=== PATIENT | male | born 1970 | race Caucasian/White ===

== ENCOUNTER 2016-07-28 22:21 | Emergency (ER) | payer MEDICARE, MEDICAID ==
[~2016-07-28] VITALS: Ht 180.3 cm; Wt 124.3 kg
--- OUTSIDE RECORDS SUMMARY | 2016-07-28 22:27 | XMS REPORT | Summary of Care ---
Author Author Madeline Simms M.D. Unknown Address Unknown Phone Unavailable Care Team Providers Care Senior Sustainability Advisor Name Role Phone Jeremy John M.D. Unavailable Unavailable Jamar Spears D.O. Unavailable Unavailable Madeline Simms M.D. Unavailable Homa Todd M.D. Unavailable Madeline Simms Unavailable Unavailable Unavailable Functional Status Name Dates Details Functional status health issues are not documented Status: Name Dates Details Cognitive status health issues are not documented Status: Problems Name Dates Details Vitamin D deficiency (268.9, E55.9) Status: Active Morbid obesity (278.01, E66.01) Status: Active Hyperlipidemia (272.4, E78.5) Status: Active Dyspepsia (536.8, K30) Status: Active Nicotine dependence (305.1, F17.200) Status: Active 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, M19.071) Status: Active Hallux rigidus (735.2, M20.20) Status: Active Plantar fascial fibromatosis (728.71, M72.2) Status: Active Difficulty in walking (719.7, R26.2) Status: Active Obstructive sleep apnea (327.23, G47.33) Status: Active Allergic rhinitis due to pollen (477.0, J30.1) Status: Active Tear of medial meniscus of left knee, initial encounter Status: Active Current some day smoker (305.1, F17.200) Status: Active Chondromalacia of knee, 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, 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: Active Onychomycosis (110.1, B35.1) Status: Active Bipolar affective disorder (296.80, F31.9) Status: Active Effusion of left knee (719.06, M25.462) Status: Active Status post arthroscopy of left knee (V45.89, Z98.890) Status: Active Wound, open, toe (893.0, S91.109A) Status: Active Tobacco use disorder (305.1, F17.200) Status: Active 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, F41.8) Status: Active Essential hypertension (401.9, I10) Status: Active Hypothyroidism (244.9, E03.9) Status: Active Gastroesophageal reflux disease (530.81, K21.9) Status: Active Schizophrenia, unspecified (295.90, F20.9) Status: Active Left hip pain (719.45, M25.552) Status: Active Left knee pain (719.46, M25.562) Status: Active Lower back pain (724.2, M54.5) Status: Active Medications Name Dates Details Metoprolol Tartrate 25 MG Oral Tablet Take one tablet by mouth daily Quantity: 30 Simms M.D.Madeline * Start 21-Apr-2016 Active Levothyroxine Sodium 50 MCG Oral Tablet Take one tablet by mouth daily * Quantity: 30 Refills: 5 Simms M.D.Madeline * Start 19-May-2016 Active LORazepam 1 MG Oral Tablet TAKE 1/2 TABLET IN MORNING, 1 TABLET AT NOON, 1 TABLET AT BEDTIME. * Quantity: 45 Refills: 0 Simms M.D.Madeline * Start Active Levocetirizine Dihydrochloride 5 MG Oral Tablet take one tablet by mouth every day * Quantity: 90 Refills: 3 Simms M.D.Madeline * Start 09-Jun-2016 Active Omeprazole 20 MG Oral Capsule Delayed Release Take one capsule by mouth daily * Quantity: 90 Refills: 2 Simms M.D.Madeline * Start 26-Jan-2012 Active AmLODIPine Besylate 5 MG Oral Tablet TAKE ONE TABLET BY MOUTH IN THE MORNING * Quantity: 30 Refills: 5 Simms M.D.Madeline Start 14-Mar-2016 Active Refresh Tears 0.5 % Ophthalmic Solution INSTILL 1 DROP INTO BOTH EYES 4 TIMES DAILY NEEDED * Quantity: 15 Refills: 1 Simms M.D.Madeline * Start 24-Jun-2013 Active Fluticasone Propionate 50 MCG/ACT Nasal Suspension INSTILL 1 SPRAY IN EACH NOSTRIL ONCE A DAY * Quantity: 16 Refills: 11 Lex John M.D. Start 16-Feb-2016 Active Losartan Potassium 100 MG Oral Tablet Take one tablet by mouth daily * Quantity: 30 Refills: 5 Simms M.D.Madeline * Start 19-May-2016 Active Benztropine Mesylate 1 MG Oral Tablet Take 1 tablet twice daily * Refills: 0 Simms M.D.Madeline * Start 10-Dec-2014 Active Paliperidone ER 6 MG Oral Tablet Extended Release 24 Hour TAKE 1 TABLET DAILY. * Refills: 0 Simms M.D.Madeline * Start 31-May-2015 Active Nicotine Polacrilex 2 MG Mouth/Throat Lozenge ALLOW 1 LOZENGE TO DISSOLVE SLOWLY IN MOUTH DIRECTED * Quantity: 1 Refills: 0 Perez M.D.Kristi * Start Active 48 Lozenge Box Mupirocin 2 % External Ointment Apply to toe daily at HS for 1 month * Quantity: 1 Refills: 1 Simms M.D.Madeline * Start 25-May-2016 Active 22 GM Tube Diclofenac Sodium 75 MG Oral Tablet Delayed Release TAKE ONE TABLET BY MOUTH TWICE DAILY WITH FOOD * Quantity: 60 Refills: 1 Simms M.D.Madeline * Start 06-Jun-2016 Active Hydrocodone-Acetaminophen 7.5-325 MG Oral Tablet TAKE 1 TO 2 TABLETS EVERY 6 HOURS NEEDED FOR PAIN. * Quantity: 40 Refills: 0 Simms M.D.Madeline * Start 08-Mar-2016 Active Nicotine 21 MG/24HR Transdermal Patch 24 Hour APPLY 1 PATCH DAILY DIRECTED. * Quantity: 14 Refills: 0 Simms M.D.Madeline * Start 09-Jun-2016 Active Terbinafine HCl - 250 MG Oral Tablet 1QD FOR 3 MONTHS - TAKE ONE TABLET BY MOUTH EVERY DAY FOR 3 MONTHS * Quantity: 90 Refills: 0 Simms M.D.Madeline * Start 23-Jun-2014 End 19-Jun-2016 Active Naproxen 500 MG Oral Tablet TAKE 1 TABLET EVERY 12 HOURS WITH FOOD NEEDED. * Quantity: 20 Refills: 0 Regan D.O.Jamar * Start 10-Jun-2016 Active Cyclobenzaprine HCl - 10 MG Oral Tablet TAKE 1 TABLET AT BEDTIME NEEDED. MAY INCREASE TO TID IF NOT DRIVING OR OPERATING MACHINERY DURING DAY. * Quantity: 20 Refills: 0 Regan D.O.Jamar * Start 10-Jun-2016 Active PredniSONE 10 MG Oral Tablet TAKE 6 TABLETS TODAY, THEN DECREASE BY 1 TABLET EACH DAY UNTIL GONE. * Quantity: 21 Refills: 0 Regan D.O.Jamar * Start 10-Jun-2016 Active PredniSONE 10 MG Oral Tablet 2 pills for 3 days 1 pill for 3 days then 1/2 pill for 4 days then stop * Quantity: 11 Refills: 0 Simms M.D., Madeline * Start 13-Jun-2016 Active Allergies and Adverse Reactions Name Dates Details Chantix TABS (Allergy) Reaction: Hallucinations (Severe), Other Status: Active DEPO-Medrol SUSP (Allergy) Status: Active Kenalog (Allergy) Status: Active Past Medical History Name Dates Details History of acute bronchitis (V12.69, Z87.09) Status: Resolved History of acute otitis media (V12.49, Z86.69) Status: Resolved History of acute sinusitis (V12., Z87.09) Status: Resolved History of acute sinusitis (V12., Z87.09) Status: Resolved History of Ankle joint pain (719.47, M25.579) Status: Resolved History of Atypical chest pain (786.59, R07.89) Status: Resolved History of Bloating (787.3, R14.0) Status: Resolved History of Blurry Vision As If Looking Through A Glass Of Water Status: Resolved History of Combined form of age-related cataract, 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, 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) Status: Resolved History of conjunctivitis (V12.49, Z86.69) Status: Resolved History of Cough (786.2, R05) Status: Resolved History of Difficulty in walking (719.7, R26.2) Status: Resolved History of esophagitis (V12.79, Z87.19) Status: Resolved History of insomnia (V13.89, Z87.898) Status: Resolved History of Left knee pain (719.46, M25.562) Status: Resolved History of Limb pain (729.5, M79.609) Status: Resolved History of myopia (V12.49, Z86.69) Status: Resolved History of Nausea (787.02, R11.0) Status: Resolved 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, 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: Resolved History of Otitis externa (380.10, H60.90) Status: Resolved History of Otitis media (382.9, H66.90) Status: Resolved History of Plantar fasciitis (728.71, M72.2) Status: Resolved History of Rash (782.1, R21) Status: Resolved History of sinusitis (V12.69, Z87.09) Status: Resolved History of Skin Blister On The Calves Both Status: Resolved History of sprain of ankle (V13.59, Z87.828) Status: Resolved History of sprain of arm (V13.59, Z87.39) Status: Resolved Procedures Procedure Dates Details History of Appendectomy History of Knee Arthroscopy CBC w/ Auto Diff 7150 Ordered: 18-May-2016 Comprehensive Metabolic Panel 1212 Ordered: 18-May-2016 LIPID PROFILE 1184 Ordered: 18-May-2016 THYROID STIM. HORMONE 3602 Ordered: 18-May-2016 Urinalysis, Reflex to Microscopic or Culture PRN [id number] Ordered: 18-May-2016 Immunization Name Dates Details Tdap (Adacel) on: Feb-2007 Influenza on: 05-Apr-2009 Influenza A (H1N1) [place] PF SUSP on: 05-Apr-2009 Fluzone INJ on: 07-Jan-2010 Influenza on: 22-Dec-2010 Influenza Lot #: [id number] on: 23-Jan-2012 Influenza on: 13-Jan-2013 PPD Lot #: [id number] on: Fluzone INJ Lot #: [id number] on: 02-Jan-2014 Fluzone Quadrivalent 0.5 ML Intramuscular Suspension Lot #: [id number] on: 25-Jan-2015 Tdap (Adacel) Lot #: [id number] on: 28-Jun-2015 Fluzone Quadrivalent 0.5 ML Intramuscular Suspension Lot #: [id number] on: 23-Feb-2016 Family History Name Dates Details Family history of Alcoholism Status: Active Family history of Cirrhosis Status: Active Family history of Poliomyelitis Status: Active Family history of Hypertension (V17.49) Status: Active Name Dates Details FH: CABG (coronary artery bypass surgery) (V17.3, Z84.89) Status: Active Name Dates Details Family history of Bipolar Disorder Status: Active Social History Name Dates Details - Status: Name Dates Details Smoker. current status unknown Vital Signs Date Test Result Details 13-Jun-2016 09:27 BP Systolic 160 mm[Hg] Status: Comments: Location: ; Position: BP Diastolic 90 mm[Hg] Status: Comments: Location: ; Position: Heart Rate 80 /min Status: Comments: Location: ; Weight 275 lb Status: Body Mass Index Calculated 37.82 kg/m2 Status: Body Surface Area Calculated 2.43 m2 Status: 10-Jun-2016 08:34 BP Systolic 142 mm[Hg] Status: Comments: Location: ; Position: BP Diastolic 86 mm[Hg] Status: Comments: Location: ; Position: Heart Rate 82 /min Status: Comments: Location: ; Weight 274 lb Status: Body Mass Index Calculated 37.68 kg/m2 Status: Body Surface Area Calculated 2.42 m2 Status: 08-Jun-2016 08:20 BP Systolic 136 mm[Hg] Status: Comments: Location: ; Position: BP Diastolic 88 mm[Hg] Status: Comments: Location: ; Position: Heart Rate 82 /min Status: Comments: Location: ; Physical Findings 93 Status: Comments: O2 Saturation 08-Jun-2016 08:17 Weight 274 lb Status: Body Mass Index Calculated 37.68 kg/m2 Status: Body Surface Area Calculated 2.42 m2 Status: 30-May-2016 15:23 BP Systolic 130 mm[Hg] Status: Comments: Location: ; Position: BP Diastolic 90 mm[Hg] Status: Comments: Location: ; Position: Heart Rate 80 /min Status: Comments: Location: ; Weight 284 lb Status: Body Mass Index Calculated 39.06 kg/m2 Status: Body Surface Area Calculated 2.46 m2 Status: 25-May-2016 08:17 BP Systolic 140 mm[Hg] Status: Comments: Location: ; Position: BP Diastolic 84 mm[Hg] Status: Comments: Location: ; Position: Heart Rate 63 /min Status: Comments: Location: ; Physical Findings 94 Status: Comments: O2 Saturation 25-May-2016 08:14 Weight 280 lb Status: Body Mass Index Calculated 38.51 kg/m2 Status: Body Surface Area Calculated 2.45 m2 Status: 18-May-2016 08:43 BP Systolic 142 mm[Hg] Status: BP Diastolic 82 mm[Hg] Status: Heart Rate 73 /min Status: Physical Findings 94 Status: Comments: O2 Saturation 18-May-2016 08:40 Weight 284 lb Status: Body Mass Index Calculated 39.06 kg/m2 Status: Body Surface Area Calculated 2.46 m2 Status: Results Date Description Value Details 17-May-2016 17:10 CBC w/ Auto Diff 7150 WBC 8.5 K/uL Range: 4.5-11.0 RBC 4.49 mil/uL Range: 4.20-5.40 HGB 13.4 g/dL (Below low threshold) Range: 14.0-18.0 HCT 39.6 % (Below low threshold) Range: 42.0-53.0 MCV 88.2 fL Range: 80.0-99.0 MCH 29.9 pg Range: 27.3-32.5 MCHC 33.9 % Range: 32.0-36.0 RDW 14.4 % Range: 11.6-14.8 PLATELETS 255 K/uL Range: 150-400 MPV 7.0 fL Range: 6.0-11.0 %NEUTRO 60.1 % Range: 37.0-80.0 %LYMPHS 30.1 % Range: 13.0-50.0 %MONO 5.0 % Range: 0.0-12.0 %EOS 2.8 % Range: 0.0-7.0 %BASO 1.0 % Range: 0.0-2.5 %ESTELLA 1.0 % Range: 0.0-5.0 NEUTRO 5.1 K/uL Range: 2.0-6.9 LYMPHS 2.6 K/uL Range: 0.6-3.4 MONOS 0.4 K/uL Range: 0.0-0.9 EOS 0.2 K/uL Range: 0.0-0.7 BASO 0.1 K/uL Range: 0.0-0.2 17:25 BASIC METABOLIC PROFILE 1210 SODIUM 140 mmol/L Range: 133-144 POTASSIUM 4.0 mmol/L Range: 3.5-5.1 CHLORIDE 105 mmol/L Range: 98-110 CARBON DIOXIDE 27.9 mmol/L Range: 23.0-33.0 ANION GAP 7 mmol/L Range: 6-16 BUN 15 mg/dL Range: 7-18 CREATININE, SERUM 1.25 mg/dL Range: 0.70-1.30 EST GFR, >60 ml/min Range: >60 EST GFR, NON-AFR SPANISH >60 ml/min Range: >60 Comments: EST GFR is reported in ml/min per 1.73 m2 of body surface area. ----- BUN:CREATININE RATIO 12 GLUCOSE 85 mg/dL Range: 70-100 CALCIUM 8.9 mg/dL Range: 8.5-10.1 08-Jun-2016 09:12 XRay HIP-Left Comments: Exam Date: 06/08/2016 08: 48Dictation Date: 06/08/2016 09:12 X HIP COMP (MIN 2V) LT 09:12 Xray PELVIS (AP ONLY) Comments: Exam Date: 06/08/2016 08:48Dictation Date: 06/08/2016 09:12 X PELVIS (AP ONLY) Plan of Care Name Dates Details Planned Observations Planned Goals not documented Planned Encounters Appointment; Provider: Aime Rdz M.D. On 15-Jan-2017 13:30 Appointment; Provider: Madeline Simms M.D. On 21-Aug-2016 08:45 Appointment; Provider: Madeline Simms M.D. On 17-Jul-2016 09:15 Appointment; Provider: Renuka Middleton A.P.R.N. On 10-Jul-2016 16:00 Appointment; Provider: Carolynn Arellano DPM On 20-Jun-2016 15:15 Interventions Provided Medication Changes* PredniSONE 10 MG Oral Tablet - Start Instructions Name Dates Details Instructions not documented Encounters Appointment; Jameel Moore M.D. Encounter Diagnosis: Problem not documented On 12-Jun-2016 08:45 Appointment; Jamar Spears D.O. Encounter Diagnosis: Problem not documented On 10-Jun-2016 08:45 Appointment; Madeline Simms M.D. Encounter Diagnosis: Problem not documented On 08-Jun-2016 08:15 Appointment; Madeline Simms M.D. Encounter Diagnosis: Problem not documented On 30-May-2016 15:00 Appointment; Madeline Simms M.D. Encounter Diagnosis: Problem not documented On 25-May-2016 08:30 Appointment; Madeline Simms M.D. Encounter Diagnosis: Problem not documented On 18-May-2016 09:00 Appointment; Madeline Simms M.D. Encounter Diagnosis: Problem not documented On 08-May-2016 14:00 Appointment; Jameel Moore M.D. Encounter Diagnosis: Problem not documented On 24-Apr-2016 11:00 Appointment; Madeline Simms M.D. Encounter Diagnosis: Problem not documented On 11-Apr-2016 10:15 Appointment; Evelyne Perales A.P.R.N. Encounter Diagnosis: Problem not documented On 06-Apr-2016 08:20 Appointment; Madeline Simms M.D. Encounter Diagnosis: Problem not documented On 03-Apr-2016 08:30 Appointment; Jameel Moore M.D. Encounter Diagnosis: Problem not documented On 22-Mar-2016 08:45 Appointment; Madeline Simms M.D. Encounter Diagnosis: Problem not documented On 21-Mar-2016 08:00 Appointment; Mat Pina M.D. Encounter Diagnosis: Problem not documented On 20-Mar-2016 19:19 Appointment; Tressa Coronel P.A. Encounter Diagnosis: Problem not documented On 16-Mar-2016 15:15 Appointment; Pedro Wills M.D. Encounter Diagnosis: Problem not documented On 08-Mar-2016 17:30 Appointment; Madeline Simms M.D. Encounter Diagnosis: Problem not documented On 07-Mar-2016 08:30 Appointment; Jameel Moore M.D. Encounter Diagnosis: Problem not documented On 23-Feb-2016 13:00 Appointment; Madeline Simms M.D. Encounter Diagnosis: Problem not documented On 23-Feb-2016 09:00 Appointment; Carolynn Arellano DPM Encounter Diagnosis: Problem not documented On 15-Feb-2016 09:00 Appointment; Madeline Simms M.D. Encounter Diagnosis: Problem not documented On 08-Feb-2016 11:15 Appointment; Jamar Spears D.O. Encounter Diagnosis: Problem not documented On 05-Feb-2016 08:05 Appointment; Jameel Moore M.D. Encounter Diagnosis: Problem not documented On 31-Jan-2016 08:45 Appointment; Jameel Moore M.D. Encounter Diagnosis: Problem not documented On 24-Jan-2016 08:30 Appointment; Madeline Simms M.D. Encounter Diagnosis: Problem not documented On 21-Jan-2016 09:15 Appointment; Madeline Simms M.D. Encounter Diagnosis: Problem not documented On 18-Jan-2016 09:15 Appointment; Madeline Simms M.D. Encounter Diagnosis: Problem not documented On 03-Jan-2016 09:15 Appointment; Madeline Simms M.D. Encounter Diagnosis: Problem not documented On 27-Dec-2015 09:15 Appointment; Jameel Moore M.D. Encounter Diagnosis: Problem not documented On 15-Dec-2015 14:30 Appointment; Lex John M.D. Encounter Diagnosis: Problem not documented On 07-Dec-2015 16:15 Appointment; Madeline Simms M.D. Encounter Diagnosis: Problem not documented On 07-Dec-2015 10:45 Appointment; Jameel Moore M.D. Encounter Diagnosis: Problem not documented On 06-Dec-2015 15:15 Appointment; Madelnie Simms M.D. Encounter Diagnosis: Problem not documented On 30-Nov-2015 11:15 Appointment; Madeline Simms M.D. Encounter Diagnosis: Problem not documented On 22-Nov-2015 13:30 Appointment; Nemesio Gonzalez M.D. Encounter Diagnosis: Problem not documented On 16-Nov-2015 11:30 Appointment; Nemesio Todd M.D. Encounter Diagnosis: Problem not documented On 15-Nov-2015 14:00 Appointment; Donald Arshad M.D. Encounter Diagnosis: Problem not documented On 11:00 Appointment; Madeline Simms M.D. Encounter Diagnosis: Problem not documented On 10:15 Appointment; Lex John M.D. Encounter Diagnosis: Problem not documented On 11:45 Appointment; Carolynn Arellano DPM Encounter Diagnosis: Problem not documented On 02-Sep-2015 16:45 Appointment; Madeline Simms M.D. Encounter Diagnosis: Problem not documented On 17-Aug-2015 14:45 Appointment; Carolynn Arellano DPM Encounter Diagnosis: Problem not documented On 13-Aug-2015 15:00 Appointment; Sampson Cuadra P.T. Encounter Diagnosis: Problem not documented On 11-Aug-2015 09:00 Appointment; Madeline Simms M.D. Encounter Diagnosis: Problem not documented On 05-Aug-2015 14:00 Appointment; Madeline Simms M.D. Encounter Diagnosis: Problem not documented On 28-Jun-2015 13:30 Appointment; Madeline Simms M.D. Encounter Diagnosis: Problem not documented On 02-Jun-2015 10:30 Appointment; Lex John M.D. Encounter Diagnosis: Problem not documented On 16-Mar-2015 15:00 Appointment; Madeline Simms M.D. Encounter Diagnosis: Problem not documented On 25-Jan-2015 10:00 Appointment; Oh Greer D.O. Encounter Diagnosis: Problem not documented On 12-Jan-2015 08:45 Appointment; Madeline Simms M.D. Encounter Diagnosis: Problem not documented On 01-Jan-2015 10:30 Appointment; Carolynn Arellano DPM Encounter Diagnosis: Problem not documented On 23-Dec-2014 15:15 Appointment; Lex John M.D. Encounter Diagnosis: Problem not documented On 17-Dec-2014 11:45 Appointment; Madeline Simms M.D. Encounter Diagnosis: Problem not documented On 10-Dec-2014 13:30 Appointment; Evelyne Perales A.P.RMnoicaNMonica Encounter Diagnosis: Problem not documented On 09-Dec-2014 14:15 Appointment; Sampson Cuadra P.T. Encounter Diagnosis: Problem not documented On 25-Nov-2014 13:00 Appointment; Renuka Middleton A.P.RMonicaNMonica Encounter Diagnosis: Problem not documented On 16-Nov-2014 13:30 Appointment; Raul Cowart M.D. Encounter Diagnosis: Problem not documented On 10:00 Appointment; Evelyne Perales A.P.R.NMonica Encounter Diagnosis: Problem not documented On 08:35 Appointment; Josse Sheppard M.D. Encounter Diagnosis: Problem not documented On 13:15 Appointment; Madeline Simms M.D. Encounter Diagnosis: Problem not documented On 09:30 Appointment; Vlad Dey M.D. Encounter Diagnosis: Problem not documented On 11-Sep-2014 10:15 Appointment; Madeline Simms M.D. Encounter Diagnosis: Problem not documented On 09-Sep-2014 09:00 Appointment; Madeline Simms M.D. Encounter Diagnosis: Problem not documented On 08-Sep-2014 16:15 Appointment; Gisselle Danielle M.D. Encounter Diagnosis: Problem not documented On 12-Aug-2014 08:25 Appointment; Madeline Simms M.D. Encounter Diagnosis: Problem not documented On 06-Aug-2014 13:45 Appointment; Jane Maria A.P.R.N. Encounter Diagnosis: Problem not documented On 16-Jul-2014 14:30 Appointment; Madeline Simms M.D. Encounter Diagnosis: Problem not documented On 23-Jun-2014 11:00
--- OUTSIDE RECORDS SUMMARY | 2016-07-28 22:27 | XMS REPORT | Summary of Care ---
Author Author Madeline Simms M.D. Unknown Address [address], [place] [id number] Phone Unavailable Care Team Providers Care National [employer]el[employer] Analyst Name Role Phone Jeremy John M.D. Unavailable Unavailable Madeline Simms M.D. Unavailable Unavailable Homa Blanton M.D. 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: Active Seborrheic dermatitis of scalp (690.18, L21.8) Status: Active Dyspepsia (536.8, K30) Status: Active Onychomycosis (110.1, B35.1) Status: Active Bipolar disorder (296.80, F31.9) Status: Active senior care use of drug (V58.69, 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: Active 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, 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200) Status: Active Anemia of chronic disease (285.29, D63.8) Status: Active Paranoid schizophrenia (295.30, F20.0) Status: Active Vitamin d deficiency (268.9, E55.9) Status: Active Allergic rhinitis (477.9, J30.9) Status: Active Seasonal allergies (477.9, J30.2) Status: Active Insomnia (780.52, G47.00) Status: Active Cough (786.2, R05) Status: Active Bronchitis, acute (466.0, J20.9) Status: Active Sinusitis, acute (461.9, J01.90) Status: Active Medications Name Dates Details Metoprolol Tartrate 25 MG Oral Tablet take one tablet by mouth every day Quantity: 30 Madeline Simms M.D.* Started 15-Mar-2009 ActiveLevothyroxine Sodium 50 MCG Oral Tablet take one tablet by mouth every day * Quantity: 30 Refills: 4 SimmsMadeline valle M.D.* Started 26-Aug-2010 ActiveLORazepam 1 MG Oral Tablet TAKE 1 TABLET IN MORNING, 1 TABLET AT NOON, 1 1/2 TABLET AT BEDTIME. * Refills: 0 Madeline Simms M.D.* Started ActiveInvega Sustenna 156 MG/ML Intramuscular Suspension Inject IM every 4 weeks * Refills: 0 Madeline Smims M.D.* Started 25-Nov-2010 ActiveNystatin-Triamcinolone 982373-4.1 UNIT/GM-% External Cream APPLY SPARINGLY TO AFFECTED AREA(S) 3 TIMES A DAY * Quantity: 60 Refills: 0 Madeline Simms M.D.* Started 03-Aug-2011 ActiveLevocetirizine Dihydrochloride 5 MG Oral Tablet take one tablet by mouth every day * Quantity: 90 Refills: 0 Madeline Simms M.D.* Started 26-Dec-2011 ActiveOmeprazole 20 MG Oral Capsule Delayed Release Take one capsule by mouth daily * Quantity: 30 Refills: 4 SimmsMadeline valle M.D.* Started 26-Jan-2012 ActiveAmLODIPine Besylate 5 MG Oral Tablet TAKE ONE TABLET BY MOUTH EVERY MORNING * Quantity: 30 Refills: 6 Madeline Simms M.D.* Started 29-Apr-2013 ActiveVitamin B12 100 MCG Oral Tablet TAKE 1 TABLET DAILY DIRECTED. * Refills: 0 Madeline Simms M.D.* Started 12-Jun-2013 ActiveRefresh Tears 0.5 % Ophthalmic Solution INSTILL 1 DROP INTO BOTH EYES 4 TIMES DAILY NEEDED * Quantity: 15 Refills: 0 Madeline Simms M.D.* Started 24-Jun-2013 ActiveMagnesium Oxide 400 MG Oral Tablet Take One Tablet By Mouth Twice Daily * Quantity: 60 Refills: 0 Madeline Simms M.D.* Started 12-Aug-2013 ActivePataday 0.2 % Ophthalmic Solution INSTILL 1 DROP INTO AFFECTED EYE(S) ONCE DAILY DIRECTED. * Quantity: 1 Refills: 0 Iftikhar Blanton M.D.* Started 19-Dec-2013 Active2.5 ML Bottle Cyclobenzaprine HCl - 10 MG Oral Tablet TAKE 1 TABLET 2 TIMES DAILY NEEDED for muscle cramping * Quantity: 30 Refills: 0 Madeline Simms M.D.* Started 07-Jan-2014 ActiveFluticasone Propionate 50 MCG/ACT Nasal Suspension USE 1 SPRAY IN EACH NOSTRIL ONCE DAILY. * Quantity: 1 Refills: 5 Lex John M.D.* Started 15-Jan-2014 [id number] GM Bottle Mucinex 600 MG Oral Tablet Extended Release 12 Hour TAKE 1 TABLET TWICE DAILY. * Quantity: 42 Refills: 0 Madeline Simms M.D.* Started 03-Mar-2014 ActiveLosartan Potassium 100 MG Oral Tablet take one tablet by mouth every day * Quantity: 30 Refills: 5 Madeline Simms M.D.* Started 03-Mar-2014 ActiveProAir HFA 108 (90 Base) MCG/ACT Inhalation Aerosol Solution inhale 1 to 2 puffs every 4 to 6 hours as needed. * Quantity: 1 Refills: 3 Lex John M.D.* Started 11-Mar-2014 Active8.5 GM Inhaler Fenofibrate 160 MG Oral Tablet take one tablet by mouth every day * Quantity: 30 Refills: 3 Madeline Simms M.D.* Started 23-Mar-2014 ActiveVitamin D 2000 UNIT Oral Capsule TAKE 1 CAPSULE Daily * Quantity: 100 Refills: 0 Madeline Simms M.D.* Started 24-Mar-2014 ActiveHydrOXYzine HCl - 25 MG Oral Tablet TAKE 1-3 TABS AT BEDTIME NEEDED * Quantity: 90 Refills: 0 Lex John M.D.* Started 15-Apr-2014 ActiveNicotine 14 MG/24HR Transdermal Patch 24 Hour APPLY 1 PATCH DAILY DIRECTED. * Quantity: 28 Refills: 0 Madeline Simms M.D.* Started 23-Mar-2014 Active Allergies and Adverse Reactions Name Dates Details Chantix TABS Reaction: Hallucinations (Severe), Other Status: Active Past Medical History Name Dates Details History of Acute sinusitis (461.9, J01.90) Status: Resolved History of Ankle joint pain (719.47, M25.579) Status: Resolved History of Atypical chest pain (786.59, R07.89) Status: Resolved History of Bloating (787.3, R14.0) Status: Resolved History of Blurry Vision As If Looking Through A Glass Of Water Status: Resolved History of conjunctivitis (V12.49, Z86.69) Status: Resolved History of Difficulty in walking (719.7, R26.2) Status: Resolved History of diplopia (V12.49, Z86.69) Status: Resolved History of esophagitis (V12.79, Z87.19) Status: Resolved History of Limb pain (729.5, M79.609) Status: Resolved History of Otitis media (382.9, H66.90) Status: Resolved History of Plantar fasciitis (728.71, M72.2) Status: Resolved History of Rash (782.1, R21) Status: Resolved History of Skin Blister On The Calves Both Status: Resolved History of Snoring (786.09, R06.83) Status: Resolved History of sprain of ankle (V13.59, Z87.39) Status: Resolved History of sprain of arm (V13.59, Z87.39) Status: Resolved Procedures Procedure Dates Details History of Appendectomy Procedures not documented Immunization Name Dates Details Tdap (Adacel) Administered on:Feb-2007 Influenza Administered on:05-Apr-2009 Influenza A (H1N1) Monoval PF Intramuscular Suspension Administered on:05-Apr-2009 Fluzone Intramuscular Injectable Administered on:07-Jan-2010 Influenza Administered on:22-Dec-2010 Influenza Lot #: [id number] Administered on:23-Jan-2012 Influenza Administered on:13-Jan-2013 PPD Lot #: [id number] Administered on: Fluzone Intramuscular Injectable Lot #: [id number] Administered on:02-Jan-2014 Family History Mother* Name Dates Details Family history of Alcoholism Status: Active Family history of Cirrhosis Status: Active Family history of Poliomyelitis Status: Active Family history of Hypertension (V17.49) Status: Active Brother* Name Dates Details Family history of Bipolar Disorder Status: Active Social History Name Dates Details Sleep disturbances (780.50, G47.9) Smoking Status* Current some day smoker Vital Signs Date Test Result Details 20-Apr-2014 14:03 BP Systolic 158 mm[Hg] Status: BP Diastolic 98 mm[Hg] Status: Heart Rate 106 /min Status: Weight 299.8 lb Status: O2 SAT 94 % Status: Body Mass Index Calculated 41.23 kg/m2 Status: Body Surface Area Calculated 2.52 m2 Status: 10-Apr-2014 09:02 BP Systolic 140 mm[Hg] Status: BP Diastolic 90 mm[Hg] Status: Heart Rate 80 /min Status: Temperature 99.5 f Status: Weight 299 lb Status: Body Mass Index Calculated 41.12 kg/m2 Status: Body Surface Area Calculated 2.51 m2 Status: Results Date Description Value Details Results not documented Plan of Care Planned Observations* Name Dates Details Planned Goals not documented Goal Planned Encounters* Appointment; Provider: Lex John On 10:45 * Appointment; Provider: Madeline Simms On 23-Jun-2014 11:00 * Appointment; Provider: Lex John On 18-Jul-2013 10:15 * Appointment; Provider: Madeline Simms On 27-Apr-2008 08:00 Instructions * Instructions not documented Encounters Appointment; Lex John Encounter Diagnosis: Problem not documented On 20-Apr-2014 14:00 Appointment; Madeline Simms Encounter Diagnosis: Problem not documented On 10-Apr-2014 09:00 Appointment; Madeline Simms Encounter Diagnosis: Problem not documented On 23-Mar-2014 10:00 Appointment; Madeline Simms Encounter Diagnosis: Problem not documented On 03-Mar-2014 09:00 Appointment; Lex John Encounter Diagnosis: Problem not documented On 24-Feb-2014 12:45 Appointment; Madeline Simms Encounter Diagnosis: Problem not documented On 13-Feb-2014 09:00 Appointment; Raul Cowart Encounter Diagnosis: Problem not documented On 04-Feb-2014 09:30 Appointment; Madeline Simms Encounter Diagnosis: Problem not documented On 14-Jan-2014 09:30 Appointment; Madeline Simms Encounter Diagnosis: Problem not documented On 02-Jan-2014 10:00 Appointment; Iftikhar Blanton Encounter Diagnosis: Problem not documented On 18-Dec-2013 10:00 Appointment; Lex John Encounter Diagnosis: Problem not documented On 27-Nov-2013 11:30 Appointment; Madeline Simms Encounter Diagnosis: Problem not documented On 11:30 Appointment; Madeline Simms Encounter Diagnosis: Problem not documented On 10:45 Appointment; Madeline Simms Encounter Diagnosis: Problem not documented On 08:00 Appointment; Carolynn Arellano Encounter Diagnosis: Problem not documented On 14:00 Appointment; Madeline Simms Encounter Diagnosis: Problem not documented On 14:00 Appointment; Madeline Simms Encounter Diagnosis: Problem not documented On 13:15 Appointment; Madeline Simms Encounter Diagnosis: Problem not documented On 13:30 Appointment; Carolynn Arellano Encounter Diagnosis: Problem not documented On 11-Sep-2013 13:45 Appointment; Lex John Encounter Diagnosis: Problem not documented On 25-Aug-2013 14:15 Appointment; Madeline Simms Encounter Diagnosis: Problem not documented On 25-Aug-2013 13:00 Appointment; Carolynn Arellano Encounter Diagnosis: Problem not documented On 21-Aug-2013 13:30 Appointment; Nemesio Gonzalez Encounter Diagnosis: Problem not documented On 11-Aug-2013 11:00 Appointment; Lex John Encounter Diagnosis: Problem not documented On 22-Jul-2013 11:30 Appointment; Madeline Simms Encounter Diagnosis: Problem not documented On 18-Jul-2013 14:30 Appointment; Oh Greer Encounter Diagnosis: Problem not documented On 11-Jul-2013 14:30 Appointment; Madeline Simms Encounter Diagnosis: Problem not documented On 24-Jun-2013 14:15 Appointment; Lex John Encounter Diagnosis: Problem not documented On 19-Jun-2013 17:00 Appointment; Madeline Simms Encounter Diagnosis: Problem not documented On 12-Jun-2013 15:15 Appointment; Madeline Simms Encounter Diagnosis: Problem not documented On 12-May-2013 14:15 Appointment; Madeline Simms Encounter Diagnosis: Problem not documented On 29-Apr-2013 14:30 Appointment; Jamar Spears Encounter Diagnosis: Problem not documented On 17-Apr-2013 09:45 Appointment; Madeline Simms Encounter Diagnosis: Problem not documented On 25-Mar-2013 15:30 Appointment; Malcolm Aponte Encounter Diagnosis: Problem not documented On 17-Mar-2013 11:30 Appointment; Madeline Simms Encounter Diagnosis: Problem not documented On 10-Mar-2013 14:45 Appointment; Madeline Simms Encounter Diagnosis: Problem not documented On 13-Jan-2013 15:30 Appointment; Madeline Simms Encounter Diagnosis: Problem not documented On 30-Dec-2012 13:45 Appointment; Madeline Simms Encounter Diagnosis: Problem not documented On 20-Dec-2012 15:15 Appointment; Oh Greer Encounter Diagnosis: Problem not documented On 10-Dec-2012 13:30 Appointment; Madeline Simms Encounter Diagnosis: Problem not documented On 09-Dec-2012 14:15 Appointment; Madeline Simms Encounter Diagnosis: Problem not documented On 29-Nov-2012 15:30 Appointment; Lex Gibbons Encounter Diagnosis: Problem not documented On 27-Nov-2012 14:30 Appointment; Madeline Simms Encounter Diagnosis: Problem not documented On 15:30 Appointment; Madeline Simms Encounter Diagnosis: Problem not documented On 15:15 Appointment; Malcolm Aponte Encounter Diagnosis: Problem not documented On 14:15 Appointment; Lex Gibbons Encounter Diagnosis: Problem not documented On 13:00 Appointment; Madeline Simms Encounter Diagnosis: Problem not documented On 10-Sep-2012 15:45 Appointment; Malcolm Aponte Encounter Diagnosis: Problem not documented On 22-Aug-2012 12:00 Appointment; Malcolm Aponte Encounter Diagnosis: Problem not documented On 21-Aug-2012 15:15 Appointment; Madeline Simms Diagnosis: Problem not documented On 16-Aug-2012 15:30 Appointment; Madeline Simms Diagnosis: Problem not documented On 08-Aug-2012 13:30 Appointment; Madeline Simms Diagnosis: Problem not documented On 13-Jun-2012 15:00 Appointment; Madeline Simms Diagnosis: Problem not documented On 07-May-2012 14:45
--- OUTSIDE RECORDS SUMMARY | 2016-07-28 22:27 | XMS REPORT | Summary of Care ---
Author Author Jamar Spears D.O. Organization Unknown Address [address], [place] [id number] Phone Unavailable Care Team Providers Care Mechanical Detailer Name Role Phone Jeremy John M.D. Unavailable Unavailable Jamar Spears D.O. Unavailable Unavailable Madeline Simms M.D. Unavailable Unavailable Homa Todd M.D. Unavailable Unavailable Madeline Simms Unavailable Unavailable Unavailable Unavailable Functional Status Name Dates [...] 30 Refills: 5 Simms M.D.Madeline * Start 14-Mar-2016 Active Refresh Tears 0.5 % Ophthalmic Solution INSTILL 1 DROP INTO BOTH EYES 4 TIMES DAILY NEEDED * Quantity: 15 Refills: 1 Simms M.D.Madeline * Start 24-Jun-2013 Active Fluticasone Propionate 50 MCG/ACT Nasal Suspension INSTILL 1 SPRAY IN EACH NOSTRIL ONCE A DAY * Quantity: 16 Refills: 11 Sourk M.D., Lex L * Start 16-Feb-2016 Active Losartan Potassium 100 MG [...] MOUTH DIRECTED * Quantity: 1 Refills: 0 Kristi Todd M.D. * Start Active 48 Lozenge Box Mupirocin 2 % External Ointment Apply to toe daily at HS for 1 month * Quantity: 1 Refills: 1 Simms M.D.Maedline * Start 25-May-2016 Active 22 GM Tube [...] 0 Regan D.O.Jamar * Start 10-Jun-2016 Active Allergies and Adverse Reactions Name Dates Details Chantix TABS (Allergy) Reaction: Hallucinations (Severe), Other Status: Active DEPO-Medrol SUSP (Allergy) Status: Active Kenalog (Allergy) Status: Active Past Medical History Name Dates Details History of acute bronchitis (V12.69, Z87.09) Status: Resolved History of acute otitis media (V12.49, Z86.69) Status: Resolved History of acute sinusitis (., Z87.09) Status: Resolved History of acute sinusitis (., Z87.09) Status: Resolved History of Ankle joint [...] 07-Jan-2010 Influenza on: 22-Dec-2010 Influenza Lot #: [id number] on: 23-Jan-2012 Influenza on: 13-Jan-2013 PPD Lot #: [id number] on: Fluzone INJ Lot #: [id number] on: 02-Jan-2014 Fluzone Quadrivalent 0.5 ML Intramuscular Suspension Lot #: [id number] on: 25-Jan-2015 Tdap (Adacel) Lot #: [id number] on: 28-Jun-2015 Fluzone Quadrivalent 0.5 ML Intramuscular Suspension Lot #: [id number] on: 23-Feb-2016 Family History Name Dates Details [...] unknown Vital Signs Date Test Result Details 10-Jun-2016 08:34 BP Systolic 142 mm[Hg] Status: [...] >60 ml/min Range: >60 EST GFR, NON-AFR CAMEROONIAN >60 ml/min Range: >60 Comments: EST GFR [...] Simms M.D. On 17-Jul-2016 09:15 Appointment; Provider: Yvon Walker On 28-Jun-2016 08:15 Appointment; Provider: Jameel Moore M.D. On 12-Jun-2016 08:45 Interventions Provided Medication Changes* Cyclobenzaprine HCl - 10 MG Oral Tablet - Start * Naproxen 500 MG Oral Tablet - Start * PredniSONE 10 MG Oral Tablet - Start Instructions Name Dates Details Instructions not documented Encounters Appointment; Madeline Simms M.D. Encounter Diagnosis: Problem [...] not documented On 15-Dec-2015 14:30 Appointment; Lex oJhn M.D. Encounter Diagnosis: Problem not documented On 07-Dec-2015 16:15 Appointment; Madeline Simms M.D. Encounter Diagnosis: Problem not documented On 07-Dec-2015 10:45 Appointment; Jameel Moore M.D. Encounter Diagnosis: Problem not documented On 06-Dec-2015 15:15 Appointment; Madeline Simms M.D. Encounter Diagnosis: Problem [...] Problem not documented On 11-Aug-2015 09:00 Appointment; aMdeline Simms M.D. Encounter Diagnosis: Problem not documented [...] documented On 10-Dec-2014 13:30 Appointment; Evelyne Perales A.P.RMiladis Encounter Diagnosis: Problem not documented On 09-Dec-2014 14:15 Appointment; Sampson Cuadra P.T. Encounter Diagnosis: Problem not documented On 25-Nov-2014 13:00 Appointment; Renuka Middleton A.PMonicaRMiladis Encounter Diagnosis: Problem not documented On 16-Nov-2014 13:30 Appointment; Raul Cowart M.D. Encounter Diagnosis: Problem not documented On 10:00 Appointment; Evelyne Perales A.P.RMiladis Encounter Diagnosis: Problem not documented On 08:35 [...] documented On 06-Aug-2014 13:45 Appointment; Jane Maria A.PMonicaR.N. Encounter Diagnosis: Problem not documented On 16-Jul-2014 14:30 Appointment; Madeline Simms M.D. Encounter Diagnosis: Problem not documented On 23-Jun-2014 11:00
[2016-07-28 22:28] VITALS: TEMP 98.7; Ht 180.3 cm; Wt 124.3 kg
--- OUTSIDE RECORDS SUMMARY | 2016-07-28 22:28 | XMS REPORT | Summary of Care ---
Author Author Jameel Moore M.D. Unknown Address Unknown Phone Unavailable Care Team Providers Care Customer Experience Professional Name Role Phone Dora Sow, Jeremy Unavailable Unavailable Geovanna Gonzalez M.D. Unavailable Unavailable Zahra Moore M.D. Unavailable Unavailable Mendez Sow, Madeline 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: Active care home use of drug (V58.69, 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: Active Hypomagnesemia (275.2, E83.42) Status: Active Vitamin D deficiency (268.9, E55.9) Status: Active Onychomycosis (110.1, B35.1) Status: Active Morbid obesity (278.01, E66.01) Status: Active Hyperlipidemia (272.4, E78.5) Status: Active Combined form of age-related cataract, 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, 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 History of Tobacco use (305.1, Z72.0) Status: Resolved Dyspepsia (536.8, K30) Status: Active Lower back pain (724.2, M54.5) Status: Active Nicotine dependence (305.1, F17.200) Status: Active Hallux rigidus (735.2, M20.20) Status: Active 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, M19.071) Status: Active Plantar fascial fibromatosis (728.71, M72.2) Status: Active Difficulty in walking (719.7, R26.2) Status: Active Paranoid schizophrenia (295.30, F20.0) Status: Active Insomnia (780.52, G47.00) Status: Active Obstructive sleep apnea (327.23, G47.33) Status: Active Hypersomnolence (780.54, G47.10) Status: Active Essential hypertension (401.9, I10) Status: Active Hypothyroidism (244.9, E03.9) Status: Active Allergic rhinitis due to pollen (477.0, J30.1) Status: Active Gastroesophageal reflux disease (530.81, K21.9) Status: Active Tear of medial meniscus of left knee, initial encounter Status: Active Acquired hallux rigidus of right foot (735.2, M20.21) Status: Active Current some day smoker (305.1, F17.210) Status: Active Pain in left knee (719.46, M25.562) Status: Active Effusion of left knee (719.06, M25.462) Status: Active Chondromalacia of knee, 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, 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: Active Left knee pain (719.46, M25.562) Status: Active 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, F41.8) Status: Active Nasal congestion (478.19, R09.81) Status: Active Need for vaccination (V05.9, Z23) Status: Active Status post arthroscopy of left knee (V45.89, Z98.890) Status: Active Medications Name Dates Details Metoprolol Tartrate 25 MG Oral Tablet Take one tablet by mouth daily Quantity: 30 Simms M.D.Madeline * Start 27-Dec-2015 Active Levothyroxine Sodium 50 MCG Oral Tablet Take one tablet by mouth daily * Quantity: 30 Refills: 5 Simms M.D.Madeline * Start 26-Nov-2015 Active Nystatin-Triamcinolone 708422-3.1 UNIT/GM-% External Cream APPLY SPARINGLY TO AFFECTED AREA(S) 3 TIMES A DAY * Quantity: 1 Refills: 0 Simms M.D.Madeline * Start 03-Aug-2011 Active 60 GM Tube Levocetirizine Dihydrochloride 5 MG Oral Tablet take one tablet by mouth every day * Quantity: 90 Refills: 3 Simms M.D.Madeline * Start 26-Dec-2011 Active Omeprazole 20 MG Oral Capsule Delayed Release Take one capsule by mouth daily * Quantity: 30 Refills: 2 Simms M.D.Madeline * Start 23-Dec-2015 Active Refresh Tears 0.5 % Ophthalmic Solution INSTILL 1 DROP INTO BOTH EYES 4 TIMES DAILY NEEDED * Quantity: 15 Refills: 1 Simms M.D.Madeline * Start 24-Jun-2013 Active Wellbutrin XL 300 MG Oral Tablet Extended Release 24 Hour take one tablet by mouth every day * Quantity: 30 Refills: 0 * Start Active LORazepam 1 MG Oral Tablet TAKE 1/2 TABLET IN MORNING, 1 TABLET AT NOON, 1 TABLET AT BEDTIME. * Quantity: 45 Refills: 0 Simms M.DMadeline Anderson * Start Active Benztropine Mesylate 1 MG Oral Tablet Take 1 tablet twice daily * Refills: 0 Simms M.DMadeline Anderson * Start 10-Dec-2014 Active Paliperidone ER 6 MG Oral Tablet Extended Release 24 Hour TAKE 1 TABLET DAILY. * Refills: 0 Simms M.Madeline Stover * Start 31-May-2015 Active AmLODIPine Besylate 5 MG Oral Tablet TAKE ONE TABLET BY MOUTH EVERY MORNING * Quantity: 30 Refills: 5 Simms M.DMadeline Anderson * Start 29-Apr-2013 Active Nicotine Polacrilex 2 MG Mouth/Throat Lozenge ALLOW 1 LOZENGE TO DISSOLVE SLOWLY IN MOUTH DIRECTED * Quantity: 1 Refills: 0 Kristi Todd M.D. * Start Active 48 Lozenge Box Polyethylene Glycol 3350 Oral Powder MIX ONE CAPFUL IN 8OZ OF WATER AND TAKE TWO TIMES A DAY * Quantity: 527 Refills: 0 Nemesio Gonzalez M.D. * Start 16-Nov-2015 Active Methocarbamol 750 MG Oral Tablet TAKE ONE TABLET BY MOUTH TWICE DAILY NEEDED FOR MUSCLE SPASMS, Must last 90 days * Quantity: 180 Refills: 0 Mendez Guajardo.Madeline Stover * Start 02-Jun-2015 Active Losartan Potassium 100 MG Oral Tablet Take one tablet by mouth daily * Quantity: 30 Refills: 5 Simms M.D.Madeline * Start 26-Nov-2015 Active ClonazePAM 1 MG Oral Tablet Take 3 tablets by mouth every night at bedtime * Quantity: 90 Refills: 5 Lex John M.D. * Start 07-Dec-2015 Active Fluticasone Propionate 50 MCG/ACT Nasal Suspension INSTILL 1 SPRAY IN EACH NOSTRIL ONCE A DAY * Quantity: 16 Refills: 11 Sourk Magi, Lex Luna * Start 16-Feb-2016 Active Celecoxib 200 MG Oral Capsule TAKE ONE CAPSULE BY MOUTH ONCE DAILY WITH A MEAL * Quantity: 30 Refills: 3 Simms M.Jolanta, Madeline * Start 27-Dec-2015 Active Allergies and Adverse Reactions Name Dates Details Chantix TABS (Allergy) Reaction: Hallucinations (Severe), Other Status: Active DEPO-Medrol SUSP (Allergy) Status: Active Kenalog (Allergy) Status: Active Past Medical History Name Dates Details History of acute bronchitis (V12.69, Z87.09) Status: Resolved History of acute otitis media (V12.49, Z86.69) Status: Resolved History of acute sinusitis (V12.69, Z87.09) Status: Resolved History of acute sinusitis [...] insomnia (V13.89, Z87.898) Status: Resolved History of Limb pain (729.5, [...] History of Appendectomy History of Knee Arthroscopy BASIC METABOLIC PROFILE 1210 Ordered: 08-Feb-2016 CBC w/ Auto Diff 7150 Ordered: 08-Feb-2016 Immunization Name Dates Details Tdap (Adacel) on: Feb-2007 Influenza on: 05-Apr-2009 Influenza A (H1N1) [place] PF SUSP on: 05-Apr-2009 Fluzone INJ on: 07-Jan-2010 Influenza on: 22-Dec-2010 Influenza Lot #: [id number] on: 23-Jan-2012 Influenza on: 13-Jan-2013 PPD Lot #: [id number] on: Fluzone INJ Lot #: [id number] on: 02-Jan-2014 Fluzone Quadrivalent 0.5 ML Intramuscular Suspension Lot #: [id number] on: 25-Jan-2015 Tdap (Adacel) Lot #: [id number] on: 28-Jun-2015 Fluzone Quadrivalent 0.5 ML Intramuscular Suspension Lot #: [id number] on: 23-Feb-2016 Family History Name Dates Details Family history of Alcoholism Status: Active Family history of Cirrhosis Status: Active Family history of Poliomyelitis Status: Active Family history of Hypertension (V17.49) Status: Active Name Dates Details FH: CABG (coronary artery bypass surgery) (V17.3, Z84.89) Status: Active Name Dates Details Family history of Bipolar Disorder Status: Active Social History Name Dates Details History of Tobacco use (305.1, Z72.0) Status: Resolved as of 28-Jun-2015 Name Dates Details Current some day smoker Vital Signs Date Test Result Details 23-Feb-2016 08:45 BP Systolic 140 mm[Hg] Status: Comments: Location: ; Position: BP Diastolic 80 mm[Hg] Status: Comments: Location: ; Position: Heart Rate 88 /min Status: Comments: Location: ; Weight 277 lb Status: Body Mass Index Calculated 38.1 kg/m2 Status: Body Surface Area Calculated 2.43 m2 Status: 25-Oct-2016 11:47 BP Systolic 142 mm[Hg] Status: Comments: Location: ; Position: BP Diastolic 88 mm[Hg] Status: Comments: Location: ; Position: 08-Feb-2016 11:40 Heart Rate 88 /min Status: Comments: Location: ; Weight 268 lb Status: Physical Findings 98 Status: Comments: O2 Saturation Body Mass Index Calculated 36.86 kg/m2 Status: Body Surface Area Calculated 2.4 m2 Status: 05-Feb-2016 08:16 BP Systolic 144 mm[Hg] Status: BP Diastolic 90 mm[Hg] Status: Temperature 97.9 f Status: Heart Rate 78 /min Status: Comments: Location: ; Physical Findings 18 Status: Comments: Respiration Height 71.5 in Status: Weight 272 lb Status: Physical Findings 96 Status: Comments: O2 Saturation Body Mass Index Calculated 37.41 kg/m2 Status: Body Surface Area Calculated 2.42 m2 Status: Results Date Description Value Details 05-Feb-2016 08:36 CBC w/ Auto Diff 7150 WBC 8.2 K/uL Range: 4.5-11.0 RBC 4.39 mil/uL Range: 4.20-5.40 HGB 13.2 g/dL (Below low threshold) Range: 14.0-18.0 HCT 38.6 % (Below low threshold) Range: 42.0-53.0 MCV 88.0 fL Range: 80.0-99.0 MCH 30.0 pg Range: 27.3-32.5 MCHC 34.1 % Range: 32.0-36.0 RDW 14.5 % Range: 11.6-14.8 PLATELETS 241 K/uL Range: 150-400 MPV 6.8 fL Range: 6.0-11.0 %NEUTRO 70.2 % Range: 37.0-80.0 %LYMPHS 20.2 % Range: 13.0-50.0 %MONO 5.5 % Range: 0.0-12.0 %EOS 2.0 % Range: 0.0-7.0 %BASO 0.9 % Range: 0.0-2.5 %ESTELLA 1.0 % Range: 0.0-5.0 NEUTRO 5.8 K/uL Range: 2.0-6.9 LYMPHS 1.7 K/uL Range: 0.6-3.4 MONOS 0.5 K/uL Range: 0.0-0.9 EOS 0.2 K/uL Range: 0.0-0.7 BASO 0.1 K/uL Range: 0.0-0.2 09:00 Comprehensive Metabolic Panel 1212 SODIUM 136 mmol/L Range: 133-144 POTASSIUM 4.0 mmol/L Range: 3.5-5.1 CHLORIDE 100 mmol/L Range: 98-110 CARBON DIOXIDE 25.2 mmol/L Range: 23.0-33.0 ANION GAP 11 mmol/L Range: 6-16 BUN 15 mg/dL Range: 7-18 CREATININE, SERUM 1.22 mg/dL Range: 0.70-1.30 BUN:CREATININE RATIO 12 EST GFR, >60 ml/min Range: >60 EST GFR, NON-AFR BHUTANESE >60 ml/min Range: >60 Comments: EST GFR is reported in ml/min per 1.73 m2 of body surface area. ----- GLUCOSE 101 mg/dL (Above high threshold) Range: 70-100 ALK PHOSPHATASE 60 U/L Range: 46-116 TOTAL BILIRUBIN 0.40 mg/dL Range: 0.20-1.00 AST 26 U/L Range: 8-35 ALT 42 U/L Range: 16-63 ALBUMIN 4.0 g/dL Range: 3.4-5.0 TOTAL PROTEIN 7.0 g/dL Range: 6.4-8.2 A/G RATIO 1.3 units Range: 1.0-1.8 CALCIUM 9.4 mg/dL Range: 8.5-10.1 Plan of Care Name Dates Details Planned Observations Planned Goals not documented Planned Encounters Appointment; Provider: Aime Rdz M.D. On 15-Jan-2017 13:30 Appointment; Provider: Lex John M.D. On 07-Jun-2016 13:15 Appointment; Provider: Madeline Simms M.D. On 11-May-2016 11:00 Instructions Name Dates Details Instructions not documented [...] Problem not documented On 31-Jan-2016 08:45 Appointment; Jamele Moore M.D. Encounter Diagnosis: Problem not documented [...] documented On 25-Nov-2014 13:00 Appointment; Renuka Middleton A.P.RMiladis Encounter Diagnosis: Problem not documented On 16-Nov-2014 13:30 Appointment; Raul Cowart M.D. Encounter Diagnosis: Problem not documented On 10:00 Appointment; Evelyne Perales A.P.R.N. Encounter Diagnosis: Problem not documented On 08:35 [...] Diagnosis: Problem not documented On 23-Jun-2014 11:00 Appointment; Madeline Simms M.D. Encounter Diagnosis: Problem not documented On 12-May-2014 14:15 Appointment; Lela Nunes M.D. Encounter Diagnosis: Problem not documented On 05-May-2014 09:00 Appointment; Lex John M.D. Encounter Diagnosis: Problem not documented On 20-Apr-2014 14:00 Appointment; Madeline Simms M.D. Encounter Diagnosis: Problem not documented On 10-Apr-2014 09:00 Appointment; Madeline Simms M.D. Encounter Diagnosis: Problem not documented On 23-Mar-2014 10:00 Appointment; Madeline Simms M.D. Encounter Diagnosis: Problem not documented On 03-Mar-2014 09:00 Appointment; Lex John M.D. Encounter Diagnosis: Problem not documented On 24-Feb-2014 12:45
--- OUTSIDE RECORDS SUMMARY | 2016-07-28 22:28 | XMS REPORT | Summary of Care ---
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 Unavailable [...] Status: Active Dyspepsia (536.8, K30) Status: Active Lower back [...] Gastroesophageal reflux disease (530.81, K21.9) Status: Active Left knee pain (719.46, M25.562) Status: Active Schizophrenia, unspecified (295.90, F20.9) Status: Active Medications Name Dates Details Metoprolol [...] DAY * Quantity: 16 Refills: 11 Sourk M.D.Lex Start 16-Feb-2016 Active Losartan Potassium 100 MG Oral Tablet Take one tablet by mouth daily * Quantity: 30 Refills: 5 Simms M.D.Madeline * Start 19-May-2016 Active Terbinafine HCl - 250 MG Oral Tablet 1QD FOR 3 MONTHS - TAKE ONE TABLET BY MOUTH EVERY DAY FOR 3 MONTHS * Quantity: 90 Refills: 0 Simms M.D.Madeline * Start 23-Jun-2014 End 19-Jun-2016 Active Benztropine Mesylate 1 MG Oral Tablet [...] M.D.Kristi * Start Active 48 Lozenge Box Diclofenac Sodium 75 MG Oral Tablet Delayed Release Take 1 tab bid with food * Quantity: 60 Refills: 0 Ismms M.D.Madeline * Start 08-May-2016 Active Nicotine 21 MG/24HR Transdermal Patch 24 Hour APPLY 1 PATCH DAILY DIRECTED. * Quantity: 1 Refills: 0 Simms M.D.Madeline Start 25-May-2016 Active Mupirocin 2 % External Ointment Apply to toe daily at HS for 1 month * Quantity: 1 Refills: 1 Simms M.D.Madeline Start 25-May-2016 Active 22 GM Tube Hydrocodone-Acetaminophen 7.5-325 MG Oral Tablet TAKE 1 TO 2 TABLETS EVERY 6 HOURS NEEDED FOR PAIN. * Quantity: 40 Refills: 0 Simms M.D.Madeline * Start 08-Mar-2016 Active Allergies and Adverse Reactions Name Dates Details Chantix TABS (Allergy) Reaction: Hallucinations (Severe), Other Status: Active DEPO-Medrol SUSP (Allergy) Status: Active Kenalog (Allergy) Status: Active Past Medical History Name Dates Details History of acute bronchitis (V12.69, Z87.09) Status: Resolved History of acute otitis media (V12.49, Z86.69) Status: Resolved History of acute sinusitis (V12.69, Z87.09) Status: Resolved History of acute sinusitis (V12.69, Z87.09) Status: Resolved History of Ankle joint [...] 07-Jan-2010 Influenza on: 22-Dec-2010 Influenza Lot #: [id number] on: 23-Jan-2012 Influenza on: 13-Jan-2013 PPD Lot #: [id number] on: Fluzone INJ Lot #: [id number] on: 02-Jan-2014 Fluzone Quadrivalent 0.5 ML Intramuscular Suspension Lot #: [id number] on: 25-Jan-2015 Tdap (Adacel) Lot #: [id number] on: 28-Jun-2015 Fluzone Quadrivalent 0.5 ML Intramuscular Suspension Lot #: [id number] on: 23-Feb-2016 Family History Name Dates Details [...] unknown Vital Signs Date Test Result Details 30-May-2016 15:23 BP Systolic 130 mm[Hg] Status: [...] 18-May-2016 08:43 BP Systolic 142 mm[Hg] Status: Comments: Location: ; Position: BP Diastolic 82 mm[Hg] Status: Comments: Location: ; Position: Heart Rate 73 /min Status: Comments: Location: ; Physical Findings 94 Status: Comments: O2 Saturation 18-May-2016 08:40 Weight 284 lb Status: Body Mass Index Calculated 39.06 kg/m2 Status: Body Surface Area Calculated 2.46 m2 Status: 08-May-2016 14:06 BP Systolic 140 mm[Hg] Status: BP Diastolic 86 mm[Hg] Status: Heart Rate 76 /min Status: Physical Findings 96 Status: Comments: O2 Saturation 08-May-2016 14:04 Weight 283 lb Status: Body Mass Index Calculated 38.92 kg/m2 Status: Body Surface Area Calculated 2.46 [...] >60 ml/min Range: >60 EST GFR, NON-AFR BEL[place] >60 ml/min Range: >60 Comments: EST GFR is reported in ml/min per 1.73 m2 of body surface area. ----- BUN:CREATININE RATIO 12 GLUCOSE 85 mg/dL Range: 70-100 CALCIUM 8.9 mg/dL Range: 8.5-10.1 Plan of Care Name Dates Details Planned Observations Planned Goals not documented Planned Encounters Appointment; Provider: Aime Rdz M.D. On 15-Jan-2017 13:30 Appointment; Provider: Madeline Simms M.D. On 21-Aug-2016 08:45 Appointment; Provider: Madeline Simms M.D. On 08-Jun-2016 08:15 Appointment; Provider: Jameel Moore M.D. On 05-Jun-2016 13:00 Appointment; Provider: Yvon Walker On 05-Jun-2016 08:30 Interventions Provided Medication Changes* ClonazePAM 1 MG Oral Tablet - Completed Instructions Name Dates Details Instructions not documented [...] not documented On 16-Mar-2015 15:00 Appointment; Madeline iSmms M.D. Encounter Diagnosis: Problem not documented On [...] documented On 06-Aug-2014 13:45 Appointment; Jane Maria A.PMonicaRMiladis Encounter Diagnosis: Problem not documented On 16-Jul-2014 14:30 Appointment; Madeline Simms M.D. Encounter Diagnosis: Problem not documented On 23-Jun-2014 11:00
--- OUTSIDE RECORDS SUMMARY | 2016-07-28 22:28 | XMS REPORT | Summary of Care ---
Author Author Mendez Sow, Madeline De La Paz Unknown Address Unknown Phone Unavailable Care Team Providers Care Medical Social Consultant Name Role Phone Dora Sow, Jeremy Unavailable Unavailable Lisa Sow, Geovanna Unavailable Unavailable Mendez Sow, Madeline 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: Active 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 (V58.69, 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: Active Hypomagnesemia (275.2, E83.42) Status: Active Vitamin D deficiency (268.9, E55.9) Status: Active Allergic rhinitis (477.9, J30.9) Status: Active Seasonal allergies (477.9, J30.2) Status: Active Onychomycosis (110.1, B35.1) Status: Active Morbid obesity (278.01, E66.01) Status: Active Hyperlipidemia (272.4, E78.5) Status: Active Combined form of age-related cataract, 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, 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 Insomnia (780.52, G47.00) Status: Active History of Tobacco use (305.1, Z72.0) Status: Resolved Essential hypertension (401.9, I10) Status: Active Hypothyroidism (244.9, E03.9) Status: Active Obstructive sleep apnea (327.23, G47.33) Status: Active Dyspepsia (536.8, K30) Status: Active Muscle spasm (728.85, M62.838) Status: Active Lower back pain (724.2, M54.5) Status: Active Nicotine dependence (305.1, F17.200) Status: Active 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, M19.071) Status: Active Hallux rigidus (735.2, M20.20) Status: Active Acquired hallux rigidus of right foot (735.2, M20.21) Status: Active Bilateral pain of leg and foot (729.5, M79.604) Status: Active Plantar fascial fibromatosis (728.71, M72.2) Status: Active Difficulty in walking (719.7, R26.2) Status: Active Right foot pain (729.5, M79.671) Status: Active Acute maxillary sinusitis, recurrence not specified (461.0, J01.00) Status: Active Allergic rhinitis due to pollen (477.0, J30.1) Status: Active URI, acute (465.9, J06.9) Status: Active Chest wall pain (786.52, R07.89) Status: Active Dysuria (788.1, R30.0) Status: Active Abdominal pain (789.00, R10.9) Status: Active Paranoid schizophrenia (295.30, F20.0) Status: Active RLQ cramping (789.03, R10.31) Status: Active Diarrhea (787.91, R19.7) Status: Active Abdominal pain of multiple sites (789.09, R10.9) Status: Active Constipation (564.00, K59.00) Status: Active Pain in left knee (719.46, M25.562) Status: Active Medications Name Dates Details Metoprolol Tartrate 25 MG Oral Tablet Take one tablet by mouth daily Quantity: 30 Simms M.D.Madeline * Start 17-Nov-2015 Active Levothyroxine Sodium 50 MCG Oral Tablet Take one tablet by mouth daily * Quantity: 30 Refills: 5 Simms M.D., Madeline * Start 26-Nov-2015 Active LORazepam 1 MG Oral Tablet TAKE 1/2 TABLET IN MORNING, 1 TABLET AT NOON, 1 TABLET AT BEDTIME. * Quantity: 45 Refills: 0 Simms M.D., Madeline * Start Active Levocetirizine Dihydrochloride 5 MG Oral Tablet take one tablet by mouth every day * Quantity: 90 Refills: 3 Simms M.D.Madeline * Start 26-Dec-2011 Active Omeprazole 20 MG Oral Capsule Delayed Release Take one capsule by mouth daily * Quantity: 30 Refills: 0 Simms M.D.Madeline * Start 19-Nov-2015 Active AmLODIPine Besylate 5 MG Oral Tablet TAKE ONE TABLET BY MOUTH EVERY MORNING * Quantity: 30 Refills: 5 Simms M.D., Madeline * Start 29-Apr-2013 Active Refresh Tears 0.5 % Ophthalmic Solution INSTILL 1 DROP INTO BOTH EYES 4 TIMES DAILY NEEDED * Quantity: 15 Refills: 1 Simms M.D., Madeline * Start 24-Jun-2013 Active Fluticasone Propionate 50 MCG/ACT Nasal Suspension USE 1 SPRAY IN EACH NOSTRIL ONCE DAILY. * Quantity: 16 Refills: 5 Dora M.D.Lex * Start 15-Jan-2014 Active Losartan Potassium 100 MG Oral Tablet Take one tablet by mouth daily * Quantity: 30 Refills: 5 Simms M.D., Madeline * Start 26-Nov-2015 Active Wellbutrin XL 300 MG Oral Tablet Extended Release 24 Hour take one tablet by mouth every day * Quantity: 30 Refills: 0 * Start Active Benztropine Mesylate 1 MG Oral Tablet Take 1 tablet twice daily * Refills: 0 Mendez M.D.Madeline * Start 10-Dec-2014 Active Belsomra 20 MG Oral Tablet TAKE ONE TABLET BY MOUTH AT BEDTIME NEEDED * Quantity: 30 Refills: 0 Lex John M.D. * Start 20-Aug-2014 Active Paliperidone ER 6 MG Oral Tablet Extended Release 24 Hour TAKE 1 TABLET DAILY. * Refills: 0 Mendez Guajardo.Madeline Stover * Start 31-May-2015 Active Nicotine Polacrilex 2 MG Mouth/Throat Lozenge ALLOW 1 LOZENGE TO DISSOLVE SLOWLY IN MOUTH DIRECTED * Quantity: 1 Refills: 0 Kristi Todd M.D. * Start Active 48 Lozenge Box Naproxen 500 MG Oral Tablet TAKE ONE TABLET BY MOUTH TWICE DAILY WITH FOOD * Quantity: 60 Refills: 0 Mendez M.D.Madeline * Start 17-Aug-2015 Active Polyethylene Glycol 3350 Oral Powder MIX ONE CAPFUL IN 8OZ OF WATER AND TAKE TWO TIMES A DAY * Quantity: 527 Refills: 0 Nemesio Gonzalez M.D. * Start 16-Nov-2015 Active HydrOXYzine HCl - 25 MG Oral Tablet TAKE 1-3 TABLETS BY MOUTH AT BEDTIME NEEDED * Quantity: 60 Refills: 5 Lex John M.D. * Start 18-Nov-2015 Active Methocarbamol 750 MG Oral Tablet TAKE ONE TABLET BY MOUTH TWICE DAILY NEEDED FOR MUSCLE SPASMS, Must last 90 days * Quantity: 180 Refills: 0 Mendez SowMadeline * Start 02-Jun-2015 Active Allergies and Adverse Reactions Name Dates Details Chantix TABS (Allergy) Reaction: Hallucinations (Severe), Other Status: Active DEPO-Medrol SUSP (Allergy) Status: Active Kenalog (Allergy) Status: Active Past Medical History Name Dates Details History of acute bronchitis (V12.69, Z87.09) Status: Resolved History of acute otitis media (V12.49, Z86.69) Status: Resolved History of acute sinusitis (., Z87.09) Status: Resolved History of acute sinusitis (V1., Z87.09) Status: Resolved History of Ankle joint [...] Nausea (787.02, R11.0) Status: Resolved History of Need for vaccination (V05.9, Z23) Status: Resolved History of Optic disc drusen [...] Procedures Procedure Dates Details History of Appendectomy CBC w/ Auto Diff 7150 Ordered: Comprehensive Metabolic Panel 1212 Ordered: Immunization Name Dates Details Tdap (Adacel) on: Feb-2007 Influenza on: 05-Apr-2009 Influenza A (H1N1) Monoval PF SUSP on: 05-Apr-2009 Fluzone INJ on: 07-Jan-2010 Influenza on: 22-Dec-2010 Influenza Lot #: [id number] on: 23-Jan-2012 Influenza on: 13-Jan-2013 PPD Lot #: [id number] on: Fluzone INJ Lot #: [id number] on: 02-Jan-2014 Fluzone Quadrivalent 0.5 ML Intramuscular Suspension Lot #: [id number] on: 25-Jan-2015 Tdap (Adacel) Lot #: [id number] on: 28-Jun-2015 Family History Name Dates Details Family history [...] smoker Vital Signs Date Test Result Details 30-Nov-2015 11:22 BP Systolic 130 mm[Hg] Status: Comments: Location: ; Position: BP Diastolic 88 mm[Hg] Status: Comments: Location: ; Position: Heart Rate 87 /min Status: Comments: Location: ; Physical Findings 95 Status: Comments: O2 Saturation 30-Nov-2015 11:17 Weight 271 lb Status: Body Mass Index Calculated 45.1 kg/m2 Status: Body Surface Area Calculated 2.25 m2 Status: 16-Nov-2015 09:30 BP Systolic 136 mm[Hg] Status: Comments: Location: ; Position: BP Diastolic 100 mm[Hg] Status: Comments: Location: ; Position: Temperature 99.3 f Status: Comments: Method: Weight 268 lb Status: Body Mass Index Calculated 44.6 kg/m2 Status: Body Surface Area Calculated 2.24 m2 Status: 15-Nov-2015 13:54 BP Systolic 142 mm[Hg] Status: Comments: Location: ; Position: BP Diastolic 88 mm[Hg] Status: Comments: Location: ; Position: Temperature 97.5 f Status: Heart Rate 86 /min Status: Comments: Location: ; Weight 270 lb Status: Body Mass Index Calculated 44.93 kg/m2 Status: Body Surface Area Calculated 2.25 m2 Status: 11:34 BP Systolic 146 mm[Hg] Status: BP Diastolic 74 mm[Hg] Status: Heart Rate 80 /min Status: Weight 265 lb Status: Body Mass Index Calculated 44.1 kg/m2 Status: Body Surface Area Calculated 2.23 m2 Status: Results Date Description Value Details 16-Nov-2015 10:09 CBC w/ Auto Diff 7150 WBC 7.4 K/uL Range: 4.5-11.0 RBC 4.86 mil/uL Range: 4.20-5.40 HGB 14.1 g/dL Range: 14.0-18.0 HCT 41.6 % (Below low threshold) Range: 42.0-53.0 MCV 85.6 fL Range: 80.0-99.0 MCH 29.0 pg Range: 27.3-32.5 MCHC 33.8 % Range: 32.0-36.0 RDW 13.5 % Range: 11.6-14.8 PLATELETS 285 K/uL Range: 150-400 MPV 6.7 fL Range: 6.0-11.0 %NEUTRO 73.0 % Range: 37.0-80.0 %LYMPHS 18.0 % Range: 13.0-50.0 %MONO 5.0 % Range: 0.0-12.0 %EOS 1.9 % Range: 0.0-7.0 %BASO 1.0 % Range: 0.0-2.5 %ESTELLA 1.1 % Range: 0.0-5.0 NEUTRO 5.4 K/uL Range: 2.0-6.9 LYMPHS 1.3 K/uL Range: 0.6-3.4 MONOS 0.4 K/uL Range: 0.0-0.9 EOS 0.1 K/uL Range: 0.0-0.7 BASO 0.1 K/uL Range: 0.0-0.2 10:11 Urinalysis, Reflex to Microscopic or Culture PRN 8005 pH 7.5 Range: 5.0-7.5 SP GRAVITY <=1.005 (Abnormal) Range: 1.010-1.030 APPEARANCE CLEAR Range: Clear COLOR YELLOW Range: Straw-Yellow PROTEIN NEGATIVE mg/dL Range: Negative-Trace GLUCOSE NEGATIVE mg/dL Range: Negative KETONE NEGATIVE mg/dL Range: Negative BILIRUB NEGATIVE Range: Negative BLOOD NEGATIVE Range: Negative UROBIL 0.2 EU/dL Range: 0.2-1.0 NITRITE NEGATIVE Range: Negative LEUK NEGATIVE Range: Negative 10:42 Comprehensive Metabolic Panel 1212 SODIUM 141 mmol/L Range: 133-144 POTASSIUM 4.6 mmol/L Range: 3.5-5.1 CHLORIDE 105 mmol/L Range: 98-110 CARBON DIOXIDE 26.3 mmol/L Range: 23.0-33.0 ANION GAP 10 mmol/L Range: 6-16 BUN 8 mg/dL Range: 7-18 CREATININE, SERUM 1.02 mg/dL Range: 0.70-1.30 Comments: Please note new reference ranges effective 2014.----- BUN:CREATININE RATIO 8 EST GFR, >60 ml/min Range: >60 EST GFR, NON-AFR BURKINAN >60 ml/min Range: >60 Comments: EST GFR is reported in ml/min per 1.73 m2 of body surface area. For -[place], please multiple result by 1.2.----- GLUCOSE 112 mg/dL (Above high threshold) Range: 70-100 ALK PHOSPHATASE 65 U/L Range: 46-116 TOTAL BILIRUBIN 0.50 mg/dL Range: 0.20-1.00 AST 27 U/L Range: 8-35 ALT 40 U/L Range: 16-63 Comments: Please note new reference ranges. Effective 06/25/2014.----- ALBUMIN 4.4 g/dL Range: 3.4-5.0 TOTAL PROTEIN 7.3 g/dL Range: 6.4-8.2 A/G RATIO 1.5 units Range: 1.0-1.8 CALCIUM 9.4 mg/dL Range: 8.5-10.1 10:42 C REACTIVE PROTEIN, CRP 2030 C REACTIVE PROTEIN 0.3 mg/dL Range: 0.0-0.9 30-Nov-2015 12:42 XRay KNEE-Left Comments: Exam Date: 11/30/2015 11: 40Dictation Date: 11/30/2015 12:42 X KNEE COMP (MIN 4V) LT 12:53 Xray ABD ( KUB) Comments: Exam Date: 11/30/2015 11:40Dictation Date: 11/30/2015 12:53 X ABDOMEN (1V) 12:58 Urinalysis, Reflex to Microscopic or Culture PRN 8005 pH 7.0 Range: 5.0-7.5 SP GRAVITY <=1.005 (Abnormal) Range: 1.010-1.030 APPEARANCE CLEAR Range: Clear COLOR YELLOW Range: Straw-Yellow PROTEIN NEGATIVE mg/dL Range: Negative-Trace GLUCOSE NEGATIVE mg/dL Range: Negative KETONE NEGATIVE mg/dL Range: Negative BILIRUB NEGATIVE Range: Negative BLOOD NEGATIVE Range: Negative UROBIL 0.2 EU/dL Range: 0.2-1.0 NITRITE NEGATIVE Range: Negative LEUK NEGATIVE Range: Negative Plan of Care Name Dates Details Planned Observations Planned Goals not documented Planned Encounters Appointment; Provider: Aime Rdz M.D. On 15-Jan-2017 13:00 Appointment; Provider: Carolynn Arellano DPM On 15-Feb-2016 09:00 Appointment; Provider: Madeline Simms M.D. On 10-Feb-2016 09:00 Appointment; Provider: Madeline Simms M.D. On 16-Dec-2015 13:45 Appointment; Provider: Lex John M.D. On 07-Dec-2015 16:15 Appointment; Provider: Jameel Moore M.D. On 06-Dec-2015 15:15 Interventions Provided Labs/Procedures/Imaging* Urinalysis, Reflex to Microscopic or Culture PRN 8005; Done: Nov 30 2015 12:36PM * Xray ABD ( KUB); Done: Nov 30 2015 12:53PM * XRay KNEE-Left; Done: Nov 30 2015 12:42PM Instructions Name Dates Details Instructions not documented [...] documented On 10-Dec-2014 13:30 Appointment; Evelyne Perales A.PMonicaRMiladis Encounter Diagnosis: Problem not documented On 09-Dec-2014 14:15 Appointment; Sampson Cuadra P.T. Encounter Diagnosis: Problem not documented On 25-Nov-2014 13:00 Appointment; Renuka Middleton A.P.RMiladis Encounter Diagnosis: Problem not documented On 16-Nov-2014 13:30 Appointment; Raul Cowart M.D. Encounter Diagnosis: Problem not documented On 10:00 Appointment; Evelyne Perales A.PMonicaRMiladis Encounter Diagnosis: Problem not documented On 08:35 [...] documented On 24-Feb-2014 12:45 Appointment; Madeline Simms M.D. Encounter Diagnosis: Problem not documented On 13-Feb-2014 09:00 Appointment; Raul Cowart M.D. Encounter Diagnosis: Problem not documented On 04-Feb-2014 09:30 Appointment; Madeline Simms M.D. Encounter Diagnosis: Problem not documented On 14-Jan-2014 09:30 Appointment; Madeline Simms M.D. Encounter Diagnosis: Problem not documented On 02-Jan-2014 10:00 Appointment; Iftikhar Blanton M.D. Encounter Diagnosis: Problem not documented On 18-Dec-2013 10:00
--- OUTSIDE RECORDS SUMMARY | 2016-07-28 22:29 | XMS REPORT | Summary of Care ---
Author Author Madeline Simms M.D. Unknown Address [address] [place], [place] [id number] Phone Unavailable Care Team Providers Care Ambulance Dispatcher Name Role Phone Jeremy John M.D. Unavailable Unavailable Madeline Simms M.D. Unavailable Unavailable Madeline Simms PP Unavailable [...] scalp (690.18, L21.8) Status: Active Dyspepsia (536.8, R10.13) Status: Active Bipolar disorder (296.80, F31.9) Status: Active bed [...] Active Muscle spasm (728.85, M62.838) Status: Active Nicotine dependence (305.1, F17.200) Status: Active Vitamin d deficiency (268.9, E55.9) Status: Active Allergic rhinitis (477.9, J30.9) Status: Active Seasonal allergies (477.9, J30.2) Status: Active Cough (786.2, R05) Status: Active Bronchitis, acute (466.0, J20.9) Status: Active Sinusitis, acute (461.9, J01.90) Status: Active Leg pain, bilateral (729.5, M79.604) Status: Active Edema (782.3, R60.9) Status: Active Onychomycosis (110.1, B35.1) Status: Active Morbid obesity (278.01, E66.01) Status: Active Sinusitis (473.9, J32.9) Status: Active Acute sinusitis (461.9, J01.90) Status: Active Snoring (786.09, R06.83) Status: Active Dyspnea (786.09, R06.00) Status: Active Essential hypertension (401.9, I10) Status: Active Hypothyroidism (244.9, E03.9) Status: Active Anemia of chronic disease (285.29, D63.8) Status: Active Chest pain (786.50, R07.9) Status: Active Hyperlipidemia (272.4, E78.5) Status: Active Pleurisy (511.0, R09.1) Status: Active Tobacco use (305.1, Z72.0) Status: Active Acute otitis media (382.9, H66.90) Status: Active Otitis externa (380.10, H60.90) Status: Active Pain in left knee (719.46, M25.562) Status: Active Paranoid schizophrenia (295.30, F20.0) Status: Active Insomnia (780.52, G47.00) Status: Active Obstructive sleep apnea (327.23, G47.33) Status: Active Bilateral leg pain (729.5, M79.604) Status: Active Medications Name Dates Details Metoprolol Tartrate 25 MG Oral Tablet take one tablet by mouth every day Quantity: 30 Madeline Simms M.D.* Started 15-Mar-2009 ActiveLevocetirizine Dihydrochloride 5 MG Oral Tablet take one tablet by mouth every day * Quantity: 90 Refills: 3 Madeline Simms M.D.* Started 26-Dec-2011 ActiveLevothyroxine Sodium 50 MCG Oral Tablet take one tablet by mouth every day * Quantity: 30 Refills: 5 SimmsMadeline M.D.* Started 26-Aug-2010 ActiveOmeprazole 20 MG Oral Capsule Delayed Release Take one capsule by mouth daily * Quantity: 30 Refills: 5 SimmsMadeline M.D.* Started 26-Jan-2012 ActiveLORazepam 1 MG Oral Tablet TAKE 1/2 TABLET IN MORNING, 1 TABLET AT NOON, 1 TABLET AT BEDTIME. * Quantity: 45 Refills: 0 Madeline Simms M.D.* Started ActiveAmLODIPine Besylate 5 MG Oral Tablet TAKE ONE TABLET BY MOUTH EVERY MORNING * Quantity: 30 Refills: 5 SimmsMadeline M.D.* Started 29-Apr-2013 ActiveLosartan Potassium 100 MG Oral Tablet take one tablet by mouth every day * Quantity: 30 Refills: 5 Madeline Simms M.D.* Started 03-Mar-2014 ActiveWellbutrin XL 300 MG Oral Tablet Extended Release 24 Hour take one tablet by mouth every day * Quantity: 30 Refills: 0 * Started ActiveBelsomra 20 MG Oral Tablet TAKE ONE TABLET BY MOUTH AT BEDTIME NEEDED * Quantity: 30 Refills: 0 Lex John M.D.* Started 20-Aug-2014 ActiveBenztropine Mesylate 1 MG Oral Tablet Take 1 tablet twice daily * Refills: 0 Madeline Simms M.D.* Started 10-Dec-2014 ActiveAbilify Maintena 300 MG Intramuscular Suspension Reconstituted * Refills: 0 Madeline Simms M.D.* Started 10-Dec-2014 Active Allergies and Adverse Reactions Name Dates Details Chantix TABS Reaction: Hallucinations (Severe), Other Status: Active Past Medical History Name Dates Details History of Ankle joint pain (719.47, M25.579) [...] on:07-Jan-2010 Influenza Administered on:22-Dec-2010 Influenza Lot #: [id number] Administered on:23-Jan-2012 Influenza Administered on:13-Jan-2013 PPD Lot #: [id number] Administered on: Fluzone Intramuscular Injectable Lot #: [id number] Administered on:02-Jan-2014 Family History Mother* Name Dates Details Family history of Alcoholism Status: Active Family history of Cirrhosis Status: Active Family history of Poliomyelitis Status: Active Family history of Hypertension (V17.49) Status: Active Father* Name Dates Details FH: CABG (coronary artery bypass surgery) (V17.3, Z82.49) Status: Active Brother* Name Dates Details Family history of Bipolar Disorder Status: Active Social History Name Dates Details Sleep disturbances (780.50, G47.9) Tobacco use (305.1, Z72.0) Smoking Status* Current some day smoker Vital Signs Date Test Result Details 10-Dec-2014 13:21 BP Systolic 130 mm[Hg] Status: BP Diastolic 74 mm[Hg] Status: Heart Rate 91 /min Status: Weight 306 lb Status: O2 SAT 91 % Status: Body Mass Index Calculated 50.92 kg/m2 Status: Body Surface Area Calculated 2.37 m2 Status: 09-Dec-2014 14:19 BP Systolic 127 mm[Hg] Status: BP Diastolic 74 mm[Hg] Status: Temperature 99 f Status: Heart Rate 89 /min Status: Weight 307 lb Status: O2 SAT 94 % Status: Body Mass Index Calculated 51.09 kg/m2 Status: Body Surface Area Calculated 2.37 m2 Status: 16-Nov-2014 13:05 BP Systolic 106 mm[Hg] Status: BP Diastolic 56 mm[Hg] Status: Heart Rate 106 /min Status: Respiration Rate 20 /min Status: Height 65 in Status: Weight 310 lb Status: Body Mass Index Calculated 51.59 kg/m2 Status: Body Surface Area Calculated 2.38 m2 Status: Results Date Description Value Details Results not documented Plan of Care Planned Observations* Name Dates Details Planned Goals not documented Goal Planned Encounters* Appointment; Provider: Lex John On 19-Jan-2015 10:30 * Appointment; Provider: Madeline Simms On 01-Jan-2015 10:30 * Appointment; Provider: Carolynn Arellano On 23-Dec-2014 15:15 * Appointment; Provider: Lex John On 17-Dec-2014 11:45 * Appointment; Provider: Schedule Radiology On 10:00 * Appointment; Provider: Lex John On 18-Jul-2013 10:15 * Appointment; Provider: Madeline Simms On 27-Apr-2008 08:00 Instructions * Instructions not documented Encounters Appointment; Madeline Simms Encounter Diagnosis: Problem not documented On 10-Dec-2014 13:30 Appointment; Evelyne Perales Encounter Diagnosis: Problem not documented On 09-Dec-2014 14:15 Appointment; Sampson Cuadra Encounter Diagnosis: Problem not documented On 25-Nov-2014 13:00 Appointment; Renuka Middleton Encounter Diagnosis: Problem not documented On 16-Nov-2014 13:30 Appointment; Raul Cowart Encounter Diagnosis: Problem not documented On 10:00 Appointment; Evleyne Perales Encounter Diagnosis: Problem not documented On 08:35 Appointment; Josse Sheppard Encounter Diagnosis: Problem not documented On 13:15 Appointment; Madeline Simms Encounter Diagnosis: Problem not documented On 09:30 Appointment; Vlad Dey Encounter Diagnosis: Problem not documented On 11-Sep-2014 10:15 Appointment; Madeline Simms Encounter Diagnosis: Problem not documented On 09-Sep-2014 09:00 Appointment; Madeline Simms Encounter Diagnosis: Problem not documented On 08-Sep-2014 16:15 Appointment; Gisselle Danielle Encounter Diagnosis: Problem not documented On 12-Aug-2014 08:25 Appointment; Madeline Simms Encounter Diagnosis: Problem not documented On 06-Aug-2014 13:45 Appointment; Jane Maria Encounter Diagnosis: Problem not documented On 16-Jul-2014 14:30 Appointment; Madeline Simms Encounter Diagnosis: Problem not documented On 23-Jun-2014 11:00 Appointment; Madeline Simms Encounter Diagnosis: Problem not documented On 12-May-2014 14:15 Appointment; Lela Nunes Encounter Diagnosis: Problem not documented On 05-May-2014 09:00 Appointment; Lex John Encounter Diagnosis: Problem [...]
--- OUTSIDE RECORDS SUMMARY | 2016-07-28 22:29 | XMS REPORT | Summary of Care ---
Author Author Mendez Sow, Madeline De La Paz Unknown Address Unknown Phone Unavailable Care Team Providers Care Cementer Helper Name Role Phone Dora Sow, Jeremy Unavailable Unavailable Lisa Sow, Geovanna Unavailable Unavailable Mendez Sow, Madeline 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.69, 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: Active [...] Difficulty in walking (719.7, R26.2) Status: Active Insomnia (780.52, G47.00) Status: Active [...] some day smoker (305.1, F17.210) Status: Active Effusion of left knee (719.06, M25.462) Status: Active Chondromalacia of knee, 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, 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: Active Left knee pain (719.46, M25.562) Status: Active Nasal congestion (478.19, R09.81) Status: Active Need for vaccination (V05.9, Z23) Status: Active Status post arthroscopy of left knee (V45.89, Z98.890) Status: Active Pain in left knee (719.46, M25.562) Status: Active 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 * Quantity: 45 Refills: 0 Simms M.D., Madeline * Start Active Nystatin-Triamcinolone 960967-7.1 UNIT/GM-% External Cream APPLY SPARINGLY TO AFFECTED AREA(S) 3 TIMES A DAY * Quantity: 1 Refills: 0 Simms M.D.Madeline * Start 03-Aug-2011 Active 60 GM Tube Levocetirizine Dihydrochloride 5 MG Oral Tablet take one tablet by mouth every day * Quantity: 90 Refills: 3 Simms M.D.JanelMadeline * Start 26-Dec-2011 Active Omeprazole 20 MG Oral Capsule Delayed Release Take one capsule by mouth daily * Quantity: 30 Refills: 2 Simms M.D.Madeline * Start 23-Dec-2015 Active AmLODIPine Besylate 5 MG Oral Tablet [...] Quantity: 16 Refills: 11 Lex John M.D. * Start 16-Feb-2016 Active Losartan Potassium 100 MG Oral Tablet Take one tablet by mouth daily * Quantity: 30 Refills: 5 Madeline Simms M.D. * Start 26-Nov-2015 Active Wellbutrin XL 300 MG Oral Tablet Extended Release 24 Hour take one tablet by mouth every day * Quantity: 30 Refills: 0 * Start Active Benztropine Mesylate 1 MG Oral Tablet Take 1 tablet twice daily * Refills: 0 Madeline Simms M.D. * Start 10-Dec-2014 Active Paliperidone ER 6 MG Oral Tablet Extended Release 24 Hour TAKE 1 TABLET DAILY. * Refills: 0 Madeline Simms M.D. * Start 31-May-2015 Active Nicotine Polacrilex 2 [...] 90 days * Quantity: 180 Refills: 0 Madeline Simms M.D. * Start 02-Jun-2015 Active ClonazePAM 1 MG Oral Tablet Take 3 tablets by mouth every night at bedtime * Quantity: 90 Refills: 5 Dora SowLex * Start 07-Dec-2015 Active Celecoxib 200 MG Oral Capsule TAKE ONE CAPSULE BY MOUTH ONCE DAILY WITH A MEAL * Quantity: 30 Refills: 3 Mendez SowMadeline * Start 27-Dec-2015 Active Allergies and Adverse [...] 07-Jan-2010 Influenza on: 22-Dec-2010 Influenza Lot #: [id number] on: 23-Jan-2012 Influenza on: 13-Jan-2013 PPD Lot #: [id number] on: Fluzone INJ Lot #: [id number] on: 02-Jan-2014 Fluzone Quadrivalent 0.5 ML Intramuscular Suspension Lot #: [id number] on: 25-Jan-2015 Tdap (Adacel) Lot #: [id number] on: 28-Jun-2015 Fluzone Quadrivalent 0.5 ML Intramuscular Suspension Lot #: [id number] on: 23-Feb-2016 Family History Name Dates Details [...] Body Surface Area Calculated 2.43 m2 Status: 08-Feb-2016 11:47 BP Systolic 142 mm[Hg] Status: Comments: [...] >60 ml/min Range: >60 EST GFR, NON-AFR FAROESE >60 ml/min Range: >60 Comments: EST GFR [...] Provider: Madeline Simms M.D. On 11-May-2016 11:00 Interventions Provided Medications/Immunizations Administered* Fluzone Quadrivalent 0.5 ML Intramuscular Suspension; Done: 23 Feb 2016 Instructions Name Dates Details Instructions not documented Encounters Appointment; Carolynn Arellano DPM Encounter Diagnosis: Problem [...] documented On 10-Dec-2014 13:30 Appointment; Evelyne Perales A.P.RMonicaNMonica Encounter Diagnosis: Problem not documented On 09-Dec-2014 14:15 Appointment; Sampson Cuadra P.T. Encounter Diagnosis: Problem not documented On 25-Nov-2014 13:00 Appointment; Renuka Middleton A.PMonicaRMonicaNMonica Encounter Diagnosis: Problem not documented On 16-Nov-2014 [...]
--- OUTSIDE RECORDS SUMMARY | 2016-07-28 22:29 | XMS REPORT | Summary of Care ---
Author Author Madeline Simms M.D. 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 Unavailable [...] Active Bipolar disorder (296.80, F31.9) Status: Active alf use of drug (V58.69, 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: Active [...] Active Sinusitis, acute (461.9, J01.90) Status: Active Obstructive sleep apnea (327.23, G47.33) Status: Active Pain in joint of left knee (719.46, M25.562) Status: Active Medications Name Dates Details Metoprolol Tartrate 25 MG Oral Tablet take one tablet by mouth every day Quantity: 30 Madeline Simms M.D.* Started 15-Mar-2009 ActiveLevothyroxine Sodium 50 MCG Oral Tablet take one tablet by mouth every day * Quantity: 30 Refills: 4 Madeline Simms M.D.* Started 26-Aug-2010 ActiveLORazepam 1 MG Oral Tablet TAKE 1 TABLET IN MORNING, 1 TABLET AT NOON, 1 1/2 TABLET AT BEDTIME. * Refills: 0 Madeline Simms M.D.* Started ActiveInvega Sustenna 156 MG/ML Intramuscular Suspension Inject IM every 4 weeks * Refills: 0 Madeline Simms M.D.* Started 25-Nov-2010 ActiveNystatin-Triamcinolone 319067-0.1 UNIT/GM-% External Cream APPLY SPARINGLY TO AFFECTED [...] daily * Quantity: 30 Refills: 4 SimmsMadeline M.D.* Started 26-Jan-2012 ActiveAmLODIPine Besylate 5 MG Oral Tablet TAKE ONE TABLET BY MOUTH EVERY MORNING * Quantity: 30 Refills: 6 SimmsMadeline M.D.* Started 29-Apr-2013 ActiveVitamin B12 100 MCG Oral Tablet TAKE 1 TABLET DAILY DIRECTED. * Refills: 0 SimmsMadeline M.D.* Started 12-Jun-2013 ActiveRefresh Tears 0.5 % Ophthalmic Solution INSTILL 1 DROP INTO BOTH EYES 4 TIMES DAILY NEEDED * Quantity: 15 Refills: 0 SimmsMadeline M.D.* Started 24-Jun-2013 ActiveMagnesium Oxide 400 MG [...] ONCE DAILY. * Quantity: 1 Refills: 5 Lxe John M.D.* Started 15-Jan-2014 Ipbicx25 GM Bottle Mucinex 600 MG Oral Tablet [...] every day * Quantity: 30 Refills: 3 SimmsMadeline M.D.* Started 23-Mar-2014 ActiveVitamin D 2000 UNIT Oral Capsule TAKE 1 CAPSULE Daily * Quantity: 100 Refills: 0 SimmsMadeline M.D.* Started 24-Mar-2014 ActiveHydrOXYzine HCl - 25 MG Oral Tablet TAKE 1-3 TABS AT BEDTIME NEEDED * Quantity: 90 Refills: 0 Lex John M.D.* Started 15-Apr-2014 ActiveNicotine 14 MG/24HR Transdermal Patch 24 Hour APPLY 1 PATCH DAILY DIRECTED. * Quantity: 28 Refills: 0 SimmsMadeline M.D.* Started 23-Mar-2014 ActiveMeloxicam 15 MG Oral Tablet TAKE ONE TABLET BY MOUTH EVERY DAY WITH FOOD * Quantity: 30 Refills: 0 SimmsMadeline M.D.* Started 20-Mar-2014 Active Allergies and Adverse Reactions Name Dates [...] on:07-Jan-2010 Influenza Administered on:22-Dec-2010 Influenza Lot #: [id number] Administered on:23-Jan-2012 Influenza Administered on:13-Jan-2013 PPD Lot #: [id number] Administered on: Fluzone Intramuscular Injectable Lot #: [id number] Administered on:02-Jan-2014 Family History Mother* Name Dates [...] documented On 21-Aug-2012 15:15 Appointment; Madeline Simms Encounter Diagnosis: Problem not documented On 16-Aug-2012 15:30 Appointment; Madeline Simms Encounter Diagnosis: Problem not documented On 08-Aug-2012 13:30 Appointment; Madeline Simms Encounter Diagnosis: Problem not documented On 13-Jun-2012 15:00 Appointment; Madeline Simms Diagnosis: Problem not documented On 07-May-2012 14:45
--- OUTSIDE RECORDS SUMMARY | 2016-07-28 22:30 | XMS REPORT | Summary of Care ---
Author Author Silvana Sow, Mat De La Paz Unknown Address Unknown Phone Unavailable Care Team Providers Care Instructional Technology Instructor Name Role Phone Silvana Sow, Mat Unavailable Unavailable Dora Sow, Jeremy Unavailable Americo Varner M.D., Raul Unavailable Unavailable Mendez Sow, Madeline Unavailable Unavailable Perez Sow, R Unavailable Unavailable Madeline Simms Unavailable Unavailable Unavailable Unavailable Functional Status Name Dates Details Functional status health issues are not documented Status: Name Dates Details Cognitive status health issues are not documented Status: Problems Name Dates Details Effusion of left knee (719.06, M25.462) Status: Active Lumbar radiculopathy, acute (724.4, M54.16) Status: Active 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, F41.8) Status: Active Nicotine dependence (305.1, F17.200) Status: Active Current some day smoker (305.1, F17.200) Status: Active Plantar fascial fibromatosis (728.71, M72.2) Status: Active Allergic rhinitis due to pollen (477.0, J30.1) Status: Active Onychomycosis (110.1, B35.1) Status: Active Morbid obesity (278.01, E66.01) Status: Active Essential hypertension (401.9, I10) Status: Active Obstructive sleep apnea (327.23, G47.33) Status: Active Back pain (724.5, M54.9) Status: Active Bipolar affective disorder (296.80, F31.9) Status: Active Dyspepsia (536.8, K30) Status: Active Difficulty in walking (719.7, R26.2) Status: Active Hyperlipidemia (272.4, E78.5) Status: Active Hypothyroidism (244.9, E03.9) Status: Active Lower back pain (724.2, M54.5) Status: Active Tobacco use disorder (305.1, F17.200) Status: Active Left knee pain (719.46, M25.562) Status: Active Status post arthroscopy of left knee (V45.89, Z98.890) Status: Active Pre-operative exam (V72.84, Z01.818) Status: Active Wound, open, toe (893.0, S91.109A) Status: Active Gastroesophageal reflux disease (530.81, K21.9) Status: Active Vitamin D deficiency (268.9, E55.9) Status: Active 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, M19.071) Status: Active Tear of medial meniscus of left knee, initial encounter Status: Active Spinal stenosis at L4-L5 level (724.02, M48.06) Status: Active Left hip pain (719.45, M25.552) Status: Active Chondromalacia of knee, 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, 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: Active Schizophrenia, unspecified (295.90, F20.9) Status: Active Hallux rigidus (735.2, M20.20) Status: Active Medications Name Dates Details Metoprolol Tartrate 25 MG Oral Tablet Take one tablet by mouth daily Quantity: 30 Simms M.D., Madeline * Start 21-Apr-2016 Active Levothyroxine Sodium 50 [...] daily * Quantity: 90 Refills: 2 Simms M.D., Madeline * Start 26-Jan-2012 Active AmLODIPine Besylate 5 MG Oral Tablet TAKE ONE TABLET BY MOUTH IN THE MORNING * Quantity: 30 Refills: 5 Simms M.D., Madeline * Start 14-Mar-2016 Active Refresh Tears 0.5 % Ophthalmic Solution INSTILL 1 DROP INTO BOTH EYES 4 TIMES DAILY NEEDED * Quantity: 15 Refills: 1 Simms M.D.Madeline * Start 24-Jun-2013 Active Fluticasone Propionate 50 MCG/ACT Nasal Suspension INSTILL 1 SPRAY IN EACH NOSTRIL ONCE A DAY * Quantity: 16 Refills: 11 Dora M.D., Lex Jeremy * Start 16-Feb-2016 Active Losartan Potassium 100 [...] 0 Simms M.D.Madeline * Start 09-Jun-2016 Active Gabapentin 300 MG Oral Capsule TAKE 1 CAPSULE 3 times daily * Quantity: 90 Refills: 1 Telly M.D.Raul * Start 20-Jun-2016 Active Allergies and Adverse Reactions Name Dates Details Chantix TABS (Allergy) Reaction: Hallucinations (Severe), Other Status: Active DEPO-Medrol SUSP (Allergy) Status: Active Kenalog (Allergy) Status: Active Past Medical History Name Dates Details Allergic rhinitis due to pollen (477.0, J30.1) Status: Active 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, F41.8) Status: Active Bipolar affective disorder (296.80, F31.9) Status: Active Chondromalacia of knee, 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, 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: Active Dyspepsia (536.8, K30) Status: Active Effusion of left knee (719.06, M25.462) Status: Active Essential hypertension (401.9, I10) Status: Active Gastroesophageal reflux disease (530.81, K21.9) Status: Active Hyperlipidemia (272.4, E78.5) Status: Active Hypothyroidism (244.9, E03.9) Status: Active Morbid obesity (278.01, E66.01) Status: Active Nicotine dependence (305.1, F17.200) Status: Active Obstructive sleep apnea (327.23, G47.33) Status: Active Onychomycosis (110.1, B35.1) Status: Active 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, M19.071) Status: Active Plantar fascial fibromatosis (728.71, M72.2) Status: Active Schizophrenia, unspecified (295.90, F20.9) Status: Active Status post arthroscopy of left knee (V45.89, Z98.890) Status: Active Tear of medial meniscus of left knee, initial encounter Status: Active Vitamin D deficiency (268.9, E55.9) Status: Active History of acute bronchitis (V12.69, Z87.09) Status: [...] 07-Jan-2010 Influenza on: 22-Dec-2010 Influenza Lot #: [id number] on: 23-Jan-2012 Influenza on: 13-Jan-2013 PPD Lot #: [id number] on: Fluzone INJ Lot #: [id number] on: 02-Jan-2014 Fluzone Quadrivalent 0.5 ML Intramuscular Suspension Lot #: [id number] on: 25-Jan-2015 Tdap (Adacel) Lot #: [id number] on: 28-Jun-2015 Fluzone Quadrivalent 0.5 ML Intramuscular Suspension Lot #: [id number] on: 23-Feb-2016 Family History Name Dates Details Family history of Hypertension (V17.49) Status: Active Family history of Cirrhosis Status: Active Family history of Poliomyelitis Status: Active Family history of Alcoholism Status: Active Name Dates Details FH: CABG (coronary artery bypass surgery) (V17.3, Z84.89) Status: Active Name Dates Details Family history of Bipolar Disorder Status: Active Social History Name Dates Details - Status: Name Dates Details Smoker. current status unknown Vital Signs Date Test Result Details 26-Jun-2016 09:48 BP Systolic 126 mm[Hg] Status: Comments: Location: ; Position: BP Diastolic 84 mm[Hg] Status: Comments: Location: ; Position: Heart Rate 78 /min Status: Comments: Location: ; Physical Findings 14 Status: Comments: Respiration Weight 272 lb Status: Body Mass Index Calculated 37.41 kg/m2 Status: Body Surface Area Calculated 2.42 m2 Status: 20-Jun-2016 09:42 BP Systolic 142 mm[Hg] Status: Comments: Location: ; Position: BP Diastolic 90 mm[Hg] Status: Comments: Location: ; Position: Heart Rate 88 /min Status: Comments: Location: ; Weight 275 lb Status: Body Mass Index Calculated 37.82 kg/m2 Status: Body Surface Area Calculated 2.43 m2 Status: 16-Jun-2016 17:47 BP Systolic 120 mm[Hg] Status: Comments: Location: ; Position: BP Diastolic 64 mm[Hg] Status: Comments: Location: ; Position: Temperature 97.7 f Status: Heart Rate 110 /min Status: Comments: Location: ; Physical Findings 96 Status: Comments: O2 Saturation 13-Jun-2016 09:27 BP Systolic 160 mm[Hg] Status: [...] 30-May-2016 15:23 BP Systolic 130 mm[Hg] Status: BP Diastolic 90 mm[Hg] Status: Heart Rate 80 /min Status: Weight 284 lb Status: Body Mass Index Calculated 39.06 kg/m2 Status: Body Surface Area Calculated 2.46 m2 Status: Results Date Description Value Details 08-Jun-2016 09:12 XRay HIP-Left Comments: Exam Date: 06/08/2016 08: 48Dictation Date: 06/08/2016 09:12 X HIP COMP (MIN 2V) LT 09:12 Xray PELVIS (AP ONLY) Comments: Exam Date: 06/08/2016 08:48Dictation Date: 06/08/2016 09:12 X PELVIS (AP ONLY) 20-Jun-2016 15:31 MRI LUMBAR SPINE Comments: Exam Date: 06/20/2016 13: 20Dictation Date: 06/20/2016 15:31 XMR SPINE LUMBAR 26-Jun-2016 10:26 XRay CHEST-PA & LAT Comments: Exam Date: 06/26/2016 10: 09Dictation Date: 06/26/2016 10:26 X CHEST PA & LAT 10:35 Urinalysis, Reflex to Microscopic or Culture PRN 8005 pH 7.5 Range: 5.0-7.5 SP GRAVITY <=1.005 (Abnormal) Range: 1.010-1.030 APPEARANCE CLEAR Range: Clear COLOR YELLOW Range: Straw-Yellow PROTEIN NEGATIVE mg/dL Range: Negative-Trace GLUCOSE NEGATIVE mg/dL Range: Negative KETONE NEGATIVE mg/dL Range: Negative BILIRUB NEGATIVE Range: Negative BLOOD NEGATIVE Range: Negative UROBIL 0.2 EU/dL Range: 0.2-1.0 NITRITE NEGATIVE Range: Negative LEUK NEGATIVE Range: Negative 10:44 CBC w/ Auto Diff 7150 WBC 13.2 K/uL (Above high threshold) Range: 4.5-11.0 RBC 4.76 mil/uL Range: 4.20-5.40 HGB 14.6 g/dL Range: 14.0-18.0 HCT 42.7 % Range: 42.0-53.0 MCV 89.7 fL Range: 80.0-99.0 MCH 30.7 pg Range: 27.3-32.5 MCHC 34.2 % Range: 32.0-36.0 RDW 14.6 % Range: 11.6-14.8 PLATELETS 273 K/uL Range: 150-400 MPV 7.0 fL Range: 6.0-11.0 %NEUTRO 77.1 % Range: 37.0-80.0 %LYMPHS 15.4 % Range: 13.0-50.0 %MONO 4.6 % Range: 0.0-12.0 %EOS 1.2 % Range: 0.0-7.0 %BASO 0.7 % Range: 0.0-2.5 %ESTELLA 1.1 % Range: 0.0-5.0 NEUTRO 10.2 K/uL (Above high threshold) Range: 2.0-6.9 LYMPHS 2.0 K/uL Range: 0.6-3.4 MONOS 0.6 K/uL Range: 0.0-0.9 EOS 0.2 K/uL Range: 0.0-0.7 BASO 0.1 K/uL Range: 0.0-0.2 10:53 ECG/ EKG Preop Electro CardioGram 11:12 BASIC METABOLIC PROFILE 1210 Comments: DOS 07/[address] Varner at [facility] SODIUM 139 mmol/L Range: 133-144 POTASSIUM 4.7 mmol/L Range: 3.5-5.1 CHLORIDE 101 mmol/L Range: 98-110 CARBON DIOXIDE 27.8 mmol/L Range: 23.0-33.0 ANION GAP 10 mmol/L Range: 6-16 BUN 15 mg/dL Range: 7-18 CREATININE, SERUM 1.05 mg/dL Range: 0.70-1.30 EST GFR, >60 ml/min Range: >60 EST GFR, NON-AFR DOMINICAN >60 ml/min Range: >60 Comments: EST GFR is reported in ml/min per 1.73 m2 of body surface area. ----- BUN:CREATININE RATIO 14 GLUCOSE 98 mg/dL Range: 70-100 CALCIUM 9.9 mg/dL Range: 8.5-10.1 Plan of Care Name Dates Details Planned Observations Planned Goals not documented Planned Encounters Appointment; Provider: Aime Rdz M.D. On 15-Jan-2017 13:30 Appointment; Provider: Madeline Simms M.D. On 21-Aug-2016 08:45 Appointment; Provider: Raul Varner M.D. On 17-Jul-2016 11:15 Appointment; Provider: Madeline Simms M.D. On 17-Jul-2016 09:15 Appointment; Provider: Yvon Walker On 17-Jul-2016 09:00 Appointment; Provider: Raul Varner M.D. On 05-Jul-2016 08:00 Interventions Provided Medication Changes* PredniSONE 10 MG Oral Tablet - Completed * PredniSONE 10 MG Oral Tablet - Completed Labs/Procedures/Imaging* ECG/ EKG Preop; Done: Jun 26 2016 10:53AM * XRay CHEST-PA & LAT; Done: Jun 26 2016 10:26AM Instructions Name Dates Details Instructions not documented Encounters Appointment; Raul Varner M.D. Encounter Diagnosis: Problem not documented On 20-Jun-2016 09:15 Appointment; Bernabe Delgado M.D. Encounter Diagnosis: Problem not documented On 16-Jun-2016 17:05 Appointment; Madeline Simms M.D. Encounter Diagnosis: Problem not documented On 13-Jun-2016 09:30 Appointment; Jameel Moore M.D. Encounter Diagnosis: Problem [...]
--- OUTSIDE RECORDS SUMMARY | 2016-07-28 22:30 | XMS REPORT | Summary of Care ---
Author Author Madeline Simms M.D. Unknown Address [address], [place] [address] Phone Unavailable Care Team Providers Care Clay Miller Name Role Phone Jeremy John M.D. Unavailable [...] Active Bipolar disorder (296.80, F31.9) Status: Active [facility] use of drug (V58.69, 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: Active [...] Vitamin d deficiency (268.9, E55.9) Status: Active Seasonal allergies (477.9, J30.2) Status: Active Allergic rhinitis (477.9, J30.9) Status: Active Insomnia (780.52, G47.00) Status: Active Cough (786.2, R05) Status: Active Bronchitis, acute (466.0, J20.9) Status: Active Sinusitis, acute (461.9, J01.90) Status: Active Obstructive sleep apnea (327.23, G47.33) Status: Active Pain in joint of left knee (719.46, M25.562) Status: Active Leg pain, bilateral (729.5, M79.604) Status: Active Edema (782.3, R60.9) Status: Active Medications Name Dates Details Metoprolol Tartrate 25 MG Oral Tablet take one tablet by mouth every day Quantity: 30 SimmsMadeline M.D.* Started 15-Mar-2009 ActiveInvega Sustenna 156 MG/ML Intramuscular Suspension Inject IM every 4 weeks * Refills: 0 Madeline Simms M.D.* Started 25-Nov-2010 ActiveLORazepam 1 MG Oral Tablet TAKE 1 TABLET IN MORNING, 1 TABLET AT NOON, 1 1/2 TABLET AT BEDTIME. * Refills: 0 Madeline Simms M.D.* Started ActiveLevocetirizine Dihydrochloride 5 MG Oral Tablet take one tablet by mouth every day * Quantity: 90 Refills: 0 Madeline Simms M.D.* Started 26-Dec-2011 ActiveLevothyroxine Sodium 50 MCG Oral Tablet take one tablet by mouth every day * Quantity: 30 Refills: 4 SimmsMadeline M.D.* Started 26-Aug-2010 ActiveOmeprazole 20 MG Oral Capsule Delayed Release Take one capsule by mouth daily * Quantity: 30 Refills: 4 Madeline Simms M.D.* Started 26-Jan-2012 ActiveNystatin-Triamcinolone 853486-5.1 UNIT/GM-% External Cream APPLY SPARINGLY TO AFFECTED AREA(S) 3 TIMES A DAY * Quantity: 60 Refills: 0 SimmsMadeline M.D.* Started 03-Aug-2011 ActiveVitamin B12 100 MCG Oral Tablet TAKE 1 TABLET DAILY DIRECTED. * Refills: 0 SimmsMadeline M.D.* Started 12-Jun-2013 ActiveRefresh Tears 0.5 % Ophthalmic Solution INSTILL 1 DROP INTO BOTH EYES 4 TIMES DAILY NEEDED * Quantity: 15 Refills: 0 SimmsMadeline M.D.* Started 24-Jun-2013 ActiveAmLODIPine Besylate 5 MG Oral Tablet TAKE ONE TABLET BY MOUTH EVERY MORNING * Quantity: 30 Refills: 6 SimmsMadeline M.D.* Started 29-Apr-2013 ActivePataday 0.2 % Ophthalmic Solution INSTILL 1 DROP INTO AFFECTED EYE(S) ONCE DAILY DIRECTED. * Quantity: 1 Refills: 0 Iftikhar Blanton M.D.* Started 19-Dec-2013 Active2.5 ML Bottle Fluticasone Propionate 50 MCG/ACT Nasal Suspension USE 1 SPRAY IN EACH NOSTRIL ONCE DAILY. * Quantity: 1 Refills: 5 Lex John M.D.* Started 15-Jan-2014 Iormss26 GM Bottle Magnesium Oxide 400 MG Oral Tablet Take One Tablet By Mouth Twice Daily * Quantity: 60 Refills: 0 SimmsMadeline M.D.* Started 12-Aug-2013 ActiveMucinex 600 MG Oral Tablet Extended Release 12 Hour TAKE 1 TABLET TWICE DAILY. * Quantity: 42 Refills: 0 Madeline Simms M.D.* Started 03-Mar-2014 ActiveLosartan Potassium 100 MG Oral Tablet take one tablet by mouth every day * Quantity: 30 Refills: 5 SimmsMadeline M.D.* Started 03-Mar-2014 ActiveProAir HFA 108 (90 [...] 28 Refills: 0 SimmsMadeline M.D.* Started 23-Mar-2014 ActiveDoxepin HCl - 100 MG Oral Capsule TAKE 1 CAPSULE AT BEDTIME. * Quantity: 30 Refills: 0 Lex John M.D.* Started ActiveMeloxicam 15 MG Oral Tablet TAKE ONE TABLET BY MOUTH EVERY DAY WITH FOOD * Quantity: 30 Refills: 0 SimmsMadeline M.D.* Started 20-Mar-2014 ActiveCyclobenzaprine HCl - 10 MG Oral Tablet TAKE 1 TABLET 2 TIMES DAILY NEEDED for muscle cramping * Quantity: 30 Refills: 0 SimmsMadeline M.D.* Started 07-Jan-2014 Active Allergies and Adverse Reactions Name Dates [...] Procedures Procedure Dates Details History of Appendectomy CREATINE KINASE 1300 Ordered:02-Jun-2014 LIPID PROFILE 1184 Ordered:02-Jun-2014 LIVER PROFILE 1215 Ordered:02-Jun-2014 CBC w/ Auto Diff 7150 Ordered:02-Jun-2014 Immunization Name Dates Details Tdap (Adacel) Administered on:Feb-2007 Influenza Administered on:05-Apr-2009 Influenza A (H1N1) Monoval PF Intramuscular Suspension Administered on:05-Apr-2009 Fluzone Intramuscular Injectable Administered on:07-Jan-2010 Influenza Administered on:22-Dec-2010 Influenza Lot #: [id number] Administered on:23-Jan-2012 Influenza Administered on:13-Jan-2013 PPD Lot #: [id number] Administered on: Fluzone Intramuscular Injectable Lot #: [id number] Administered on:02-Jan-2014 Family History Mother* Name Dates [...] smoker Vital Signs Date Test Result Details No Known Vitals to report Results Date Description Value Details Results not [...]
--- OUTSIDE RECORDS SUMMARY | 2016-07-28 22:30 | XMS REPORT | Summary of Care ---
Author Author Donald Arshad M.D. Organization Unknown Address Unknown Phone Unavailable Care Team Providers Care Rn Pediatric Icu Name Role Phone Dora Sow, Jeremy Unavailable Unavailable Dana Arshad M.D. Unavailable Unavailable Mendez Sow, Madeline 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: Active longterm use of drug (V58.69, 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: Active Hypomagnesemia (275.2, E83.42) Status: Active Vitamin d deficiency (268.9, E55.9) [...] Obstructive sleep apnea (327.23, G47.33) Status: Active Paranoid schizophrenia (295.30, F20.0) Status: Active Dyspepsia (536.8, K30) Status: Active [...] Chest wall pain (786.52, R07.89) Status: Active Medications Name Dates Details Metoprolol Tartrate 25 MG Oral Tablet take one tablet by mouth every day Quantity: 30 Simms M.D.Madeline * Start 15-Mar-2009 Active Levothyroxine Sodium 50 MCG Oral Tablet Take one tablet by mouth daily * Quantity: 30 Refills: 3 Simms M.D.Madeline * Start 26-Aug-2010 Active LORazepam 1 MG Oral Tablet TAKE [...] by mouth daily * Quantity: 30 Refills: 3 Simms M.D.Madeline Start 26-Jan-2012 Active AmLODIPine Besylate 5 MG Oral Tablet TAKE ONE TABLET BY MOUTH EVERY MORNING * Quantity: 30 Refills: 5 Simms M.D.Madeline * Start 29-Apr-2013 Active Fluticasone Propionate 50 MCG/ACT Nasal Suspension USE 1 SPRAY IN EACH NOSTRIL ONCE DAILY. * Quantity: 16 Refills: 5 Sourk M.DLex Anderson Start 15-Jan-2014 Active Losartan Potassium 100 MG Oral Tablet Take one tablet by mouth daily * Quantity: 30 Refills: 0 Simms M.D.Madeline * Start 03-Mar-2014 Active Wellbutrin XL 300 MG Oral Tablet Extended Release 24 Hour take one tablet by mouth every day * Quantity: 30 Refills: 0 * Start Active Benztropine Mesylate 1 MG Oral Tablet Take 1 tablet twice daily * Refills: 0 Simms M.Veronique.Madeline * Start 10-Dec-2014 Active Belsomra 20 MG Oral Tablet TAKE ONE TABLET BY MOUTH AT BEDTIME NEEDED * Quantity: 30 Refills: 0 Lex John M.D. * Start 20-Aug-2014 Active Paliperidone ER 6 MG Oral Tablet Extended Release 24 Hour TAKE 1 TABLET DAILY. * Refills: 0 Simms M.Veronique.Madeline * Start 31-May-2015 Active Methocarbamol 750 MG Oral Tablet TAKE ONE TABLET BY MOUTH TWICE DAILY NEEDED FOR MUSCLE SPASMS * Quantity: 60 Refills: 0 Mendez Guajardo.Madeline Stover * Start 02-Jun-2015 Active HydrOXYzine HCl - 25 MG Oral Tablet TAKE 1-3 TABLETS BY MOUTH AT BEDTIME NEEDED * Quantity: 60 Refills: 0 Lex John M.D. * Start 15-Jun-2015 Active Nicotine Polacrilex 2 MG Mouth/Throat Lozenge ALLOW 1 LOZENGE TO DISSOLVE SLOWLY IN MOUTH DIRECTED * Quantity: 1 Refills: 0 Kristi Todd M.D. Start Active 48 Lozenge Box Naproxen 500 MG Oral Tablet TAKE ONE TABLET BY MOUTH TWICE DAILY WITH FOOD * Quantity: 60 Refills: 0 Simms M.D.Madeline * Start 17-Aug-2015 Active Allergies and Adverse Reactions Name Dates Details Chantix TABS (Allergy) Reaction: Hallucinations (Severe), Other Status: Active Past [...] 07-Jan-2010 Influenza on: 22-Dec-2010 Influenza Lot #: [id number] on: 23-Jan-2012 Influenza on: 13-Jan-2013 PPD Lot #: [id number] on: Fluzone INJ Lot #: [id number] on: 02-Jan-2014 Fluzone Quadrivalent 0.5 ML Intramuscular Suspension Lot #: [id number] on: 25-Jan-2015 Tdap (Adacel) Lot #: [id number] on: 28-Jun-2015 Family History Name Dates Details [...] smoker Vital Signs Date Test Result Details 11:34 BP Systolic 146 mm[Hg] Status: Comments: Location: ; Position: BP Diastolic 74 mm[Hg] Status: Comments: Location: ; Position: Heart Rate 80 /min Status: Comments: Location: ; Weight 265 lb Status: Body Mass Index Calculated 44.1 kg/m2 Status: Body Surface Area Calculated 2.23 m2 Status: Results Date Description Value Details Results not documented Plan of Care Name Dates Details Planned Observations Planned Goals not documented Planned Encounters Appointment; Provider: Oh Greer D.O. On 16-Jan-2017 13:00 Appointment; Provider: Carolynn Arellano DPM On 15-Feb-2016 09:00 Appointment; Provider: Madeline Simms M.D. On 10-Feb-2016 09:00 Instructions Name Dates Details Instructions not documented [...] documented On 18-Dec-2013 10:00 Appointment; Lex John M.D. Encounter Diagnosis: Problem not documented On 27-Nov-2013 11:30
--- OUTSIDE RECORDS SUMMARY | 2016-07-28 22:31 | XMS REPORT | Summary of Care ---
Author Author Madeline Simms M.D. Unknown Address [address] [place], [place] [id number] Phone Unavailable Care Team Providers Care Clinical Support Tech Name Role Phone Jeremy John M.D. Unavailable Unavailable Madeline Simms M.D. 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 (V58.69, 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: Active Hypomagnesemia (275.2, E83.42) Status: Active Plantar fascial fibromatosis (728.71, M72.2) Status: Active Vitamin d deficiency (268.9, E55.9) [...] Obstructive sleep apnea (327.23, G47.33) Status: Active Nicotine dependence (305.1, F17.200) Status: Active Paranoid schizophrenia (295.30, F20.0) Status: Active Dyspepsia (536.8, K30) Status: Active Muscle spasm (728.85, M62.838) Status: Active Medications Name Dates Details Metoprolol Tartrate 25 MG Oral Tablet take one tablet by mouth every day Quantity: 30 SimmsMadeline valle M.D.* Started 15-Mar-2009 ActiveLevothyroxine Sodium 50 MCG Oral Tablet Take one tablet by mouth daily * Quantity: 30 Refills: 3 Madeline Simms M.D.* Started 26-Aug-2010 ActiveLORazepam 1 MG Oral Tablet TAKE 1/2 TABLET IN MORNING, 1 TABLET AT NOON, 1 TABLET AT BEDTIME. * Quantity: 45 Refills: 0 Madeline Simms M.D.* Started ActiveLevocetirizine Dihydrochloride 5 MG Oral Tablet take one tablet by mouth every day * Quantity: 90 Refills: 3 Madeline Simms M.D.* Started 26-Dec-2011 ActiveOmeprazole 20 MG Oral Capsule Delayed Release Take one capsule by mouth daily * Quantity: 30 Refills: 5 Madeline Simms M.D.* Started 26-Jan-2012 ActiveAmLODIPine Besylate 5 MG Oral Tablet TAKE ONE TABLET BY MOUTH EVERY MORNING * Quantity: 30 Refills: 4 Madeline Simms M.D.* Started 29-Apr-2013 ActiveFluticasone Propionate 50 MCG/ACT Nasal Suspension USE 1 SPRAY IN EACH NOSTRIL ONCE DAILY. * Quantity: 16 Refills: 5 Lex John M.D.* Started 15-Jan-2014 ActiveWellbutrin XL 300 MG Oral Tablet Extended Release 24 Hour take one tablet by mouth every day * Quantity: 30 Refills: 0 * Started ActiveBenztropine Mesylate 1 MG Oral Tablet Take 1 tablet twice daily * Refills: 0 Madeline Simms M.D.* Started 10-Dec-2014 ActiveBelsomra 20 MG Oral Tablet TAKE ONE TABLET BY MOUTH AT BEDTIME NEEDED * Quantity: 30 Refills: 0 Lex John M.D.* Started 20-Aug-2014 ActivePaliperidone ER 6 MG Oral Tablet Extended Release 24 Hour TAKE 1 TABLET DAILY. * Refills: 0 Madeline Simms M.D.* Started 31-May-2015 ActiveLosartan Potassium 100 MG Oral Tablet take one tablet by mouth every day * Quantity: 30 Refills: 3 Madeline Simms M.D.* Started 03-Mar-2014 ActiveMeloxicam 15 MG Oral Tablet Take one tablet by mouth daily * Quantity: 30 Refills: 1 Raul Cowart M.D.* Started 17-Dec-2014 ActiveMethocarbamol 750 MG Oral Tablet TAKE ONE TABLET BY MOUTH TWICE DAILY NEEDED FOR MUSCLE SPASMS * Quantity: 60 Refills: 0 Madeline Simms M.D.* Started 02-Jun-2015 ActiveHydrOXYzine HCl - 25 MG Oral Tablet TAKE 1 TO 3 TABLETS BY MOUTH AT BEDTIME NEEDED * Quantity: 60 Refills: 0 Lex John M.D.* Started 15-Jun-2015 Active Allergies and Adverse Reactions Name Dates [...] on:07-Jan-2010 Influenza Administered on:22-Dec-2010 Influenza Lot #: [id number] Administered on:23-Jan-2012 Influenza Administered on:13-Jan-2013 PPD Lot #: [id number] Administered on: Fluzone Intramuscular Injectable Lot #: [id number] Administered on:02-Jan-2014 Fluzone Quadrivalent 0.5 ML Intramuscular Suspension Lot #: [id number] Administered on:25-Jan-2015 Tdap (Adacel) Lot #: [id number] Administered on:28-Jun-2015 Family History Mother* Name Dates Details Family history of Alcoholism Status: Active Family history of Cirrhosis Status: Active Family history of Poliomyelitis Status: Active Family history of Hypertension (V17.49) Status: Active Father* Name Dates Details FH: CABG (coronary artery bypass surgery) (V17.3, Z84.89) Status: Active Brother* Name Dates Details Family history of Bipolar Disorder Status: Active Social History Name Dates Details History of Tobacco use (305.1, Z72.0) Smoking Status* Current some day smoker Vital Signs Date Test Result Details 28-Jun-2015 13:17 BP Systolic 126 mm[Hg] Status: BP Diastolic 88 mm[Hg] Status: Heart Rate 112 /min Status: Height 65 in Status: Weight 256 lb Status: O2 SAT 94 % Status: Body Mass Index Calculated 42.6 kg/m2 Status: Body Surface Area Calculated 2.2 m2 Status: Results Date Description Value Details 28-Jun-2015 08:00 CBC w/ Auto Diff 7150 Comments: Fastin hours WBC 8.0 K/uL (Better) Range: 4.5-11.0 RBC 4.48 mil/uL (Better) Range: 4.20-5.40 HGB 14.3 g/dL (Better) Range: 14.0-18.0 HCT 40.2 % (Below low threshold) Range: 42.0-53.0 MCV 89.7 fL (Better) Range: 80.0-99.0 MCH 31.8 pg (Better) Range: 27.3-32.5 MCHC 35.5 % (Better) Range: 32.0-36.0 RDW 12.5 % (Better) Range: 11.6-14.8 PLATELETS 272 K/uL (Better) Range: 150-400 MPV 7.3 fL (Better) Range: 6.0-11.0 %NEUTRO 67.2 % (Better) Range: 37.0-80.0 %LYMPHS 23.2 % (Better) Range: 13.0-50.0 %MONO 6.5 % (Better) Range: 0.0-12.0 %EOS 1.5 % (Better) Range: 0.0-7.0 %BASO 0.7 % (Better) Range: 0.0-2.5 %ESTELLA 1.0 % (Better) Range: 0.0-5.0 NEUTRO 5.4 K/uL (Better) Range: 2.0-6.9 LYMPHS 1.9 K/uL (Better) Range: 0.6-3.4 MONOS 0.5 K/uL (Better) Range: 0.0-0.9 EOS 0.1 K/uL (Better) Range: 0.0-0.7 BASO 0.1 K/uL (Better) Range: 0.0-0.2 08:17 Urinalysis, Reflex to Microscopic or Culture PRN [id number] Comments: Fastin hours pH 7.5 (Better) Range: 5.0-7.5 SP GRAVITY <=1.005 (Abnormal) Range: 1.010-1.030 APPEARANCE CLEAR (Better) Range: Clear COLOR YELLOW (Better) Range: Straw-Yellow PROTEIN NEGATIVE mg/dL (Better) Range: Negative-Trace GLUCOSE NEGATIVE mg/dL (Better) Range: Negative KETONE NEGATIVE mg/dL (Better) Range: Negative BILIRUB NEGATIVE (Better) Range: Negative BLOOD NEGATIVE (Better) Range: Negative UROBIL 0.2 EU/dL (Better) Range: 0.2-1.0 NITRITE NEGATIVE (Better) Range: Negative LEUK NEGATIVE (Better) Range: Negative 08:21 Comprehensive Metabolic Panel 1212 Comments: Fastin hours SODIUM 137 mmol/L (Better) Range: 133-144 POTASSIUM 4.3 mmol/L (Better) Range: 3.5-5.1 CHLORIDE 102 mmol/L (Better) Range: 98-110 CARBON DIOXIDE 26.8 mmol/L (Better) Range: 23.0-33.0 ANION GAP 8 mmol/L (Better) Range: 6-16 BUN 11 mg/dL (Better) Range: 7-18 CREATININE, SERUM 1.16 mg/dL (Better) Range: 0.70-1.30 Comments: Please note new reference ranges effective 2014.----- BUN:CREATININE RATIO 9 (Better) EST GFR, >60 ml/min (Better) Range: >60 EST GFR, NON-AFR [place]RA[place]I >60 ml/min (Better) Range: >60 Comments: EST GFR is reported in ml/min per 1.73 m2 of body surface area. For -[place], please multiple result by 1.2.----- GLUCOSE 105 mg/dL (Above high threshold) Range: 70-100 ALK PHOSPHATASE 62 U/L (Better) Range: 46-116 TOTAL BILIRUBIN 0.50 mg/dL (Better) Range: 0.20-1.00 AST 18 U/L (Better) Range: 8-35 ALT 36 U/L (Better) Range: 16-63 Comments: Please note new reference ranges. Effective 06/25/2014.----- ALBUMIN 4.1 g/dL (Better) Range: 3.4-5.0 TOTAL PROTEIN 7.0 g/dL (Better) Range: 6.4-8.2 A/G RATIO 1.4 units (Better) Range: 1.0-1.8 CALCIUM 9.6 mg/dL (Better) Range: 8.5-10.1 08:21 LIPID PROFILE 1184 Comments: Fastin hours CHOLESTEROL 130 mg/dL (Better) Range: <200 TRIGLYCERIDES 156 mg/dL (Better) Range: 30-200 HDL Cholesterol 31 mg/dL (Below low threshold) Range: >39 NON HDL CHOLESTEROL 99 (Better) CARDIAC RSK FACTOR 4.2 units (Below low threshold) Range: 4.4-5.0 LDL - CALCULATED 68 mg/dL (Better) Range: 0-130 08:38 THYROID STIM. HORMONE 3602 Comments: Fastin hours THYROID STIM. HORMONE 0.622 uIU/mL (Better) Range: 0.550-4.780 Comments: No established reference ranges for infants and children <2 years of age----- Plan of Care Planned Observations* Name Dates Details Planned Goals not documented Goal Planned Encounters* Appointment; Provider: Oh Greer On 16-Jan-2017 13:00 * Appointment; Provider: Madeline Simms On 13:45 * Appointment; Provider: Lex John On 11:45 * Appointment; Provider: Katja Martinez On 12-Jan-2015 14:00 * Appointment; Provider: Schedule Radiology On 10:00 * Appointment; Provider: Lex John On 18-Jul-2013 10:15 * Appointment; Provider: Madeline Simms On 27-Apr-2008 08:00 Instructions * Instructions not documented Encounters Appointment; Madeline Simms Encounter Diagnosis: Problem not documented On 28-Jun-2015 13:30 Appointment; Madeline Simms Encounter Diagnosis: Problem not documented On 02-Jun-2015 10:30 Appointment; Lex John Encounter Diagnosis: Problem not documented On 16-Mar-2015 15:00 Appointment; Madeline Simms Encounter Diagnosis: Problem not documented On 25-Jan-2015 10:00 Appointment; Oh Greer Encounter Diagnosis: Problem not documented On 12-Jan-2015 08:45 Appointment; Madeline Simms Encounter Diagnosis: Problem not documented On 01-Jan-2015 10:30 Appointment; Carolynn Arellano Encounter Diagnosis: Problem not documented On 23-Dec-2014 15:15 Appointment; Lex John Encounter Diagnosis: Problem not documented On 17-Dec-2014 11:45 Appointment; Madeline Smims Encounter Diagnosis: Problem not documented On 10-Dec-2014 13:30 Appointment; Evelyne Perales Encounter Diagnosis: Problem not documented On 09-Dec-2014 14:15 Appointment; Sampson Cuadra Encounter Diagnosis: Problem not documented On 25-Nov-2014 13:00 Appointment; Renuka Middleton Encounter Diagnosis: Problem not documented On 16-Nov-2014 13:30 Appointment; Raul Cowart Encounter Diagnosis: Problem not documented On 10:00 Appointment; Evelyne Perales Encounter Diagnosis: Problem not [...] Problem not documented On 14:00 Appointment; Madeline Simsm Encounter Diagnosis: Problem not documented On 13:15 [...]
--- OUTSIDE RECORDS SUMMARY | 2016-07-28 22:31 | XMS REPORT | Summary of Care ---
Author Author Nemesio Todd M.D. Unknown Address Unknown Phone Unavailable Care Team Providers Care Software Systems Engineer Name Role Phone Dora Sow, Jeremy Unavailable Unavailable Mendez Sow, Madeline Unavailable Unavailable Perez Sow, Homa Unavailable Unavailable Perez Sow, S Unavailable Unavailable Madeline Simms Unavailable Unavailable Unavailable Unavailable Functional Status Name Dates Details Functional status health issues are not documented Status: Name Dates Details Cognitive status health issues are not documented Status: Problems Name Dates Details Bipolar disorder (296.80, F31.9) Status: Active penitentiary use of drug (V58.69, 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: Active [...] Status: Active Dysuria (788.1, R30.0) Status: Active Medications Name Dates Details Metoprolol Tartrate 25 MG Oral Tablet take one tablet by mouth every day Quantity: 30 Simms M.D., Madeline * Start 15-Mar-2009 Active Levothyroxine Sodium 50 [...] 30 Refills: 3 Simms M.D.Madeline * Start 26-Jan-2012 Active AmLODIPine Besylate 5 MG Oral Tablet TAKE ONE TABLET BY MOUTH EVERY MORNING * Quantity: 30 Refills: 5 Simms M.D., Madeline * Start 29-Apr-2013 Active Fluticasone Propionate 50 MCG/ACT Nasal Suspension USE 1 SPRAY IN EACH NOSTRIL ONCE DAILY. * Quantity: 16 Refills: 5 Dora Guajardo.Veronique., Lex Luna * Start 15-Jan-2014 Active Losartan Potassium 100 MG Oral Tablet Take one tablet by mouth daily * Quantity: 30 Refills: 0 Simms M.D.Madeline * Start 03-Mar-2014 Active Belsomra 20 MG Oral Tablet TAKE ONE TABLET BY MOUTH AT BEDTIME NEEDED * Quantity: 30 Refills: 0 Dora Guajardo.Veronique.Lex * Start 20-Aug-2014 Active Wellbutrin XL 300 MG Oral Tablet Extended Release 24 Hour take one tablet by mouth every day * Quantity: 30 Refills: 0 * Start Active Benztropine Mesylate 1 MG Oral Tablet Take 1 tablet twice daily * Refills: 0 Simms M.Veronique.Madeline * Start 10-Dec-2014 Active Paliperidone ER 6 MG Oral Tablet Extended Release 24 Hour TAKE 1 TABLET DAILY. * Refills: 0 Simms M.Veronique.Madeline * Start 31-May-2015 Active Methocarbamol 750 MG Oral Tablet TAKE ONE TABLET BY MOUTH TWICE DAILY NEEDED FOR MUSCLE SPASMS * Quantity: 60 Refills: 0 Simms M.D.Madeline * Start 02-Jun-2015 Active HydrOXYzine HCl - 25 MG Oral Tablet TAKE 1-3 TABLETS BY MOUTH AT BEDTIME NEEDED * Quantity: 60 Refills: 0 Dora Guajardo.Lex Stover * Start 15-Jun-2015 Active Nicotine Polacrilex 2 MG Mouth/Throat Lozenge ALLOW 1 LOZENGE TO DISSOLVE SLOWLY IN MOUTH DIRECTED * Quantity: 1 Refills: 0 Kristi Todd M.D. Start Active 48 Lozenge Box Naproxen 500 MG Oral Tablet TAKE ONE TABLET BY MOUTH TWICE DAILY WITH FOOD * Quantity: 60 Refills: 0 Simms M.D.Madeline * Start 17-Aug-2015 Active Azithromycin 500 MG Oral Tablet TAKE 2 TABLETS ONCE DIRECTED. * Quantity: 2 Refills: 0 Nemesio Todd M.D. * Start 15-Nov-2015 Active Allergies and Adverse Reactions Name Dates [...] 07-Jan-2010 Influenza on: 22-Dec-2010 Influenza Lot #: [id number] on: 23-Jan-2012 Influenza on: 13-Jan-2013 PPD Lot #: [id number] on: Fluzone INJ Lot #: [id number] on: 02-Jan-2014 Fluzone Quadrivalent 0.5 ML Intramuscular Suspension Lot #: [id number] on: 25-Jan-2015 Tdap (Adacel) Lot #: [id number] on: 28-Jun-2015 Family History Name Dates Details [...] smoker Vital Signs Date Test Result Details 15-Nov-2015 13:54 BP Systolic 142 mm[Hg] Status: Comments: Location: ; Position: BP Diastolic 88 mm[Hg] Status: Comments: Location: ; Position: Temperature 97.5 f Status: Heart Rate 86 /min Status: Comments: Location: ; Weight 270 lb Status: Body Mass Index Calculated 44.93 kg/m2 Status: Body Surface Area Calculated 2.25 m2 Status: 11:34 BP Systolic 146 mm[Hg] Status: Comments: [...] Provider: Madeline Simms M.D. On 10-Feb-2016 09:00 Interventions Provided Medication Changes* Azithromycin 500 MG Oral Tablet - Start Instructions Name Dates Details Instructions not documented Encounters Appointment; Donald Arshad M.D. Encounter Diagnosis: Problem [...] documented On 10-Dec-2014 13:30 Appointment; Evelyne Perales A.P.R.N. Encounter Diagnosis: Problem not documented On 09-Dec-2014 14:15 Appointment; Sampson Cuadra P.T. Encounter Diagnosis: Problem not documented On 25-Nov-2014 13:00 Appointment; Renuka Middleton A.P.R.N. Encounter Diagnosis: Problem not documented On 16-Nov-2014 [...]
--- OUTSIDE RECORDS SUMMARY | 2016-07-28 22:31 | XMS REPORT | Summary of Care ---
Author Author Yolis Jones Organization Unknown Address [address], [place] [id number] Phone Unavailable Care Team Providers Care Generator Rebuilder Name Role Phone Dora Sow, Jeremy Unavailable Americo Varner M.D., Raul Unavailable Unavailable Yolis Jones Unavailable Unavailable Fadi Sow, Javier Unavailable Unavailable Mendez Sow, Madeline Unavailable Unavailable Madeline Simms Unavailable Unavailable Unavailable Unavailable Functional Status Name Dates Details Functional status health issues are not documented Status: Name Dates Details Cognitive status health issues are not documented Status: Problems Name Dates Details Hallux rigidus (735.2, M20.20) Status: Active Difficulty in walking (719.7, R26.2) Status: Active Wound, open, toe (893.0, S91.109A) Status: Active Tobacco use disorder (305.1, F17.200) Status: Active Left hip pain (719.45, M25.552) Status: Active Left knee pain (719.46, M25.562) Status: Active Lower back pain (724.2, M54.5) Status: Active Hyperlipidemia (272.4, E78.5) Status: Active Vitamin D deficiency (268.9, E55.9) Status: Active Dyspepsia (536.8, K30) Status: Active Onychomycosis (110.1, B35.1) Status: Active Plantar fascial fibromatosis (728.71, M72.2) Status: Active Morbid obesity (278.01, E66.01) Status: Active 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, M19.071) Status: Active Allergic rhinitis due to pollen (477.0, J30.1) Status: Active Effusion of left knee (719.06, M25.462) Status: Active Tear of medial meniscus of left knee, initial encounter Status: Active 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, F41.8) Status: Active Status post arthroscopy of left knee (V45.89, Z98.890) Status: Active Chondromalacia of knee, 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, 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: Active Back pain (724.5, M54.9) Status: Active Essential hypertension (401.9, I10) Status: Active Gastroesophageal reflux disease (530.81, K21.9) Status: Active Hypothyroidism (244.9, E03.9) Status: Active Schizophrenia, unspecified (295.90, F20.9) Status: Active Bipolar affective disorder (296.80, F31.9) Status: Active Current some day smoker (305.1, F17.200) Status: Active Nicotine dependence (305.1, F17.200) Status: Active Obstructive sleep apnea (327.23, G47.33) Status: Active Edema, lower extremity (782.3, R60.0) Status: Active Leg swelling (729.81, M79.89) Status: Active Acute deep vein thrombosis (DVT) of both lower extremities, unspecified vein ( 453.40, I82.403) Status: Active Status post lumbar surgery (V45.89, Z98.890) Status: Active Acute bronchitis (466.0, J20.9) Status: Active Medications Name Dates Details Metoprolol [...] day * Quantity: 90 Refills: 3 Simms M.D., Madeline * Start 09-Jun-2016 Active Omeprazole 20 MG Oral Capsule Delayed Release Take one capsule by mouth daily * Quantity: 90 Refills: 2 Simms M.D.Madeline * Start 26-Jan-2012 Active AmLODIPine Besylate 5 MG Oral Tablet TAKE ONE TABLET BY MOUTH IN THE MORNING * Quantity: 30 Refills: 5 Simms M.D., Madeline * Start 14-Mar-2016 Active Fluticasone Propionate 50 MCG/ACT Nasal Suspension INSTILL 1 SPRAY IN EACH NOSTRIL ONCE A DAY * Quantity: 16 Refills: 11 Sourk M.D., Lex Luna * Start 16-Feb-2016 Active Losartan Potassium 100 MG Oral Tablet Take one tablet by mouth daily * Quantity: 30 Refills: 5 Simms M.D., Madeline * Start 19-May-2016 Active Benztropine Mesylate 1 MG Oral Tablet Take 1 tablet twice daily * Refills: 0 Simms M.D., Madeline * Start 10-Dec-2014 Active Paliperidone ER 6 MG Oral Tablet Extended Release 24 Hour TAKE 1 TABLET DAILY. * Refills: 0 Simms M.D., Madeline * Start 31-May-2015 Active Diclofenac Sodium 75 MG Oral Tablet Delayed Release TAKE ONE TABLET BY MOUTH TWICE DAILY WITH FOOD * Quantity: 60 Refills: 1 Simms M.D.Madeline * Start 06-Jun-2016 Active Gabapentin 300 MG Oral Capsule TAKE 1 CAPSULE 3 times daily * Quantity: 90 Refills: 1 Telly M.D.Raul * Start 20-Jun-2016 Active Hydrocodone-Acetaminophen 7.5-325 MG Oral Tablet TAKE 1 TO 2 TABLETS EVERY 6 HOURS NEEDED FOR PAIN. * Quantity: 40 Refills: 0 Telly M.D.Raul * Start 08-Mar-2016 Active Eliquis 5 MG Oral Tablet Take 1 tablet po twice daily * Quantity: 60 Refills: 3 Fadi M.D., Malcolm Herrera * Start 10-Jul-2016 Active Nicotine 21 MG/24HR Transdermal Patch 24 Hour APPLY 1 PATCH DAILY DIRECTED. * Quantity: 1 Refills: 0 Simms M.D.Madeline * Start 25-May-2016 Active 14 Patch 24 Hour Box Azithromycin 250 MG Oral Tablet TAKE 2 TABLETS ON DAY 1 THEN TAKE 1 TABLET A DAY FOR 4 DAYS. * Quantity: 1 Refills: 0 Yolis Jones * Start 19-Jul-2016 Active 6 Tablet Box Allergies and Adverse Reactions Name Dates Details [...] History of Appendectomy History of Knee Arthroscopy Procedures not documented Immunization Name Dates Details Tdap (Adacel) on: Feb-2007 Influenza on: 05-Apr-2009 Influenza A (H1N1) Monoval PF SUSP on: 05-Apr-2009 Fluzone INJ on: 07-Jan-2010 Influenza on: 22-Dec-2010 Influenza Lot #: [id number] on: 23-Jan-2012 Influenza on: 13-Jan-2013 PPD Lot #: [id number] on: Fluzone INJ Lot #: [id number] on: 02-Jan-2014 Fluzone Quadrivalent 0.5 ML Intramuscular Suspension Lot #: [id number] on: 25-Jan-2015 Tdap (Adacel) Lot #: [id number] on: 28-Jun-2015 Fluzone Quadrivalent 0.5 ML Intramuscular Suspension Lot #: [id number] on: 23-Feb-2016 Family History Name Dates Details [...] unknown Vital Signs Date Test Result Details 19-Jul-2016 15:27 BP Systolic 138 mm[Hg] Status: Comments: Location: ; Position: BP Diastolic 90 mm[Hg] Status: Comments: Location: ; Position: Temperature 97.9 f Status: Heart Rate 101 /min Status: Comments: Location: ; Physical Findings 96 Status: Comments: O2 Saturation 17-Jul-2016 11:05 BP Systolic 124 mm[Hg] Status: Comments: Location: ; Position: BP Diastolic 88 mm[Hg] Status: Comments: Location: ; Position: Temperature 97.3 f Status: Heart Rate 80 /min Status: Comments: Location: ; 14-Jul-2016 09:43 BP Systolic 118 mm[Hg] Status: Comments: Location: ; Position: BP Diastolic 70 mm[Hg] Status: Comments: Location: ; Position: Heart Rate 74 /min Status: Comments: Location: ; Weight 280 lb Status: Physical Findings 95 Status: Comments: O2 Saturation Body Mass Index Calculated 38.51 kg/m2 Status: Body Surface Area Calculated 2.45 m2 Status: 10-Jul-2016 13:52 BP Systolic 116 mm[Hg] Status: Comments: Location: ; Position: BP Diastolic 73 mm[Hg] Status: Comments: Location: ; Position: Temperature 97.1 f Status: Heart Rate 96 /min Status: Comments: Location: ; Physical Findings 16 Status: Comments: Respiration Physical Findings 94 Status: Comments: O2 Saturation 10-Jul-2016 10:39 BP Systolic 144 mm[Hg] Status: Comments: Location: ; Position: BP Diastolic 86 mm[Hg] Status: Comments: Location: ; Position: Temperature 98.2 f Status: Comments: Method: Heart Rate 88 /min Status: Comments: Location: ; 04-Jul-2016 16:54 BP Systolic 154 mm[Hg] Status: Comments: Location: LUE; Position: Sitting BP Diastolic 90 mm[Hg] Status: Comments: Location: LUE; Position: Sitting Heart Rate 78 /min Status: Comments: Location: ; Weight 270 lb Status: Body Mass Index Calculated 37.13 kg/m2 Status: Body Surface Area Calculated 2.41 m2 Status: 30-Jun-2016 10:03 BP Systolic 140 mm[Hg] Status: Comments: Location: ; Position: BP Diastolic 100 mm[Hg] Status: Comments: Location: ; Position: Heart Rate 78 /min Status: Comments: Location: ; Physical Findings 18 Status: Comments: Respiration Weight 270 lb Status: Physical Findings 96 Status: Comments: O2 Saturation Body Mass Index Calculated 37.13 kg/m2 Status: Body Surface Area Calculated 2.41 m2 Status: 26-Jun-2016 09:48 BP Systolic 126 mm[Hg] Status: [...] Body Surface Area Calculated 2.43 m2 Status: Results Date Description Value Details 20-Jun-2016 15:31 MRI LUMBAR SPINE Comments: Exam [...] Comments: DOS 07/[address] Varner at [facility] SODIUM 139 mmol/L Range: 133-144 POTASSIUM 4.7 mmol/L Range: 3.5-5.1 CHLORIDE 101 mmol/L Range: 98-110 CARBON DIOXIDE 27.8 mmol/L Range: 23.0-33.0 ANION GAP 10 mmol/L Range: 6-16 BUN 15 mg/dL Range: 7-18 CREATININE, SERUM 1.05 mg/dL Range: 0.70-1.30 EST GFR, >60 ml/min Range: >60 EST GFR, NON-AFR AFGHAN >60 ml/min Range: >60 Comments: EST GFR is reported in ml/min per 1.73 m2 of body surface area. ----- BUN:CREATININE RATIO 14 GLUCOSE 98 mg/dL Range: 70-100 CALCIUM 9.9 mg/dL Range: 8.5-10.1 10-Jul-2016 12:06 ULTRASOUND LEG VEINS-BILATERAL Comments: Exam Date: 2016 11:28Dictation Date: 07/10/2016 12:06 XS LEG VEINS Plan of Care Name Dates Details Planned Observations Planned Goals not documented Planned Encounters Appointment; Provider: Aime Rdz M.D. On 15-Jan-2017 13:30 Appointment; Provider: Madeline Simms M.D. On 21-Aug-2016 08:45 Appointment; Provider: Raul Varner M.D. On 14-Aug-2016 08:45 Appointment; Provider: Madeline Simms M.D. On 07-Aug-2016 13:45 Appointment; Provider: Yvon Jones On 24-Jul-2016 10:30 Interventions Provided Medication Changes* Azithromycin 250 MG Oral Tablet - Start * Mupirocin 2 % External Ointment - Completed * Refresh Tears 0.5 % Ophthalmic Solution - Completed Instructions Name Dates Details Instructions not documented Encounters Appointment; Raul Varner M.D. Encounter Diagnosis: Problem not documented On 17-Jul-2016 11:15 Appointment; Malcolm Aponte M.D. Encounter Diagnosis: Problem not documented On 14-Jul-2016 09:45 Appointment; Arnold Zhang D.O. Encounter Diagnosis: Problem not documented On 10-Jul-2016 12:55 Appointment; Raul Varner M.D. Encounter Diagnosis: Problem not documented On 10-Jul-2016 10:30 Appointment; Raul Varner M.D. Encounter Diagnosis: Problem not documented On 04-Jul-2016 16:15 Appointment; Raul Cowart M.D. Encounter Diagnosis: Problem not documented On 30-Jun-2016 10:00 Appointment; Jamar Spears D.O. Encounter Diagnosis: Problem not documented On 29-Jun-2016 14:30 Appointment; Mat Pina M.D. Encounter Diagnosis: Problem not documented On 26-Jun-2016 10:00 Appointment; Raul Varner M.D. Encounter Diagnosis: Problem [...]
--- OUTSIDE RECORDS SUMMARY | 2016-07-28 22:31 | XMS REPORT | Summary of Care ---
Author Author Madeline Simms M.D. Unknown Address [address], [place] [id number] Phone Unavailable Care Team Providers Care Licensed Mental Health Professional Name Role Phone Jeremy John M.D. 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: Active [...] Active Sinusitis, acute (461.9, J01.90) Status: Active Pain in joint of left knee (719.46, M25.562) Status: Active Leg pain, bilateral (729.5, M79.604) Status: Active Edema (782.3, R60.9) Status: Active Hyperlipidemia (272.4, E78.5) Status: Active Hypothyroidism (244.9, E03.9) Status: Active Onychomycosis (110.1, B35.1) Status: Active Obstructive sleep apnea (327.23, G47.33) Status: Active Morbid obesity (278.01, E66.01) Status: Active Paranoid schizophrenia (295.30, F20.0) Status: Active Sinusitis (473.9, J32.9) Status: Active Acute sinusitis (461.9, J01.90) Status: Active Essential hypertension (401.9, I10) Status: Active Snoring (786.09, R06.83) Status: Active Chest pain (786.50, R07.9) Status: Active Dyspnea (786.09, R06.00) Status: Active Anemia of chronic disease (285.29, D63.8) Status: Active Medications Name Dates Details Metoprolol Tartrate 25 MG Oral Tablet take one tablet by mouth every day Quantity: 30 Madeline Simms M.D.* Started 15-Mar-2009 ActiveLevothyroxine Sodium 50 MCG Oral Tablet take one tablet by mouth every day * Quantity: 30 Refills: 5 Madeline Simms M.D.* Started 26-Aug-2010 ActiveLORazepam 1 MG Oral Tablet TAKE 1 TABLET IN MORNING, 1 TABLET AT NOON, 1/2 TABLET AT BEDTIME. * Refills: 0 Madeline Simms M.D.* Started ActiveInvega Sustenna 156 MG/ML Intramuscular Suspension inject IM every 3 weeks * Refills: 0 Madeline Simms M.D.* Started 25-Nov-2010 ActiveLevocetirizine Dihydrochloride 5 MG Oral Tablet take one tablet by mouth every day * Quantity: 90 Refills: 3 SimmsMadeline M.D.* Started 26-Dec-2011 ActiveOmeprazole 20 MG Oral Capsule Delayed Release Take one capsule by mouth daily * Quantity: 30 Refills: 5 SimmsMadeline M.D.* Started 26-Jan-2012 ActiveAmLODIPine Besylate 5 MG Oral Tablet TAKE ONE TABLET BY MOUTH EVERY MORNING * Quantity: 30 Refills: 5 SimmsMadeline M.D.* Started 29-Apr-2013 ActiveCyclobenzaprine HCl - 10 MG Oral Tablet TAKE 1 TABLET 2 TIMES DAILY NEEDED for muscle cramping * Quantity: 30 Refills: 0 SimmsMadeline M.D.* Started 07-Jan-2014 ActiveLosartan Potassium 100 MG Oral Tablet take one tablet by mouth every day * Quantity: 30 Refills: 5 SimmsMadeline M.D.* Started 03-Mar-2014 ActiveTraZODone HCl - 50 MG Oral Tablet TAKE 1 TABLET AT BEDTIME. * Quantity: 30 Refills: 2 * Started 22-Jun-2014 ActiveFluticasone Propionate 50 MCG/ACT Nasal Suspension USE 2 SPRAYS IN EACH NOSTRIL ONCE DAILY * Quantity: 1 Refills: 11 Lex John M.D.* Started 11-Aug-2014 Rypadj86 GM Bottle Belsomra 20 MG Oral Tablet TAKE 1 TABLET AT BEDTIME NEEDED. * Quantity: 30 Refills: 0 Lex John M.D.* Started 20-Aug-2014 ActiveWellbutrin XL 300 MG Oral Tablet Extended Release 24 Hour take one tablet by mouth every day * Quantity: 30 Refills: 0 * Started Active Allergies and Adverse Reactions Name Dates [...] on:07-Jan-2010 Influenza Administered on:22-Dec-2010 Influenza Lot #: [id number] Administered on:23-Jan-2012 Influenza Administered on:13-Jan-2013 PPD Lot #: [id number] Administered on: Fluzone Intramuscular Injectable Lot #: [id number] Administered on:02-Jan-2014 Family History Mother* Name Dates [...] smoker Vital Signs Date Test Result Details 09:19 BP Systolic 136 mm[Hg] Status: BP Diastolic 86 mm[Hg] Status: Heart Rate 84 /min Status: Weight 306 lb Status: Body Mass Index Calculated 50.92 kg/m2 Status: Body Surface Area Calculated 2.37 m2 Status: 11-Sep-2014 10:11 BP Systolic 120 mm[Hg] Status: BP Diastolic 80 mm[Hg] Status: Heart Rate 82 /min Status: Weight 303 lb Status: Height 65 in Status: Body Mass Index Calculated 50.42 kg/m2 Status: Body Surface Area Calculated 2.36 m2 Status: 09-Sep-2014 08:50 BP Systolic 130 mm[Hg] Status: BP Diastolic 70 mm[Hg] Status: Heart Rate 80 /min Status: O2 SAT 95 % Status: 08-Sep-2014 15:59 BP Systolic 132 mm[Hg] Status: BP Diastolic 84 mm[Hg] Status: Heart Rate 115 /min Status: Weight 308 lb Status: O2 SAT 94 % Status: Body Mass Index Calculated 42.36 kg/m2 Status: Body Surface Area Calculated 2.55 m2 Status: Results Date Description Value Details 09-Sep-2014 07:59 ECG/ EKG CP - Electro CardioGram ECG/ EKG Cardiology Read (Better) 08:03 CBC w/ Auto Diff 7150 WBC 10.6 K/uL (Better) Range: 4.5-11.0 RBC 4.55 mil/uL (Better) Range: 4.20-5.40 HGB 13.5 g/dL (Below low threshold) Range: 14.0-18.0 HCT 39.2 % (Below low threshold) Range: 42.0-53.0 MCV 86.1 fL (Better) Range: 80.0-99.0 MCH 29.6 pg (Better) Range: 27.3-32.5 MCHC 34.4 % (Better) Range: 32.0-36.0 RDW 13.6 % (Better) Range: 11.6-14.8 PLATELETS 263 K/uL (Better) Range: 150-400 MPV 7.2 fL (Better) Range: 6.0-11.0 %NEUTRO 66.2 % (Better) Range: 37.0-80.0 %LYMPHS 21.1 % (Better) Range: 13.0-50.0 %MONO 7.2 % (Better) Range: 0.0-12.0 %EOS 3.2 % (Better) Range: 0.0-7.0 %BASO 0.8 % (Better) Range: 0.0-2.5 %ESTELLA 1.4 % (Better) Range: 0.0-5.0 NEUTRO 7.0 K/uL (Above high threshold) Range: 2.0-6.9 LYMPHS 2.2 K/uL (Better) Range: 0.6-3.4 MONOS 0.8 K/uL (Better) Range: 0.0-0.9 EOS 0.3 K/uL (Better) Range: 0.0-0.7 BASO 0.1 K/uL (Better) Range: 0.0-0.2 08:10 D - DIMER 7505 D-DIMER 0.20 ug/mL (Better) Range: 0.00-0.26 Comments: For patients with low clinical probability of PE of DVT, D-Dimer results of 0.25 ug/mL and less have an excellent negative predictive value in excluding a diagnosis of acute PE or EVT. However, a thromboembolic event cannot be excluded when D-Dimer values are greater than 0.25 ug/mL.----- 08:21 XRay CHEST-PA & LAT Comments: Exam Date: 2014 08: 04Dictation Date: 2014 08:21 X CHEST PA & LAT (Better) 08:36 Comprehensive Metabolic Panel 1212 SODIUM 138 mmol/L (Better) Range: 133-144 POTASSIUM 4.2 mmol/L (Better) Range: 3.5-5.1 CHLORIDE 101 mmol/L (Better) Range: 98-110 CARBON DIOXIDE 25.7 mmol/L (Better) Range: 23.0-33.0 ANION GAP 11 mmol/L (Better) Range: 6-16 BUN 18 mg/dL (Better) Range: 7-18 CREATININE, SERUM 1.13 mg/dL (Above high threshold) Range: 0.55-1.02 Comments: Please note new reference ranges effective 2014.----- BUN:CREATININE RATIO 16 (Better) EST GFR, >60 ml/min (Better) Range: >60 EST GFR, NON-AFR [place] >60 ml/min (Better) Range: >60 Comments: EST GFR is reported in ml/min per 1.73 m2 of body surface area. For -Zimbabwean, please multiple result by 1.2.----- GLUCOSE 98 mg/dL (Better) Range: 70-100 ALK PHOSPHATASE 81 U/L (Better) Range: 46-116 TOTAL BILIRUBIN 0.50 mg/dL (Better) Range: 0.20-1.00 AST 36 U/L (Above high threshold) Range: 8-35 ALT 55 U/L (Better) Range: 16-63 Comments: Please note new reference ranges. Effective 06/25/2014.----- ALBUMIN 3.8 g/dL (Better) Range: 3.4-5.0 TOTAL PROTEIN 6.8 g/dL (Better) Range: 6.4-8.2 A/G RATIO 1.3 units (Better) Range: 1.0-1.8 CALCIUM 9.2 mg/dL (Better) Range: 8.5-10.1 08:36 AMYLASE 1250 AMYLASE 26 U/L (Better) Range: 25-115 08:36 Lipase 1275 LIPASE 99 U/L (Better) Range: 73-393 Plan of Care Planned Observations* Name Dates Details Planned Goals not documented Goal Planned Encounters* Appointment; Provider: Lex John On 19-Jan-2015 10:30 * Appointment; Provider: Madeline Simms On 11:15 * Appointment; Provider: Josse Sheppard On 13:15 * Appointment; Provider: Schedule Radiology On 10:00 [...] not documented On 11-Sep-2013 13:45 Appointment; Lex oJhn Encounter Diagnosis: Problem not documented On 25-Aug-2013 [...]
--- OUTSIDE RECORDS SUMMARY | 2016-07-28 22:32 | XMS REPORT | Summary of Care ---
Author Author Madeline Simms M.D. Unknown Address [address] [place], [place] [id number] Phone Unavailable Care Team Providers Care Chief Radiologic Technologist Name Role Phone Jeremy John M.D. Unavailable [...] Active Bipolar disorder (296.80, F31.9) Status: Active intermediate use of drug (V58.69, 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: Active [...] day * Quantity: 30 Refills: 4 Madeline iSmms M.D.* Started 26-Aug-2010 ActiveLORazepam 1 MG Oral Tablet TAKE 1 TABLET IN MORNING, 1 TABLET AT NOON, 1 1/2 TABLET AT BEDTIME. * Refills: 0 Madeline Simms M.D.* Started ActiveInvega Sustenna 156 MG/ML Intramuscular Suspension Inject IM every 4 weeks * Refills: 0 Madeline Simms M.D.* Started 25-Nov-2010 ActiveNystatin-Triamcinolone 480872-7.1 UNIT/GM-% External Cream APPLY SPARINGLY TO AFFECTED [...] TABLET DAILY DIRECTED. * Refills: 0 SimmsMadeline valle M.D.* Started 12-Jun-2013 ActiveRefresh Tears 0.5 % [...] Refills: 5 Lex John M.D.* Started 15-Jan-2014 Cbcdoj39 GM Bottle Losartan Potassium 100 MG Oral Tablet take one tablet by mouth every day * Quantity: 30 Refills: 5 Madeline Simms M.D.* Started 03-Mar-2014 ActiveMucinex 600 MG Oral Tablet Extended Release 12 Hour TAKE 1 TABLET TWICE DAILY. * Quantity: 42 Refills: 0 Madeline Simms M.D.* Started 03-Mar-2014 ActiveProAir HFA 108 (90 Base) MCG/ACT Inhalation Aerosol Solution inhale 1 to 2 puffs every 4 to 6 hours as needed. * Quantity: 1 Refills: 3 Lex John M.D.* Started 11-Mar-2014 Active8.5 GM Inhaler Meloxicam 15 MG Oral Tablet TAKE ONE TABLET BY MOUTH EVERY DAY WITH FOOD * Quantity: 30 Refills: 0 SimmsMadeline M.D.* Started 20-Mar-2014 ActiveFenofibrate 160 MG Oral Tablet take one tablet by mouth every day * Quantity: 30 Refills: 3 SimmsMadeline M.D.* Started 23-Mar-2014 ActiveNicotine 14 MG/24HR Transdermal Patch 24 Hour APPLY 1 PATCH DAILY DIRECTED. * Quantity: 28 Refills: 0 SimmsMadeline M.D.* Started 23-Mar-2014 ActiveVitamin D 2000 UNIT Oral Capsule TAKE 1 CAPSULE Daily * Quantity: 100 Refills: 0 SimmsMadeline M.D.* Started 24-Mar-2014 ActiveHydrOXYzine HCl - 25 MG Oral Tablet TAKE 1-3 TABS AT BEDTIME NEEDED * Quantity: 90 Refills: 0 Lex John M.D.* Started 15-Apr-2014 Active Allergies and Adverse Reactions Name Dates [...] on:07-Jan-2010 Influenza Administered on:22-Dec-2010 Influenza Lot #: [id number] Administered on:23-Jan-2012 Influenza Administered on:13-Jan-2013 PPD Lot #: [id number] Administered on: Fluzone Intramuscular Injectable Lot #: [id number] Administered on:02-Jan-2014 Family History Mother* Name Dates [...] documented On 13-Jun-2012 15:00 Appointment; Madeline Simms Encounter Diagnosis: Problem not documented On 07-May-2012 14:45
--- OUTSIDE RECORDS SUMMARY | 2016-07-28 22:32 | XMS REPORT | Summary of Care ---
Author Author Madeline Simms M.D. Unknown Address [address], [place] [id number] Phone Unavailable Care Team Providers Care Senior Sales Associate Name Role Phone Jeremy John M.D. 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 Hypomagnesemia (275.2, E83.42) Status: Active Sleep disturbances (780.50, G47.9) Status: Active Bilateral dry eyes (375.15, H04.123) Status: Active Plantar fascial fibromatosis (728.71, M72.2) Status: Active Fatigue (780.79, R53.83) Status: Active Muscle spasm (728.85, M62.838) Status: Active Nicotine dependence (305.1, F17.200) Status: Active Vitamin d deficiency (268.9, E55.9) Status: Active Allergic rhinitis (477.9, J30.9) Status: Active Seasonal allergies (477.9, J30.2) Status: Active Edema (782.3, R60.9) Status: Active Onychomycosis (110.1, B35.1) Status: Active Morbid obesity (278.01, E66.01) Status: Active Snoring (786.09, R06.83) Status: Active Dyspnea (786.09, R06.00) Status: Active Anemia of chronic disease (285.29, D63.8) Status: Active Chest pain (786.50, R07.9) Status: Active Hyperlipidemia (272.4, E78.5) Status: Active Pleurisy (511.0, R09.1) Status: Active Tobacco use (305.1, Z72.0) Status: Active Pain in left knee (719.46, M25.562) Status: Active Bilateral leg pain (729.5, M79.604) Status: Active Paranoid schizophrenia (295.30, F20.0) Status: Active Macular drusen (362.57, H35.369) Status: Active Combined form of age-related cataract, 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, 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 Diplopia (368.2, H53.2) Status: Active Myopia (367.1, H52.10) Status: Active Essential hypertension (401.9, I10) Status: Active Dyspepsia (536.8, K30) Status: Active Hypothyroidism (244.9, E03.9) Status: Active Insomnia (780.52, G47.00) Status: Active Obstructive sleep apnea (327.23, G47.33) Status: Active Leg pain, bilateral (729.5, M79.604) Status: Active Myalgia (729.1, M79.1) Status: Active Medications Name Dates Details Metoprolol Tartrate 25 MG Oral Tablet take one tablet by mouth every day Quantity: 30 SimmsMadeline M.D.* Started 15-Mar-2009 ActiveLevothyroxine Sodium 50 MCG Oral Tablet take one tablet by mouth every day * Quantity: 30 Refills: 0 Madeline Simms M.D.* Started 26-Aug-2010 ActiveLORazepam 1 [...] Refills: 5 Lex John M.D.* Started 15-Jan-2014 ActiveLosartan Potassium 100 MG Oral Tablet take one tablet by mouth every day * Quantity: 30 Refills: 3 Madeline Simms M.D.* Started 03-Mar-2014 ActiveNicotine 21 MG/24HR Transdermal Patch 24 Hour APPLY 1 PATCH DAILY DIRECTED X 2 WEEKS THEN WILL USE NICOTINE 14MG/24HR PATCHES * Quantity: 14 Refills: 0 Madeline Simms M.D.* Started 23-Mar-2014 ActiveWellbutrin XL 300 MG Oral Tablet Extended [...] Refills: 0 Madeline Simms M.D.* Started 31-May-2015 ActiveMeloxicam 15 MG Oral Tablet Take one tablet by mouth daily * Quantity: 30 Refills: 0 Raul Cowart M.D.* Started 17-Dec-2014 ActiveMethocarbamol 750 MG Oral Tablet TAKE 1 TABLET BY MOUTH TWICE DAILY NEEDED FOR MUSCLE SPASMS. * Quantity: 60 Refills: 0 Madeline Simms M.D.* Started 02-Jun-2015 ActiveHydrOXYzine HCl - 25 MG Oral Tablet TAKE 1 TO 3 TABLETS AT BEDTIME NEEDED. * Quantity: 60 Refills: 0 Lex John M.D.* Started 15-Jun-2015 Active Allergies and Adverse Reactions Name Dates Details Chantix TABS Reaction: Hallucinations (Severe), Other Status: Active Past Medical History Name Dates Details History of acute bronchitis (V12.69, Z87.09) Status: Resolved History of acute otitis media (V12.49, Z86.69) Status: Resolved History of acute sinusitis (V1., Z87.09) Status: Resolved History of acute sinusitis (V1., Z87.09) Status: Resolved History of Ankle joint pain (719.47, M25.579) Status: Resolved History of Atypical chest pain (786.59, R07.89) Status: Resolved History of Bloating (787.3, R14.0) Status: Resolved History of Blurry Vision As If Looking Through A Glass Of Water Status: Resolved History of conjunctivitis (V1.49, Z86.69) Status: Resolved History of Cough (786.2, R05) Status: Resolved History of Difficulty in walking (719.7, R26.2) Status: Resolved History of esophagitis (V12.79, Z87.19) Status: Resolved History of insomnia (V13.89, Z87.898) Status: Resolved History of Limb pain (729.5, M79.609) Status: Resolved History of Nausea (787.02, R11.0) Status: Resolved History of Need for vaccination (V05.9, Z23) Status: Resolved History of Otitis externa (380.10, [...] on:07-Jan-2010 Influenza Administered on:22-Dec-2010 Influenza Lot #: [id number] Administered on:23-Jan-2012 Influenza Administered on:13-Jan-2013 PPD Lot #: [id number] Administered on: Fluzone Intramuscular Injectable Lot #: [id number] Administered on:02-Jan-2014 Fluzone Quadrivalent 0.5 ML Intramuscular Suspension Lot #: [id number] Administered on:25-Jan-2015 Tdap (Adacel) Lot #: [id number] Administered on:28-Jun-2015 Family History Mother* Name Dates [...] Body Surface Area Calculated 2.2 m2 Status: 02-Jun-2015 10:37 BP Systolic 120 mm[Hg] Status: BP Diastolic 84 mm[Hg] Status: Heart Rate 68 /min Status: Weight 267 lb Status: Body Mass Index Calculated 44.43 kg/m2 Status: Body Surface Area Calculated 2.24 m2 Status: Results Date Description Value Details [...] ml/min (Better) Range: >60 EST GFR, NON-AFR [place] >60 ml/min (Better) Range: >60 Comments: EST GFR is reported in ml/min per 1.73 m2 of body surface area. For -Belgian, please multiple result by 1.2.----- GLUCOSE 105 [...] Martinez On 12-Jan-2015 14:00 * Appointment; Provider: Nisha Barnes On 10:00 * Appointment; Provider: Lex John [...] documented On 17-Dec-2014 11:45 Appointment; Madeline Simms Encounter Diagnosis: Problem not [...] Diagnosis: Problem not documented On 13:15 Appointment; Mdaeline Simms Encounter Diagnosis: Problem not documented On [...]
--- OUTSIDE RECORDS SUMMARY | 2016-07-28 22:32 | XMS REPORT | Summary of Care ---
Author Author Mendez Sow, Madeline De La Paz Unknown Address Unknown Phone Unavailable Care Team Providers Care Academic Program Specialist Name Role Phone Dora Sow, Jeremy Unavailable Unavailable Lisa Sow, Geovanna Unavailable Unavailable Madeline Simms M.D. 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 * Quantity: 45 Refills: 0 Simms M.D.Madeline * Start Active Nystatin-Triamcinolone 010341-5.1 UNIT/GM-% External Cream APPLY SPARINGLY TO AFFECTED [...] 5 Simms M.D.Madeline * Start 29-Apr-2013 Active Refresh Tears 0.5 % Ophthalmic Solution INSTILL 1 DROP INTO BOTH EYES 4 TIMES DAILY NEEDED * Quantity: 15 Refills: 1 Simms M.D.Madeline * Start 24-Jun-2013 Active Fluticasone Propionate 50 MCG/ACT Nasal Suspension USE 1 SPRAY IN EACH NOSTRIL ONCE DAILY. * Quantity: 16 Refills: 5 Lex John M.D. * Start 15-Jan-2014 Active Losartan Potassium 100 MG Oral Tablet Take one tablet by mouth daily * Quantity: 30 Refills: 5 Simms M.D.Madeline * Start 26-Nov-2015 Active Wellbutrin XL 300 [...] 0 Simms M.Veronique.Madeline * Start 31-May-2015 Active Nicotine Polacrilex 2 [...] 90 days * Quantity: 180 Refills: 0 Simms M.D.Madeline * Start 02-Jun-2015 Active ClonazePAM 1 MG Oral Tablet TAKE 2 TABLETS BY MOUTH EVERY NIGHT AT BEDTIME * Quantity: 60 Refills: 5 Lex John M.D. * Start 07-Dec-2015 Active Celecoxib 200 MG Oral Capsule TAKE 1 CAPSULE Twice daily WITH FOOD * Quantity: 60 Refills: 0 Simms M.D.Madeline * Start 27-Dec-2015 Active Allergies and Adverse [...] 07-Jan-2010 Influenza on: 22-Dec-2010 Influenza Lot #: [id number] on: 23-Jan-2012 Influenza on: 13-Jan-2013 PPD Lot #: [id number] on: Fluzone INJ Lot #: [id number] on: 02-Jan-2014 Fluzone Quadrivalent 0.5 ML Intramuscular Suspension Lot #: [id number] on: 25-Jan-2015 Tdap (Adacel) Lot #: [id number] on: 28-Jun-2015 Family History Name Dates Details [...] smoker Vital Signs Date Test Result Details 21-Jan-2016 09:33 BP Systolic 134 mm[Hg] Status: Comments: Location: ; Position: BP Diastolic 96 mm[Hg] Status: Comments: Location: ; Position: Heart Rate 69 /min Status: Comments: Location: ; Physical Findings 22 Status: Comments: Respiration Height 71.5 in Status: Weight 270 lb Status: Physical Findings 97 Status: Comments: O2 Saturation Body Mass Index Calculated 37.13 kg/m2 Status: Body Surface Area Calculated 2.41 m2 Status: 18-Jan-2016 09:09 BP Systolic 136 mm[Hg] Status: Comments: Location: ; Position: BP Diastolic 88 mm[Hg] Status: Comments: Location: ; Position: Heart Rate 88 /min Status: Comments: Location: ; Weight 274 lb Status: Physical Findings 95 Status: Comments: O2 Saturation Body Mass Index Calculated 37.68 kg/m2 Status: Body Surface Area Calculated 2.42 m2 Status: 03-Jan-2016 09:18 BP Systolic 120 mm[Hg] Status: Comments: Location: ; Position: BP Diastolic 84 mm[Hg] Status: Comments: Location: ; Position: Heart Rate 80 /min Status: Comments: Location: ; Weight 273 lb Status: Body Mass Index Calculated 37.55 kg/m2 Status: Body Surface Area Calculated 2.42 m2 Status: 27-Dec-2015 08:49 BP Systolic 154 mm[Hg] Status: Comments: Location: ; Position: BP Diastolic 84 mm[Hg] Status: Comments: Location: ; Position: Heart Rate 68 /min Status: Comments: Location: ; Height 71.5 in Status: Weight 273 lb Status: Physical Findings 98 Status: Comments: O2 Saturation Body Mass Index Calculated 37.55 kg/m2 Status: Body Surface Area Calculated 2.42 m2 Status: Results Date Description Value Details 31-Dec-2015 10:39 HEMOGLOBIN A1C 3507 Comments: ORDER IN BOOK UNDER Hemoglobin A1C 5.7 % ESTIMATED AVG. GLUCOSE 117 Plan of Care Name Dates Details Planned Observations Planned Goals not documented Planned Encounters Appointment; Provider: Aime Rdz M.D. On 15-Jan-2017 13:00 Appointment; Provider: Carolynn Arellano DPM On 15-Feb-2016 09:00 Appointment; Provider: Madeline Simms M.D. On 10-Feb-2016 09:00 Appointment; Provider: Jameel Moore M.D. On 24-Jan-2016 08:30 Instructions Name Dates Details Instructions not documented [...]
--- OUTSIDE RECORDS SUMMARY | 2016-07-28 22:33 | XMS REPORT | Summary of Care ---
Author Author Mendez Sow, Madeline De La Paz Unknown Address Unknown Phone Unavailable Care Team Providers Care Funeral Home Assistant Name Role Phone Jeremy John M.D. Unavailable [...] Active Schizophrenia, unspecified (295.90, F20.9) Status: Active Lower back pain (724.2, M54.5) Status: Active Left hip pain (719.45, M25.552) Status: Active Left knee pain (719.46, M25.562) Status: Active Medications Name Dates [...] * Quantity: 16 Refills: 11 Sourk M.D.Lex * Start 16-Feb-2016 Active Losartan Potassium 100 [...] M.D.Kristi * Start Active 48 Lozenge Box Nicotine 21 MG/24HR Transdermal Patch 24 Hour APPLY 1 PATCH DAILY DIRECTED. * Quantity: 1 Refills: 0 Simms M.D.Madeline * Start 25-May-2016 Active Mupirocin 2 % External [...] 07-Jan-2010 Influenza on: 22-Dec-2010 Influenza Lot #: [id number] on: 23-Jan-2012 Influenza on: 13-Jan-2013 PPD Lot #: [id number] on: Fluzone INJ Lot #: [id number] on: 02-Jan-2014 Fluzone Quadrivalent 0.5 ML Intramuscular Suspension Lot #: [id number] on: 25-Jan-2015 Tdap (Adacel) Lot #: [id number] on: 28-Jun-2015 Fluzone Quadrivalent 0.5 ML Intramuscular Suspension Lot #: [id number] on: 23-Feb-2016 Family History Name Dates Details [...] unknown Vital Signs Date Test Result Details 08-Jun-2016 08:20 BP Systolic 136 mm[Hg] Status: [...] >60 ml/min Range: >60 EST GFR, NON-AFR [place] >60 ml/min Range: >60 Comments: EST GFR [...] On 12-Jun-2016 08:45 Interventions Provided Medication Changes* Hydrocodone-Acetaminophen 7.5-325 MG Oral Tablet - Renew Instructions Name Dates Details Instructions not documented [...]
--- OUTSIDE RECORDS SUMMARY | 2016-07-28 22:33 | XMS REPORT | Summary of Care ---
Author Author Jane Maria APRN Organization Unknown Address [address], [place] [id number] Phone Unavailable Care Team Providers Care Ammunition Assembly I Laborer Name Role Phone Madeline Simms M.D. 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.69, 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: Active Bilateral dry eyes (375.15, H04.123) Status: Active 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, 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: Active Plantar fascial fibromatosis (728.71, M72.2) Status: Active Onychomycosis (110.1, B35.1) Status: Active Tinea versicolor (111.0, B36.0) Status: Active Fatigue (780.79, R53.83) Status: Active Muscle spasm (728.85, M62.838) Status: Active Myalgia (729.1, M79.1) Status: Active Essential hypertension (401.9, I10) Status: Active Obstructive sleep apnea (327.23, G47.33) Status: Active Seborrheic dermatitis of scalp (690.18, L21.8) Status: Active Anemia of chronic disease (285.29, D63.8) Status: Active Bipolar disorder (296.80, F31.9) Status: Active Cough (786.2, R05) Status: Active Dyspepsia (536.8, K30) Status: Active Edema (782.3, R60.9) Status: Active Seasonal allergies (477.9, J30.2) Status: Active Hyperlipidemia (272.4, E78.5) Status: Active Hypothyroidism (244.9, E03.9) Status: Active Paranoid schizophrenia (295.30, F20.0) Status: Active 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, 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 Sleep disturbances (780.50, G47.9) Status: Active Leg pain, bilateral (729.5, M79.604) Status: Active Allergic rhinitis (477.9, J30.9) Status: Active Nausea (787.02, R11.0) Status: Active Vitamin d deficiency (268.9, E55.9) Status: Active Pain in joint of left knee (719.46, M25.562) Status: Active Hypomagnesemia (275.2, E83.42) Status: Active Sinusitis, acute (461.9, J01.90) Status: Active Bronchitis, acute (466.0, J20.9) Status: Active Medications Name Dates [...] Refills: 4 Madeline Simms M.D.* Started 26-Jan-2012 ActiveAmLODIPine Besylate [...] Quantity: 30 Refills: 2 * Started 22-Jun-2014 ActiveTerbinafine HCl - 250 MG Oral Tablet 1QD FOR 3 MONTHS - TAKE ONE TABLET BY MOUTH EVERY DAY FOR 3 MONTHS * Quantity: 90 Refills: 0 SimmsMadeline M.D.* Started 23-Jun-2014 Ended Active Allergies and Adverse Reactions Name Dates [...] on:07-Jan-2010 Influenza Administered on:22-Dec-2010 Influenza Lot #: [id number] Administered on:23-Jan-2012 Influenza Administered on:13-Jan-2013 PPD Lot #: [id number] Administered on: Fluzone Intramuscular Injectable Lot #: [id number] Administered on:02-Jan-2014 Family History Mother* Name Dates Details Family history of Hypertension (V17.49) Status: Active Family history of Cirrhosis Status: Active Family history of Poliomyelitis Status: Active Family history of Alcoholism Status: Active Brother* Name Dates Details Family history of Bipolar Disorder Status: Active Social History Name Dates Details Sleep disturbances (780.50, G47.9) Smoking Status* Current some day smoker Vital Signs Date Test Result Details 16-Jul-2014 14:16 BP Systolic 128 mm[Hg] Status: BP Diastolic 84 mm[Hg] Status: Heart Rate 90 /min Status: Respiration Rate 20 /min Status: Weight 303 lb Status: Height 71.5 in Status: O2 SAT 94 % Status: Body Mass Index Calculated 41.67 kg/m2 Status: Body Surface Area Calculated 2.53 m2 Status: 23-Jun-2014 10:45 BP Systolic 150 mm[Hg] Status: BP Diastolic 92 mm[Hg] Status: Heart Rate 113 /min Status: Weight 301 lb Status: O2 SAT 94 % Status: Body Mass Index Calculated 41.4 kg/m2 Status: Body Surface Area Calculated 2.52 m2 Status: Results Date Description Value Details 19-Jun-2014 08:49 CBC w/ Auto Diff 7150 Comments: Fastin hours WBC 8.2 K/uL (Better) Range: 4.5-11.0 RBC 4.96 mil/uL (Better) Range: 4.20-5.40 HGB 14.6 g/dL (Better) Range: 14.0-18.0 HCT 42.8 % (Better) Range: 42.0-53.0 MCV 86.3 fL (Better) Range: 80.0-99.0 MCH 29.5 pg (Better) Range: 27.3-32.5 MCHC 34.1 % (Better) Range: 32.0-36.0 RDW 13.4 % (Better) Range: 11.6-14.8 PLATELETS 286 K/uL (Better) Range: 150-400 MPV 6.7 fL (Better) Range: 6.0-11.0 %NEUTRO 61.4 % (Better) Range: 37.0-80.0 %LYMPHS 27.5 % (Better) Range: 13.0-50.0 %MONO 5.3 % (Better) Range: 0.0-12.0 %EOS 3.5 % (Better) Range: 0.0-7.0 %BASO 0.8 % (Better) Range: 0.0-2.5 %ESTELLA 1.5 % (Better) Range: 0.0-5.0 NEUTRO 5.0 K/uL (Better) Range: 2.0-6.9 LYMPHS 2.3 K/uL (Better) Range: 0.6-3.4 MONOS 0.4 K/uL (Better) Range: 0.0-0.9 EOS 0.3 K/uL (Better) Range: 0.0-0.7 BASO 0.1 K/uL (Better) Range: 0.0-0.2 09:13 CREATINE KINASE 1300 Comments: Fastin hours CREATINE KINASE 672 U/L (Above high threshold) Range: 39-308 09:13 LIVER PROFILE 1215 Comments: Fastin hours ALK PHOSPHATASE 78 U/L (Better) Range: 46-116 Comments: Please Note: New Reference Range effective 2013.----- TOTAL BILIRUBIN 0.70 mg/dL (Better) Range: 0.20-1.00 DIRECT BILIRUBIN 0.10 mg/dL (Better) Range: 0.00-0.20 AST 43 U/L (Above high threshold) Range: 8-35 ALT 73 U/L (Better) Range: 12-78 ALBUMIN 4.0 g/dL (Better) Range: 3.4-5.0 TOTAL PROTEIN 7.1 g/dL (Better) Range: 6.4-8.2 09:13 LIPID PROFILE 1184 Comments: Fastin hours CHOLESTEROL 168 mg/dL (Better) Range: <200 TRIGLYCERIDES 322 mg/dL (Above high threshold) Range: 30-200 HDL Cholesterol 29 mg/dL (Below low threshold) Range: >39 NON HDL CHOLESTEROL 139 (Better) CARDIAC RSK FACTOR 5.8 units (Above high threshold) Range: 4.4-5.0 LDL - CALCULATED 75 mg/dL (Better) Range: 0-130 Plan of Care Planned Observations* Name Dates Details Planned Goals not documented Goal Planned Encounters* Appointment; Provider: Lex John On 19-Jan-2015 10:30 * Appointment; Provider: Madeline Simms On 09:30 * Appointment; Provider: Lex John On 18-Jul-2013 10:15 * Appointment; Provider: Madeline Simms On 27-Apr-2008 08:00 Instructions * Instructions not documented Encounters Appointment; Jane Maria Encounter Diagnosis: Problem not [...]
--- OUTSIDE RECORDS SUMMARY | 2016-07-28 22:33 | XMS REPORT | Summary of Care ---
Author Author Valarie Sow, Josse De La Paz Unknown Address [address], [place] [id number] Phone Unavailable Care Team Providers Care Core Maker Helper Name Role Phone Jeremy John M.D. 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 (V58.69, 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: Active [...] Active Chest pain (786.50, R07.9) Status: Active Obstructive sleep apnea (327.23, G47.33) Status: Active Hyperlipidemia (272.4, E78.5) Status: Active Pleurisy (511.0, R09.1) Status: Active Tobacco use (305.1, Z72.0) Status: Active Medications Name Dates Details Metoprolol [...] IM every 3 weeks * Refills: 0 SimmsMadeline M.D.* Started 25-Nov-2010 ActiveLevocetirizine Dihydrochloride 5 MG [...] MORNING * Quantity: 30 Refills: 5 SimmsMadeline valle M.D.* Started 29-Apr-2013 ActiveCyclobenzaprine HCl - 10 MG Oral Tablet TAKE 1 TABLET 2 TIMES DAILY NEEDED for muscle cramping * Quantity: 30 Refills: 0 Madeline Simms M.D.* Started 07-Jan-2014 ActiveLosartan Potassium 100 MG [...] Refills: 11 Lex John M.D.* Started 11-Aug-2014 [id number] GM Bottle Wellbutrin XL 300 MG Oral Tablet Extended Release 24 Hour take one tablet by mouth every day * Quantity: 30 Refills: 0 * Started ActiveBelsomra 20 MG Oral Tablet TAKE ONE TABLET BY MOUTH AT BEDTIME NEEDED * Quantity: 30 Refills: 0 Lex John M.D.* Started 20-Aug-2014 Active Allergies and Adverse Reactions Name Dates [...] Procedures Procedure Dates Details History of Appendectomy CP Echo Ordered: CBC w/ Auto Diff 7150 Ordered: LIPID PROFILE 1184 Ordered: LIVER PROFILE 1215 Ordered: CREATINE KINASE 1300 Ordered: THYROID STIM. HORMONE 3602 Ordered: Immunization Name Dates Details Tdap (Adacel) Administered on:Feb-2007 Influenza Administered on:05-Apr-2009 Influenza A (H1N1) Monoval PF Intramuscular Suspension Administered on:05-Apr-2009 Fluzone Intramuscular Injectable Administered on:07-Jan-2010 Influenza Administered on:22-Dec-2010 Influenza Lot #: [id number] Administered on:23-Jan-2012 Influenza Administered on:13-Jan-2013 PPD Lot #: [id number] Administered on: Fluzone Intramuscular Injectable Lot #: [id number] Administered on:02-Jan-2014 Family History Mother* Name Dates [...] smoker Vital Signs Date Test Result Details 13:09 BP Systolic 130 mm[Hg] Status: BP Diastolic 82 mm[Hg] Status: Heart Rate 100 /min Status: Weight 302 lb Status: Body Mass Index Calculated 50.26 kg/m2 Status: Body Surface Area Calculated 2.36 m2 Status: 09:19 BP Systolic 136 mm[Hg] Status: BP Diastolic 86 mm[Hg] Status: Heart Rate 84 /min Status: Weight 306 lb Status: Body Mass Index Calculated 50.92 kg/m2 Status: Body Surface Area Calculated 2.37 m2 Status: Results Date Description Value Details 12:20 CP Echo Y Linked PDF Report Available for Review by Clicking ImageLink Button ( Better) Plan of Care Planned Observations* Name Dates Details Planned Goals not documented Goal Planned Encounters* Appointment; Provider: Lex John On 19-Jan-2015 10:30 * Appointment; Provider: Madeline Simms On 11:15 * Appointment; Provider: Schedule Radiology On 10:00 * Appointment; Provider: Lex John On 18-Jul-2013 10:15 * Appointment; Provider: Madeline Simms On 27-Apr-2008 08:00 Instructions * Instructions not documented Encounters Appointment; Josse Sheppard Encounter Diagnosis: Problem not [...] not documented On 18-Dec-2013 10:00 Appointment; Lex oJhn Encounter Diagnosis: Problem not documented On 27-Nov-2013 [...]
--- OUTSIDE RECORDS SUMMARY | 2016-07-28 22:33 | XMS REPORT | Summary of Care ---
Author Author Madeline Simms M.D. Unknown Address [address], [place] [id number] Phone Unavailable Care Team Providers Care Lighting Designer Name Role Phone Jeremy John M.D. 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: Active [...] Status: Active Dyspepsia (536.8, K30) Status: Active Medications Name Dates Details Metoprolol [...] PATCHES * Quantity: 14 Refills: 0 Madeline Smims M.D.* Started 23-Mar-2014 ActiveWellbutrin XL 300 MG [...] on:07-Jan-2010 Influenza Administered on:22-Dec-2010 Influenza Lot #: [id number] Administered on:23-Jan-2012 Influenza Administered on:13-Jan-2013 PPD Lot #: [id number] Administered on: Fluzone Intramuscular Injectable Lot #: [id number] Administered on:02-Jan-2014 Fluzone Quadrivalent 0.5 ML Intramuscular Suspension Lot #: [id number] Administered on:25-Jan-2015 Tdap (Adacel) Lot #: [id number] Administered on:28-Jun-2015 Family History Mother* Name Dates [...] ml/min (Better) Range: >60 EST GFR, NON-AFR [place] >60 ml/min (Better) Range: >60 Comments: EST GFR is reported in ml/min per 1.73 m2 of body surface area. For -Scottish, please multiple result by 1.2.----- GLUCOSE 105 [...] On 12-Jan-2015 14:00 * Appointment; Provider: Nisha Radiology On 10:00 * Appointment; Provider: Lex [...]
--- OUTSIDE RECORDS SUMMARY | 2016-07-28 22:34 | XMS REPORT | Summary of Care ---
Author Author Madeline Simms M.D. Unknown Address [address], [place] [id number] Phone Unavailable Care Team Providers Care Warehouse Clerk Name Role Phone Jeremy John M.D. 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 Hypomagnesemia (275.2, E83.42) Status: Active Sleep disturbances (780.50, G47.9) Status: Active Bilateral dry eyes (375.15, H04.123) Status: Active Plantar fascial fibromatosis (728.71, M72.2) Status: Active Fatigue (780.79, R53.83) Status: Active Nausea (787.02, R11.0) Status: Active Myalgia (729.1, M79.1) Status: Active Muscle spasm (728.85, M62.838) Status: Active Nicotine dependence (305.1) Status: Active Anemia of chronic disease (285.29, D63.8) Status: Active Vitamin d deficiency (268.9, E55.9) [...] Status: Active Edema (782.3, R60.9) Status: Active Essential hypertension (401.9, I10) Status: Active Hyperlipidemia (272.4, E78.5) Status: Active [...] 30 Refills: 5 SimmsMadeline M.D.* Started 03-Mar-2014 ActiveNicotine 21 MG/24HR Transdermal Patch 24 Hour APPLY 1 PATCH DAILY DIRECTED FOR 2 WEEKS THEN WILL TAKE nICOTINE 14MG/24HR TRANSDERMAL PATCH. * Quantity: 14 Refills: 0 Madeline Simms M.D.* Started 23-Mar-2014 Ended 10-Aug-2014 ActiveTraZODone HCl - 50 MG Oral Tablet TAKE 1 TABLET AT BEDTIME. * Quantity: 30 Refills: 2 * Started 22-Jun-2014 ActiveTerbinafine HCl - 250 MG Oral Tablet 1QD FOR 3 MONTHS - TAKE ONE TABLET BY MOUTH EVERY DAY FOR 3 MONTHS * Quantity: 90 Refills: 0 Madeline Simms M.D.* Started 23-Jun-2014 Ended ActiveBelsomra 10 MG Oral Tablet TAKE 1 TABLET AT BEDTIME NEEDED FOR INSOMNIA. * Quantity: 30 Refills: 0 Lex John M.D.* Started 21-Jul-2014 Active Allergies and Adverse Reactions Name Dates [...] on:07-Jan-2010 Influenza Administered on:22-Dec-2010 Influenza Lot #: [id number] Administered on:23-Jan-2012 Influenza Administered on:13-Jan-2013 PPD Lot #: [id number] Administered on: Fluzone Intramuscular Injectable Lot #: [id number] Administered on:02-Jan-2014 Family History Mother* Name Dates [...] smoker Vital Signs Date Test Result Details 06-Aug-2014 13:25 BP Systolic 158 mm[Hg] Status: BP Diastolic 90 mm[Hg] Status: Heart Rate 101 /min Status: Weight 299 lb Status: O2 SAT 95 % Status: Body Mass Index Calculated 41.12 kg/m2 Status: Body Surface Area Calculated 2.51 m2 Status: 16-Jul-2014 14:16 BP Systolic 128 mm[Hg] Status: BP Diastolic 84 mm[Hg] Status: Heart Rate 90 /min Status: Respiration Rate 20 /min Status: Weight 303 lb Status: Height 71.5 in Status: O2 SAT 94 % Status: Body Mass Index Calculated 41.67 kg/m2 Status: Body Surface Area Calculated 2.53 m2 Status: Results Date Description Value Details [...]
--- OUTSIDE RECORDS SUMMARY | 2016-07-28 22:34 | XMS REPORT | Summary of Care ---
Author Author Mendez Sow, Madeline De La Paz Unknown Address Unknown Phone Unavailable Care Team Providers Care Education Sales Consultant Name Role Phone Jeremy John M.D. Unavailable [...] 2 Simms M.D.Madeline * Start 26-Jan-2012 Active Benztropine Mesylate 1 MG Oral Tablet [...] M.D.Kristi * Start Active 48 Lozenge Box Refresh Tears 0.5 % Ophthalmic Solution INSTILL 1 DROP INTO BOTH EYES 4 TIMES DAILY NEEDED * Quantity: 15 Refills: 1 Simms M.D.Madeline * Start 24-Jun-2013 Active Fluticasone Propionate 50 MCG/ACT Nasal Suspension INSTILL 1 SPRAY IN EACH NOSTRIL ONCE A DAY * Quantity: 16 Refills: 11 Sourk M.D., Lex Luna * Start 16-Feb-2016 Active AmLODIPine Besylate 5 MG Oral Tablet TAKE ONE TABLET BY MOUTH IN THE MORNING * Quantity: 30 Refills: 5 Simms M.D.Madeline * Start 14-Mar-2016 Active Terbinafine HCl - 250 MG Oral Tablet 1QD FOR 3 MONTHS - TAKE ONE TABLET BY MOUTH EVERY DAY FOR 3 MONTHS * Quantity: 90 Refills: 0 Simms M.D.Madeline * Start 23-Jun-2014 End 19-Jun-2016 Active Losartan Potassium 100 MG Oral Tablet Take one tablet by mouth daily * Quantity: 30 Refills: 5 Simms M.D.Madeline * Start 19-May-2016 Active Nicotine 21 MG/24HR Transdermal Patch 24 Hour APPLY 1 PATCH DAILY DIRECTED. * Quantity: 1 Refills: 0 Simms M.D.Madeline * Start 25-May-2016 Active Mupirocin 2 % External Ointment Apply to toe daily at HS for 1 month * Quantity: 1 Refills: 1 Simms M.D.Madeline * Start 25-May-2016 Active 22 GM Tube Hydrocodone-Acetaminophen 7.5-325 MG Oral Tablet TAKE 1 TO 2 TABLETS EVERY 6 HOURS NEEDED FOR PAIN. * Quantity: 40 Refills: 0 Simms M.D.Madeline * Start 08-Mar-2016 Active Diclofenac Sodium 75 MG Oral Tablet Delayed Release TAKE ONE TABLET BY MOUTH TWICE DAILY WITH FOOD * Quantity: 60 Refills: 1 Simms M.D.Madeline Start 06-Jun-2016 Active Allergies and Adverse Reactions Name Dates [...] History of Appendectomy History of Knee Arthroscopy Urinalysis, Reflex to Microscopic or Culture PRN [id number] Ordered: 18-May-2016 THYROID STIM. HORMONE 3602 Ordered: 18-May-2016 LIPID PROFILE 1184 Ordered: 18-May-2016 Comprehensive Metabolic Panel 1212 Ordered: 18-May-2016 CBC w/ Auto Diff 7150 Ordered: 18-May-2016 Immunization Name Dates Details Tdap (Adacel) on: Feb-2007 Influenza on: 05-Apr-2009 Influenza A (H1N1) Monoval PF SUSP on: 05-Apr-2009 Fluzone INJ on: 07-Jan-2010 Influenza on: 22-Dec-2010 Influenza Lot #: [id number] on: 23-Jan-2012 Influenza on: 13-Jan-2013 PPD Lot #: [id number] on: Fluzone INJ Lot #: [id number] on: 02-Jan-2014 Fluzone Quadrivalent 0.5 ML Intramuscular Suspension Lot #: [id number] on: 25-Jan-2015 Tdap (Adacel) Lot #: [id number] on: 28-Jun-2015 Fluzone Quadrivalent 0.5 ML Intramuscular Suspension Lot #: [id number] on: 23-Feb-2016 Family History Name Dates Details [...] >60 ml/min Range: >60 EST GFR, NON-AFR HONDURAN >60 ml/min Range: >60 Comments: EST GFR [...] Moore M.D. On 12-Jun-2016 08:45 Interventions Provided Labs/Procedures/Imaging* XRay HIP-Left; Done: Jun 08 2016 9:12AM * Xray PELVIS (AP ONLY); Done: Jun 08 2016 9:12AM Instructions Name Dates Details Instructions not documented [...] Diagnosis: Problem not documented On 11:00 Appointment; Madeilne Simms M.D. Encounter Diagnosis: Problem not documented [...] documented On 10-Dec-2014 13:30 Appointment; Evelyne Perales AMonicaP.RMonicaNMonica Encounter Diagnosis: Problem not documented On 09-Dec-2014 14:15 Appointment; Sampson Cuadra P.T. Encounter Diagnosis: Problem not documented On 25-Nov-2014 13:00 Appointment; Renuka Middleton A.PMonicaRMonicaNMonica Encounter Diagnosis: Problem not documented On 16-Nov-2014 13:30 Appointment; Raul Cowart M.D. Encounter Diagnosis: Problem not documented On 10:00 Appointment; Evelyne Perales A.P.RMonicaNMonica Encounter Diagnosis: Problem not documented On 08:35 [...]
--- OUTSIDE RECORDS SUMMARY | 2016-07-28 22:34 | XMS REPORT | Summary of Care ---
Author Author Madeline Simms M.D. Unknown Address [address], [place] [id number] Phone Unavailable Care Team Providers Care Decorating Inspector Name Role Phone Jeremy John M.D. Unavailable Unavailable Madeline Simms M.D. Unavailable Unavailable Homa Blanton M.D. Unavailable Unavailable Madeline Simms PP Unavailable Unavailable Unavailable Functional Status Functional Status Health Issues* Name Dates Details Functional status health issues are not documented Status: Cognitive Status Health Issues* Name Dates Details Cognitive status health issues are not documented Status: Problems Name Dates Details Anemia of chronic disease (285.29, D63.8) Status: Active Tinea versicolor (111.0, B36.0) Status: Active Myopia (367.1, H52.10) Status: Active Presbyopia (367.4, H52.4) Status: Active 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, 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: Active Seborrheic dermatitis of scalp (690.18, L21.8) Status: Active Dyspepsia (536.8, K30) Status: Active Onychomycosis (110.1, B35.1) Status: Active Bipolar disorder (296.80, F31.9) Status: Active care home use of drug (V58.69, 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: Active Nonspecific abnormal finding (796.9, R68.89) Status: Active 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33) Status: Active Nicotine dependence (305.1, F17.200) Status: Active Ear pain (388.70, H92.09) Status: Active Fatigue (780.79, R53.83) Status: Active Nausea (787.02, R11.0) Status: Active Allergic bronchitis (493.90, J45.909) Status: Active Allergic rhinitis (477.9, J30.9) Status: Active Chest pain (786.50, R07.9) Status: Active Myalgia (729.1, M79.1) Status: Active Leg pain, bilateral (729.5, M79.604) Status: Active Muscle spasm (728.85, M62.838) Status: [...] * Refills: 0 Madeline Simms M.D.* Started ActiveCiclopirox 8 % External Solution APPLY THIN COAT TO NAILS AT BEDTIME REAPPLY NIGHTLY ONCE WEEKLY * Quantity: 6.6 Refills: 3 Madeline Simms M.D.* Started 12-Dec-2010 ActiveLevocetirizine Dihydrochloride 5 MG Oral Tablet take one tablet by mouth every day * Quantity: 90 Refills: 0 Madeline Simms M.D.* Started 26-Dec-2011 ActiveOmeprazole 20 MG Oral Capsule Delayed Release Take one capsule by mouth daily * Quantity: 30 Refills: 5 Madeline Simms M.D.* Started 26-Jan-2012 ActiveLisinopril 20 MG Oral Tablet Take one tablet by mouth daily * Quantity: 30 Refills: 2 SimmsMadeline M.D.* Started 09-Aug-2012 ActiveAmLODIPine Besylate 5 MG Oral Tablet TAKE ONE TABLET BY MOUTH EVERY MORNING * Quantity: 30 Refills: 6 SimmsMadeline M.D.* Started 29-Apr-2013 ActiveMagnesium Oxide 400 MG Oral Tablet Take One Tablet By Mouth Twice Daily * Quantity: 60 Refills: 0 SimmsMadeline M.D.* Started 12-Aug-2013 ActivePataday 0.2 % Ophthalmic Solution INSTILL 1 DROP INTO AFFECTED EYE(S) ONCE DAILY DIRECTED. * Quantity: 1 Refills: 0 Iftikhar Blanton M.D.* Started 19-Dec-2013 Active2.5 ML Bottle Cyclobenzaprine HCl - 10 MG Oral Tablet TAKE 1 TABLET 2 TIMES DAILY NEEDED for muscle cramping * Quantity: 14 Refills: 0 SimmsMadeline M.D.* Started 07-Jan-2014 ActiveFluticasone Propionate 50 MCG/ACT Nasal Suspension USE 1 SPRAY IN EACH NOSTRIL ONCE DAILY. * Quantity: 1 Refills: 5 Lex John M.D.* Started 15-Jan-2014 Seabvl81 GM Bottle Chantix Starting Month Eduardo 0.5 MG X 11 & 1 MG X 42 Oral Tablet TAKE DIRECTED PER PACKAGE INSTRUCTIONS. * Quantity: 53 Refills: 0 Madeline Simms M.D.* Started 19-Jan-2014 ActiveHydrOXYzine HCl - 25 MG Oral Tablet TAKE 3 TABLETS AT BEDTIME. * Quantity: 90 Refills: 5 Lex John M.D.* Started 10-Dec-2013 ActiveRefresh Tears 0.5 % Ophthalmic Solution INSTILL 1 DROP INTO BOTH EYES 4 TIMES DAILY NEEDED * Quantity: 15 Refills: 0 SimmsMadeline M.D.* Started 24-Jun-2013 ActiveInvega Sustenna 156 MG/ML Intramuscular Suspension Inject IM every 4 weeks * Refills: 0 Madeline Simms M.D.* Started 25-Nov-2010 ActiveVitamin B12 100 MCG Oral Tablet TAKE 1 TABLET DAILY DIRECTED. * Refills: 0 SimmsMadeline M.D.* Started 12-Jun-2013 Active Allergies and Adverse Reactions Name Dates [...] media (382.9, H66.90) Status: Resolved History of Pain in joint of left knee (719.46, M25.562) Status: Resolved History of Plantar fasciitis (728.71, [...] on:07-Jan-2010 Influenza Administered on:22-Dec-2010 Influenza Lot #: [id number] Administered on:23-Jan-2012 Influenza Administered on:13-Jan-2013 PPD Lot #: [id number] Administered on: Fluzone Intramuscular Injectable Lot #: [id number] Administered on:02-Jan-2014 Family History Mother* Name Dates [...] smoker Vital Signs Date Test Result Details 14-Jan-2014 09:10 BP Systolic 114 mm[Hg] Status: BP Diastolic 70 mm[Hg] Status: Heart Rate 76 /min Status: Weight 291 lb Status: Body Mass Index Calculated 40.59 kg/m2 Status: Body Surface Area Calculated 2.47 m2 Status: 02-Jan-2014 09:50 BP Systolic 136 mm[Hg] Status: BP Diastolic 86 mm[Hg] Status: Heart Rate 88 /min Status: Weight 286 lb Status: Body Mass Index Calculated 39.89 kg/m2 Status: Body Surface Area Calculated 2.46 m2 Status: Results Date Description Value Details 03-Jan-2014 08:13 CBC w/ Auto Diff 7150 Comments: Fastin hours WBC 10.8 K/uL (Better) Range: 4.5-11.0 RBC 4.74 mil/uL (Better) Range: 4.20-5.40 HGB 14.1 g/dL (Better) Range: 14.0-18.0 HCT 42.8 % (Better) Range: 42.0-53.0 MCV 90.4 fL (Better) Range: 80.0-99.0 MCH 29.8 pg (Better) Range: 27.3-32.5 MCHC 33.0 % (Better) Range: 32.0-36.0 RDW 13.6 % (Better) Range: 11.6-14.8 PLATELETS 250 K/uL (Better) Range: 150-400 MPV 7.2 fL (Better) Range: 6.0-11.0 %NEUTRO 71.3 % (Better) Range: 37.0-80.0 %LYMPHS 19.4 % (Better) Range: 13.0-50.0 %MONO 6.0 % (Better) Range: 0.0-12.0 %EOS 1.5 % (Better) Range: 0.0-7.0 %BASO 1.0 % (Better) Range: 0.0-2.5 %ESTELLA 0.8 % (Better) Range: 0.0-5.0 NEUTRO 7.7 K/uL (Above high threshold) Range: 2.0-6.9 LYMPHS 2.1 K/uL (Better) Range: 0.6-3.4 MONOS 0.7 K/uL (Better) Range: 0.0-0.9 EOS 0.2 K/uL (Better) Range: 0.0-0.7 BASO 0.1 K/uL (Better) Range: 0.0-0.2 08:38 Urinalysis, Reflex to Microscopic or Culture PRN [id number] Comments: Fastin hours pH 7.0 (Better) Range: 5.0-7.5 SP GRAVITY 1.020 (Better) Range: 1.010-1.030 APPEARANCE CLEAR (Better) Range: Clear COLOR YELLOW (Better) Range: Straw-Yellow PROTEIN NEGATIVE mg/dL (Better) Range: Negative-Trace GLUCOSE NEGATIVE mg/dL (Better) Range: Negative KETONE NEGATIVE mg/dL (Better) Range: Negative BILIRUB NEGATIVE (Better) Range: Negative BLOOD NEGATIVE (Better) Range: Negative UROBIL 0.2 EU/dL (Better) Range: 0.2-1.0 NITRITE NEGATIVE (Better) Range: Negative LEUK NEGATIVE (Better) Range: Negative 09:06 Comprehensive Metabolic Panel 1212 Comments: Fastin hours SODIUM 132 mmol/L (Below low threshold) Range: 133-144 POTASSIUM 4.7 mmol/L (Better) Range: 3.5-5.1 CHLORIDE 98 mmol/L (Better) Range: 98-110 CARBON DIOXIDE 25.2 mmol/L (Better) Range: 23.0-33.0 ANION GAP 9 mmol/L (Better) Range: 6-16 BUN 22 mg/dL (Above high threshold) Range: 7-18 CREATININE, SERUM 1.12 mg/dL (Better) Range: 0.43-1.13 BUN:CREATININE RATIO 20 (Better) EST GFR, >60 ml/min (Better) Range: >60 EST GFR, NON-AFR ROMANIAN >60 ml/min (Better) Range: >60 Comments: EST GFR is reported in ml/min per 1.73 m2 of body surface area. For -Guyanese, please multiple result by 1.2.----- GLUCOSE 88 mg/dL (Better) Range: 70-100 ALK PHOSPHATASE 67 U/L (Better) Range: 46-116 Comments: Please Note: New Reference Range effective 2013.----- TOTAL BILIRUBIN 0.60 mg/dL (Better) Range: 0.20-1.00 AST 26 U/L (Better) Range: 8-35 ALT 42 U/L (Better) Range: 12-78 ALBUMIN 3.9 g/dL (Better) Range: 3.4-5.0 TOTAL PROTEIN 7.1 g/dL (Better) Range: 6.4-8.2 A/G RATIO 1.2 units (Better) Range: 1.0-1.8 CALCIUM 9.6 mg/dL (Better) Range: 8.5-10.1 09:06 LIPID PROFILE 1184 Comments: Fastin hours CHOLESTEROL 163 mg/dL (Better) Range: <200 TRIGLYCERIDES 145 mg/dL (Better) Range: 30-200 HDL Cholesterol 34 mg/dL (Below low threshold) Range: >39 NON HDL CHOLESTEROL 129 (Better) CARDIAC RSK FACTOR 4.8 units (Better) Range: 4.4-5.0 LDL - CALCULATED 100 mg/dL (Better) Range: 0-130 09:06 CREATINE KINASE 1300 Comments: Fastin hours CREATINE KINASE 444 U/L (Above high threshold) Range: 39-308 09:06 MAGNESIUM 1260 Comments: Fastin hours MAGNESIUM 1.9 mg/dL (Better) Range: 1.8-2.4 Plan of Care Planned Observations* Name Dates Details Planned Goals not documented Goal Planned Encounters* Appointment; Provider: Lex Jonh On 31-Mar-2014 10:45 * Appointment; Provider: Madeline Simms On 23-Mar-2014 10:00 * Appointment; Provider: Madeline Simms On 18-Feb-2014 10:45 * Appointment; Provider: Lex John On 18-Jul-2013 [...] Diagnosis: Problem not documented On 07-May-2012 14:45 Appointment; Madeline Simms Encounter Diagnosis: Problem not documented On 24-Apr-2012 15:00 Appointment; Madeline Simms Encounter Diagnosis: Problem not documented On 04-Apr-2012 16:15 Appointment; Katja Martinez Encounter Diagnosis: Problem not documented On 22-Mar-2012 16:30 Appointment; Oh Greer Encounter Diagnosis: Problem not documented On 22-Mar-2012 14:30 Appointment; Katja Martinez Encounter Diagnosis: Problem not documented On 22-Mar-2012 13:30 Appointment; Madeline Simms Encounter Diagnosis: Problem not documented On 12-Mar-2012 15:30
--- NOTE | 2016-07-28 22:35 | NUR ---
PHYSICIAN DR TOBIN IN WITH PT
--- OUTSIDE RECORDS SUMMARY | 2016-07-28 22:35 | XMS REPORT ---
Author Author GENERATED, SYSTEM Organization Unknown Address Unknown Phone Unavailable Care Team Providers Care Director Of Enrollment Name Role Phone MD DAVIDA, MAXWELL PP [phone] Reason For Visit Chief Complaint SPIDER BITE R FOOT Social History Functional Status Vital Signs Results Problems Encounter Diagnosis No relevant problems exist. Encounters Encounter Diagnosis No relevant problems exist. Plan of Care Procedures No relevant procedures performed. Immunizations No immunizations administered or ordered. Hospital Course Hospital Discharge Instructions Allergies, Adverse Reactions, Alerts * Latex Allergy has not been assessed. * IV Contrast Allergy has not been assessed. * No Known Drug Allergies. Medication Medication reconciliation has not been performed.
--- OUTSIDE RECORDS SUMMARY | 2016-07-28 22:35 | XMS REPORT ---
Author Author GENERATED, SYSTEM Organization Unknown Address Unknown Phone Unavailable Care Team Providers Care Caregivers Homecare Name Role Phone MD DAVIDA, MAXWELL [phone] Reason For Visit Reason for Visit from 07/05/2016 1:10 PM:* Pt Stated Reason for Adm : "back surgery" Chief Complaint SPINAL STENOSIS Social History Social History from 07/06/2016 1:57 PM:* Tobacco Use? : Current Everyday Smoker Social History from 07/05/2016 1:10 PM:* Tobacco Use? : Current Everyday Smoker Functional Status Functional Status from 07/06/2016 10:25 AM:* Oriented To : Person,Place,Time Functional Status from 07/06/2016 8:00 AM:* LOC : Alert * Oriented To : Person,Place,Time,Event * Weight Bearing Status : Full * Assist Level : Partial * # Assists : 1 Functional Status from 07/06/2016 5:00 AM:* LOC : Alert * Oriented To : Person,Place,Time,Event Functional Status from 07/06/2016 3:00 AM:* LOC : Alert * Oriented To : Person,Place,Time,Event Functional Status from 07/06/2016 1:00 AM:* LOC : Alert * Oriented To : Person,Place,Time,Event Functional Status from 07/05/2016 11:00 PM:* LOC : Alert * Oriented To : Person,Place,Time,Event Functional Status from 07/05/2016 10:00 PM:* LOC : Alert * LOC : Alert * Oriented To : Person,Place,Time,Event Functional Status from 07/05/2016 9:00 PM:* LOC : Alert * Oriented To : Person,Place,Time,Event Functional Status from 07/05/2016 8:30 PM:* LOC : Alert * Oriented To : Person,Place,Time,Event Functional Status from 07/05/2016 8:00 PM:* LOC : Alert Functional Status from 07/05/2016 7:30 PM:* LOC : Alert * Oriented To : Person,Place,Time,Event * Weight Bearing Status : Full * Assist Level : Partial * # Assists : 1 Functional Status from 07/05/2016 7:10 PM:* LOC : Alert * Oriented To : Person,Place,Time,Event Functional Status from 07/05/2016 6:34 PM:* LOC : Alert * Oriented To : Person,Place,Time,Event Functional Status from 07/05/2016 6:06 PM:* LOC : Drowsy Functional Status from 07/05/2016 1:10 PM:* LOC : Alert * Oriented To : Person,Place,Time,Event * Weight Bearing Status : Full * Assist Level : Independent * # Assists : Independent Vital Signs Hospital Vital Signs from 07/06/2016 2:07 PM:* Height : 5/8 ft,in * Temperature : 97.1 F * Pulse : 132 * Respirations : 20 * BP : 118/65 Hospital Vital Signs from 07/06/2016 11:38 AM:* Height : 5/8 ft,in * Temperature : 100.9 F * Pulse : 121 * Respirations : 22 * BP : 140/72 Hospital Vital Signs from 07/06/2016 9:49 AM:* Height : 5/8 ft,in Hospital Vital Signs from 07/06/2016 7:29 AM:* Height : 5/8 ft,in * Temperature : 97.2 F * Pulse : 107 * Respirations : 18 * BP : 175/83 Hospital Vital Signs from 07/06/2016 2:35 AM:* Weight : 127/ kg * Height : 5/8 ft,in * Temperature : 96.9 F * Pulse : 92 * Respirations : 16 * BP : 144/74 Hospital Vital Signs from 07/05/2016 9:30 PM:* Height : 5/8 ft,in * Pulse : 96 * Respirations : 16 * BP : 113/60 Hospital Vital Signs from 07/05/2016 9:00 PM:* Height : 5/8 ft,in * Pulse : 96 * Respirations : 16 * BP : 116/64 Hospital Vital Signs from 07/05/2016 8:30 PM:* Height : 5/8 ft,in * Pulse : 113 * Respirations : 16 * BP : 117/59 Hospital Vital Signs from 07/05/2016 8:15 PM:* Height : 5/8 ft,in * Pulse : 120 * Respirations : 16 * BP : 121/72 Hospital Vital Signs from 07/05/2016 8:00 PM:* Height : 5/8 ft,in * Pulse : 109 * Respirations : 16 * BP : 137/81 Hospital Vital Signs from 07/05/2016 7:45 PM:* Height : 5/8 ft,in * Pulse : 108 * Respirations : 16 * BP : 153/68 Hospital Vital Signs from 07/05/2016 7:40 PM:* Pulse : 107 * Respirations : 24 Hospital Vital Signs from 07/05/2016 7:30 PM:* Height : 5/8 ft,in * Temperature : 96.4 F * Pulse : 103 * Heart Rate : 104 * Respirations : 16 * BP : 174/83 Hospital Vital Signs from 07/05/2016 7:15 PM:* Heart Rate : 102 * Resp Rate : 20 * Systolic BP (mmHg) : 131 * Diastolic BP (mmHg) : 81 * Mean BP (mmHg) : 100 * O2 Saturation (%) : 92 Hospital Vital Signs from 07/05/2016 7:10 PM:* Heart Rate : 97 * Resp Rate : 24 * Systolic BP (mmHg) : 126 * Diastolic BP (mmHg) : 74 * Mean BP (mmHg) : 93 * O2 Saturation (%) : 93 Hospital Vital Signs from 07/05/2016 7:05 PM:* Heart Rate : 96 * Resp Rate : 16 * Systolic BP (mmHg) : 122 * Diastolic BP (mmHg) : 77 * Mean BP (mmHg) : 89 * O2 Saturation (%) : 92 Hospital Vital Signs from 07/05/2016 7:00 PM:* Heart Rate : 102 * Resp Rate : 20 * Systolic BP (mmHg) : 130 * Diastolic BP (mmHg) : 74 * Mean BP (mmHg) : 100 * O2 Saturation (%) : 93 Hospital Vital Signs from 07/05/2016 6:55 PM:* Temp : 98.4 * Heart Rate : 103 * Resp Rate : 16 * Systolic BP (mmHg) : 140 * Diastolic BP (mmHg) : 78 * Mean BP (mmHg) : 94 * O2 Saturation (%) : 94 Hospital Vital Signs from 07/05/2016 6:50 PM:* Heart Rate : 105 * Resp Rate : 11 * Systolic BP (mmHg) : 148 * Diastolic BP (mmHg) : 82 * Mean BP (mmHg) : 103 * O2 Saturation (%) : 93 Hospital Vital Signs from 07/05/2016 6:45 PM:* Heart Rate : 105 * Resp Rate : 15 * Systolic BP (mmHg) : 152 * Diastolic BP (mmHg) : 90 * Mean BP (mmHg) : 106 * O2 Saturation (%) : 93 Hospital Vital Signs from 07/05/2016 6:40 PM:* Temp : 97.9 * Heart Rate : 108 * Resp Rate : 24 * Systolic BP (mmHg) : 144 * Diastolic BP (mmHg) : 83 * Mean BP (mmHg) : 103 * O2 Saturation (%) : 91 Hospital Vital Signs from 07/05/2016 6:35 PM:* Heart Rate : 111 * Resp Rate : 20 * Systolic BP (mmHg) : 142 * Diastolic BP (mmHg) : 84 * Mean BP (mmHg) : 104 * O2 Saturation (%) : 94 Hospital Vital Signs from 07/05/2016 6:30 PM:* Heart Rate : 118 * Resp Rate : 10 * Systolic BP (mmHg) : 139 * Diastolic BP (mmHg) : 86 * Mean BP (mmHg) : 99 * O2 Saturation (%) : 92 Hospital Vital Signs from 07/05/2016 6:25 PM:* Heart Rate : 111 * Resp Rate : 21 * Systolic BP (mmHg) : 127 * Diastolic BP (mmHg) : 79 * Mean BP (mmHg) : 89 * O2 Saturation (%) : 93 Hospital Vital Signs from 07/05/2016 6:20 PM:* Temp : 98.5 * Heart Rate : 108 * Resp Rate : 20 * Systolic BP (mmHg) : 124 * Diastolic BP (mmHg) : 75 * Mean BP (mmHg) : 89 * O2 Saturation (%) : 93 Hospital Vital Signs from 07/05/2016 6:15 PM:* Heart Rate : 112 * Resp Rate : 22 * Systolic BP (mmHg) : 125 * Diastolic BP (mmHg) : 71 * Mean BP (mmHg) : 86 * O2 Saturation (%) : 91 Hospital Vital Signs from 07/05/2016 6:10 PM:* Heart Rate : 107 * Resp Rate : 20 * Systolic BP (mmHg) : 124 * Diastolic BP (mmHg) : 70 * Mean BP (mmHg) : 87 * O2 Saturation (%) : 94 Hospital Vital Signs from 07/05/2016 6:06 PM:* Temp : 98.3 * Heart Rate : 105 * Resp Rate : 20 * Systolic BP (mmHg) : 139 * Diastolic BP (mmHg) : 73 * Mean BP (mmHg) : 92 * O2 Saturation (%) : 94 Hospital Vital Signs from 07/05/2016 1:33 PM:* Weight : 121.4/ kg * Height : 5/8 ft,in * Temperature : 98.2 F * Pulse : 93 * Respirations : 16 * BP : 130/92 Hospital Vital Signs from 07/05/2016 1:10 PM:* Weight : 121.4/ kg * Height : 5/8 ft,in Results DX Radiology from 07/05/2016 4:57 PMFLUORO IN OR Dictated by Dr VARNER refer to notes. Fluoroscopy time 11.8 seconds. Electronically signed by: Admin, Radiology Dictated: 07/06/2016 06:15 Problems Encounter Diagnosis * Fall Risk Status:Active. * Mobility Impairment Status:Active. * Spinal Stenosis Status:Active. Encounters Encounter Diagnosis * Fall Risk Status:Active. * Mobility Impairment Status:Active. * Spinal Stenosis Status:Active. Plan of Care Follow-up Appointments from 07/06/2016 1:57 PM:* #1 Office appointment: : Dr. Vanrer * #1 Date/Time : 07/17/2016 11:15 AM * Address # 1 : [facility]: [address], [place]- [phone] or Treatment Plan from 07/06/2016 9:30 AM:* Care Management Note : SW spoke with patient regarding possible needs at discharge. Patient stated that he plans to return home where he lives alone. Patient stated that he has friends and family that will check on him and assist him as needed. Patient stated that he has a friend that will be able to provide transportation when he is discharged. Contact information left in patient's room, SW will continue to assist as needed. Treatment Plan from 07/06/2016 7:48 AM:* Care Management Note : Admission status: Outpatient Patient to Orthopedics following Minimally invasive decompressive laminectomy, L4-5, bilateral, through a left-sided approach. vital signs noted. Consulted Hospitalist for medical management. JORGE protocol. PT/OT to evaluate and treat. Follow vital signs with oximetry and neuro-checks. Pain management. patient is anticipated to go home later today. meets outpatient status. Procedures * Completed left lumbar 4-5 minimally invasive decompressive laminectomy, by MD YELENA VARNER, on 07/05/2016 4:30 PM * Completed left knee arthroscopy, partial medial meniscectomy, chondroplasty trochanter, partial synovectomty, Left, by MD KHADIJAH COE, on 01/25/2016 10:23 AM * Completed Procedure Code: [id number] Procedure Name: not valued, on 01/25/2016 12:00 AM * Completed Procedure Code: [id number] Procedure Name: not valued, on 01/25/2016 12: 00 AM Immunizations No immunizations administered or ordered. Hospital Course Hospital Discharge Instructions How to care for yourself at home from 07/06/2016 1:57 PM:* Discharge Activity : May Shower * Discharge Diet : Diet as tolerated * Discharge Wound Care : Keep dressings dry,Notify your physician if the following develops: redness, swelling, drainage or color of drainage changes, odor or increased pain. * Remove dressing in: : Do not remove, until you see your physician * Call your doctor if: : Fever over 101 F or severe chills,Chest pain or other unexplained symptoms,Tingling or numbness develops,A sudden increase or decrease in weight,You have persistent or worsening symptoms,If you have Heart Failure and you gain 3 pounds within 1 week or your symptoms worsen. (Weigh at home tomorrow morning) * Specific Discharge Teaching Instructions provided: : Yes * Discharge on Warfarin : No Allergies, Adverse Reactions, Alerts * Kenalog causes Unknown. Onset unknown. * Depo-Medrol causes Unknown. Onset unknown. * Chantix causes Unknown. Onset unknown. * No Latex Allergy. * No IV Contrast Allergy. Medication It is the responsibility of the patient or patient franchise sales representative to confirm the list of medications with either the patient's personal care provider or the patient's follow-up care provider to ensure the patient has an appropriate list of medications to take at home. Discharge medications Continued medications* amLODIPine 5 mg Tablet, Ordered By: YELENA VARNER MD Directions: 1 tablet oral daily * benztropine 1 mg Tablet, Ordered By: YELENA VARNER MD Directions: 1 tablet oral twice a day * clonazePAM 1 mg Tablet, Ordered By: YELENA VARNER MD Directions: 1 tablet oral twice a day at bedtime * diclofenac sodium 75 mg tablet,delayed release (DR/EC), Ordered By: YELENA VARNER MD Directions: 1 tablet oral twice a day * fluticasone 50 mcg/actuation spray,suspension, Ordered By: YELENA VARNER MD Directions: 1 spray each nostril daily * gabapentin 300 mg Capsule, Ordered By: YELENA VARNER MD Directions: 1 capsule oral three times a day * levocetirizine (Xyzal) 5 mg Tablet, Ordered By: YELENA VARNER MD Directions: 1 tablet oral daily * levothyroxine 50 mcg Tablet, Ordered By: YELENA VARNER MD Directions: 1 tablet oral daily before breakfast * losartan 100 mg Tablet, Ordered By: YELENA VARNER MD Directions: 1 tablet oral daily * metoprolol tartrate 25 mg Tablet, Ordered By: YELENA VARNER MD Directions: 1 tablet oral daily at bedtime * omeprazole 20 mg capsule,delayed release(DR/EC), Ordered By: YELENA VARNER MD Directions: 1 capsule oral daily before breakfast * sertraline 100 mg Tablet, Ordered By: YELENA VARNER MD Directions: 1.5 tablet oral daily every morning * temazepam 30 mg Capsule, Ordered By: YELENA VARNER MD Directions: 1 capsule oral daily at bedtime Changed medications* nicotine (Nicoderm CQ) 21 mg/24 hour patch 24 hour, Ordered By: YELENA VARNER MD Directions: 1 patch transdermal daily * paliperidone palmitate (Invega Sustenna) 256mg Syringe, Ordered By: YELENA VARNER MD Directions: 0.25 mL subcutaneous every Sunday Stopped medications* None
--- OUTSIDE RECORDS SUMMARY | 2016-07-28 22:35 | XMS REPORT | Summary of Care ---
Author Author Madeline Simms M.D. Unknown Address [address], [place] [id number] Phone Unavailable Care Team Providers Care Principal Technologist Name Role Phone Jeremy John M.D. 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 churn use of drug (V58.69, 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: Active [...] Obstructive sleep apnea (327.23, G47.33) Status: Active Medications Name Dates Details Metoprolol Tartrate 25 MG Oral Tablet take one tablet by mouth every day Quantity: 30 SimmsMadeline M.D.* Started 15-Mar-2009 ActiveLevocetirizine Dihydrochloride 5 MG Oral Tablet take one tablet by mouth every day * Quantity: 90 Refills: 3 Madeline Simms M.D.* Started 26-Dec-2011 ActiveInvega Sustenna 156 MG/ML Intramuscular Suspension inject IM every 3 weeks * Refills: 0 Simms, Madeline M.D.* Started 25-Nov-2010 ActiveLevothyroxine Sodium 50 MCG Oral Tablet take one tablet by mouth every day * Quantity: 30 Refills: 5 Madeline Simms M.D.* Started 26-Aug-2010 ActiveOmeprazole 20 MG Oral Capsule Delayed Release Take one capsule by mouth daily * Quantity: 30 Refills: 5 Madeline Simms M.D.* Started 26-Jan-2012 ActiveLORazepam 1 MG Oral Tablet TAKE 1/2 TABLET IN MORNING, 1 TABLET AT NOON, 1 TABLET AT BEDTIME. * Quantity: 45 Refills: 0 Madeline Simms M.D.* Started ActiveAmLODIPine Besylate 5 MG Oral Tablet TAKE ONE TABLET BY MOUTH EVERY MORNING * Quantity: 30 Refills: 5 Madeline Simms M.D.* Started 29-Apr-2013 ActiveFluticasone Propionate 50 MCG/ACT Nasal Suspension USE 2 SPRAYS IN EACH NOSTRIL ONCE DAILY * Quantity: 1 Refills: 11 Lex John M.D.* Started 11-Aug-2014 [id number] GM Bottle Losartan Potassium 100 MG Oral [...] Refills: 0 Lex John M.D.* Started 20-Aug-2014 ActiveHydrOXYzine HCl - 25 MG Oral Tablet TAKE 1-3 TABS AT BEDTIME NEEDED * Quantity: 90 Refills: 0 Lex John M.D.* Started 15-Apr-2014 ActiveCyclobenzaprine HCl - 10 MG Oral Tablet TAKE ONE TABLET BY MOUTH TWICE DAILY NEEDED FOR MUSCLE CRAMPING * Quantity: 30 Refills: 0 Madeline Simms M.D.* Started 07-Jan-2014 Active Allergies and Adverse [...] on:07-Jan-2010 Influenza Administered on:22-Dec-2010 Influenza Lot #: [id number] Administered on:23-Jan-2012 Influenza Administered on:13-Jan-2013 PPD Lot #: [id number] Administered on: Fluzone Intramuscular Injectable Lot #: [id number] Administered on:02-Jan-2014 Family History Mother* Name Dates [...] smoker Vital Signs Date Test Result Details 16-Nov-2014 13:05 BP Systolic 106 mm[Hg] Status: [...] Instructions * Instructions not documented Encounters Appointment; Sampson Cuadra Encounter Diagnosis: Problem not documented On 25-Nov-2014 13:00 Appointment; eRnuka Middleton Encounter Diagnosis: Problem not documented On [...]
--- OUTSIDE RECORDS SUMMARY | 2016-07-28 22:35 | XMS REPORT | Summary of Care ---
Author Author Telly Sow, Raul De La Paz Unknown Address [address] [place] [address] Phone Unavailable Care Team Providers Care Blending Tank Tender Helper Name Role Phone Dora Sow, Jeremy Unavailable Unavailable Raul Varner M.D. Unavailable Unavailable Mendez Sow, Madeline Unavailable [...] Obstructive sleep apnea (327.23, G47.33) Status: Active Lumbar radiculopathy, acute (724.4, M54.16) Status: Active Spinal stenosis at L4-L5 level (724.02, M48.06) Status: Active Medications Name Dates Details Metoprolol [...] DAY * Quantity: 16 Refills: 11 Dora M.Lex Stover * Start 16-Feb-2016 Active Losartan Potassium 100 [...] Todd M.D. Start Active 48 Lozenge Box Hydrocodone-Acetaminophen 7.5-325 MG Oral Tablet TAKE 1 TO 2 TABLETS EVERY 6 HOURS NEEDED FOR PAIN. * Quantity: 40 Refills: 0 Simms M.D.Madeline * Start 08-Mar-2016 Active Diclofenac Sodium 75 MG Oral Tablet Delayed Release TAKE ONE TABLET BY MOUTH TWICE DAILY WITH FOOD * Quantity: 60 Refills: 1 Simms M.D.Madeline * Start 06-Jun-2016 Active Mupirocin 2 % External Ointment Apply to toe daily at HS for 1 month * Quantity: 1 Refills: 1 Simms M.D.Madeline * Start 25-May-2016 Active 22 GM Tube Gabapentin 300 MG Oral Capsule TAKE 1 CAPSULE 3 times daily * Quantity: 90 Refills: 1 Telly M.D.Raul * Start 20-Jun-2016 Active Nicotine 21 MG/24HR Transdermal Patch 24 Hour APPLY 1 PATCH DAILY DIRECTED. * Quantity: 1 Refills: 0 Simms M.D.Madeline * Start 25-May-2016 Active 14 Patch 24 Hour Box Allergies and Adverse Reactions Name Dates [...] 07-Jan-2010 Influenza on: 22-Dec-2010 Influenza Lot #: [id number] on: 23-Jan-2012 Influenza on: 13-Jan-2013 PPD Lot #: [id number] on: Fluzone INJ Lot #: [id number] on: 02-Jan-2014 Fluzone Quadrivalent 0.5 ML Intramuscular Suspension Lot #: [id number] on: 25-Jan-2015 Tdap (Adacel) Lot #: [id number] on: 28-Jun-2015 Fluzone Quadrivalent 0.5 ML Intramuscular Suspension Lot #: [id number] on: 23-Feb-2016 Family History Name Dates Details [...] unknown Vital Signs Date Test Result Details 04-Jul-2016 16:54 BP Systolic 154 mm[Hg] Status: [...] Comments: DOS 07/[address] Varner at [facility] SODIUM 139 mmol/L Range: 133-144 POTASSIUM 4.7 mmol/L Range: 3.5-5.1 CHLORIDE 101 mmol/L Range: 98-110 CARBON DIOXIDE 27.8 mmol/L Range: 23.0-33.0 ANION GAP 10 mmol/L Range: 6-16 BUN 15 mg/dL Range: 7-18 CREATININE, SERUM 1.05 mg/dL Range: 0.70-1.30 EST GFR, >60 ml/min Range: >60 EST GFR, NON-AFR LATVIAN >60 ml/min Range: >60 Comments: EST GFR [...] Provider: Raul Varner M.D. On 05-Jul-2016 08:00 Instructions Name Dates Details Instructions not documented Encounters Appointment; Raul Cowart M.D. Encounter Diagnosis: Problem [...]
--- OUTSIDE RECORDS SUMMARY | 2016-07-28 22:35 | XMS REPORT ---
Author Author GENERATED, SYSTEM Organization Unknown Address Unknown Phone Unavailable Care Team Providers Care Refrigeration Plant Operator Name Role Phone MD DAVIDA, MXAWELL [phone] Reason For Visit Reason for Visit from 01/25/2016 7:00 AM:* Pt Stated Reason for Adm : " Chief Complaint LEFT KNEE PAIN,LEFT KNEE ARTHROSCOP Social History Social History from 01/25/2016 11:07 AM:* Tobacco Use? : Current Some Day Smoker Social History from 01/25/2016 7:00 AM:* Tobacco Use? : Current Some Day Smoker Functional Status Functional Status from 01/25/2016 12:17 PM:* LOC : Alert Functional Status from 01/25/2016 12:00 PM:* LOC : Alert * Oriented To : Person,Place,Time Functional Status from 01/25/2016 11:11 AM:* LOC : Drowsy Functional Status from 01/25/2016 7:00 AM:* LOC : Alert * Oriented To : Person,Place,Time,Event * Weight Bearing Status : Full * Assist Level : Independent * # Assists : Independent Vital Signs Hospital Vital Signs from 01/25/2016 1:00 PM:* Height : 5/10 ft,in * Temperature : 97.7 F * Pulse : 64 * Respirations : 16 * BP : 150/96 Hospital Vital Signs from 01/25/2016 12:45 PM:* Height : 5/10 ft,in * Pulse : 63 * Respirations : 16 * BP : 150/97 Hospital Vital Signs from 01/25/2016 12:30 PM:* Height : 5/10 ft,in * Pulse : 55 * Respirations : 16 * BP : 167/98 Hospital Vital Signs from 01/25/2016 12:17 PM:* Height : 5/10 ft,in * Temperature : 97.0 F * Pulse : 68 * Respirations : 16 * BP : 167/98 Hospital Vital Signs from 01/25/2016 12:10 PM:* Heart Rate : 55 * Resp Rate : 18 * O2 Saturation (%) : 93 Hospital Vital Signs from 01/25/2016 12:05 PM:* Temp : 97.7 * Heart Rate : 65 * Resp Rate : 18 * Systolic BP (mmHg) : 145 * Diastolic BP (mmHg) : 92 * Mean BP (mmHg) : 128 * O2 Saturation (%) : 93 Hospital Vital Signs from 01/25/2016 12:00 PM:* Heart Rate : 61 * Resp Rate : 14 * Systolic BP (mmHg) : 147 * Diastolic BP (mmHg) : 92 * Mean BP (mmHg) : 109 * O2 Saturation (%) : 94 Hospital Vital Signs from 01/25/2016 11:55 AM:* Heart Rate : 67 * Resp Rate : 17 * Systolic BP (mmHg) : 152 * Diastolic BP (mmHg) : 97 * Mean BP (mmHg) : 117 * O2 Saturation (%) : 91 Hospital Vital Signs from 01/25/2016 11:50 AM:* Heart Rate : 61 * Resp Rate : 16 * Systolic BP (mmHg) : 168 * Diastolic BP (mmHg) : 96 * Mean BP (mmHg) : 123 * O2 Saturation (%) : 93 Hospital Vital Signs from 01/25/2016 11:45 AM:* Temp : 97.9 * Heart Rate : 67 * Resp Rate : 11 * Systolic BP (mmHg) : 171 * Diastolic BP (mmHg) : 103 * Mean BP (mmHg) : 127 * O2 Saturation (%) : 93 Hospital Vital Signs from 01/25/2016 11:40 AM:* Heart Rate : 82 * Resp Rate : 24 * Systolic BP (mmHg) : 162 * Diastolic BP (mmHg) : 101 * Mean BP (mmHg) : 131 * O2 Saturation (%) : 94 Hospital Vital Signs from 01/25/2016 11:35 AM:* Heart Rate : 70 * Resp Rate : 19 * Systolic BP (mmHg) : 170 * Diastolic BP (mmHg) : 104 * Mean BP (mmHg) : 120 * O2 Saturation (%) : 94 Hospital Vital Signs from 01/25/2016 11:30 AM:* Heart Rate : 86 * Resp Rate : 20 * Systolic BP (mmHg) : 163 * Diastolic BP (mmHg) : 90 * Mean BP (mmHg) : 125 * O2 Saturation (%) : 96 Hospital Vital Signs from 01/25/2016 11:25 AM:* Temp : 97.8 * Heart Rate : 81 * Resp Rate : 24 * Systolic BP (mmHg) : 153 * Diastolic BP (mmHg) : 94 * Mean BP (mmHg) : 112 * O2 Saturation (%) : 96 Hospital Vital Signs from 01/25/2016 11:20 AM:* Heart Rate : 95 * Resp Rate : 15 * Systolic BP (mmHg) : 145 * Diastolic BP (mmHg) : 91 * Mean BP (mmHg) : 108 * O2 Saturation (%) : 98 Hospital Vital Signs from 01/25/2016 11:15 AM:* Heart Rate : 71 * Resp Rate : 18 * Systolic BP (mmHg) : 126 * Diastolic BP (mmHg) : 76 * Mean BP (mmHg) : 94 * O2 Saturation (%) : 94 Hospital Vital Signs from 01/25/2016 11:10 AM:* Heart Rate : 71 * Resp Rate : 18 * O2 Saturation (%) : 91 Hospital Vital Signs from 01/25/2016 11:08 AM:* Temp : 97.3 * Heart Rate : 71 * Resp Rate : 20 * Systolic BP (mmHg) : 126 * Diastolic BP (mmHg) : 73 * Mean BP (mmHg) : 93 * O2 Saturation (%) : 92 Hospital Vital Signs from 01/25/2016 10:04 AM:* Height : 5/10 ft,in * Pulse : 59 * Respirations : 12 * BP : 146/96 Hospital Vital Signs from 01/25/2016 7:19 AM:* Weight : 118/ kg * Height : 5/10 ft,in * Temperature : 97.1 F * Pulse : 76 * Respirations : 16 * BP : 141/92 Hospital Vital Signs from 01/25/2016 7:00 AM:* Weight : 118/ kg * Height : 5/10 ft,in Results Problems Encounter Diagnosis * Fall Risk Status:Active. Encounters Encounter Diagnosis * Fall Risk Status:Active. Plan of Care Follow-up Appointments from 01/25/2016 11:07 AM:* #1 Office appointment: : Dr. Coe * #1 Date/Time : 01/31/2016 8:45 AM * Address # 1 : [facility]: [address] [place]- or Procedures * Completed left knee arthroscopy, partial medial meniscectomy, chondroplasty trochanter, partial synovectomty, Left, by MD KHADIJAH COE on 01/25/2016 10:23 AM Immunizations No immunizations administered or ordered. Hospital Course Hospital Discharge Instructions How to care for yourself at home from 01/25/2016 11:07 AM:* Discharge Activity : Activity as tolerated,Do not engage in sports, heavy work or heavy lifting until your physician gives permission * Do not drive or operate machinery for: : 24 hours or while on narcotic pain medication * Discharge Diet : As before hospitalization,Diet as tolerated * Discharge Diet: : Avoid greasy and spicy foods for 24 hours as these may cause nausea * Discharge Wound Care : Notify your physician if the following develops: redness, swelling, drainage or color of drainage changes, odor or increased pain. * Call your doctor if: : Fever over 101 F or severe chills,Chest pain or other unexplained symptoms,Tingling or numbness develops,A sudden increase or decrease in weight,You have persistent or worsening symptoms * Specific Discharge Teaching Instructions provided: : Yes * Specific Discharge Teaching Instructions Reviewed: : Other * Discharge on Warfarin : No Allergies, Adverse Reactions, Alerts * No Latex Allergy. * No IV Contrast Allergy. * No Known Drug Allergies. Medication Medication reconciliation has not been performed.
--- OUTSIDE RECORDS SUMMARY | 2016-07-28 22:35 | XMS REPORT | Summary of Care ---
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, 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: Active [...] of knee, left (717.7, 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: Active Pain in left knee (719.46, M25.562) Status: Active Paranoid schizophrenia (295.30, F20.0) Status: Active Ingrown toenail (703.0, L60.0) Status: Active Onychomycosis (110.1, B35.1) Status: Active Bipolar affective disorder (296.80, F31.9) Status: Active 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, F41.8) Status: Active Effusion of left knee (719.06, M25.462) Status: Active Status post arthroscopy of left knee (V45.89, Z98.890) Status: Active Left knee pain (719.46, M25.562) Status: Active Wound, open, toe (893.0, S91.109A) Status: Active Toe abrasion (917.0, S90.416A) Status: Active Tobacco use disorder (305.1, F17.200) Status: Active Medications Name Dates Details Metoprolol Tartrate 25 MG Oral Tablet Take one tablet by mouth daily Quantity: 30 Simms M.D.Madeline * Start 21-Apr-2016 Active Levothyroxine Sodium 50 MCG Oral Tablet Take one tablet by mouth daily * Quantity: 30 Refills: 5 Simms M.D.JanelMadeline * Start 19-May-2016 Active LORazepam 1 MG [...] DAY * Quantity: 16 Refills: 11 Dora M.Jolanta, Lex Luna * Start 16-Feb-2016 Active Losartan Potassium 100 MG Oral Tablet Take one tablet by mouth daily * Quantity: 30 Refills: 5 Simms M.D.Madeline * Start 19-May-2016 Active Wellbutrin XL 300 MG Oral Tablet [...] M.D. * Start Active 48 Lozenge Box Methocarbamol 750 MG Oral Tablet TAKE ONE TABLET BY MOUTH TWICE DAILY NEEDED FOR MUSCLE SPASMS, Must last 90 days * Quantity: 180 Refills: 0 Simms M.D.Madeline * Start 02-Jun-2015 Active Hydrocodone-Acetaminophen 7.5-325 MG Oral Tablet TAKE 1 TO 2 TABLETS EVERY 6 HOURS NEEDED FOR PAIN. * Quantity: 30 Refills: 0 Pedro Wills M.D. * Start 08-Mar-2016 Active Terbinafine HCl - 250 MG Oral Tablet 1QD FOR 3 MONTHS - TAKE ONE TABLET BY MOUTH EVERY DAY FOR 3 MONTHS * Quantity: 90 Refills: 0 Simms M.D.Madeline * Start 23-Jun-2014 End 19-Jun-2016 Active Diclofenac Sodium 75 MG Oral Tablet Delayed Release Take 1 tab bid with food * Quantity: 60 Refills: 0 Smims M.D., Madeline * Start 08-May-2016 Active Nicotine 21 MG/24HR Transdermal Patch 24 Hour APPLY 1 PATCH DAILY DIRECTED. * Quantity: 1 Refills: 0 Simms M.D., Madeline * Start 25-May-2016 Active Mupirocin 2 % External Ointment Apply to toe daily at HS for 1 month * Quantity: 1 Refills: 1 Simms M.D., Madeline * Start 25-May-2016 Active 22 GM Tube Allergies and Adverse Reactions Name Dates Details [...] 07-Jan-2010 Influenza on: 22-Dec-2010 Influenza Lot #: [id number] on: 23-Jan-2012 Influenza on: 13-Jan-2013 PPD Lot #: [id number] on: Fluzone INJ Lot #: [id number] on: 02-Jan-2014 Fluzone Quadrivalent 0.5 ML Intramuscular Suspension Lot #: [id number] on: 25-Jan-2015 Tdap (Adacel) Lot #: [id number] on: 28-Jun-2015 Fluzone Quadrivalent 0.5 ML Intramuscular Suspension Lot #: [id number] on: 23-Feb-2016 Family History Name Dates Details [...] Resolved as of 28-Jun-2015 Name Dates Details Smoker. current status unknown Vital Signs Date Test Result Details 25-May-2016 08:17 BP Systolic 140 mm[Hg] Status: [...] >60 ml/min Range: >60 EST GFR, NON-AFR [place] >60 ml/min Range: >60 Comments: EST GFR [...] Simms M.D. On 08-Jun-2016 08:15 Appointment; Provider: Lam Carrasco M.D. On 06-Jun-2016 08:00 Appointment; Provider: Yvon Walker On 05-Jun-2016 08:30 Interventions Provided Medication Changes* Mupirocin 2 % External Ointment - Start * Nicotine 21 MG/24HR Transdermal Patch 24 Hour - Start Instructions Name Dates Details Instructions [...]
--- OUTSIDE RECORDS SUMMARY | 2016-07-28 22:36 | XMS REPORT | Summary of Care ---
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 * Start Active 48 Lozenge Box Hydrocodone-Acetaminophen 7.5-325 MG Oral Tablet TAKE 1 TO 2 TABLETS EVERY 6 HOURS NEEDED FOR PAIN. * Quantity: 30 Refills: 0 Pedro Wills M.D. * Start 08-Mar-2016 Active Diclofenac Sodium 75 MG Oral Tablet Delayed Release Take 1 tab bid with food * Quantity: 60 Refills: 0 Simms M.D., Madeline * Start 08-May-2016 Active Nicotine [...] 07-Jan-2010 Influenza on: 22-Dec-2010 Influenza Lot #: [id number] on: 23-Jan-2012 Influenza on: 13-Jan-2013 PPD Lot #: [id number] on: Fluzone INJ Lot #: [id number] on: 02-Jan-2014 Fluzone Quadrivalent 0.5 ML Intramuscular Suspension Lot #: [id number] on: 25-Jan-2015 Tdap (Adacel) Lot #: [id number] on: 28-Jun-2015 Fluzone Quadrivalent 0.5 ML Intramuscular Suspension Lot #: [id number] on: 23-Feb-2016 Family History Name Dates Details [...] >60 ml/min Range: >60 EST GFR, NON-AFR [place] >60 ml/min Range: >60 Comments: EST GFR [...] not documented On 28-Jun-2015 13:30 Appointment; Madeline iSmms M.D. Encounter Diagnosis: Problem [...]
--- OUTSIDE RECORDS SUMMARY | 2016-07-28 22:36 | XMS REPORT | Summary of Care ---
Author Author Mednez Sow, Madeline De La Paz Unknown Address Unknown Phone Unavailable Care Team Providers Care Heavy Mobile Equipment Operator Name Role Phone Dora Sow, Jeremy Unavailable Unavailable Lisa Sow, Geovanna Unavailable Unavailable Madeline Simms M.D. 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 * Quantity: 16 Refills: 5 Dora Guajardo.Lex Stover * Start 15-Jan-2014 Active Losartan Potassium 100 [...] FOOD * Quantity: 60 Refills: 0 Simms M.DMonica, Madeline * Start 27-Dec-2015 Active Allergies and Adverse Reactions Name Dates Details Chantix TABS (Allergy) Reaction: Hallucinations (Severe), Other Status: Active DEPO-Medrol SUSP (Allergy) Status: Active Kenalog (Allergy) Status: Active Past Medical History Name Dates Details History of acute bronchitis (.69, Z87.09) Status: Resolved History of acute otitis media (V1.49, Z86.69) Status: Resolved History of acute sinusitis (., Z87.09) Status: Resolved History of acute sinusitis (., Z87.09) Status: Resolved History of Ankle joint pain (719.47, M25.579) Status: Resolved History of Atypical chest pain (786.59, R07.89) Status: Resolved History of Bloating (787.3, R14.0) Status: Resolved History of Blurry Vision As If Looking Through A Glass Of Water Status: Resolved History of conjunctivitis (.49, Z86.69) Status: Resolved History of Cough (786.2, [...] 07-Jan-2010 Influenza on: 22-Dec-2010 Influenza Lot #: [id number] on: 23-Jan-2012 Influenza on: 13-Jan-2013 PPD Lot #: [id number] on: Fluzone INJ Lot #: [id number] on: 02-Jan-2014 Fluzone Quadrivalent 0.5 ML Intramuscular Suspension Lot #: [id number] on: 25-Jan-2015 Tdap (Adacel) Lot #: [id number] on: 28-Jun-2015 Family History Name Dates Details [...] smoker Vital Signs Date Test Result Details 05-Feb-2016 08:16 BP Systolic 144 mm[Hg] Status: Comments: Location: ; Position: BP Diastolic 90 mm[Hg] Status: Comments: Location: ; Position: Temperature 97.9 f Status: Heart Rate 78 /min Status: Comments: Location: ; Physical Findings 18 Status: Comments: Respiration Height 71.5 in Status: Weight 272 lb Status: Physical Findings 96 Status: Comments: O2 Saturation Body Mass Index Calculated 37.41 kg/m2 Status: Body Surface Area Calculated 2.42 m2 Status: 21-Jan-2016 09:33 BP Systolic 134 mm[Hg] Status: [...] Range: 0.0-0.7 BASO 0.1 K/uL Range: 0.0-0.2 Plan of Care Name Dates Details Planned Observations Comprehensive Metabolic Panel 1212 On 30-Jan-2016 Intent Planned Goals not documented Planned Encounters Appointment; Provider: Jameel Moore M.D. On 21-Feb-2016 09:15 Appointment; Provider: Carolynn Arellano DPM On 15-Feb-2016 09:00 Appointment; Provider: Madeline Simms M.D. On 10-Feb-2016 09:00 Appointment; Provider: Jameel Moore M.D. On 25-Jan-2016 07:30 Appointment; Provider: Schedule Radiology On 13-Dec-2015 15:00 Interventions Provided Labs/Procedures/Imaging* CBC w/ Auto Diff 7150; Done: Feb 05 2016 8:28AM Instructions Name Dates Details Instructions not documented [...]
--- OUTSIDE RECORDS SUMMARY | 2016-07-28 22:36 | XMS REPORT | Summary of Care ---
Author Author Lex John M.D. Unknown Address [address], [place] [id number] Phone Unavailable Care Team Providers Care Albacore Fishing Boat Crewman Name Role Phone Jeremy John M.D. 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 Hypomagnesemia (275.2, E83.42) Status: Active Sleep disturbances (780.50, G47.9) Status: Active Bilateral dry eyes (375.15, H04.123) Status: Active Plantar fascial fibromatosis (728.71, M72.2) Status: Active Fatigue (780.79, R53.83) Status: Active Nausea (787.02, R11.0) Status: Active Muscle spasm (728.85, M62.838) Status: [...] Status: Active Myopia (367.1, H52.10) Status: Active Need for vaccination (V05.9, Z23) Status: Active Essential hypertension (401.9, I10) Status: Active Dyspepsia (536.8, K30) Status: Active Hypothyroidism (244.9, E03.9) Status: Active Myalgia (729.1, M79.1) Status: Active Rash (782.1, R21) Status: Active Insomnia (780.52, G47.00) Status: Active [...] 45 Refills: 0 Madeline Simms M.D.* Started ActiveNystatin-Triamcinolone 685798-0.1 UNIT/GM-% External Cream APPLY SPARINGLY TO AFFECTED [...] daily * Quantity: 30 Refills: 5 SimmsMadeline valle M.D.* Started 26-Jan-2012 ActiveAmLODIPine Besylate 5 MG Oral Tablet TAKE ONE TABLET BY MOUTH EVERY MORNING * Quantity: 30 Refills: 0 Madeline Simms M.D.* Started 29-Apr-2013 ActiveLosartan Potassium 100 MG Oral Tablet take one tablet by mouth every day * Quantity: 30 Refills: 3 Madeline Simms M.D.* Started 03-Mar-2014 ActiveBelsomra 20 MG Oral Tablet TAKE ONE [...] Refills: 0 Madeline Simms M.D.* Started 10-Dec-2014 ActiveCyclobenzaprine HCl - 10 MG Oral Tablet TAKE ONE TABLET BY MOUTH TWICE DAILY NEEDED * Quantity: 30 Refills: 0 Madeline Simms M.D.* Started 14-Dec-2014 ActiveMeloxicam 15 MG Oral Tablet TAKE 1 TABLET DAILY. * Quantity: 15 Refills: 0 Lex John M.D.* Started 17-Dec-2014 ActiveDoxepin HCl - 50 MG Oral Capsule TAKE ONE CAPSULE BY MOUTH AT BEDTIME NEEDED. * Quantity: 30 Refills: 3 Lex John M.D.* Started 14-Jan-2015 ActiveRisperDAL Consta 37.5 MG Intramuscular Suspension Reconstituted * Refills: 0 * Started 25-Jan-2015 Active Allergies and Adverse Reactions Name Dates [...] fasciitis (728.71, M72.2) Status: Resolved History of Skin Blister On The Calves Both Status: Resolved History of sprain of ankle (V13.59, Z87.828) Status: Resolved History of sprain of arm (V13.59, Z87.39) Status: Resolved Procedures Procedure Dates Details History of Appendectomy CBC w/ Auto Diff 7150 Ordered:25-Jan-2015 Comprehensive Metabolic Panel 1212 Ordered:25-Jan-2015 LIPID PROFILE 1184 Ordered:25-Jan-2015 THYROID STIM. HORMONE 3602 Ordered:25-Jan-2015 Urinalysis, Reflex to Microscopic or Culture PRN 8005 Ordered:25-Jan-2015 Immunization Name Dates Details Tdap (Adacel) Administered on:Feb-2007 Influenza Administered on:05-Apr-2009 Influenza A (H1N1) Monoval PF Intramuscular Suspension Administered on:05-Apr-2009 Fluzone Intramuscular Injectable Administered on:07-Jan-2010 Influenza Administered on:22-Dec-2010 Influenza Lot #: [id number] Administered on:23-Jan-2012 Influenza Administered on:13-Jan-2013 PPD Lot #: [id number] Administered on: Fluzone Intramuscular Injectable Lot #: [id number] Administered on:02-Jan-2014 Fluzone Quadrivalent 0.5 ML Intramuscular Suspension Lot #: [id number] Administered on:25-Jan-2015 Family History Mother* Name Dates Details Family [...] smoker Vital Signs Date Test Result Details 16-Mar-2015 14:31 BP Systolic 150 mm[Hg] Status: BP Diastolic 102 mm[Hg] Status: Heart Rate 109 /min Status: Height 65 in Status: Weight 276 lb Status: O2 SAT 94 % Status: Body Mass Index Calculated 45.93 kg/m2 Status: Body Surface Area Calculated 2.27 m2 Status: Results Date Description Value Details Results not documented Plan of Care Planned Observations* Name Dates Details Planned Goals not documented Goal Planned Encounters* Appointment; Provider: Oh Greer On 12-Jan-2017 09:15 * Appointment; Provider: Lex John On 11:45 * Appointment; Provider: Madeline Simms On 31-Mar-2015 10:00 * Appointment; Provider: Katja Martinez On 12-Jan-2015 [...]
--- OUTSIDE RECORDS SUMMARY | 2016-07-28 22:37 | XMS REPORT | Summary of Care ---
Author Author Raul Coawrt M.D. Organization Unknown Address [address], [place] [address] Phone Unavailable Care Team Providers Care Manager Review Name Role Phone Dora Sow, Jeremy Unavailable Unavailable Madeline Simms M.D. Unavailable Unavailable Franny Sow, Homa Unavailable Unavailable Madeline Simms PP Unavailable Unavailable [...] Active Bipolar disorder (296.80, F31.9) Status: Active [facility] use of drug (V58.69, 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: Active [...] 0 Madeline Simms M.D.* Started 25-Nov-2010 ActiveNystatin-Triamcinolone 375974-9.1 UNIT/GM-% External Cream APPLY SPARINGLY TO AFFECTED [...] daily * Quantity: 30 Refills: 4 Madeline iSmms M.D.* Started 26-Jan-2012 ActiveAmLODIPine Besylate 5 MG [...] Refills: 5 Lex John M.D.* Started 15-Jan-2014 [id number] GM Bottle Mucinex 600 MG Oral Tablet Extended Release 12 Hour TAKE 1 TABLET TWICE DAILY. * Quantity: 42 Refills: 0 Madeilne Simms M.D.* Started 03-Mar-2014 ActiveLosartan Potassium 100 [...] on:07-Jan-2010 Influenza Administered on:22-Dec-2010 Influenza Lot #: [id number] Administered on:23-Jan-2012 Influenza Administered on:13-Jan-2013 PPD Lot #: [id number] Administered on: Fluzone Intramuscular Injectable Lot #: [id number] Administered on:02-Jan-2014 Family History Mother* Name Dates [...] Diagnosis: Problem not documented On 14:00 Appointment; Madeilne Simms Encounter Diagnosis: Problem not documented On [...]
--- OUTSIDE RECORDS SUMMARY | 2016-07-28 22:37 | XMS REPORT | Summary of Care ---
Author Author Shashi Sow, Gisselle Organization Unknown Address [address], [place] [id number] Phone Unavailable Care Team Providers Care Inside Meter Tester Name Role Phone Dora Sow, Jeremy Unavailable Unavailable Gisselle Danielle M.D. Unavailable Unavailable Mendez Sow, Madeline Unavailable Unavailable Madeline Simms PP Unavailable Unavailable [...] Active Bipolar disorder (296.80, F31.9) Status: Active correction use of drug (V58.69, 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: Active [...] Active Acute sinusitis (461.9, J01.90) Status: Active Medications Name Dates [...] day * Quantity: 30 Refills: 5 SimmsMadeline valle M.D.* Started 03-Mar-2014 ActiveTraZODone HCl - 50 [...] Refills: 0 Lex John M.D.* Started 21-Jul-2014 ActiveFluticasone Propionate 50 MCG/ACT Nasal Suspension USE 2 SPRAYS IN EACH NOSTRIL ONCE DAILY * Quantity: 1 Refills: 11 Lex John M.D.* Started 11-Aug-2014 [id number] GM Bottle PredniSONE 10 MG Oral Tablet 3 pills for 2 days, then 2 pills for 2 days, then 1 pill for 2 days * Quantity: 12 Refills: 0 Gisselle Danielle M.D.* Started 12-Aug-2014 ActiveAzithromycin 250 MG Oral Tablet 2 pills day #1 1 pill day #2-5 * Quantity: 6 Refills: 0 Gisselle Danielle M.D.* Started 12-Aug-2014 Active Allergies and Adverse Reactions Name Dates [...] on:07-Jan-2010 Influenza Administered on:22-Dec-2010 Influenza Lot #: [id number] Administered on:23-Jan-2012 Influenza Administered on:13-Jan-2013 PPD Lot #: [id number] Administered on: Fluzone Intramuscular Injectable Lot #: [id number] Administered on:02-Jan-2014 Family History Mother* Name Dates [...] smoker Vital Signs Date Test Result Details 12-Aug-2014 08:47 BP Systolic 132 mm[Hg] Status: BP Diastolic 89 mm[Hg] Status: Heart Rate 86 /min Status: Temperature 99 f Status: O2 SAT 95 % Status: 06-Aug-2014 13:25 BP Systolic 158 mm[Hg] Status: [...] Instructions * Instructions not documented Encounters Appointment; Gisselle Danielle Encounter Diagnosis: Problem not [...]
--- OUTSIDE RECORDS SUMMARY | 2016-07-28 22:37 | XMS REPORT | Summary of Care ---
Author Author Nemesio Todd M.D. Unknown Address Unknown Phone Unavailable Care Team Providers Care Business Development Name Role Phone Dora Sow, Jeremy Unavailable Americo Varner M.D., Raul Unavailable Unavailable Yolis Jones Unavailable Unavailable Fadi Sow, Javier Unavailable Unavailable Mendez Sow, Madeline Unavailable Unavailable Perez Sow, S Unavailable Unavailable Mendez, Madeline Unavailable Unavailable Unavailable Unavailable Functional Status Name [...] of knee, left (717.7, 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: Active Essential hypertension (401.9, I10) Status: [...] Active Acute bronchitis (466.0, J20.9) Status: Active Back pain (724.5, M54.9) Status: Active Medications Name Dates Details Metoprolol [...] Quantity: 16 Refills: 11 Dora M.D., Lex Luna * Start 16-Feb-2016 Active Benztropine Mesylate 1 MG Oral Tablet Take 1 tablet twice daily * Refills: 0 Simms M.D., Madeline * Start 10-Dec-2014 Active Paliperidone ER 6 MG Oral Tablet Extended Release 24 Hour TAKE 1 TABLET DAILY. * Refills: 0 Simms M.D., Madeline * Start 31-May-2015 Active Losartan Potassium 100 MG Oral Tablet Take one tablet by mouth daily * Quantity: 30 Refills: 5 Simms M.D., Madeline * Start 19-May-2016 Active Diclofenac Sodium 75 MG Oral Tablet [...] daily * Quantity: 60 Refills: 3 Fadi M.DMonica, Malcolm Herrera * Start 10-Jul-2016 Active Nicotine [...] * Start 19-Jul-2016 Active 6 Tablet Box Methocarbamol 500 MG Oral Tablet take 1 capsule q 12 hrs prn spasm * Quantity: 20 Refills: 0 Perez Sow, Nemesio Palomo Start 19-Jul-2016 Active Allergies and Adverse Reactions Name Dates [...] 07-Jan-2010 Influenza on: 22-Dec-2010 Influenza Lot #: [id number] on: 23-Jan-2012 Influenza on: 13-Jan-2013 PPD Lot #: [id number] on: Fluzone INJ Lot #: [id number] on: 02-Jan-2014 Fluzone Quadrivalent 0.5 ML Intramuscular Suspension Lot #: [id number] on: 25-Jan-2015 Tdap (Adacel) Lot #: [id number] on: 28-Jun-2015 Fluzone Quadrivalent 0.5 ML Intramuscular Suspension Lot #: [id number] on: 23-Feb-2016 Family History Name Dates Details [...] Vital Signs Date Test Result Details 19-Jul-2016 18:47 BP Systolic 142 mm[Hg] Status: Comments: Location: ; Position: BP Diastolic 82 mm[Hg] Status: Comments: Location: ; Position: Heart Rate 93 /min Status: Comments: Location: ; Physical Findings 18 Status: Comments: Respiration Weight 267 lb Status: Physical Findings 98 Status: Comments: O2 Saturation Body Mass Index Calculated 36.72 kg/m2 Status: Body Surface Area Calculated 2.4 m2 Status: 19-Jul-2016 15:27 BP Systolic 138 mm[Hg] Status: [...] BP Systolic 116 mm[Hg] Status: Comments: Location: LUE; Position: Sitting BP Diastolic 73 mm[Hg] Status: Comments: Location: LUE; Position: Sitting Temperature 97.1 f Status: Comments: Method: Heart Rate 96 /min Status: Comments: Location: ; Physical Findings 16 Status: Comments: Respiration Physical Findings 94 Status: Comments: O2 Saturation 10-Jul-2016 10:39 BP Systolic 144 mm[Hg] Status: Comments: Location: ; Position: BP Diastolic 86 mm[Hg] Status: Comments: Location: ; Position: Temperature 98.2 f Status: Heart Rate 88 /min Status: Comments: Location: [...] >60 ml/min Range: >60 EST GFR, NON-AFR [place] >60 ml/min Range: >60 Comments: EST GFR [...] Appointment; Provider: Yvon Jones On 24-Jul-2016 10:30 Appointment; Provider: Raul Varner M.D. On 21-Jul-2016 09:30 Interventions Provided Medication Changes* Methocarbamol 500 MG Oral Tablet - Start Instructions Name Dates Details Instructions not documented Encounters Appointment; Yolis Jones APRN Encounter Diagnosis: Problem not documented On 19-Jul-2016 15:24 Appointment; Raul Varner M.D. Encounter Diagnosis: Problem [...] not documented On 10:00 Appointment; Evelyne Perales AMonicaP.RMonicaNMonica Encounter Diagnosis: Problem not documented On 08:35 [...]
--- OUTSIDE RECORDS SUMMARY | 2016-07-28 22:38 | XMS REPORT | Summary of Care ---
Author Author Lex John M.D. Unknown Address [address], [place] [id number] Phone Unavailable Care Team Providers Care Ironworker Helper Shop Name Role Phone Jeremy John M.D. Unavailable [...] Active Bipolar disorder (296.80, F31.9) Status: Active [facility] use of drug (V58.69, 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: Active [...] Bilateral leg pain (729.5, M79.604) Status: Active Myalgia (729.1, M79.1) Status: Active Paranoid schizophrenia (295.30, F20.0) Status: Active Obstructive sleep apnea (327.23, G47.33) Status: Active Insomnia (780.52, G47.00) Status: Active Medications Name Dates Details Metoprolol [...] MOUTH EVERY MORNING * Quantity: 30 Refills: 2 SimmsMadeline M.D.* Started 29-Apr-2013 ActiveLosartan Potassium 100 MG Oral Tablet take one tablet by mouth every day * Quantity: 30 Refills: 5 SimmsMadeline valle M.D.* Started 03-Mar-2014 ActiveBelsomra 20 MG Oral [...] Oral Tablet TAKE ONE TABLET BY MOUTH BID NEEDED * Quantity: 10 Refills: 0 Madeline Simms M.D.* Started 14-Dec-2014 ActiveMeloxicam 15 MG Oral Tablet TAKE 1 TABLET DAILY. * Quantity: 15 Refills: 0 Lex John M.D.* Started 17-Dec-2014 Active Allergies and Adverse Reactions Name Dates [...] on:07-Jan-2010 Influenza Administered on:22-Dec-2010 Influenza Lot #: [id number] Administered on:23-Jan-2012 Influenza Administered on:13-Jan-2013 PPD Lot #: [id number] Administered on: Fluzone Intramuscular Injectable Lot #: [id number] Administered on:02-Jan-2014 Family History Mother* Name Dates [...] smoker Vital Signs Date Test Result Details 17-Dec-2014 11:41 BP Systolic 128 mm[Hg] Status: BP Diastolic 88 mm[Hg] Status: Heart Rate 111 /min Status: Height 65 in Status: Weight 303 lb Status: O2 SAT 95 % Status: Body Mass Index Calculated 50.42 kg/m2 Status: Body Surface Area Calculated 2.36 m2 Status: 10-Dec-2014 13:21 BP Systolic 130 mm[Hg] Status: [...] Planned Encounters* Appointment; Provider: Lex John On 18-Mar-2015 10:45 * Appointment; Provider: Madeline Simms On 01-Jan-2015 10:30 * Appointment; Provider: Carolynn Arellano On 23-Dec-2014 15:15 * Appointment; Provider: Schedule Radiology On 10:00 [...]
--- OUTSIDE RECORDS SUMMARY | 2016-07-28 22:38 | XMS REPORT | Summary of Care ---
Author Author Mendez Sow, Madeline Organization Unknown Address [address] [place], [place] [id number] Phone Unavailable Care Team Providers Care Black Mill Operator Name Role Phone Madeline Simms Unavailable Unavailable Unavailable Unavailable Functional Status Functional Status Health Issues* Name Dates Details No known functional status health issues Status: Cognitive Status Health Issues* Name Dates Details No known cognitive status health issues Status: Problems Name Dates Details Anemia of chronic disease (285.29, D63.8) Status: Active Tinea versicolor (111.0, B36.0) Status: Active Myopia (367.1, H52.10) Status: Active Presbyopia (367.4, H52.4) Status: Active 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, 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: Active Seborrheic dermatitis of scalp (690.18, L21.8) Status: Active Dyspepsia (536.8, K30) Status: Active Onychomycosis (110.1, B35.1) Status: Active Bipolar disorder (296.80, F31.9) Status: Active assisted use of drug (V58.69, 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: Active [...] Leg pain, bilateral (729.5, M79.604) Status: Active Medications Name Dates Details Metoprolol Tartrate 25 MG Oral Tablet take one tablet by mouth every day Quantity: 30 Tablet * Started 15-Mar-2009 ActiveLevothyroxine Sodium 50 MCG Oral Tablet take one tablet by mouth every day * Quantity: 30 Tablet Refills: 5 * Started 26-Aug-2010 ActiveLORazepam 1 MG Oral Tablet TAKE 1 TABLET IN MORNING, 1 TABLET AT NOON, 1 1/2 TABLET AT BEDTIME. * Refills: 0 * Started ActiveInvega Sustenna 156 MG/ML Intramuscular Suspension Inject IM every 4 weeks * Refills: 0 * Started 25-Nov-2010 ActiveCiclopirox 8 % External Solution APPLY THIN COAT TO NAILS AT BEDTIME REAPPLY NIGHTLY ONCE WEEKLY * Quantity: 6.6 Mutually Defined Refills: 3 * Started 12-Dec-2010 ActiveLevocetirizine Dihydrochloride 5 MG Oral Tablet take one tablet by mouth every day * Quantity: 90 Tablet Refills: 0 * Started 26-Dec-2011 ActiveOmeprazole 20 MG Oral Capsule Delayed Release Take one capsule by mouth daily * Quantity: 30 Capsule Delayed Release Refills: 5 * Started 26-Jan-2012 ActiveLisinopril 20 MG Oral Tablet Take one tablet by mouth daily * Quantity: 30 Tablet Refills: 2 * Started 09-Aug-2012 ActiveAmLODIPine Besylate 5 MG Oral Tablet TAKE ONE TABLET BY MOUTH EVERY MORNING * Quantity: 30 Tablet Refills: 6 * Started 29-Apr-2013 ActiveVitamin B12 100 MCG Oral Tablet TAKE 1 TABLET DAILY DIRECTED. * Refills: 0 * Started 12-Jun-2013 ActiveRefresh Tears 0.5 % Ophthalmic Solution INSTILL 1 DROP INTO BOTH EYES 4 TIMES DAILY NEEDED * Quantity: 15 ML Refills: 0 * Started 24-Jun-2013 ActiveMagnesium Oxide 400 MG Oral Tablet Take One Tablet By Mouth Twice Daily * Quantity: 60 Tablet Refills: 0 * Started 12-Aug-2013 ActiveTerbinafine HCl - 250 MG Oral Tablet take one tablet by mouth every day * Quantity: 30 Tablet Refills: 0 * Started 25-Nov-2013 ActiveHydrOXYzine HCl - 25 MG Oral Tablet TAKE 3 TABLETS AT BEDTIME. * Quantity: 90 Tablet Refills: 5 * Started 10-Dec-2013 ActivePataday 0.2 % Ophthalmic Solution INSTILL 1 DROP INTO AFFECTED EYE(S) ONCE DAILY DIRECTED. * Quantity: 1X2.5 ML Bottle Refills: 0 * Started 19-Dec-2013 Active Allergies and Adverse Reactions Name Dates Details No Known Drug Allergies Status: Active Past Medical History Name Dates Details Cough (786.2, R05) Status: Resolved History of conjunctivitis (V12.49, Z86.69) Status: Resolved Otitis media (382.9, H66.90) Status: Resolved Acute sinusitis (461.9, J01.90) Status: Resolved Rash (782.1, R21) Status: Resolved Bloating (787.3, R14.0) Status: Resolved History of esophagitis (V12.79, Z87.19) Status: Resolved Ankle joint pain (719.47, M25.579) Status: Resolved Snoring (786.09, R06.83) Status: Resolved History of sprain of arm (V13.59, Z87.39) Status: Resolved History of diplopia (V12.49, Z86.69) Status: Resolved Plantar fasciitis (728.71, M72.2) Status: Resolved Pain in joint of left knee (719.46, M25.562) Status: Resolved Limb pain (729.5, M79.609) Status: Resolved History of sprain of ankle (V13.59, Z87.39) Status: Resolved Atypical chest pain (786.59, R07.89) Status: Resolved Blurry Vision As If Looking Through A Glass Of Water Status: Resolved Difficulty in walking (719.7, R26.2) Status: Resolved Skin Blister On The Calves Both Status: Resolved Procedures Procedure Dates Details Appendectomy Procedures not documented Immunization Name Dates Details Tdap (Adacel) Influenza Administered on:05-Apr-2009 Influenza A (H1N1) Monoval PF Intramuscular Suspension Administered on:05-Apr-2009 Fluzone Intramuscular Injectable Administered on:07-Jan-2010 Influenza Comments: 12-22-10 Influenza Lot #: [id number] Administered on:23-Jan-2012 Influenza Administered on:13-Jan-2013 PPD Lot #: [id number] Administered on: Fluzone Intramuscular Injectable Lot #: [id number] Administered on:02-Jan-2014 Family History Mother* Name Dates Details Alcoholism Status: Active Cirrhosis Status: Active Poliomyelitis Status: Active Hypertension (V17.49) Status: Active Brother* Name Dates Details Bipolar Disorder Status: Active Social History Name Dates Details Sleep disturbances (780.50, G47.9) Current some day smoker (305.1, Z72.0) Smoking Status* Current some day smoker Vital Signs Date Test Result Details 02-Jan-2014 09:50 BP Systolic 136 mm[Hg] Status: BP Diastolic 86 mm[Hg] Status: Heart Rate 88 /min Status: Weight 286 lb Status: Body Mass Index Calculated 39.89 kg/m2 Status: Body Surface Area Calculated 2.46 Status: 18-Dec-2013 09:38 BP Systolic 142 mm[Hg] Status: BP Diastolic 88 mm[Hg] Status: Temperature 97.5 f Status: Weight 290 lb Status: Body Mass Index Calculated 40.45 kg/m2 Status: Body Surface Area Calculated 2.47 Status: Results Date Description Value Details Resulted on: 03-Jan-2014 08:13 CBC w/ Auto Diff 7150 Comments: Fastin hours WBC 10.8 K/uL Range: 4.5-11.0=Better RBC 4.74 mil/uL Range: 4.20-5.40=Better HGB 14.1 g/dL Range: 14.0-18.0=Better HCT 42.8 % Range: 42.0-53.0=Better MCV 90.4 fL Range: 80.0-99.0=Better MCH 29.8 pg Range: 27.3-32.5=Better MCHC 33.0 % Range: 32.0-36.0=Better RDW 13.6 % Range: 11.6-14.8=Better PLATELETS 250 K/uL Range: 150-400=Better MPV 7.2 fL Range: 6.0-11.0=Better %NEUTRO 71.3 % Range: 37.0-80.0=Better %LYMPHS 19.4 % Range: 13.0-50.0=Better %MONO 6.0 % Range: 0.0-12.0=Better %EOS 1.5 % Range: 0.0-7.0=Better %BASO 1.0 % Range: 0.0-2.5=Better %ESTELLA 0.8 % Range: 0.0-5.0=Better NEUTRO 7.7 K/uL Range: 2.0-6.9=Above high threshold LYMPHS 2.1 K/uL Range: 0.6-3.4=Better MONOS 0.7 K/uL Range: 0.0-0.9=Better EOS 0.2 K/uL Range: 0.0-0.7=Better BASO 0.1 K/uL Range: 0.0-0.2=Better 08:38 Urinalysis, Reflex to Microscopic or Culture PRN 8005 Comments: Fastin hours pH 7.0 Range: 5.0-7.5=Better SP GRAVITY 1.020 Range: 1.010-1.030=Better APPEARANCE CLEAR Range: Clear=Better COLOR YELLOW Range: Straw-Yellow=Better PROTEIN NEGATIVE mg/dL Range: Negative-Trace=Better GLUCOSE NEGATIVE mg/dL Range: Negative=Better KETONE NEGATIVE mg/dL Range: Negative=Better BILIRUB NEGATIVE Range: Negative=Better BLOOD NEGATIVE Range: Negative=Better UROBIL 0.2 EU/dL Range: 0.2-1.0=Better NITRITE NEGATIVE Range: Negative=Better LEUK NEGATIVE Range: Negative=Better 09:06 Comprehensive Metabolic Panel 1212 Comments: Fastin hours SODIUM 132 mmol/L Range: 133-144=Below low threshold POTASSIUM 4.7 mmol/L Range: 3.5-5.1=Better CHLORIDE 98 mmol/L Range: 98-110=Better CARBON DIOXIDE 25.2 mmol/L Range: 23.0-33.0=Better ANION GAP 9 mmol/L Range: 6-16=Better BUN 22 mg/dL Range: 7-18=Above high threshold CREATININE, SERUM 1.12 mg/dL Range: 0.43-1.13=Better BUN:CREATININE RATIO 20 Better EST GFR, >60 ml/min Range: >60=Better EST GFR, NON-AFR GERMAN >60 ml/min Range: >60=Better Comments: EST GFR is reported in ml/min per 1.73 m2 of body surface area. For -Belgian, please multiple result by 1.2.----- GLUCOSE 88 mg/dL Range: 70-100=Better ALK PHOSPHATASE 67 U/L Range: 46-116=Better Comments: Please Note: New Reference Range effective 2013.----- TOTAL BILIRUBIN 0.60 mg/dL Range: 0.20-1.00=Better AST 26 U/L Range: 8-35=Better ALT 42 U/L Range: 12-78=Better ALBUMIN 3.9 g/dL Range: 3.4-5.0=Better TOTAL PROTEIN 7.1 g/dL Range: 6.4-8.2=Better A/G RATIO 1.2 units Range: 1.0-1.8=Better CALCIUM 9.6 mg/dL Range: 8.5-10.1=Better 09:06 LIPID PROFILE 1184 Comments: Fastin hours CHOLESTEROL 163 mg/dL Range: <200=Better TRIGLYCERIDES 145 mg/dL Range: 30-200=Better HDL Cholesterol 34 mg/dL Range: >39=Below low threshold NON HDL CHOLESTEROL 129 Better CARDIAC RSK FACTOR 4.8 units Range: 4.4-5.0=Better LDL - CALCULATED 100 mg/dL Range: 0-130=Better 09:06 CREATINE KINASE 1300 Comments: Fastin hours CREATINE KINASE 444 U/L Range: 39-308=Above high threshold 09:06 MAGNESIUM 1260 Comments: Fastin hours MAGNESIUM 1.9 mg/dL Range: 1.8-2.4=Better Plan of Care Instructions* Instructions not documented Planned Observations* Name Dates Details Planned Goals not documented Goal Planned Encounters* Appointment; Provider: Lex John On 31-Mar-2014 10:45 * Appointment; Provider: Madeline Simms On 14-Jan-2014 09:30 * Appointment; Provider: Lex John On 18-Jul-2013 10:15 * Appointment; Provider: Madeline Simms On 27-Apr-2008 08:00 Instructions * No Known Instructions Encounters Appointment; Madeline Simms Encounter Diagnosis: Problem [...] Diagnosis: Problem not documented On 12-Mar-2012 15:30 Appointment; Madeline Simms Encounter Diagnosis: Problem not documented On 23-Jan-2012 07:45
--- OUTSIDE RECORDS SUMMARY | 2016-07-28 22:38 | XMS REPORT | Summary of Care ---
Author Author Johann Sow, Pedor De La Paz Unknown Address Unknown Phone Unavailable Care Team Providers Care Admitting Supervisor Name Role Phone Jeremy John M.D. 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: Active Nasal congestion (478.19, R09.81) Status: Active Need for vaccination (V05.9, Z23) Status: Active Status post arthroscopy of left knee (V45.89, Z98.890) Status: Active Pain in left knee (719.46, M25.562) Status: Active 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, F41.8) Status: Active Paranoid schizophrenia (295.30, F20.0) Status: Active Left knee pain (719.46, M25.562) Status: Active Effusion of left [...] Refills: 3 Simms M.D., Madeline * Start 26-Dec-2011 Active Omeprazole 20 MG Oral Capsule Delayed Release Take one capsule by mouth daily * Quantity: 30 Refills: 2 Simms M.D., Madeline * Start 23-Dec-2015 Active AmLODIPine Besylate 5 [...] DAY * Quantity: 16 Refills: 11 Dora Guajardo.Lex Stover * Start 16-Feb-2016 Active Losartan Potassium [...] bedtime * Quantity: 90 Refills: 5 Dora Guajardo.Lex Stover Start 07-Dec-2015 Active Celecoxib 200 MG Oral Capsule TAKE 1 CAPSULE TWICE DAILY WITH FOOD. * Quantity: 60 Refills: 1 Simms M.D.Madeline * Start 27-Dec-2015 Active Hydrocodone-Acetaminophen 7.5-325 MG Oral Tablet TAKE 1 TO 2 TABLETS EVERY 6 HOURS NEEDED FOR PAIN. * Quantity: 30 Refills: 0 Johann SowPedro * Start 08-Mar-2016 Active Allergies and Adverse [...] CBC w/ Auto Diff 7150 Ordered: 08-Feb-2016 AEROBIC CULTURE Ordered: 08-Mar-2016 Immunization Name Dates Details Tdap (Adacel) on: Feb-2007 Influenza on: 05-Apr-2009 Influenza A (H1N1) Monoval PF SUSP on: 05-Apr-2009 Fluzone INJ on: 07-Jan-2010 Influenza on: 22-Dec-2010 Influenza Lot #: [id number] on: 23-Jan-2012 Influenza on: 13-Jan-2013 PPD Lot #: [id number] on: Fluzone INJ Lot #: [id number] on: 02-Jan-2014 Fluzone Quadrivalent 0.5 ML Intramuscular Suspension Lot #: [id number] on: 25-Jan-2015 Tdap (Adacel) Lot #: [id number] on: 28-Jun-2015 Fluzone Quadrivalent 0.5 ML Intramuscular Suspension Lot #: [id number] on: 23-Feb-2016 Family History Name Dates Details [...] smoker Vital Signs Date Test Result Details 08-Mar-2016 17:42 BP Systolic 132 mm[Hg] Status: Comments: Location: ; Position: BP Diastolic 94 mm[Hg] Status: Comments: Location: ; Position: Temperature 98.4 f Status: Heart Rate 108 /min Status: Comments: Location: ; Physical Findings 16 Status: Comments: Respiration Physical Findings 97 Status: Comments: O2 Saturation 07-Mar-2016 08:18 BP Systolic 130 mm[Hg] Status: Comments: Location: ; Position: BP Diastolic 82 mm[Hg] Status: Comments: Location: ; Position: Heart Rate 74 /min Status: Comments: Location: ; Physical Findings 96 Status: Comments: O2 Saturation 07-Mar-2016 08:15 Weight 282 lb Status: Body Mass Index Calculated 38.78 kg/m2 Status: Body Surface Area Calculated 2.45 m2 Status: 23-Feb-2016 08:45 BP Systolic 140 mm[Hg] Status: BP Diastolic 80 mm[Hg] Status: Heart Rate 88 /min Status: Weight 277 lb Status: Body Mass Index Calculated 38.1 kg/m2 Status: Body Surface Area Calculated 2.43 m2 Status: Results Date Description Value Details 10-Mar-2016 08:52 JOINT FLUID FOR CRYSTALS 7611 JOINT FLUID FOR CRYSTALS Absent Range: Absent Source/Site knee Plan of Care Name Dates Details Planned Observations Planned Goals not documented Planned Encounters Appointment; Provider: Aime Rdz M.D. On 15-Jan-2017 13:30 Appointment; Provider: Lex John M.D. On 07-Jun-2016 13:15 Appointment; Provider: Madeline Simms M.D. On 11-May-2016 11:00 Interventions Provided Medication Changes* Hydrocodone-Acetaminophen 7.5-325 MG Oral Tablet - Start Labs/Procedures/Imaging* AEROBIC CULTURE; To be Done: 08 Mar 2016 * JOINT FLUID FOR CRYSTALS 7611; Done: Mar 10 2016 8:30AM Instructions Name Dates Details Instructions not documented [...]
--- OUTSIDE RECORDS SUMMARY | 2016-07-28 22:38 | XMS REPORT | Summary of Care ---
Author Author Madeline Simms M.D. Unknown Address [address], [place] [id number] Phone Unavailable Care Team Providers Care Hand Booked Folder And Stitcher Name Role Phone Jeremy John M.D. 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 Diplopia (368.2, H53.2) Status: Active Myopia (367.1, H52.10) Status: Active Medications Name Dates Details Metoprolol Tartrate 25 MG Oral Tablet take one tablet by mouth every day Quantity: 30 Madeline Simms M.D.* Started 30-Nov-2009 ActiveLevothyroxine Sodium 50 MCG Oral Tablet take one tablet by mouth every day * Quantity: 30 Refills: 5 SimmsMadeline valle M.D.* Started 26-Aug-2010 ActiveLevocetirizine Dihydrochloride 5 MG Oral Tablet take one tablet by mouth every day * Quantity: 90 Refills: 3 SimmsMadeline valle M.D.* Started 26-Dec-2011 ActiveOmeprazole 20 MG Oral Capsule Delayed Release Take one capsule by mouth daily * Quantity: 30 Refills: 5 SimmsMadeline valle M.D.* Started 26-Jan-2012 ActiveAmLODIPine Besylate 5 MG Oral Tablet TAKE ONE TABLET BY MOUTH EVERY MORNING * Quantity: 30 Refills: 2 SimmsMadeline valle M.D.* Started 29-Apr-2013 ActiveLosartan Potassium 100 MG [...] Refills: 0 Madeline Simms M.D.* Started 10-Dec-2014 ActiveMeloxicam 15 MG Oral Tablet TAKE 1 TABLET DAILY. * Quantity: 15 Refills: 0 Lex John M.D.* Started 17-Dec-2014 ActiveCyclobenzaprine HCl - 10 MG Oral Tablet TAKE ONE TABLET BY MOUTH BID NEEDED * Quantity: 30 Refills: 0 Madeline Simms M.D.* Started 14-Dec-2014 ActiveBelsomra 20 MG Oral Tablet TAKE ONE TABLET BY MOUTH AT BEDTIME NEEDED * Quantity: 30 Refills: 0 Lex John M.D.* Started 20-Aug-2014 ActiveLORazepam 1 MG Oral Tablet TAKE 1/2 TABLET IN MORNING, 1 TABLET AT NOON, 1 TABLET AT BEDTIME. * Quantity: 45 Refills: 0 Madeline Simms M.D.* Started Active Allergies and Adverse Reactions Name [...] Procedures Procedure Dates Details History of Appendectomy LIPID PROFILE 1184 Ordered:29-Dec-2014 LIVER PROFILE 1215 Ordered:29-Dec-2014 CBC w/ Auto Diff 7150 Ordered:29-Dec-2014 THYROID STIM. HORMONE 3602 Ordered:29-Dec-2014 CREATINE KINASE 1300 Ordered:29-Dec-2014 Immunization Name Dates Details Tdap (Adacel) Administered on:Feb-2007 Influenza Administered on:05-Apr-2009 Influenza A (H1N1) Monoval PF Intramuscular Suspension Administered on:05-Apr-2009 Fluzone Intramuscular Injectable Administered on:07-Jan-2010 Influenza Administered on:22-Dec-2010 Influenza Lot #: [id number] Administered on:23-Jan-2012 Influenza Administered on:13-Jan-2013 PPD Lot #: [id number] Administered on: Fluzone Intramuscular Injectable Lot #: [id number] Administered on:02-Jan-2014 Family History Mother* Name Dates [...] Body Surface Area Calculated 2.36 m2 Status: Results Date Description Value Details Results not documented Plan of Care Planned Observations* Name Dates Details Planned Goals not documented Goal Planned Encounters* Appointment; Provider: Oh Greer On 12-Jan-2017 09:15 * Appointment; Provider: Lex John On 18-Mar-2015 10:45 * Appointment; Provider: Madeline Simms On 15-Jan-2015 14:45 * Appointment; Provider: Katja Martinez On 12-Jan-2015 14:00 * Appointment; Provider: Schedule Radiology On 10:00 * Appointment; Provider: Lex John On 18-Jul-2013 10:15 * Appointment; Provider: Madeline Simms On 27-Apr-2008 08:00 Instructions * Instructions not documented Encounters Appointment; Oh Greer Encounter Diagnosis: Problem not [...]
--- OUTSIDE RECORDS SUMMARY | 2016-07-28 22:39 | XMS REPORT | Summary of Care ---
Author Author Renuka Middleton APRN Organization Unknown Address [address], [place] [id number] Phone Unavailable Care Team Providers Care Bench Press Operator Name Role Phone Jeremy John M.D. Unavailable [...] 30 Refills: 5 SimmsMadeline M.D.* Started 03-Mar-2014 ActiveFluticasone Propionate 50 MCG/ACT Nasal Suspension USE 2 SPRAYS IN EACH NOSTRIL ONCE DAILY * Quantity: 1 Refills: 11 Lex John M.D.* Started 11-Aug-2014 [id number] GM Bottle Belsomra 20 MG Oral Tablet TAKE ONE TABLET BY MOUTH AT BEDTIME NEEDED * Quantity: 30 Refills: 0 Lex John M.D.* Started 20-Aug-2014 ActiveWellbutrin XL 300 MG Oral Tablet Extended Release 24 Hour take one tablet by mouth every day * Quantity: 30 Refills: 0 * Started ActiveDoxepin HCl - 10 MG Oral Capsule TAKE 1 CAPSULE AT BEDTIME. * Quantity: 30 Refills: 0 Lex John M.D.* Started Active Allergies and Adverse Reactions [...] on:07-Jan-2010 Influenza Administered on:22-Dec-2010 Influenza Lot #: [id number] Administered on:23-Jan-2012 Influenza Administered on:13-Jan-2013 PPD Lot #: [id number] Administered on: Fluzone Intramuscular Injectable Lot #: [id number] Administered on:02-Jan-2014 Family History Mother* Name Dates [...] Body Surface Area Calculated 2.38 m2 Status: 09:11 BP Systolic 130 mm[Hg] Status: BP Diastolic 84 mm[Hg] Status: Temperature 97.7 f Status: Heart Rate 84 /min Status: Respiration Rate 16 /min Status: Weight 305 lb Status: Body Mass Index Calculated 50.75 kg/m2 Status: Body Surface Area Calculated 2.37 m2 Status: Results Date Description Value Details Results not documented Plan of Care Planned Observations* Name Dates Details Planned Goals not documented Goal Planned Encounters* Appointment; Provider: Lex John On 19-Jan-2015 10:30 * Appointment; Provider: Madeline Simms On 01-Jan-2015 10:30 * Appointment; Provider: Lex John On 17-Dec-2014 11:45 * Appointment; Provider: Schedule Radiology On 10:00 * Appointment; Provider: Lex John On 18-Jul-2013 10:15 * Appointment; Provider: Madeline Simms On 27-Apr-2008 08:00 Instructions * Instructions not documented Encounters Appointment; Renuka Middleton Encounter Diagnosis: Problem not [...]
--- OUTSIDE RECORDS SUMMARY | 2016-07-28 22:39 | XMS REPORT | Summary of Care ---
Author Author Bernabe Delgado M.D. Unknown Address Unknown Phone Unavailable Care Team Providers Care Pillar Man Name Role Phone Jeremy John M.D. Unavailable Unavailable Jeremy Delgado M.D. Unavailable Unavailable Jamar Spears D.O. Unavailable Unavailable Mendez Sow, Madeline Unavailable Unavailable Homa Todd M.D. Unavailable Unavailable Madeline Simms Unavailable Unavailable Unavailable Unavailable Functional Status Name Dates Details Functional status health issues are not documented Status: Name Dates Details Cognitive status health issues are not documented Status: Problems Name Dates Details Hallux rigidus (735.2, M20.20) Status: Active Difficulty in walking (719.7, R26.2) Status: Active Current some day smoker (305.1, F17.200) Status: Active Wound, open, toe (893.0, S91.109A) Status: Active Tobacco use disorder (305.1, F17.200) Status: Active Left hip pain (719.45, M25.552) Status: Active Left knee pain (719.46, M25.562) Status: Active Lower back pain (724.2, M54.5) Status: Active Vitamin D deficiency (268.9, E55.9) Status: Active Tear of medial meniscus of left knee, initial encounter Status: Active Status post arthroscopy of left knee (V45.89, Z98.890) Status: Active Schizophrenia, unspecified (295.90, F20.9) Status: Active Plantar fascial fibromatosis (728.71, M72.2) Status: Active 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, M19.071) Status: Active Onychomycosis (110.1, B35.1) Status: Active Obstructive sleep apnea (327.23, G47.33) Status: Active Nicotine dependence (305.1, F17.200) Status: Active Morbid obesity (278.01, E66.01) Status: Active Hypothyroidism (244.9, E03.9) Status: Active Hyperlipidemia (272.4, E78.5) Status: Active Gastroesophageal reflux disease (530.81, K21.9) Status: Active Essential hypertension (401.9, I10) Status: Active Effusion of left knee (719.06, M25.462) Status: Active Dyspepsia (536.8, K30) Status: Active Chondromalacia of knee, 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, 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: Active Bipolar affective disorder (296.80, F31.9) Status: Active 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, F41.8) Status: Active Allergic rhinitis due to pollen (477.0, J30.1) Status: Active Back pain (724.5, M54.9) Status: [...] * Quantity: 90 Refills: 3 Simms M.D.Madeline Start 09-Jun-2016 Active Omeprazole 20 MG Oral [...] DIRECTED * Quantity: 1 Refills: 0 Perez M.D., Kristi Luther * Start Active 48 Lozenge Box Mupirocin [...] Microscopic or Culture PRN 8005 Ordered: 18-May-2016 MRI LUMBAR SPINE Ordered: 16-Jun-2016 Immunization Name Dates Details Tdap (Adacel) on: Feb-2007 Influenza on: 05-Apr-2009 Influenza A (H1N1) Monoval PF SUSP on: 05-Apr-2009 Fluzone INJ on: 07-Jan-2010 Influenza on: 22-Dec-2010 Influenza Lot #: [id number] on: 23-Jan-2012 Influenza on: 13-Jan-2013 PPD Lot #: [id number] on: Fluzone INJ Lot #: [id number] on: 02-Jan-2014 Fluzone Quadrivalent 0.5 ML Intramuscular Suspension Lot #: [id number] on: 25-Jan-2015 Tdap (Adacel) Lot #: [id number] on: 28-Jun-2015 Fluzone Quadrivalent 0.5 ML Intramuscular Suspension Lot #: [id number] on: 23-Feb-2016 Family History Name Dates Details [...] unknown Vital Signs Date Test Result Details 16-Jun-2016 17:47 BP Systolic 120 mm[Hg] Status: [...] Arellano DPM On 20-Jun-2016 15:15 Interventions Provided Labs/Procedures/Imaging* MRI LUMBAR SPINE; To be Done: 16 Jun 2016 Instructions Name Dates Details Instructions not [...] documented On 10-Dec-2014 13:30 Appointment; Evelyne Perales [email or web address].RMiladis Encounter Diagnosis: Problem not documented On 09-Dec-2014 [...]
--- OUTSIDE RECORDS SUMMARY | 2016-07-28 22:39 | XMS REPORT | Summary of Care ---
Author Author Arnold Zhang D.O. Organization Unknown Address [address], [place] [address] Phone Unavailable Care Team Providers Care Sole Layer Name Role Phone Dora Sow, Jeremy Unavailable Unavailable Jeremy Zhang D.O. Unavailable Americo Varner M.D., Raul Unavailable Unavailable [...] Edema, lower extremity (782.3, R60.0) Status: Active Status post lumbar surgery (V45.89, Z98.890) Status: Active Leg swelling (729.81, M79.89) Status: Active Acute deep vein thrombosis (DVT) of both lower extremities, unspecified vein ( 453.40, I82.403) Status: Active Medications Name Dates Details Metoprolol [...] 25-May-2016 Active 14 Patch 24 Hour Box Hydrocodone-Acetaminophen 7.5-325 MG Oral Tablet TAKE 1 TO 2 TABLETS EVERY 6 HOURS NEEDED FOR PAIN. * Quantity: 40 Refills: 0 Venkata Varner M.D.derrick * Start 08-Mar-2016 Active Eliquis 5 MG Oral Tablet 2 PO BIB for 7 days then 1 daily thereafter * Quantity: 56 Refills: 0 Zhang D.O., Arnold Luna * Start 10-Jul-2016 Active Allergies and Adverse Reactions Name Dates [...] 07-Jan-2010 Influenza on: 22-Dec-2010 Influenza Lot #: [id number] on: 23-Jan-2012 Influenza on: 13-Jan-2013 PPD Lot #: [id number] on: Fluzone INJ Lot #: [id number] on: 02-Jan-2014 Fluzone Quadrivalent 0.5 ML Intramuscular Suspension Lot #: [id number] on: 25-Jan-2015 Tdap (Adacel) Lot #: [id number] on: 28-Jun-2015 Fluzone Quadrivalent 0.5 ML Intramuscular Suspension Lot #: [id number] on: 23-Feb-2016 Family History Name Dates Details [...] unknown Vital Signs Date Test Result Details 10-Jul-2016 13:52 BP Systolic 116 mm[Hg] Status: [...] Location: ; Position: Temperature 97.7 f Status: Comments: Method: Heart Rate 110 /min Status: Comments: Location: ; Physical Findings 96 Status: Comments: O2 Saturation 13-Jun-2016 09:27 BP Systolic 160 mm[Hg] Status: Comments: Location: LUE; Position: Sitting BP Diastolic 90 mm[Hg] Status: Comments: Location: LUE; Position: Sitting Heart Rate 80 /min Status: Comments: Location: ; Weight 275 lb Status: Body Mass Index Calculated 37.82 kg/m2 Status: Body Surface Area Calculated 2.43 m2 Status: Results Date Description Value Details 20-Jun-2016 15:31 MRI LUMBAR SPINE Comments: Exam Date: 06/20/2016 13: 20Dictation Date: 06/20/2016 15:31 XMR SPINE LUMBAR 13-Mar-2017 10:26 XRay CHEST-PA & LAT Comments: Exam [...] Comments: DOS 07/[address] Varner at [facility] SODIUM 139 mmol/L Range: 133-144 POTASSIUM 4.7 mmol/L Range: 3.5-5.1 CHLORIDE 101 mmol/L Range: 98-110 CARBON DIOXIDE 27.8 mmol/L Range: 23.0-33.0 ANION GAP 10 mmol/L Range: 6-16 BUN 15 mg/dL Range: 7-18 CREATININE, SERUM 1.05 mg/dL Range: 0.70-1.30 EST GFR, >60 ml/min Range: >60 EST GFR, NON-AFR [place] >60 ml/min Range: >60 Comments: EST GFR [...] Simms M.D. On 07-Aug-2016 13:45 Appointment; Provider: Jane Maria A.P.R.N. On 26-Jul-2016 11:30 Appointment; Provider: Raul Varner M.D. On 17-Jul-2016 11:15 Interventions Provided Medication Changes* Eliquis 5 MG Oral Tablet - Start Instructions Name [...]
--- OUTSIDE RECORDS SUMMARY | 2016-07-28 22:40 | XMS REPORT | Summary of Care ---
Author Author Madeline Simms M.D. Unknown Address [address], [place] [address] Phone Unavailable Care Team Providers Care Barrelhead Inspector Name Role Phone Jeremy John M.D. [...] 0 Madeline Simms M.D.* Started 25-Nov-2010 ActiveNystatin-Triamcinolone 891053-8.1 UNIT/GM-% External Cream APPLY SPARINGLY TO AFFECTED AREA(S) 3 TIMES A DAY * Quantity: 60 Refills: 0 Madeline Simms M.D.* Started 03-Aug-2011 ActiveLevocetirizine Dihydrochloride 5 MG Oral Tablet take one tablet by mouth every day * Quantity: 90 Refills: 0 SimmsMadeline M.D.* Started 26-Dec-2011 ActiveOmeprazole 20 MG [...] 30 Refills: 0 SimmsMadeline M.D.* Started 07-Jan-2014 ActiveFluticasone Propionate 50 MCG/ACT Nasal Suspension USE 1 SPRAY IN EACH NOSTRIL ONCE DAILY. * Quantity: 1 Refills: 5 Lex John M.D.* Started 15-Jan-2014 Clurcg09 GM Bottle Losartan Potassium 100 MG Oral Tablet take one tablet by mouth every day * Quantity: 30 Refills: 5 Madeline Simms M.D.* Started 03-Mar-2014 ActiveMucinex 600 MG Oral Tablet Extended Release 12 Hour TAKE 1 TABLET TWICE DAILY. * Quantity: 42 Refills: 0 SimmsMadeline M.D.* Started 03-Mar-2014 ActiveProAir HFA 108 [...] Refills: 0 Madeline Simms M.D.* Started 23-Mar-2014 ActiveMeloxicam 15 MG Oral [...] on:07-Jan-2010 Influenza Administered on:22-Dec-2010 Influenza Lot #: [id number] Administered on:23-Jan-2012 Influenza Administered on:13-Jan-2013 PPD Lot #: [id number] Administered on: Fluzone Intramuscular Injectable Lot #: [id number] Administered on:02-Jan-2014 Family History Mother* Name Dates [...] smoker Vital Signs Date Test Result Details 12-May-2014 14:43 BP Systolic 140 mm[Hg] Status: BP Diastolic 82 mm[Hg] Status: Heart Rate 110 /min Status: Weight 294 lb Status: Body Mass Index Calculated 40.43 kg/m2 Status: Body Surface Area Calculated 2.5 m2 Status: 05-May-2014 09:14 BP Systolic 160 mm[Hg] Status: BP Diastolic 104 mm[Hg] Status: Heart Rate 81 /min Status: Respiration Rate 20 /min Status: Weight 299 lb Status: Body Mass Index Calculated 41.12 kg/m2 Status: Body Surface Area Calculated 2.51 m2 Status: 20-Apr-2014 14:03 BP Systolic 158 mm[Hg] Status: BP Diastolic 98 mm[Hg] Status: Heart Rate 106 /min Status: Weight 299.8 lb Status: O2 SAT 94 % Status: Body Mass Index Calculated 41.23 kg/m2 Status: Body Surface Area Calculated 2.52 m2 Status: Results Date Description Value Details 08-May-2014 13:54 ULTRASOUND LEG ARTERIES-BILATERAL Comments: Exam Date : 13:08Dictation Date: 13:54 XS LEG ARTERIES (Better) Plan of Care Planned Observations* Name Dates [...] Problem not documented On 03-Mar-2014 09:00 Appointment; Lxe John Encounter Diagnosis: Problem not documented On [...]
--- OUTSIDE RECORDS SUMMARY | 2016-07-28 22:40 | XMS REPORT | Summary of Care ---
Author Author Mendez Sow, Madeline De La Paz Unknown Address Unknown Phone Unavailable Care Team Providers Care Strap Stitcher Name Role Phone Dora Sow, Jeremy Unavailable Unavailable Homer Sanz, Tressa Unavailable Unavailable Mendez Sow, Madeline Unavailable Unavailable Perez Sow, Homa Unavailable Unavailable Johann Sow, Pedro Unavailable Unavailable Madeline Simms Unavailable Unavailable Unavailable Unavailable Functional Status Name Dates Details Functional status health issues are not documented Status: Name Dates Details Cognitive status health issues are not documented Status: Problems Name Dates Details 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, 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: Active [...] Need for vaccination (V05.9, Z23) Status: Active Pain in left knee (719.46, M25.562) Status: Active Paranoid schizophrenia (295.30, F20.0) Status: Active 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 * Quantity: 45 Refills: 0 Simms M.D.JanelMadeline * Start Active Levocetirizine Dihydrochloride 5 MG [...] 5 Simms M.D.Madeline * Start 26-Nov-2015 Active Terbinafine HCl - 250 MG Oral [...] DIRECTED * Quantity: 1 Refills: 0 Perez M.DKristi Anderson * Start Active 48 Lozenge Box Methocarbamol [...] WITH FOOD. * Quantity: 60 Refills: 1 Mendez SowMadeline * Start 27-Dec-2015 Active Hydrocodone-Acetaminophen 7.5-325 MG Oral Tablet TAKE 1 TO 2 TABLETS EVERY 6 HOURS NEEDED FOR PAIN. * Quantity: 30 Refills: 0 Johann Sow Pedro * Start 08-Mar-2016 Active Sulfamethoxazole-Trimethoprim 800-160 MG Oral Tablet TAKE 1 TABLET PO EVERY 12 HOURS X 10 DAYS * Quantity: 20 Refills: 0 Homer P.A.Pardeepie * Start 16-Mar-2016 Active Allergies and Adverse Reactions Name Dates [...] Arthroscopy CBC w/ Auto Diff 7150 Ordered: 08-Feb-2016 BASIC METABOLIC PROFILE 1210 Ordered: 08-Feb-2016 Immunization Name Dates Details Tdap (Adacel) on: Feb-2007 Influenza on: 05-Apr-2009 Influenza A (H1N1) Monoval PF SUSP on: 05-Apr-2009 Fluzone INJ on: 07-Jan-2010 Influenza on: 22-Dec-2010 Influenza Lot #: [id number] on: 23-Jan-2012 Influenza on: 13-Jan-2013 PPD Lot #: [id number] on: Fluzone INJ Lot #: [id number] on: 02-Jan-2014 Fluzone Quadrivalent 0.5 ML Intramuscular Suspension Lot #: [id number] on: 25-Jan-2015 Tdap (Adacel) Lot #: [id number] on: 28-Jun-2015 Fluzone Quadrivalent 0.5 ML Intramuscular Suspension Lot #: [id number] on: 23-Feb-2016 Family History Name Dates Details [...] smoker Vital Signs Date Test Result Details 03-Apr-2016 08:24 BP Systolic 150 mm[Hg] Status: Comments: Location: ; Position: BP Diastolic 84 mm[Hg] Status: Comments: Location: ; Position: Heart Rate 68 /min Status: Comments: Location: ; Weight 287 lb Status: Body Mass Index Calculated 39.47 kg/m2 Status: Body Surface Area Calculated 2.47 m2 Status: 21-Mar-2016 08:19 BP Systolic 126 mm[Hg] Status: Comments: Location: LUE; Position: Sitting BP Diastolic 74 mm[Hg] Status: Comments: Location: LUE; Position: Sitting Heart Rate 98 /min Status: Comments: Location: ; Physical Findings 95 Status: Comments: O2 Saturation 21-Mar-2016 08:17 Weight 280 lb Status: Body Mass Index Calculated 38.51 kg/m2 Status: Body Surface Area Calculated 2.45 m2 Status: 20-Mar-2016 19:24 BP Systolic 124 mm[Hg] Status: Comments: Location: ; Position: BP Diastolic 70 mm[Hg] Status: Comments: Location: ; Position: Temperature 97 f Status: Comments: Method: Heart Rate 116 /min Status: Comments: Location: ; Height 71.5 in Status: Physical Findings 97 Status: Comments: O2 Saturation 16-Mar-2016 15:15 BP Systolic 128 mm[Hg] Status: Comments: Location: ; Position: BP Diastolic 78 mm[Hg] Status: Comments: Location: ; Position: Temperature 97.9 f Status: Heart Rate 86 /min Status: Comments: Location: ; Physical Findings 96 Status: Comments: O2 Saturation 08-Mar-2016 17:42 BP Systolic 132 mm[Hg] Status: Comments: Location: ; Position: BP Diastolic 94 mm[Hg] Status: Comments: Location: ; Position: Temperature 98.4 f Status: Heart Rate 108 /min Status: Comments: Location: ; Physical Findings 16 Status: Comments: Respiration Physical Findings 97 Status: Comments: O2 Saturation 07-Mar-2016 08:18 BP Systolic 130 mm[Hg] Status: BP Diastolic 82 mm[Hg] Status: Heart Rate 74 /min Status: Physical Findings 96 Status: Comments: O2 Saturation 07-Mar-2016 08:15 Weight 282 lb Status: Body Mass Index Calculated 38.78 kg/m2 Status: Body Surface Area Calculated 2.45 m2 Status: Results Date Description Value Details 10-Mar-2016 08:52 JOINT FLUID FOR CRYSTALS 7611 JOINT FLUID FOR CRYSTALS Absent Range: Absent Source/Site knee 13-Mar-2016 08:18 AEROBIC CULTURE Comments: [facility] [address] [place] [address], [id number], Vice President Planning: Macario Rodriguez D.O., MPHQuest Collection Date/Time: [id number] Results Received Date/Time: [id number] Reported Date/Time: [id number] FASTING:NOQuest performed at[facility], [address] [place] [address], [id number], Vice President Planning: Macario Rodriguez D.O., MPHQuest Collection Date/Time: [id number] Results Received Date/Time: [id number] Reported Date/Time: [id number] FASTING:NOQuest performed at: [facility], [address] [place] [address], [id number], Vice President Planning: Macario Rodriguez D.O., MPHQuest Collection Date/Time: [id number] Results Received Date/Time: [id number] Reported Date/Time: [id number] FASTING:NO CULTURE, AEROBIC BACTERIA WITH GRAM STAIN SEE NOTE Comments: CULTURE, AEROBIC BACTERIA WITH GRAM STAIN MICRO NUMBER: [id number] TEST STATUS: FINAL SPECIMEN SOURCE: KNEE SPECIMEN QUALITY: ADEQUATE GRAM STAIN: Rare White blood cells seen No organisms seen RESULT: No Growth[SD]----- Plan of Care Name Dates Details Planned Observations Planned Goals not documented Planned Encounters Appointment; Provider: Aime Rdz M.D. On 15-Jan-2017 13:30 Appointment; Provider: Lex John M.D. On 07-Jun-2016 13:15 Appointment; Provider: Madeline Simms M.D. On 11-May-2016 11:00 Appointment; Provider: Jameel Moore M.D. On 24-Apr-2016 11:00 Instructions Name Dates Details Instructions not [...]
--- OUTSIDE RECORDS SUMMARY | 2016-07-28 22:40 | XMS REPORT | Summary of Care ---
Author Author Mendez Sow, Madeline De La Paz Unknown Address Unknown Phone Unavailable Care Team Providers Care Rubbish Collection Supervisor Name Role Phone Jeremy John M.D. [...] Left hip pain (719.45, M25.552) Status: Active Medications Name Dates Details Metoprolol [...] Microscopic or Culture PRN [id number] Ordered: 18-May-2016 Xray PELVIS (AP ONLY) Ordered: 08-Jun-2016 Immunization Name Dates Details Tdap (Adacel) on: Feb-2007 Influenza on: 05-Apr-2009 Influenza A (H1N1) Monoval PF SUSP on: 05-Apr-2009 Fluzone INJ on: 07-Jan-2010 Influenza on: 22-Dec-2010 Influenza Lot #: [id number] on: 23-Jan-2012 Influenza on: 13-Jan-2013 PPD Lot #: [id number] on: Fluzone INJ Lot #: [id number] on: 02-Jan-2014 Fluzone Quadrivalent 0.5 ML Intramuscular Suspension Lot #: [id number] on: 25-Jan-2015 Tdap (Adacel) Lot #: [id number] on: 28-Jun-2015 Fluzone Quadrivalent 0.5 ML Intramuscular Suspension Lot #: [id number] on: 23-Feb-2016 Family History Name Dates Details [...] >60 ml/min Range: >60 EST GFR, NON-AFR [place] >60 ml/min Range: >60 Comments: EST GFR is reported in ml/min per 1.73 m2 of body surface area. ----- BUN:CREATININE RATIO 12 GLUCOSE 85 mg/dL Range: 70-100 CALCIUM 8.9 mg/dL Range: 8.5-10.1 08-Jun-2016 09:12 XRay HIP-Left Comments: Exam Date: 06/08/2016 08: 48Dictation Date: 06/08/2016 09:12 X HIP COMP (MIN 2V) LT Plan of Care Name Dates Details Planned Observations Planned Goals not documented Planned Encounters Appointment; Provider: Aime Rdz M.D. On 15-Jan-2017 13:30 Appointment; Provider: Madeline Simms M.D. On 21-Aug-2016 08:45 Appointment; Provider: Madeline Simms M.D. On 17-Jul-2016 09:15 Appointment; Provider: Yvon Walker On 28-Jun-2016 08:15 Appointment; Provider: Jameel Moore M.D. On 12-Jun-2016 08:45 Interventions Provided Labs/Procedures/Imaging* Xray PELVIS (AP ONLY); To be Done: 08 Jun 2016 * XRay HIP-Left; Done: Jun 08 2016 9:12AM Instructions Name [...] Problem not documented On 31-Jan-2016 08:45 Appointment; Jmaeel Moore M.D. Encounter Diagnosis: Problem not documented [...]
--- OUTSIDE RECORDS SUMMARY | 2016-07-28 22:41 | XMS REPORT | Summary of Care ---
Author Author Madeline Simms M.D. Unknown Address [address], [place] [id number] Phone Unavailable Care Team Providers Care Grain And Yeast Plants Supervisor Name Role Phone Jeremy John M.D. Unavailable Unavailable Madeline Simms M.D. 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: Active [...] Active URI, acute (465.9, J06.9) Status: Active Medications Name Dates Details Metoprolol [...] 30 Refills: 3 Madeline Simms M.D.* Started 26-Jan-2012 ActiveAmLODIPine Besylate [...] Quantity: 30 Refills: 3 SimmsMadeline M.D.* Started 03-Mar-2014 ActiveWellbutrin XL 300 MG Oral Tablet Extended Release 24 Hour take one tablet by mouth every day * Quantity: 30 Refills: 0 * Started ActiveBenztropine Mesylate 1 MG Oral Tablet Take 1 tablet twice daily * Refills: 0 SimmsMadeline valle M.D.* Started 10-Dec-2014 ActiveBelsomra 20 MG Oral Tablet TAKE ONE TABLET BY MOUTH AT BEDTIME NEEDED * Quantity: 30 Refills: 0 Lex John M.D.* Started 20-Aug-2014 ActivePaliperidone ER 6 MG Oral Tablet Extended Release 24 Hour TAKE 1 TABLET DAILY. * Refills: 0 Madeline Simms M.D.* Started 31-May-2015 ActiveNaproxen 500 MG Oral Tablet FF TAKE ONE TABLET BY MOUTH TWICE DAILY WITH FOOD * Quantity: 60 Refills: 2 SimmsMadeline M.D.* Started 17-Aug-2015 ActiveHydrOXYzine HCl - 25 MG Oral Tablet TAKE 1-3 TABLETS BY MOUTH AT BEDTIME NEEDED * Quantity: 60 Refills: 0 Lex John M.D.* Started 15-Jun-2015 ActiveMethocarbamol 750 MG Oral Tablet TAKE ONE TABLET BY MOUTH TWICE DAILY NEEDED FOR MUSCLE SPASMS * Quantity: 60 Refills: 0 Madeline Simms M.D.* Started 02-Jun-2015 Active Allergies and Adverse Reactions Name [...] on:07-Jan-2010 Influenza Administered on:22-Dec-2010 Influenza Lot #: [id number] Administered on:23-Jan-2012 Influenza Administered on:13-Jan-2013 PPD Lot #: [id number] Administered on: Fluzone Intramuscular Injectable Lot #: [id number] Administered on:02-Jan-2014 Fluzone Quadrivalent 0.5 ML Intramuscular Suspension Lot #: [id number] Administered on:25-Jan-2015 Tdap (Adacel) Lot #: [id number] Administered on:28-Jun-2015 Family History Mother* Name Dates [...] smoker Vital Signs Date Test Result Details 10:20 BP Systolic 140 mm[Hg] Status: BP Diastolic 86 mm[Hg] Status: Heart Rate 81 /min Status: O2 SAT 96 % Status: 10:17 Temperature 97.7 f Status: Weight 269 lb Status: Body Mass Index Calculated 44.76 kg/m2 Status: Body Surface Area Calculated 2.24 m2 Status: Results Date Description Value Details Results not documented Plan of Care Planned Observations* Name Dates Details Planned Goals not documented Goal Planned Encounters* Appointment; Provider: Oh Greer On 16-Jan-2017 13:00 * Appointment; Provider: Carolynn Arellano On 15-Feb-2016 09:00 * Appointment; Provider: Madeline Simms On 10-Feb-2016 09:00 * Appointment; Provider: Katja Martinez On 12-Jan-2015 14:00 * Appointment; Provider: Schedule Radiology On 10:00 * Appointment; Provider: Lex John On 18-Jul-2013 10:15 * Appointment; Provider: Madeline Simms On 27-Apr-2008 08:00 Instructions * Instructions not documented Encounters Appointment; Madeline Simms Encounter Diagnosis: Problem not documented On 10:15 Appointment; Lex John Encounter Diagnosis: Problem not documented On 11:45 Appointment; Carolynn Arellano Encounter Diagnosis: Problem not documented On 02-Sep-2015 16:45 Appointment; Madeline Simms Encounter Diagnosis: Problem not documented On 17-Aug-2015 14:45 Appointment; Carolynn Arellano Encounter Diagnosis: Problem not documented On 13-Aug-2015 15:00 Appointment; Sampson Cuadra Encounter Diagnosis: Problem not documented On 11-Aug-2015 09:00 Appointment; Madeline Simms Encounter Diagnosis: Problem not documented On 05-Aug-2015 14:00 Appointment; Madeline Simms Encounter Diagnosis: Problem [...]
--- OUTSIDE RECORDS SUMMARY | 2016-07-28 22:41 | XMS REPORT | Summary of Care ---
Author Author Tiburcio Sow, T. K. 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 * Quantity: 30 Refills: 2 * Started 22-Jun-2014 ActiveTerbinafine HCl - 250 MG Oral Tablet 1QD FOR 3 MONTHS - TAKE ONE TABLET BY MOUTH EVERY DAY FOR 3 MONTHS * Quantity: 90 Refills: 0 Madeline Simms M.D.* Started 23-Jun-2014 Ended ActiveCyclobenzaprine HCl - 10 MG Oral Tablet TAKE 1 TABLET 2 TIMES DAILY NEEDED for muscle cramping * Quantity: 30 Refills: 0 Madeline Simms M.D.* Started 07-Jan-2014 ActiveFluticasone Propionate 50 MCG/ACT Nasal Suspension USE 2 SPRAYS IN EACH NOSTRIL ONCE DAILY * Quantity: 1 Refills: 11 Lex John M.D.* Started 11-Aug-2014 [id number] GM Bottle PredniSONE 10 MG Oral Tablet 3 pills for 2 days, then 2 pills for 2 days, then 1 pill for 2 days * Quantity: 12 Refills: 0 Gisselle Danielle M.D.* Started 12-Aug-2014 ActiveLosartan Potassium 100 MG Oral Tablet take one tablet by mouth every day * Quantity: 30 Refills: 5 Madeline Simms M.D.* Started 03-Mar-2014 ActiveBelsomra 20 MG Oral Tablet TAKE 1 TABLET [...] on:07-Jan-2010 Influenza Administered on:22-Dec-2010 Influenza Lot #: [id number] Administered on:23-Jan-2012 Influenza Administered on:13-Jan-2013 PPD Lot #: [id number] Administered on: Fluzone Intramuscular Injectable Lot #: [id number] Administered on:02-Jan-2014 Family History Mother* Name Dates [...] smoker Vital Signs Date Test Result Details 11-Sep-2014 10:11 BP Systolic 120 mm[Hg] Status: [...] ml/min (Better) Range: >60 EST GFR, NON-AFR [place] >60 ml/min (Better) Range: >60 Comments: EST GFR is reported in ml/min per 1.73 m2 of body surface area. For -Citizen Of [place], please multiple result by 1.2.----- GLUCOSE 98 [...] John On 19-Jan-2015 10:30 * Appointment; Provider: Vlad Dey On 10:00 * Appointment; Provider: Madeline Simms On 09:30 * Appointment; Provider: Schedule Radiology On 09:00 * Appointment; Provider: Lex John On 18-Jul-2013 10:15 * Appointment; Provider: Madeline Simms On 27-Apr-2008 08:00 Instructions * Instructions not documented Encounters Appointment; Vlad Dey Encounter Diagnosis: Problem not [...]
--- OUTSIDE RECORDS SUMMARY | 2016-07-28 22:41 | XMS REPORT | Summary of Care ---
Author Author Mendez Sow, Madeline De La Paz Unknown Address Unknown Phone Unavailable Care Team Providers Care Va Underwriter Name Role Phone Dora Sow, Jeremy Unavailable Unavailable Lisa Sow, Geovanna Unavailable Unavailable Mendez Sow, Madeline 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 * Quantity: 16 Refills: 5 Dora M.Veronique., Lex Luna * Start 15-Jan-2014 Active Losartan Potassium 100 MG Oral Tablet Take one tablet by mouth daily * Quantity: 30 Refills: 5 Simms M.Veronique.Madeline * Start 26-Nov-2015 Active Wellbutrin XL 300 [...] 0 Simms M.D.Madeline * Start 02-Jun-2015 Active Diclofenac Sodium 75 MG Oral Tablet Delayed Release TAKE ONE TABLET BY MOUTH TWICE DAILY WITH FOOD * Quantity: 30 Refills: 0 Simms M.D.Madeline * Start 17-Dec-2015 Active ClonazePAM 1 MG Oral Tablet TAKE 2 TABLETS BY MOUTH EVERY NIGHT AT BEDTIME * Quantity: 60 Refills: 5 Dora M.Lex Stover * Start 07-Dec-2015 Active CeleBREX 200 MG Oral Capsule TAKE 1 CAPSULE DAILY WITH A MEAL. * Quantity: 3 Refills: 0 Simms M.D., Madeline * Start 27-Dec-2015 Active Allergies and [...] 07-Jan-2010 Influenza on: 22-Dec-2010 Influenza Lot #: [id number] on: 23-Jan-2012 Influenza on: 13-Jan-2013 PPD Lot #: [id number] on: Fluzone INJ Lot #: [id number] on: 02-Jan-2014 Fluzone Quadrivalent 0.5 ML Intramuscular Suspension Lot #: [id number] on: 25-Jan-2015 Tdap (Adacel) Lot #: [id number] on: 28-Jun-2015 Family History Name Dates Details [...] smoker Vital Signs Date Test Result Details 27-Dec-2015 08:49 BP Systolic 154 mm[Hg] Status: Comments: Location: ; Position: BP Diastolic 84 mm[Hg] Status: Comments: Location: ; Position: Heart Rate 68 /min Status: Comments: Location: ; Height 71.5 in Status: Weight 273 lb Status: Physical Findings 98 Status: Comments: O2 Saturation Body Mass Index Calculated 37.55 kg/m2 Status: Body Surface Area Calculated 2.42 m2 Status: 07-Dec-2015 16:09 BP Systolic 136 mm[Hg] Status: Comments: Location: ; Position: BP Diastolic 80 mm[Hg] Status: Comments: Location: ; Position: Heart Rate 86 /min Status: Comments: Location: ; Physical Findings 20 Status: Comments: Respiration Weight 277.2 lb Status: Physical Findings 92 Status: Comments: O2 Saturation Body Mass Index Calculated 46.13 kg/m2 Status: Body Surface Area Calculated 2.27 m2 Status: 07-Dec-2015 10:48 BP Systolic 138 mm[Hg] Status: Comments: Location: ; Position: BP Diastolic 88 mm[Hg] Status: Comments: Location: ; Position: Temperature 98.1 f Status: Comments: Method: Heart Rate 80 /min Status: Comments: Location: ; Weight 278 lb Status: Physical Findings 93 Status: Comments: O2 Saturation Body Mass Index Calculated 46.26 kg/m2 Status: Body Surface Area Calculated 2.28 m2 Status: 06-Dec-2015 15:58 BP Systolic 147 mm[Hg] Status: Comments: Location: LUE; Position: Sitting BP Diastolic 96 mm[Hg] Status: Comments: Location: LUE; Position: Sitting Heart Rate 97 /min Status: Comments: Location: ; Physical Findings 20 Status: Comments: Respiration 30-Nov-2015 11:22 BP Systolic 130 mm[Hg] Status: Comments: Location: ; Position: BP Diastolic 88 mm[Hg] Status: Comments: Location: ; Position: Heart Rate 87 /min Status: Comments: Location: ; Physical Findings 95 Status: Comments: O2 Saturation 30-Nov-2015 11:17 Weight 271 lb Status: Body Mass Index Calculated 45.1 kg/m2 Status: Body Surface Area Calculated 2.25 m2 Status: Results Date Description Value Details 30-Nov-2015 12:42 XRay KNEE-Left Comments: Exam Date: [...] NEGATIVE Range: Negative LEUK NEGATIVE Range: Negative 13-Dec-2015 15:32 MRI KNEE LEFT Comments: Exam Date: 12/13/2015 14: 33Dictation Date: 12/13/2015 15:32 XMR EXT KNEE LEFT Plan of Care Name Dates Details Planned Observations Planned Goals not documented Planned Encounters Appointment; Provider: Aime Rdz M.D. On 15-Jan-2017 13:00 Appointment; Provider: Lex John M.D. On 08-Jun-2016 16:15 Appointment; Provider: Carolynn Arellano DPM On 15-Feb-2016 [...] Problem not documented On 28-Jun-2015 13:30 Appointment; Maedline Simms M.D. Encounter Diagnosis: Problem not documented [...] not documented On 10-Dec-2014 13:30 Appointment; Evelyne Perales, A.P.R.NMonica Encounter Diagnosis: Problem not documented On 09-Dec-2014 14:15 Appointment; Sampson Cuadra P.T. Encounter Diagnosis: Problem not documented On 25-Nov-2014 13:00 Appointment; Renuka Middleton A.P.R.NMonica Encounter Diagnosis: Problem not documented On 16-Nov-2014 [...]
--- OUTSIDE RECORDS SUMMARY | 2016-07-28 22:42 | XMS REPORT | Summary of Care ---
Author Author Madeline Simms M.D. Unknown Address [address], [place] [address] Phone Unavailable Care Team Providers Care Manual Lathe Operator Name Role Phone Jeremy John M.D. 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 use of drug (V58.69, 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: [...] Active Allergic rhinitis (477.9, J30.9) Status: Active Cough (786.2, R05) Status: Active [...] in left knee (719.46, M25.562) Status: Active Insomnia (780.52, G47.00) Status: Active [...] on:07-Jan-2010 Influenza Administered on:22-Dec-2010 Influenza Lot #: [id number] Administered on:23-Jan-2012 Influenza Administered on:13-Jan-2013 PPD Lot #: [id number] Administered on: Fluzone Intramuscular Injectable Lot #: [id number] Administered on:02-Jan-2014 Family History Mother* Name Dates [...] Problem not documented On 24-Feb-2014 12:45 Appointment; aMdeline Simms Encounter Diagnosis: Problem not documented On [...]
--- OUTSIDE RECORDS SUMMARY | 2016-07-28 22:42 | XMS REPORT | Summary of Care ---
Author Author Billysosa NATARAJANNEvelyne Organization Unknown Address [address], [place] [address] Phone Unavailable Care Team Providers Care Drapery Hand Name Role Phone Dora Sow, L Unavailable Unavailable Evelyne Perales APRN Unavailable Unavailable Mendez Sow, Madeline Unavailable Unavailable Perez Sow, R Unavailable Unavailable Johann Sow, Pedro Unavailable Unavailable Madeline Simms Unavailable Unavailable Unavailable Unavailable Functional Status Name Dates Details Functional status health issues are not documented Status: Name Dates Details Cognitive status health issues are not documented Status: Problems Name Dates Details halfway use of drug (V58.69, 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: Active [...] of left knee (V45.89, Z98.890) Status: Active Bipolar affective disorder (296.80, F31.9) Status: Active Left knee pain (719.46, M25.562) [...] daily * Quantity: 90 Refills: 2 Simms M.D.Madelnie * Start 26-Jan-2012 Active AmLODIPine Besylate 5 [...] Todd M.D. Start Active 48 Lozenge Box Methocarbamol 750 MG Oral Tablet TAKE ONE TABLET BY MOUTH TWICE DAILY NEEDED FOR MUSCLE SPASMS, Must last 90 days * Quantity: 180 Refills: 0 Simms M.D.Madeline * Start 02-Jun-2015 Active Losartan Potassium 100 MG Oral Tablet Take one tablet by mouth daily * Quantity: 30 Refills: 5 Simms M.D.Madeline * Start 26-Nov-2015 Active ClonazePAM 1 MG Oral Tablet Take 3 tablets by mouth every night at bedtime * Quantity: 90 Refills: 5 Dora Guajardo.Lex Stover Start 07-Dec-2015 Active Fluticasone Propionate 50 MCG/ACT Nasal Suspension INSTILL 1 SPRAY IN EACH NOSTRIL ONCE A DAY * Quantity: 16 Refills: 11 Lex John M.D. Start 16-Feb-2016 Active Celecoxib 200 MG Oral Capsule TAKE 1 CAPSULE TWICE DAILY WITH FOOD. * Quantity: 60 Refills: 1 Simms M.D., Madeline * Start 27-Dec-2015 Active Hydrocodone-Acetaminophen 7.5-325 MG Oral Tablet TAKE 1 TO 2 TABLETS EVERY 6 HOURS NEEDED FOR PAIN. * Quantity: 30 Refills: 0 Johann Guajardo.JolantaPedro * Start 08-Mar-2016 Active Terbinafine HCl - 250 MG Oral Tablet 1QD FOR 3 MONTHS - TAKE ONE TABLET BY MOUTH EVERY DAY FOR 3 MONTHS * Quantity: 90 Refills: 0 Simms M.D., Madeline * Start 23-Jun-2014 End 19-Jun-2016 Active Allergies and Adverse Reactions Name Dates [...] 07-Jan-2010 Influenza on: 22-Dec-2010 Influenza Lot #: [id number] on: 23-Jan-2012 Influenza on: 13-Jan-2013 PPD Lot #: [id number] on: Fluzone INJ Lot #: [id number] on: 02-Jan-2014 Fluzone Quadrivalent 0.5 ML Intramuscular Suspension Lot #: [id number] on: 25-Jan-2015 Tdap (Adacel) Lot #: [id number] on: 28-Jun-2015 Fluzone Quadrivalent 0.5 ML Intramuscular Suspension Lot #: [id number] on: 23-Feb-2016 Family History Name Dates Details [...] smoker Vital Signs Date Test Result Details 06-Apr-2016 08:37 BP Systolic 140 mm[Hg] Status: Comments: Location: LUE; Position: Sitting BP Diastolic 88 mm[Hg] Status: Comments: Location: LUE; Position: Sitting Temperature 98.2 f Status: Comments: Method: Heart Rate 63 /min Status: Comments: Location: ; Physical Findings 97 Status: Comments: O2 Saturation 03-Apr-2016 08:24 BP Systolic 150 mm[Hg] Status: [...] Status: Comments: Location: ; Position: Heart Rate 98 /min Status: Comments: Location: ; Physical Findings 95 Status: Comments: O2 Saturation 21-Mar-2016 08:17 Weight 280 lb Status: Body Mass Index Calculated 38.51 kg/m2 Status: Body Surface Area Calculated 2.45 m2 Status: 20-Mar-2016 19:24 BP Systolic 124 mm[Hg] Status: Comments: Location: ; Position: BP Diastolic 70 mm[Hg] Status: Comments: Location: ; Position: Temperature 97 f Status: Heart Rate 116 /min Status: Comments: Location: ; Height 71.5 in Status: Physical Findings 97 Status: Comments: O2 Saturation 16-Mar-2016 15:15 BP Systolic 128 mm[Hg] Status: Comments: Location: ; Position: BP Diastolic 78 mm[Hg] Status: Comments: Location: ; Position: Temperature 97.9 f Status: Comments: Method: Heart Rate 86 /min Status: Comments: Location: ; Physical Findings 96 Status: Comments: O2 Saturation 08-Mar-2016 17:42 BP Systolic 132 mm[Hg] Status: BP Diastolic 94 mm[Hg] Status: Temperature 98.4 f Status: Heart Rate 108 /min Status: Physical Findings 16 Status: Comments: Respiration Physical Findings 97 Status: Comments: O2 Saturation Results Date Description Value Details 10-Mar-2016 08:52 JOINT FLUID FOR CRYSTALS 7611 JOINT FLUID [employer] CRYSTALS Absent Range: Absent Source/Site knee 13-Mar-2016 08:18 AEROBIC CULTURE Comments: [facility] at: [place], [address] [place] [address], [address], Reiki Practitioner: Macario Rodriguez D.O., [facility] Date/Time: [id number] Results Received Date/Time: [id number] Reported Date/Time: [id number] FASTING:NOQuest performed at: [place], [facility], [address] [place] [address], [address] [place] [address], Reiki Practitioner: Macario Rodriguez D.O., [facility] Collection Date/Time: [id number] Results Received Date/Time: [id number] Reported Date/Time: [id number] FASTING:NOQuest performed at: [place], [facility], [address] [place] [address], [place], [address], Reiki Practitioner: Macario Rodriguez D.O., [facility] Date/Time: [id number] Results Received Date/Time: [id number] Reported Date/Time: [id number] FASTING:NO CULTURE, AEROBIC BACTERIA WITH GRAM STAIN SEE NOTE Comments: CULTURE, AEROBIC BACTERIA WITH GRAM STAIN MICRO NUMBER: [id number] TEST STATUS: FINAL SPECIMEN SOURCE: KNEE SPECIMEN QUALITY: ADEQUATE GRAM STAIN: Rare White blood cells seen No organisms seen RESULT: No Growth[[place]]----- Plan of Care Name Dates Details Planned Observations Planned Goals not documented Planned Encounters Appointment; Provider: Aime Rdz M.D. On 15-Jan-2017 13:30 Appointment; Provider: Lex John M.D. On 07-Jun-2016 13:15 Appointment; Provider: Madeline Simms M.D. On 11-May-2016 11:00 Appointment; Provider: Jameel Moore M.D. On 24-Apr-2016 11:00 Appointment; Provider: Jameel Moore M.D. On 12-Apr-2016 09:15 Interventions Provided Medication Changes* Sulfamethoxazole-Trimethoprim 800-160 MG Oral Tablet - Completed Instructions Name [...] Problem not documented On 18-Jan-2016 09:15 Appointment; Madelnie Simms M.D. Encounter Diagnosis: Problem [...]
--- OUTSIDE RECORDS SUMMARY | 2016-07-28 22:42 | XMS REPORT | Summary of Care ---
Author Author Nemesio Todd M.D. Unknown Address Unknown Phone Unavailable Care Team Providers Care Underground Utility Locator Name Role Phone Dora Sow, Jeremy Unavailable [...] FOOD * Quantity: 60 Refills: 1 Simms M.D., Madeline * Start 06-Jun-2016 Active Gabapentin 300 MG [...] 07-Jan-2010 Influenza on: 22-Dec-2010 Influenza Lot #: [id number] on: 23-Jan-2012 Influenza on: 13-Jan-2013 PPD Lot #: [id number] on: Fluzone INJ Lot #: [id number] on: 02-Jan-2014 Fluzone Quadrivalent 0.5 ML Intramuscular Suspension Lot #: [id number] on: 25-Jan-2015 Tdap (Adacel) Lot #: [id number] on: 28-Jun-2015 Fluzone Quadrivalent 0.5 ML Intramuscular Suspension Lot #: [id number] on: 23-Feb-2016 Family History Name Dates Details [...] Location: ; Position: Temperature 97.1 f Status: Comments: Method: Heart Rate 96 /min Status: Comments: Location: ; Physical Findings 16 Status: Comments: Respiration Physical Findings 94 Status: Comments: O2 Saturation 10-Jul-2016 10:39 BP Systolic 144 mm[Hg] Status: Comments: Location: LUE; Position: Sitting BP Diastolic 86 mm[Hg] Status: Comments: Location: LUE; Position: Sitting [...] Comments: DOS 07/[address] Varner at [facility] SODIUM 139 mmol/L Range: 133-144 POTASSIUM 4.7 mmol/L Range: 3.5-5.1 CHLORIDE 101 mmol/L Range: 98-110 CARBON DIOXIDE 27.8 mmol/L Range: 23.0-33.0 ANION GAP 10 mmol/L Range: 6-16 BUN 15 mg/dL Range: 7-18 CREATININE, SERUM 1.05 mg/dL Range: 0.70-1.30 EST GFR, >60 ml/min Range: >60 EST GFR, NON-AFR ALGERIAN >60 ml/min Range: >60 Comments: EST GFR [...] On 24-Jul-2016 10:30 Interventions Provided Medication Changes* Methocarbamol 500 MG [...] not documented On 10:00 Appointment; Evelyne Perales AMonicaPMonicaRMiladis Encounter Diagnosis: Problem not documented On 08:35 [...]
--- OUTSIDE RECORDS SUMMARY | 2016-07-28 22:43 | XMS REPORT | Summary of Care ---
Author Author Raul Varner M.D. Unknown Address [address] [place] [address] Phone Unavailable Care Team Providers Care Nonprofit Director Name Role Phone Jeremy John M.D. Unavailable Unavailable Jamar Spears D.O. Unavailable Unavailable Raul Varner M.D. Unavailable Unavailable Madeline Simms M.D. Unavailable [...] Active Essential hypertension (401.9, I10) Status: Active Bipolar affective disorder (296.80, F31.9) Status: Active Vitamin D deficiency (268.9, E55.9) Status: Active Hypothyroidism (244.9, E03.9) Status: Active Dyspepsia (536.8, K30) Status: Active Onychomycosis (110.1, B35.1) Status: Active Nicotine dependence (305.1, F17.200) Status: Active Plantar fascial fibromatosis (728.71, M72.2) Status: Active Obstructive sleep apnea (327.23, G47.33) Status: Active Morbid obesity (278.01, E66.01) Status: Active 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, M19.071) Status: Active Allergic rhinitis due to pollen (477.0, J30.1) Status: Active Effusion of left knee (719.06, M25.462) Status: Active Gastroesophageal reflux disease (530.81, K21.9) Status: Active Tear of medial meniscus of left knee, initial encounter Status: Active 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 * Quantity: 45 Refills: 0 Simms M.D.Madeilne * Start Active Levocetirizine Dihydrochloride 5 MG [...] DAY * Quantity: 16 Refills: 11 Dora M.DMonica, Lex Luna * Start 16-Feb-2016 Active Losartan [...] 0 Simms M.D.Madeline * Start 09-Jun-2016 Active PredniSONE 10 MG Oral Tablet TAKE [...] Simms M.D., Madeline * Start 13-Jun-2016 Active Gabapentin 300 MG Oral Capsule TAKE 1 CAPSULE 3 times daily * Quantity: 90 Refills: 1 Telly M.D., Raul * Start 20-Jun-2016 Active Allergies and Adverse [...] 07-Jan-2010 Influenza on: 22-Dec-2010 Influenza Lot #: [id number] on: 23-Jan-2012 Influenza on: 13-Jan-2013 PPD Lot #: [id number] on: Fluzone INJ Lot #: [id number] on: 02-Jan-2014 Fluzone Quadrivalent 0.5 ML Intramuscular Suspension Lot #: [id number] on: 25-Jan-2015 Tdap (Adacel) Lot #: [id number] on: 28-Jun-2015 Fluzone Quadrivalent 0.5 ML Intramuscular Suspension Lot #: [id number] on: 23-Feb-2016 Family History Name Dates Details [...] unknown Vital Signs Date Test Result Details 20-Jun-2016 09:42 BP Systolic 142 mm[Hg] Status: [...] 25-May-2016 08:17 BP Systolic 140 mm[Hg] Status: BP Diastolic 84 mm[Hg] Status: Heart Rate 63 /min Status: Physical Findings 94 Status: Comments: [...] Simms M.D. On 21-Aug-2016 08:45 Appointment; Provider: Mdaeline Simms M.D. On 17-Jul-2016 09:15 Appointment; Provider: Renuka Middleton A.P.R.N. On 10-Jul-2016 16:00 Appointment; Provider: Schedule Radiology On 20-Jun-2016 14:30 Interventions Provided Medication Changes* Gabapentin 300 MG Oral Capsule - Start Instructions Name Dates Details Instructions not documented Encounters Appointment; Bernabe Delgado M.D. Encounter Diagnosis: Problem [...] not documented On 20-Mar-2016 19:19 Appointment; Tressa Coornel P.A. Encounter Diagnosis: Problem not documented On [...] Problem not documented On 30-Nov-2015 11:15 Appointment; Maedline Simms M.D. Encounter Diagnosis: Problem [...] documented On 06-Aug-2014 13:45 Appointment; Jane Maria A.Jazz Encounter Diagnosis: Problem not documented On 16-Jul-2014 14:30 Appointment; Madeline Simms M.D. Encounter Diagnosis: Problem not documented On 23-Jun-2014 11:00
--- OUTSIDE RECORDS SUMMARY | 2016-07-28 22:43 | XMS REPORT | Summary of Care ---
Author Author Madeline Simms M.D. Unknown Address [address], [place] [address] Phone Unavailable Care Team Providers Care Exercise Science Internship Name Role Phone Dora Sow, Jeremy Unavailable [...] Active Bipolar disorder (296.80, F31.9) Status: Active detention use of drug (V58.69, 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: Active [...] Status: Active Nicotine dependence (305.1) Status: Active Vitamin d deficiency (268.9, E55.9) [...] 30 Refills: 5 SimmsMadeline M.D.* Started 26-Aug-2010 ActiveLORazepam 1 MG Oral [...] Refills: 5 Madeline Simms M.D.* Started 29-Apr-2013 ActiveTraZODone HCl - 50 [...] Refills: 11 Lex John M.D.* Started 11-Aug-2014 Anipij25 GM Bottle PredniSONE 10 MG Oral Tablet [...] on:07-Jan-2010 Influenza Administered on:22-Dec-2010 Influenza Lot #: [id number] Administered on:23-Jan-2012 Influenza Administered on:13-Jan-2013 PPD Lot #: [id number] Administered on: Fluzone Intramuscular Injectable Lot #: [id number] Administered on:02-Jan-2014 Family History Mother* Name Dates [...] ml/min (Better) Range: >60 EST GFR, NON-AFR MALAGASY >60 ml/min (Better) Range: >60 Comments: EST GFR is reported in ml/min per 1.73 m2 of body surface area. For -Liberian, please multiple result by 1.2.----- GLUCOSE 98 [...]
--- OUTSIDE RECORDS SUMMARY | 2016-07-28 22:43 | XMS REPORT | Summary of Care ---
Author Author Jameel Moore M.D. Unknown Address Unknown Phone Unavailable Care Team Providers Care Superintendent Meters Name Role Phone Dora Sow, Jeremy Unavailable [...] Details Bipolar disorder (296.80, F31.9) Status: Active shelter use of drug (V58.69, 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: Active [...] of knee, left (717.7, 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: Active Medications Name Dates Details Metoprolol [...] 0 Simms M.D.Madeline * Start Active Nystatin-Triamcinolone 114781-0.1 UNIT/GM-% External Cream APPLY SPARINGLY TO AFFECTED [...] daily * Quantity: 30 Refills: 2 Simms M.D.JanelMadeline * Start 23-Dec-2015 Active AmLODIPine Besylate 5 MG Oral Tablet TAKE ONE TABLET BY MOUTH EVERY MORNING * Quantity: 30 Refills: 5 Madeline Simms M.D. * Start 29-Apr-2013 Active Refresh Tears 0.5 % Ophthalmic Solution INSTILL 1 DROP INTO BOTH EYES 4 TIMES DAILY NEEDED * Quantity: 15 Refills: 1 Simms Casandra.Madeline Stover * Start 24-Jun-2013 Active Fluticasone Propionate 50 [...] Quantity: 60 Refills: 5 Lex John M.D. Start 07-Dec-2015 Active Celecoxib 200 MG Oral Capsule TAKE 1 CAPSULE Twice daily WITH FOOD * Quantity: 60 Refills: 0 Simms M.D., [...] 07-Jan-2010 Influenza on: 22-Dec-2010 Influenza Lot #: [id number] on: 23-Jan-2012 Influenza on: 13-Jan-2013 PPD Lot #: [id number] on: Fluzone INJ Lot #: [id number] on: 02-Jan-2014 Fluzone Quadrivalent 0.5 ML Intramuscular Suspension Lot #: [id number] on: 25-Jan-2015 Tdap (Adacel) Lot #: [id number] on: 28-Jun-2015 Family History Name Dates Details [...]
--- OUTSIDE RECORDS SUMMARY | 2016-07-28 22:43 | XMS REPORT | Summary of Care ---
Author Author Renuka Middleton APRN Organization Unknown Address [address], [place] [address] Phone Unavailable Care Team Providers Care Lockstitch Lining Maker Name Role Phone Jeremy John M.D. Unavailable [...] Active Bipolar disorder (296.80, F31.9) Status: Active skilled nursing use of drug (V58.69, 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: Active [...] Refills: 11 Lex John M.D.* Started 11-Aug-2014 Ilyozt25 GM Bottle Belsomra 20 MG Oral Tablet [...] on:07-Jan-2010 Influenza Administered on:22-Dec-2010 Influenza Lot #: [id number] Administered on:23-Jan-2012 Influenza Administered on:13-Jan-2013 PPD Lot #: [id number] Administered on: Fluzone Intramuscular Injectable Lot #: [id number] Administered on:02-Jan-2014 Family History Mother* Name Dates [...] Body Surface Area Calculated 2.37 m2 Status: 08:39 BP Systolic 140 mm[Hg] Status: BP Diastolic 91 mm[Hg] Status: Temperature 99 f Status: Heart Rate 80 /min Status: Weight 305 lb Status: O2 SAT 93 % Status: Body Mass Index Calculated 50.75 kg/m2 [...] Problem not documented On 27-Nov-2013 11:30 Appointment; Madeilne Simms Encounter Diagnosis: Problem not [...]
--- OUTSIDE RECORDS SUMMARY | 2016-07-28 22:44 | XMS REPORT | Summary of Care ---
Author Author Mendez Sow, Madeline De La Paz Unknown Address Unknown Phone Unavailable Care Team Providers Care Teacher Aide Clerical Name Role Phone Dora Sow, Jeremy Unavailable Unavailable Lisa Sow, Geovanna Unavailable Unavailable Mendez Sow, Madeline 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: Active 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 * Quantity: 60 Refills: 1 Simms MagiMadeline * Start 27-Dec-2015 Active Allergies and Adverse [...] 07-Jan-2010 Influenza on: 22-Dec-2010 Influenza Lot #: [id number] on: 23-Jan-2012 Influenza on: 13-Jan-2013 PPD Lot #: [id number] on: Fluzone INJ Lot #: [id number] on: 02-Jan-2014 Fluzone Quadrivalent 0.5 ML Intramuscular Suspension Lot #: [id number] on: 25-Jan-2015 Tdap (Adacel) Lot #: [id number] on: 28-Jun-2015 Fluzone Quadrivalent 0.5 ML Intramuscular Suspension Lot #: [id number] on: 23-Feb-2016 Family History Name Dates Details [...] smoker Vital Signs Date Test Result Details 07-Mar-2016 08:18 BP Systolic 130 mm[Hg] Status: Comments: Location: ; Position: BP Diastolic 82 mm[Hg] Status: Comments: Location: ; Position: Heart Rate 74 /min Status: Physical Findings [...] 08-Feb-2016 11:47 BP Systolic 142 mm[Hg] Status: BP Diastolic 88 mm[Hg] Status: 08-Feb-2016 11:40 Heart Rate 88 /min Status: Weight 268 lb Status: Physical Findings 98 Status: Comments: O2 Saturation Body Mass Index Calculated 36.86 kg/m2 Status: Body Surface Area Calculated 2.4 m2 Status: Results Date Description Value Details Results not documented Plan of Care Name Dates Details Planned Observations Planned Goals not documented Planned Encounters Appointment; Provider: Aime Rdz M.D. On 15-Jan-2017 13:30 Appointment; Provider: Lex John M.D. On 07-Jun-2016 13:15 Appointment; Provider: Madeline Simms M.D. On 11-May-2016 11:00 Interventions Provided Medication Changes* Celecoxib 200 MG Oral Capsule - Renew Instructions Name Dates Details Instructions [...] not documented On 12-May-2014 14:15 Appointment; Lela uNnes M.D. Encounter Diagnosis: Problem not documented On 05-May-2014 09:00 Appointment; Lex John M.D. Encounter Diagnosis: Problem not documented On 20-Apr-2014 14:00 Appointment; Madeline Simms M.D. Encounter Diagnosis: Problem not documented On 10-Apr-2014 09:00 Appointment; Madeline Simms M.D. Encounter Diagnosis: Problem not documented On 23-Mar-2014 10:00
--- OUTSIDE RECORDS SUMMARY | 2016-07-28 22:44 | XMS REPORT | Summary of Care ---
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 * Quantity: 45 Refills: 0 Simms M.D.Madeline * Start Active Levocetirizine Dihydrochloride 5 MG Oral Tablet take one tablet by mouth every day * Quantity: 90 Refills: 3 Simms M.D.Madeline * Start 26-Dec-2011 Active Levothyroxine Sodium 50 MCG Oral Tablet Take one tablet by mouth daily * Quantity: 30 Refills: 5 Simms M.D., Madeline * Start 26-Nov-2015 Active Omeprazole 20 MG Oral Capsule Delayed Release Take one capsule by mouth daily * Quantity: 30 Refills: 2 Simms M.D.Madeline * Start 23-Dec-2015 Active Wellbutrin XL 300 MG Oral Tablet Extended Release 24 Hour take one tablet by mouth every day * Quantity: 30 Refills: 0 * Start Active Benztropine Mesylate 1 MG Oral Tablet Take 1 tablet twice daily * Refills: 0 Simms M.D., Madeline * Start 10-Dec-2014 Active AmLODIPine Besylate 5 MG Oral Tablet TAKE ONE TABLET BY MOUTH EVERY MORNING * Quantity: 30 Refills: 5 Simms M.D.Madeline * Start 29-Apr-2013 Active Refresh Tears 0.5 % Ophthalmic Solution INSTILL 1 DROP INTO BOTH EYES 4 TIMES DAILY NEEDED * Quantity: 15 Refills: 1 Simms M.D., Madeline * Start 24-Jun-2013 Active Losartan Potassium 100 MG Oral Tablet Take one tablet by mouth daily * Quantity: 30 Refills: 5 Simms M.D., Madeline * Start 26-Nov-2015 Active Fluticasone Propionate 50 MCG/ACT Nasal Suspension INSTILL 1 SPRAY IN EACH NOSTRIL ONCE A DAY * Quantity: 16 Refills: 11 Lex John M.D. Start 16-Feb-2016 Active Paliperidone ER 6 MG Oral Tablet [...] Quantity: 90 Refills: 5 Lex John M.D. Start 07-Dec-2015 [...] History of Appendectomy History of Knee Arthroscopy AEROBIC CULTURE Ordered: 08-Mar-2016 BASIC METABOLIC PROFILE 1210 Ordered: 08-Feb-2016 CBC w/ Auto Diff 7150 Ordered: 08-Feb-2016 Immunization Name Dates Details Tdap (Adacel) on: Feb-2007 Influenza on: 05-Apr-2009 Influenza A (H1N1) Monoval PF SUSP on: 05-Apr-2009 Fluzone INJ on: 07-Jan-2010 Influenza on: 22-Dec-2010 Influenza Lot #: [id number] on: 23-Jan-2012 Influenza on: 13-Jan-2013 PPD Lot #: [id number] on: Fluzone INJ Lot #: [id number] on: 02-Jan-2014 Fluzone Quadrivalent 0.5 ML Intramuscular Suspension Lot #: [id number] on: 25-Jan-2015 Tdap (Adacel) Lot #: [id number] on: 28-Jun-2015 Fluzone Quadrivalent 0.5 ML Intramuscular Suspension Lot #: [id number] on: 23-Feb-2016 Family History Name Dates Details [...]
--- OUTSIDE RECORDS SUMMARY | 2016-07-28 22:44 | XMS REPORT | Summary of Care ---
Author Author Mendez Sow, Madeline De La Paz Unknown Address Unknown Phone Unavailable Care Team Providers Care Mail Delivery Supervisor Name Role Phone Dora Sow, Jeremy Unavailable Unavailable Lisa Sow, Geovanna Unavailable Unavailable Mendez Sow, Madeline 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: Active 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 * Quantity: 45 Refills: 0 Simms M.D. Madeline * Start Active Levocetirizine Dihydrochloride 5 MG Oral Tablet take one tablet by mouth every day * Quantity: 90 Refills: 3 Simms M.D., Madeline * Start 26-Dec-2011 Active AmLODIPine Besylate 5 MG Oral Tablet TAKE ONE TABLET BY MOUTH EVERY MORNING * Quantity: 30 Refills: 5 Simms M.D., Madeline * Start 29-Apr-2013 Active Omeprazole 20 MG Oral Capsule Delayed Release Take one capsule by mouth daily * Quantity: 30 Refills: 0 Simms Casandra.Veronique.Madeline * Start 19-Nov-2015 Active Refresh Tears 0.5 % Ophthalmic Solution INSTILL 1 DROP INTO BOTH EYES 4 TIMES DAILY NEEDED * Quantity: 15 Refills: 1 Simms Casandra.Veronique., Madeline * Start 24-Jun-2013 Active Levothyroxine Sodium 50 MCG Oral Tablet Take one tablet by mouth daily * Quantity: 30 Refills: 5 Simms Casandra.D., Madeline * Start 26-Nov-2015 Active Wellbutrin XL 300 MG Oral Tablet Extended Release 24 Hour take one tablet by mouth every day * Quantity: 30 Refills: 0 * Start Active Benztropine Mesylate 1 MG Oral Tablet Take 1 tablet twice daily * Refills: 0 Mendez Guajardo.Veronique.Madeline * Start 10-Dec-2014 Active Fluticasone Propionate 50 MCG/ACT Nasal Suspension USE 1 SPRAY IN EACH NOSTRIL ONCE DAILY. * Quantity: 16 Refills: 5 Lex John M.D. * Start 15-Jan-2014 Active Belsomra 20 MG Oral Tablet TAKE ONE TABLET BY MOUTH AT BEDTIME NEEDED * Quantity: 30 Refills: 0 Lex John M.D. Start 20-Aug-2014 Active Paliperidone ER 6 MG [...] WITH FOOD * Quantity: 60 Refills: 0 Madeline Simms M.D. * Start 17-Aug-2015 Active Polyethylene Glycol 3350 Oral Powder MIX ONE CAPFUL IN 8OZ OF WATER AND TAKE TWO TIMES A DAY * Quantity: 527 Refills: 0 Nemesio Gonzalez M.D. Start 16-Nov-2015 Active HydrOXYzine HCl - 25 MG Oral Tablet TAKE 1-3 TABLETS BY MOUTH AT BEDTIME NEEDED * Quantity: 60 Refills: 5 Lex John M.D. Start 18-Nov-2015 Active Methocarbamol 750 MG Oral Tablet TAKE ONE TABLET BY MOUTH TWICE DAILY NEEDED FOR MUSCLE SPASMS, Must last 90 days * Quantity: 180 Refills: 0 Simms M.D., Madeline * Start 02-Jun-2015 Active Losartan Potassium 100 MG Oral Tablet Take one tablet by mouth daily * Quantity: 30 Refills: 5 Simms M.D., Madeline * Start 26-Nov-2015 Active Allergies and Adverse Reactions Name Dates Details Chantix TABS (Allergy) Reaction: Hallucinations (Severe), Other Status: Active DEPO-Medrol SUSP (Allergy) Status: Active Kenalog (Allergy) Status: Active Past Medical History Name Dates Details History of acute bronchitis (V12.69, Z87.09) Status: Resolved History of acute otitis media (V1., Z86.69) Status: Resolved History of acute sinusitis [...] 7150 Ordered: Comprehensive Metabolic Panel 1212 Ordered: Urinalysis, Reflex to Microscopic or Culture PRN [id number] Ordered: 30-Nov-2015 Xray ABD ( KUB) Ordered: 30-Nov-2015 Immunization Name Dates Details Tdap (Adacel) on: Feb-2007 Influenza on: 05-Apr-2009 Influenza A (H1N1) Monoval PF SUSP on: 05-Apr-2009 Fluzone INJ on: 07-Jan-2010 Influenza on: 22-Dec-2010 Influenza Lot #: [id number] on: 23-Jan-2012 Influenza on: 13-Jan-2013 PPD Lot #: [id number] on: Fluzone INJ Lot #: [id number] on: 02-Jan-2014 Fluzone Quadrivalent 0.5 ML Intramuscular Suspension Lot #: [id number] on: 25-Jan-2015 Tdap (Adacel) Lot #: [id number] on: 28-Jun-2015 Family History Name Dates Details [...] >60 ml/min Range: >60 EST GFR, NON-AFR TRISTANIAN >60 ml/min Range: >60 Comments: EST GFR is reported in ml/min per 1.73 m2 of body surface area. For -E[place]ian, please multiple result by 1.2.----- GLUCOSE 112 [...] 12:42 X KNEE COMP (MIN 4V) LT Plan of Care Name Dates Details Planned Observations Planned Goals not documented Planned Encounters Appointment; Provider: Aime Rdz M.D. On 15-Jan-2017 13:00 Appointment; Provider: Carolynn Arellano DPM On 15-Feb-2016 09:00 Appointment; Provider: Madeline Simms M.D. On 10-Feb-2016 09:00 Appointment; Provider: Jameel Moore M.D. On 06-Dec-2015 15:15 Interventions Provided Labs/Procedures/Imaging* Urinalysis, Reflex to Microscopic or Culture PRN [id number]; To be Done: 30 Nov 2015 * Xray ABD ( KUB); To be Done: 30 Nov 2015 * XRay KNEE-Left; Done: Nov 30 2015 [...] documented On 10-Dec-2014 13:30 Appointment; Evelyne Perales, A.P.RMonicaNMonica Encounter Diagnosis: Problem not documented On [...]
--- OUTSIDE RECORDS SUMMARY | 2016-07-28 22:45 | XMS REPORT | Summary of Care ---
Author Author Fadi Sow, Malcolm Herrera Organization Unknown Address Unknown Phone Unavailable Care Team Providers Care Clerical Investigator Name Role Phone Dora Sow, Jeremy Unavailable Americo Varner M.D., Raul Unavailable Unavailable Fadi Sow, Javier Unavailable Unavailable [...] of left knee (V45.89, Z98.890) Status: Active Plantar fascial fibromatosis (728.71, M72.2) Status: Active 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, M19.071) Status: Active Onychomycosis (110.1, B35.1) Status: Active Morbid obesity (278.01, E66.01) Status: Active Hyperlipidemia (272.4, E78.5) Status: Active Effusion of left knee (719.06, M25.462) Status: Active Dyspepsia (536.8, K30) Status: Active Chondromalacia of knee, 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 * Quantity: 40 Refills: 0 Telly M.D. Christopher * Start 08-Mar-2016 Active Eliquis 5 MG Oral Tablet Take 1 tablet po twice daily * Quantity: 60 Refills: 3 Fadi Sow Malcolm Javier * Start 10-Jul-2016 Active Allergies and Adverse [...] 07-Jan-2010 Influenza on: 22-Dec-2010 Influenza Lot #: [id number] on: 23-Jan-2012 Influenza on: 13-Jan-2013 PPD Lot #: [id number] on: Fluzone INJ Lot #: [id number] on: 02-Jan-2014 Fluzone Quadrivalent 0.5 ML Intramuscular Suspension Lot #: [id number] on: 25-Jan-2015 Tdap (Adacel) Lot #: [id number] on: 28-Jun-2015 Fluzone Quadrivalent 0.5 ML Intramuscular Suspension Lot #: [id number] on: 23-Feb-2016 Family History Name Dates Details [...] unknown Vital Signs Date Test Result Details 14-Jul-2016 09:43 BP Systolic 118 mm[Hg] Status: [...] BP Systolic 142 mm[Hg] Status: Comments: Location: LUE; Position: Sitting BP Diastolic 90 mm[Hg] Status: Comments: Location: LUE; Position: Sitting Heart Rate 88 /min Status: Comments: Location: [...] Physical Findings 96 Status: Comments: O2 Saturation Results Date Description Value Details 20-Jun-2016 15:31 [...] Comments: DOS 07/[address] Varner at [facility] SODIUM 139 mmol/L Range: 133-144 POTASSIUM 4.7 mmol/L Range: 3.5-5.1 CHLORIDE 101 mmol/L Range: 98-110 CARBON DIOXIDE 27.8 mmol/L Range: 23.0-33.0 ANION GAP 10 mmol/L Range: 6-16 BUN 15 mg/dL Range: 7-18 CREATININE, SERUM 1.05 mg/dL Range: 0.70-1.30 EST GFR, >60 ml/min Range: >60 EST GFR, NON-AFR MACEDONIAN >60 ml/min Range: >60 Comments: EST GFR [...] Changes* Eliquis 5 MG Oral Tablet - Renew Instructions Name Dates Details Instructions not documented Encounters Appointment; Arnold Zhang D.O. Encounter Diagnosis: Problem [...] not documented On 10:00 Appointment; Evelyne Perales AMonicaP.RMiladis Encounter Diagnosis: Problem not documented On 08:35 [...]
--- OUTSIDE RECORDS SUMMARY | 2016-07-28 22:45 | XMS REPORT | Summary of Care ---
Author Author Madeline Simms M.D. Unknown Address [address], [place] [id number] Phone Unavailable Care Team Providers Care Planning Division Superintendent Name Role Phone Dora Sow, Jeremy Unavailable [...] Active Chest pain (786.50, R07.9) Status: Active Medications Name Dates Details Metoprolol Tartrate 25 MG Oral Tablet take one tablet by mouth every day Quantity: 30 Madeline Simms M.D.* Started 15-Mar-2009 ActiveAmLODIPine Besylate 5 MG Oral Tablet TAKE ONE TABLET BY MOUTH EVERY MORNING * Quantity: 30 Refills: 5 SimmsMadeline M.D.* Started 29-Apr-2013 ActiveLevocetirizine Dihydrochloride 5 MG Oral Tablet take one tablet by mouth every day * Quantity: 90 Refills: 3 SimmsMadeline M.D.* Started 26-Dec-2011 ActiveLORazepam 1 MG Oral Tablet TAKE 1 TABLET IN MORNING, 1 TABLET AT NOON, 1/2 TABLET AT BEDTIME. * Refills: 0 Madeline Simms M.D.* Started ActiveInvega Sustenna 156 MG/ML Intramuscular Suspension inject IM every 3 weeks * Refills: 0 Madeline Simms M.D.* Started 25-Nov-2010 ActiveLevothyroxine Sodium 50 MCG Oral Tablet take one tablet by mouth every day * Quantity: 30 Refills: 5 SimmsMadeline M.D.* Started 26-Aug-2010 ActiveOmeprazole 20 MG Oral Capsule Delayed Release Take one capsule by mouth daily * Quantity: 30 Refills: 5 Madeline Simms M.D.* Started 26-Jan-2012 ActiveTraZODone HCl - 50 MG Oral Tablet [...] Refills: 11 Lex John M.D.* Started 11-Aug-2014 Yoxbzp26 GM Bottle PredniSONE 10 MG Oral Tablet [...] Procedures Procedure Dates Details History of Appendectomy ECG/ EKG Ordered:08-Sep-2014 Comprehensive Metabolic Panel 1212 Ordered:08-Sep-2014 AMYLASE 1250 Ordered:08-Sep-2014 Lipase 1275 Ordered:08-Sep-2014 D - DIMER 7505 Ordered:08-Sep-2014 CBC w/ Auto Diff 7150 Ordered:08-Sep-2014 XRay CHEST-PA & LAT Ordered:08-Sep-2014 Immunization Name Dates Details Tdap (Adacel) Administered on:Feb-2007 Influenza Administered on:05-Apr-2009 Influenza A (H1N1) Monoval PF Intramuscular Suspension Administered on:05-Apr-2009 Fluzone Intramuscular Injectable Administered on:07-Jan-2010 Influenza Administered on:22-Dec-2010 Influenza Lot #: [id number] Administered on:23-Jan-2012 Influenza Administered on:13-Jan-2013 PPD Lot #: [id number] Administered on: Fluzone Intramuscular Injectable Lot #: [id number] Administered on:02-Jan-2014 Family History Mother* Name Dates [...] smoker Vital Signs Date Test Result Details 08-Sep-2014 15:59 BP Systolic 132 mm[Hg] Status: BP Diastolic 84 mm[Hg] Status: Heart Rate 115 /min Status: Weight 308 lb Status: O2 SAT 94 % Status: Body Mass Index Calculated 42.36 kg/m2 Status: Body Surface Area Calculated 2.55 m2 Status: 12-Aug-2014 08:47 BP Systolic 132 mm[Hg] Status: BP Diastolic 89 mm[Hg] Status: Heart Rate 86 /min Status: Temperature 99 f Status: O2 SAT 95 % Status: Results Date Description Value Details Results not documented Plan of Care Planned Observations* Name Dates Details Planned Goals not documented Goal Planned Encounters* Appointment; Provider: Lex John On 19-Jan-2015 10:30 * Appointment; Provider: Madeline Simms On 09:30 * Appointment; Provider: Madeline Simms On 09-Sep-2014 09:00 * Appointment; Provider: Lex John On [...]
--- OUTSIDE RECORDS SUMMARY | 2016-07-28 22:45 | XMS REPORT | Summary of Care ---
Author Author Teresa Sow, Jameel De La Paz Unknown Address Unknown Phone Unavailable Care Team Providers Care Slurry Control Tender Name Role Phone Dora Sow, Jeremy Unavailable Unavailable Zahra Moore M.D. 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: Active [...] Active Paranoid schizophrenia (295.30, F20.0) Status: Active Cellulitis (682.9, L03.90) Status: Active [...] THE MORNING * Quantity: 30 Refills: 5 Ismms M.D.Madeline * Start 14-Mar-2016 Active Refresh Tears 0.5 % Ophthalmic Solution INSTILL 1 DROP INTO BOTH EYES 4 TIMES DAILY NEEDED * Quantity: 15 Refills: 1 Simms M.D.Madeline * Start 24-Jun-2013 Active Fluticasone Propionate 50 MCG/ACT Nasal Suspension INSTILL 1 SPRAY IN EACH NOSTRIL ONCE A DAY * Quantity: 16 Refills: 11 Longk M.D.Lex * Start 16-Feb-2016 Active Losartan Potassium [...] bedtime * Quantity: 90 Refills: 5 Dora MagiLex * Start 07-Dec-2015 Active Hydrocodone-Acetaminophen 7.5-325 MG Oral Tablet TAKE 1 TO 2 TABLETS EVERY 6 HOURS NEEDED FOR PAIN. * Quantity: 30 Refills: 0 Radhalashondaenzo SowPedro * Start 08-Mar-2016 Active Meloxicam 15 MG Oral Tablet TAKE ONE TABLET BY MOUTH EVERY DAY WITH FOOD * Quantity: 30 Refills: 1 Simms MagiMadeline * Start 11-Apr-2016 Active Allergies and Adverse Reactions Name Dates [...] 07-Jan-2010 Influenza on: 22-Dec-2010 Influenza Lot #: [id number] on: 23-Jan-2012 Influenza on: 13-Jan-2013 PPD Lot #: [id number] on: Fluzone INJ Lot #: [id number] on: 02-Jan-2014 Fluzone Quadrivalent 0.5 ML Intramuscular Suspension Lot #: [id number] on: 25-Jan-2015 Tdap (Adacel) Lot #: [id number] on: 28-Jun-2015 Fluzone Quadrivalent 0.5 ML Intramuscular Suspension Lot #: [id number] on: 23-Feb-2016 Family History Name Dates Details [...] unknown Vital Signs Date Test Result Details 11-Apr-2016 10:11 BP Systolic 142 mm[Hg] Status: Comments: Location: ; Position: BP Diastolic 86 mm[Hg] Status: Comments: Location: ; Position: Heart Rate 72 /min Status: Comments: Location: ; Physical Findings 96 Status: Comments: O2 Saturation 11-Apr-2016 10:09 Weight 289 lb Status: Body Mass Index Calculated 39.75 kg/m2 Status: Body Surface Area Calculated 2.48 m2 Status: 06-Apr-2016 08:37 BP Systolic 140 mm[Hg] Status: Comments: Location: ; Position: BP Diastolic 88 mm[Hg] Status: Comments: Location: ; Position: Temperature 98.2 f Status: Heart Rate 63 /min Status: Comments: Location: ; Physical Findings 97 Status: Comments: O2 Saturation 03-Apr-2016 08:24 BP Systolic 150 mm[Hg] Status: BP Diastolic 84 mm[Hg] Status: Heart Rate 68 /min Status: Weight 287 lb Status: Body Mass Index Calculated 39.47 kg/m2 Status: Body Surface Area Calculated 2.47 m2 Status: Results Date Description Value Details [...] documented On 06-Aug-2014 13:45 Appointment; Jane Maria A.P.RMiladis Encounter Diagnosis: Problem not documented On 16-Jul-2014 14:30 Appointment; Madeline Simms M.D. Encounter Diagnosis: Problem not documented On 23-Jun-2014 11:00 Appointment; Madeline Simms M.D. Encounter Diagnosis: Problem not documented On 12-May-2014 14:15 Appointment; Lela Nunes M.D. Encounter Diagnosis: Problem not documented On 05-May-2014 09:00
--- OUTSIDE RECORDS SUMMARY | 2016-07-28 22:46 | XMS REPORT | Summary of Care ---
Author Author Mendez Sow, Madeline De La Paz Unknown Address Unknown Phone Unavailable Care Team Providers Care Insulation Machine Operator Name Role Phone Dora Sow, [...] 5 Simms M.D.Madeline * Start 26-Nov-2015 Active Omeprazole 20 MG [...] 1 Simms M.D.Madeline * Start 24-Jun-2013 Active Losartan Potassium 100 [...] 0 Simms M.D.Madeline * Start 10-Dec-2014 Active Methocarbamol 750 MG Oral Tablet TAKE ONE TABLET BY MOUTH TWICE DAILY NEEDED FOR MUSCLE SPASMS, Must last 90 days * Quantity: 180 Refills: 0 Simms M.D.Madeline * Start 02-Jun-2015 Active Diclofenac Sodium 75 MG Oral Tablet Delayed Release Take 1 tab bid with food * Quantity: 60 Refills: 0 Simms M.D., Madeline * Start 08-May-2016 Active Nicotine Polacrilex 2 MG Mouth/Throat Lozenge ALLOW 1 LOZENGE TO DISSOLVE SLOWLY IN MOUTH DIRECTED * Quantity: 1 Refills: 0 Kristi Todd M.D. * Start Active 48 Lozenge Box Paliperidone ER 6 MG Oral Tablet Extended Release 24 Hour TAKE 1 TABLET DAILY. * Refills: 0 Simms M.D.Madeline * Start 31-May-2015 Active Fluticasone Propionate 50 MCG/ACT Nasal Suspension INSTILL 1 SPRAY IN EACH NOSTRIL ONCE A DAY * Quantity: 16 Refills: 11 Lex John M.D. * Start 16-Feb-2016 Active Hydrocodone-Acetaminophen 7.5-325 MG Oral Tablet TAKE 1 TO 2 TABLETS EVERY 6 HOURS NEEDED FOR PAIN. * Quantity: 30 Refills: 0 Pedro Wills M.D. * Start 08-Mar-2016 Active LORazepam 1 MG Oral Tablet TAKE 1/2 TABLET IN MORNING, 1 TABLET AT NOON, 1 TABLET AT BEDTIME. * Quantity: 45 Refills: 0 Simms M.D.Madeline * Start Active Levocetirizine Dihydrochloride 5 MG Oral Tablet take one tablet by mouth every day * Quantity: 90 Refills: 3 Simms M.D.Madeline * Start 26-Dec-2011 Active ClonazePAM 1 MG Oral Tablet Take 3 tablets by mouth every night at bedtime * Quantity: 90 Refills: 5 Dora Sow, Lex Luna * Start 07-Dec-2015 Active Allergies and Adverse Reactions Name Dates [...] 07-Jan-2010 Influenza on: 22-Dec-2010 Influenza Lot #: [id number] on: 23-Jan-2012 Influenza on: 13-Jan-2013 PPD Lot #: [id number] on: Fluzone INJ Lot #: [id number] on: 02-Jan-2014 Fluzone Quadrivalent 0.5 ML Intramuscular Suspension Lot #: [id number] on: 25-Jan-2015 Tdap (Adacel) Lot #: [id number] on: 28-Jun-2015 Fluzone Quadrivalent 0.5 ML Intramuscular Suspension Lot #: [id number] on: 23-Feb-2016 Family History Name Dates Details [...] unknown Vital Signs Date Test Result Details 08-May-2016 14:06 BP Systolic 140 mm[Hg] Status: Comments: Location: ; Position: BP Diastolic 86 mm[Hg] Status: Comments: Location: ; Position: Heart Rate 76 /min Status: Comments: Location: ; Physical Findings [...] >60 ml/min Range: >60 EST GFR, NON-AFR [place] >60 ml/min Range: >60 Comments: EST GFR [...] John M.D. On 07-Jun-2016 13:15 Appointment; Provider: Jameel Moore M.D. On 24-May-2016 09:15 Appointment; Provider: Madeline Simms M.D. On 18-May-2016 09:00 Instructions Name Dates Details Instructions not documented Encounters Appointment; Madeline Simms M.D. Encounter Diagnosis: Problem not documented On 08-May-2016 14:00 Appointment; Jameel Moore M.D. Encounter Diagnosis: Problem not documented On 24-Apr-2016 11:00 Appointment; Madeline Simms M.D. Encounter Diagnosis: Problem not documented On 11-Apr-2016 10:15 Appointment; Evelyne Perales A.PMonicaRMiladis Encounter Diagnosis: Problem not documented On 06-Apr-2016 [...] documented On 25-Nov-2014 13:00 Appointment; Renuka Middleton A.P.RMonicaN. Encounter Diagnosis: Problem not documented On 16-Nov-2014 [...]
--- OUTSIDE RECORDS SUMMARY | 2016-07-28 22:46 | XMS REPORT | Summary of Care ---
Author Author Jamar Spears D.O. Organization Unknown Address [address], [place] [id number] Phone Unavailable Care Team Providers Care Conservation Science Teacher Name Role Phone Jeremy John M.D. Unavailable [...] 07-Jan-2010 Influenza on: 22-Dec-2010 Influenza Lot #: [id number] on: 23-Jan-2012 Influenza on: 13-Jan-2013 PPD Lot #: [id number] on: Fluzone INJ Lot #: [id number] on: 02-Jan-2014 Fluzone Quadrivalent 0.5 ML Intramuscular Suspension Lot #: [id number] on: 25-Jan-2015 Tdap (Adacel) Lot #: [id number] on: 28-Jun-2015 Fluzone Quadrivalent 0.5 ML Intramuscular Suspension Lot #: [id number] on: 23-Feb-2016 Family History Name Dates Details [...] >60 ml/min Range: >60 EST GFR, NON-AFR [place] >60 ml/min Range: >60 Comments: EST GFR [...]
--- OUTSIDE RECORDS SUMMARY | 2016-07-28 22:46 | XMS REPORT | Summary of Care ---
Author Author Lela Nunes M.D. Unknown Address [address], [place] [id number] Phone Unavailable Care Team Providers Care Offset Lithographic Press Operator Name Role Phone Jeremy John M.D. Unavailable Unavailable Madeline Simms M.D. Unavailable Unavailable Homa Blanton M.D. 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 * Refills: 0 IsmmsMadeline valle M.D.* Started 12-Jun-2013 ActiveRefresh Tears 0.5 % Ophthalmic Solution INSTILL 1 DROP INTO BOTH EYES 4 TIMES DAILY NEEDED * Quantity: 15 Refills: 0 SimmsMadeline valle M.D.* Started 24-Jun-2013 ActiveMagnesium Oxide 400 MG [...] Refills: 5 Lex John M.D.* Started 15-Jan-2014 [id number] GM Bottle Mucinex 600 MG Oral Tablet [...] 30 Refills: 0 SimmsMadeline M.D.* Started 07-Jan-2014 ActiveNicotine 14 MG/24HR Transdermal Patch 24 Hour [...] Procedures Procedure Dates Details History of Appendectomy ULTRASOUND LEG ARTERIES-BILATERAL Ordered:05-May-2014 Immunization Name Dates Details Tdap (Adacel) Administered on:Feb-2007 Influenza Administered on:05-Apr-2009 Influenza A (H1N1) Monoval PF Intramuscular Suspension Administered on:05-Apr-2009 Fluzone Intramuscular Injectable Administered on:07-Jan-2010 Influenza Administered on:22-Dec-2010 Influenza Lot #: [id number] Administered on:23-Jan-2012 Influenza Administered on:13-Jan-2013 PPD Lot #: [id number] Administered on: Fluzone Intramuscular Injectable Lot #: [id number] Administered on:02-Jan-2014 Family History Mother* Name Dates [...] smoker Vital Signs Date Test Result Details 05-May-2014 09:14 BP Systolic 160 mm[Hg] Status: [...] Simms On 23-Jun-2014 11:00 * Appointment; Provider: Madeline Simms On 12-May-2014 14:15 * Appointment; Provider: Lex John On 18-Jul-2013 10:15 * Appointment; Provider: Madeline Simms On 27-Apr-2008 08:00 Instructions * Instructions not documented Encounters Appointment; Lela Nunes Encounter Diagnosis: Problem not [...] not documented On 11-Jul-2013 14:30 Appointment; Madeline Smims Encounter Diagnosis: Problem not documented On 24-Jun-2013 [...] Problem not documented On 13-Jun-2012 15:00 Appointment; Madeilne Simms Encounter Diagnosis: Problem not documented On 07-May-2012 14:45
--- OUTSIDE RECORDS SUMMARY | 2016-07-28 22:46 | XMS REPORT | Summary of Care ---
Author Author Madeline Simms M.D. Unknown Address [address], [place] [id number] Phone Unavailable Care Team Providers Care Ebd Special Education Teacher Name Role Phone Dora Sow, Jeremy Unavailable [...] Refills: 11 Lex John M.D.* Started 11-Aug-2014 [id number] GM Bottle PredniSONE 10 MG Oral Tablet [...] Dates Details History of Appendectomy ECG/ EKG Pendin08-Sep-2014 D - DIMER 7505 Ordered:08-Sep-2014 CBC w/ Auto Diff 7150 Ordered:08-Sep-2014 Comprehensive Metabolic Panel 1212 Ordered:08-Sep-2014 AMYLASE 1250 Ordered:08-Sep-2014 Lipase 1275 Ordered:08-Sep-2014 XRay CHEST-PA & LAT Ordered:08-Sep-2014 Immunization Name Dates Details Tdap (Adacel) Administered on:Feb-2007 Influenza Administered on:05-Apr-2009 Influenza A (H1N1) Monoval PF Intramuscular Suspension Administered on:05-Apr-2009 Fluzone Intramuscular Injectable Administered on:07-Jan-2010 Influenza Administered on:22-Dec-2010 Influenza Lot #: [id number] Administered on:23-Jan-2012 Influenza Administered on:13-Jan-2013 PPD Lot #: [id number] Administered on: Fluzone Intramuscular Injectable Lot #: [id number] Administered on:02-Jan-2014 Family History Mother* Name Dates [...] Problem not documented On 23-Jun-2014 11:00 Appointment; Maedline Simms Encounter Diagnosis: Problem not documented On [...]
--- OUTSIDE RECORDS SUMMARY | 2016-07-28 22:47 | XMS REPORT | Summary of Care ---
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 Start 07-Dec-2015 Active Celecoxib 200 MG Oral Capsule TAKE 1 CAPSULE TWICE DAILY WITH FOOD. * Quantity: 60 Refills: 1 Simms M.DMonica, Madeline * Start 27-Dec-2015 Active Hydrocodone-Acetaminophen 7.5-325 MG Oral Tablet TAKE 1 TO 2 TABLETS EVERY 6 HOURS NEEDED FOR PAIN. * Quantity: 30 Refills: 0 Pedro Wills M.D. * Start 08-Mar-2016 Active Sulfamethoxazole-Trimethoprim 800-160 MG Oral Tablet TAKE 1 TABLET PO EVERY 12 HOURS X 10 DAYS * Quantity: 20 Refills: 0 Homer P.A.Tressa * Start 16-Mar-2016 Active PredniSONE 20 MG Oral Tablet TAKE 1 TABLET DAILY. * Quantity: 7 Refills: 0 Mat Pina M.D. * Start 20-Mar-2016 End 27-Mar-2016 Active Terbinafine HCl - 250 MG Oral [...] 07-Jan-2010 Influenza on: 22-Dec-2010 Influenza Lot #: [id number] on: 23-Jan-2012 Influenza on: 13-Jan-2013 PPD Lot #: [id number] on: Fluzone INJ Lot #: [id number] on: 02-Jan-2014 Fluzone Quadrivalent 0.5 ML Intramuscular Suspension Lot #: [id number] on: 25-Jan-2015 Tdap (Adacel) Lot #: [id number] on: 28-Jun-2015 Fluzone Quadrivalent 0.5 ML Intramuscular Suspension Lot #: [id number] on: 23-Feb-2016 Family History Name Dates Details [...] smoker Vital Signs Date Test Result Details 21-Mar-2016 08:19 BP Systolic 126 mm[Hg] Status: [...] BP Systolic 124 mm[Hg] Status: Comments: Location: LUE; Position: Sitting BP Diastolic 70 mm[Hg] Status: Comments: Location: LUE; Position: Sitting Temperature 97 f Status: Comments: Method: Heart [...] Location: ; Position: Temperature 98.4 f Status: Comments: Method: Heart Rate 108 /min Status: Comments: Location: [...] 08:18 AEROBIC CULTURE Comments: [facility] performed at: [facility], [facility], [address] [place] [address], [phone], Dishroom Attendant: Macario Rodriguez D.O., MPHQuest Collection Date/Time: [id number] Results Received Date/Time: [id number] Reported Date/Time: [id number] FASTING:NOQuest performed at: [facility], [facility], [address] [place] [address], [phone], Dishroom Attendant: Macario Rodriguez D.O., MPHQuest Collection Date/Time: [id number] Results Received Date/Time: [id number] Reported Date/Time: [id number] FASTING:NOQuest performed at: [facility], [facility], [address] [place] [address], [phone], Dishroom Attendant: Macario Rodriguez D.O., MPHQuest Collection Date/Time: [id number] Results Received Date/Time: [id number] Reported Date/Time: [id number] FASTING:NO CULTURE, AEROBIC BACTERIA WITH GRAM STAIN SEE NOTE Comments: CULTURE, AEROBIC BACTERIA WITH GRAM STAIN MICRO NUMBER: [id number] TEST STATUS: FINAL SPECIMEN SOURCE: KNEE SPECIMEN QUALITY: ADEQUATE GRAM STAIN: Rare White blood cells seen No organisms seen RESULT: No Growth[OH]----- Plan of Care Name Dates Details Planned Observations Planned Goals not documented Planned Encounters Appointment; Provider: Aime Rdz M.D. On 15-Jan-2017 13:30 Appointment; Provider: Lex John M.D. On 07-Jun-2016 13:15 Appointment; Provider: Madeline Simms M.D. On 11-May-2016 11:00 Appointment; Provider: Jameel Moore M.D. On 27-Mar-2016 08:45 Interventions Provided Medication Changes* Terbinafine HCl - 250 MG Oral Tablet - Renew Instructions Name Dates Details Instructions not documented Encounters Appointment; Mat Pina M.D. Encounter Diagnosis: Problem [...]
--- OUTSIDE RECORDS SUMMARY | 2016-07-28 22:47 | XMS REPORT | Summary of Care ---
Author Author Nemesio Todd M.D. Unknown Address Unknown Phone Unavailable Care Team Providers Care Vocational Services Specialist Name Role Phone Dora Sow, Jeremy [...] Details Bipolar disorder (296.80, F31.9) Status: Active residential use of drug (V58.69, 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: Active [...] 07-Jan-2010 Influenza on: 22-Dec-2010 Influenza Lot #: [id number] on: 23-Jan-2012 Influenza on: 13-Jan-2013 PPD Lot #: [id number] on: Fluzone INJ Lot #: [id number] on: 02-Jan-2014 Fluzone Quadrivalent 0.5 ML Intramuscular Suspension Lot #: [id number] on: 25-Jan-2015 Tdap (Adacel) Lot #: [id number] on: 28-Jun-2015 Family History Name Dates Details [...] Arellano DPM On 15-Feb-2016 09:00 Appointment; Provider: Madeilne Simms M.D. On 10-Feb-2016 09:00 Interventions Provided [...]
--- OUTSIDE RECORDS SUMMARY | 2016-07-28 22:47 | XMS REPORT | Summary of Care ---
Author Author Madeline Simms M.D. Unknown Address [address], [place] [id number] Phone Unavailable Care Team Providers Care Grant Writer Name Role Phone Dora Sow, Jeremy Unavailable [...] Refills: 11 Lex John M.D.* Started 11-Aug-2014 [id number] GM Bottle PredniSONE 10 MG Oral Tablet [...] on:07-Jan-2010 Influenza Administered on:22-Dec-2010 Influenza Lot #: [id number] Administered on:23-Jan-2012 Influenza Administered on:13-Jan-2013 PPD Lot #: [id number] Administered on: Fluzone Intramuscular Injectable Lot #: [id number] Administered on:02-Jan-2014 Family History Mother* Name Dates [...] smoker Vital Signs Date Test Result Details 09-Sep-2014 08:50 BP Systolic 130 mm[Hg] Status: [...] % Status: Results Date Description Value Details 09-Sep-2014 [...] ml/min (Better) Range: >60 EST GFR, NON-AFR [place] >60 ml/min (Better) Range: >60 Comments: EST GFR is reported in ml/min per 1.73 m2 of body surface area. For -[place], please multiple result by 1.2.----- GLUCOSE 98 [...] Madeline Simms On 09:30 * Appointment; Provider: Vlad Dey On 11-Sep-2014 10:15 * Appointment; Provider: Lex John On 18-Jul-2013 [...] Problem not documented On 27-Nov-2013 11:30 Appointment; aMdeline Simms Encounter Diagnosis: Problem not [...] Problem not documented On 25-Aug-2013 14:15 Appointment; aMdeline Simms Encounter Diagnosis: Problem not [...] Problem not documented On 14:15 Appointment; Lex Gibbnos Encounter Diagnosis: Problem not documented On 13:00 Appointment; Madeline Simms Encounter Diagnosis: Problem not documented On 10-Sep-2012 15:45
--- OUTSIDE RECORDS SUMMARY | 2016-07-28 22:48 | XMS REPORT ---
Author Author GENERATED, SYSTEM Organization Unknown Address Unknown Phone Unavailable Care Team Providers Care Towel Hemmer Name Role Phone MD DAVIDA, MAXWELL [phone] Reason For Visit Chief Complaint BACK PAIN Social History Functional Status Vital Signs Results Problems Encounter Diagnosis No relevant problems exist. Additional Problems * Fall Risk Comment:Problem resolved by [facility] Workflow upon Discharge, Status: Resolved. Encounters Encounter Diagnosis No relevant problems exist. Plan of Care Procedures * Completed left knee arthroscopy, partial medial meniscectomy, chondroplasty trochanter, partial synovectomty, Left, by MD KHADIJAH COE, on 01/25/2016 10:23 AM * Completed Procedure Code: [id number] Procedure Name: not valued, on 01/25/2016 12:00 AM * Completed Procedure Code: 88114 Procedure Name: not valued, on 01/25/2016 12: 00 AM Immunizations No immunizations administered or ordered. Hospital Course Hospital Discharge Instructions Allergies, Adverse Reactions, Alerts * Latex Allergy has not been assessed. * IV Contrast Allergy has not been assessed. * No Known Drug Allergies. Medication Medication reconciliation has not been performed.
--- OUTSIDE RECORDS SUMMARY | 2016-07-28 22:48 | XMS REPORT | Summary of Care ---
Author Author Mendez Sow, Madeline De La Paz Unknown Address Unknown Phone Unavailable Care Team Providers Care Medical Transcription Radiology Name Role Phone Dora Sow, Jeremy Unavailable Unavailable Lisa Sow, Geovanna Unavailable Unavailable Mendez Sow, Madeline 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: Active 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 * Quantity: 16 Refills: 5 Dora Guajardo.Veronique.Lex * Start 15-Jan-2014 Active Losartan Potassium 100 MG Oral Tablet Take one tablet by mouth daily * Quantity: 30 Refills: 5 Mendez Guajardo.Veronique.Madeline * Start 26-Nov-2015 Active Belsomra 20 MG Oral Tablet TAKE ONE TABLET BY MOUTH AT BEDTIME NEEDED * Quantity: 30 Refills: 0 Lex John M.D. * Start 20-Aug-2014 Active Wellbutrin XL 300 MG Oral Tablet Extended Release 24 Hour take one tablet by mouth every day * Quantity: 30 Refills: 0 * Start Active Benztropine Mesylate 1 MG Oral Tablet Take 1 tablet twice daily * Refills: 0 Mendez Guajardo.Madeline Stover * Start 10-Dec-2014 Active Paliperidone ER 6 [...] BEDTIME NEEDED * Quantity: 60 Refills: 5 Sourk M.D., Lex Luna * Start 18-Nov-2015 Active Methocarbamol 750 MG Oral Tablet TAKE ONE TABLET BY MOUTH TWICE DAILY NEEDED FOR MUSCLE SPASMS, Must last 90 days * Quantity: 180 Refills: 0 Simms M.D., Madeline * Start 02-Jun-2015 Active Diclofenac Sodium 75 MG Oral Tablet Delayed Release Take 1 tab bid with food * Quantity: 30 Refills: 0 Simms M.D., Madeline * Start 02-Dec-2015 Active Allergies and Adverse Reactions Name Dates [...] Procedures Procedure Dates Details History of Appendectomy MRI KNEE LEFT Ordered: 06-Dec-2015 Immunization Name Dates Details Tdap (Adacel) on: Feb-2007 Influenza on: 05-Apr-2009 Influenza A (H1N1) Monoval PF SUSP on: 05-Apr-2009 Fluzone INJ on: 07-Jan-2010 Influenza on: 22-Dec-2010 Influenza Lot #: [id number] on: 23-Jan-2012 Influenza on: 13-Jan-2013 PPD Lot #: [id number] on: Fluzone INJ Lot #: [id number] on: 02-Jan-2014 Fluzone Quadrivalent 0.5 ML Intramuscular Suspension Lot #: [id number] on: 25-Jan-2015 Tdap (Adacel) Lot #: [id number] on: 28-Jun-2015 Family History Name Dates Details [...] smoker Vital Signs Date Test Result Details 07-Dec-2015 10:48 BP Systolic 138 mm[Hg] Status: Comments: Location: ; Position: BP Diastolic 88 mm[Hg] Status: Comments: Location: ; Position: Temperature 98.1 f Status: Heart Rate 80 /min Status: Comments: Location: ; Weight 278 lb Status: Physical Findings 93 Status: Comments: O2 Saturation Body Mass Index Calculated 46.26 kg/m2 Status: Body Surface Area Calculated 2.28 m2 Status: 06-Dec-2015 15:58 BP Systolic 147 mm[Hg] Status: Comments: Location: ; Position: BP Diastolic 96 mm[Hg] Status: Comments: Location: ; Position: Heart Rate 97 /min Status: Comments: Location: ; Physical Findings 20 Status: Comments: Respiration 30-Nov-2015 11:22 BP Systolic 130 mm[Hg] Status: Comments: Location: ; Position: BP Diastolic 88 mm[Hg] Status: Comments: Location: ; Position: Heart Rate 87 /min Status: Physical Findings 95 Status: Comments: O2 Saturation 30-Nov-2015 11:17 Weight 271 lb Status: Body Mass Index Calculated 45.1 kg/m2 Status: Body Surface Area Calculated 2.25 m2 Status: 16-Nov-2015 09:30 BP Systolic 136 mm[Hg] Status: Comments: Location: ; Position: BP Diastolic 100 mm[Hg] Status: Comments: Location: ; Position: Temperature 99.3 f Status: Weight 268 lb Status: Body Mass Index Calculated 44.6 kg/m2 Status: Body Surface Area Calculated 2.24 m2 Status: 15-Nov-2015 13:54 BP Systolic 142 mm[Hg] Status: Comments: Location: ; Position: BP Diastolic 88 mm[Hg] Status: Comments: Location: ; Position: Temperature 97.5 f Status: Comments: Method: Heart Rate 86 [...] >60 ml/min Range: >60 EST GFR, NON-AFR [place] >60 ml/min Range: >60 Comments: EST GFR is reported in ml/min per 1.73 m2 of body surface area. For -Citizen Of [place], please multiple result by 1.2.----- GLUCOSE 112 [...] Simms M.D. On 10-Feb-2016 09:00 Appointment; Provider: Schedule Radiology On 13-Dec-2015 15:00 Appointment; Provider: Lex John M.D. On 07-Dec-2015 16:15 Instructions Name Dates Details Instructions not documented [...]
--- OUTSIDE RECORDS SUMMARY | 2016-07-28 22:48 | XMS REPORT | Summary of Care ---
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 (V58.69, 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: [...] Status: Resolved Dyspepsia (536.8, K30) Status: Active Muscle spasm [...] recurrence not specified (461.0, J01.00) Status: Active URI, acute (465.9, J06.9) Status: Active Chest wall pain (786.52, R07.89) Status: Active Dysuria (788.1, R30.0) Status: Active Abdominal pain (789.00, R10.9) Status: Active Paranoid schizophrenia (295.30, F20.0) Status: Active RLQ cramping (789.03, R10.31) Status: Active Diarrhea (787.91, R19.7) Status: Active Abdominal pain of multiple sites (789.09, R10.9) Status: Active Constipation (564.00, K59.00) Status: Active Effusion of left knee (719.06, M25.462) Status: Active Insomnia (780.52, G47.00) Status: Active Obstructive sleep apnea (327.23, G47.33) Status: Active Hypersomnolence (780.54, G47.10) Status: Active Restlessness (799.29, R45.1) Status: Active Pain in left knee (719.46, M25.562) Status: Active Essential hypertension (401.9, I10) Status: Active Hypothyroidism (244.9, E03.9) Status: Active Allergic rhinitis due to pollen (477.0, J30.1) Status: Active Conjunctivitis, allergic (372.14, H10.10) Status: Active Gastroesophageal reflux disease (530.81, K21.9) Status: Active Medications Name Dates Details Metoprolol [...] 0 Simms M.D.Madeline * Start Active Nystatin-Triamcinolone 068163-5.1 UNIT/GM-% External Cream APPLY SPARINGLY TO AFFECTED [...] DAILY. * Quantity: 16 Refills: 5 Sourk M.D.Lxe Start 15-Jan-2014 Active Losartan Potassium 100 MG [...] 0 Simms M.D.Madeline * Start 10-Dec-2014 Active Belsomra 20 MG Oral Tablet TAKE ONE TABLET BY MOUTH AT BEDTIME NEEDED * Quantity: 30 Refills: 0 Sourk M.D.Lex Start 20-Aug-2014 Active Paliperidone ER 6 MG Oral Tablet Extended Release 24 Hour TAKE 1 TABLET DAILY. * Refills: 0 Simms M.D., Madeline * Start 31-May-2015 Active Nicotine Polacrilex 2 [...] Madeline Simms M.D. * Start 02-Jun-2015 Active Diclofenac Sodium 75 MG Oral Tablet Delayed Release Take 1 tab bid with food * Quantity: 30 Refills: 0 Madeline Simms M.D. * Start 02-Dec-2015 Active ClonazePAM 1 MG Oral Tablet TAKE ONE TABLET BY MOUTH AT BEDTIME * Quantity: 30 Refills: 0 Lex John M.D. Start 07-Dec-2015 Active Allergies and Adverse Reactions [...] 07-Jan-2010 Influenza on: 22-Dec-2010 Influenza Lot #: [id number] on: 23-Jan-2012 Influenza on: 13-Jan-2013 PPD Lot #: [id number] on: Fluzone INJ Lot #: [id number] on: 02-Jan-2014 Fluzone Quadrivalent 0.5 ML Intramuscular Suspension Lot #: [id number] on: 25-Jan-2015 Tdap (Adacel) Lot #: [id number] on: 28-Jun-2015 Family History Name Dates Details [...] Vital Signs Date Test Result Details 07-Dec-2015 16:09 BP Systolic 136 mm[Hg] Status: Comments: Location: ; Position: BP Diastolic 80 mm[Hg] Status: Comments: Location: ; Position: Heart Rate 86 /min Status: Physical Findings 20 Status: Comments: Respiration Weight [...] 16-Nov-2015 09:30 BP Systolic 136 mm[Hg] Status: BP Diastolic 100 mm[Hg] Status: Temperature 99.3 f Status: Weight 268 lb [...] >60 ml/min Range: >60 EST GFR, NON-AFR [place] >60 ml/min Range: >60 Comments: EST GFR is reported in ml/min per 1.73 m2 of body surface area. For -Kazakh, please multiple result by 1.2.----- GLUCOSE 112 [...] Appointment; Provider: Schedule Radiology On 13-Dec-2015 15:00 Instructions Name Dates Details Instructions not documented [...]
--- OUTSIDE RECORDS SUMMARY | 2016-07-28 22:48 | XMS REPORT | Summary of Care ---
Author Author Evelyne Perales APRN Organization Unknown Address [address], [place] [id number] Phone Unavailable Care Team Providers Care Assistant Fitness Manager Name Role Phone Dora Sow, Jeremy Unavailable Unavailable Evelyne Perales APRN Unavailable Unavailable [...] Acute otitis media (382.9, H66.90) Status: Active Medications Name Dates Details Metoprolol [...] Refills: 11 Lex John M.D.* Started 11-Aug-2014 [id number] GM Bottle Losartan Potassium 100 MG Oral Tablet take one tablet by mouth every day * Quantity: 30 Refills: 5 Madeline Simms M.D.* Started 03-Mar-2014 ActiveCyclobenzaprine HCl - 10 MG Oral Tablet TAKE 1 TABLET 2 TIMES DAILY NEEDED for muscle cramping * Quantity: 30 Refills: 0 Madeline Simms M.D.* Started 07-Jan-2014 ActiveWellbutrin XL 300 MG Oral Tablet Extended Release 24 Hour take one tablet by mouth every day * Quantity: 30 Refills: 0 * Started ActiveBelsomra 20 MG Oral Tablet TAKE ONE TABLET BY MOUTH AT BEDTIME NEEDED * Quantity: 30 Refills: 0 Lex John M.D.* Started 20-Aug-2014 ActiveAzithromycin 250 MG Oral Tablet TAKE 2 TABLETS ON DAY 1 THEN TAKE 1 TABLET A DAY FOR 4 DAYS. * Quantity: 1 Refills: 0 Evelyne Perales APRN* Started Ended Active6 Tablet Disp Pack Allergies and Adverse Reactions Name Dates Details [...] on:07-Jan-2010 Influenza Administered on:22-Dec-2010 Influenza Lot #: [id number] Administered on:23-Jan-2012 Influenza Administered on:13-Jan-2013 PPD Lot #: [id number] Administered on: Fluzone Intramuscular Injectable Lot #: [id number] Administered on:02-Jan-2014 Family History Mother* Name Dates [...] smoker Vital Signs Date Test Result Details 08:39 BP Systolic 140 mm[Hg] Status: BP Diastolic 91 mm[Hg] Status: Heart Rate 80 /min Status: Temperature 99 f Status: Weight 305 lb Status: O2 SAT 93 % Status: Body Mass Index Calculated 50.75 kg/m2 Status: Body Surface Area Calculated 2.37 m2 Status: 13:09 BP Systolic 130 mm[Hg] Status: BP [...] Instructions * Instructions not documented Encounters Appointment; Evelyne Perales Encounter Diagnosis: Problem not [...] Problem not documented On 20-Dec-2012 15:15 Appointment; hO Greer Encounter Diagnosis: Problem not documented On 10-Dec-2012 13:30 Appointment; Madeline Simms Encounter Diagnosis: Problem not documented On 09-Dec-2012 14:15 Appointment; Madeline Simms Encounter Diagnosis: Problem not documented On 29-Nov-2012 15:30 Appointment; Lex Gibbons Encounter Diagnosis: Problem not documented On 27-Nov-2012 14:30 Appointment; Madeline Simms Encounter Diagnosis: Problem not documented On 15:30
[2016-07-28] MEDS ORDERED: ACET1TAB12 PO (22:49)
--- OUTSIDE RECORDS SUMMARY | 2016-07-28 22:49 | XMS REPORT | Summary of Care ---
Author Author Jamar Spears D.O. Organization Unknown Address [address], [place] [id number] Phone Unavailable Care Team Providers Care Manager Research And Development Name Role Phone Jeremy John M.D. Unavailable Unavailable Lisa Sow, Geovanna Unavailable Unavailable Jamar Spears D.O. Unavailable Unavailable Madeline Simms M.D. 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 * Quantity: 16 Refills: 5 Dora M.DLex Anderson * Start 15-Jan-2014 Active Losartan Potassium 100 [...] AT BEDTIME * Quantity: 60 Refills: 5 Sourk M.D., Lex Luna * Start 07-Dec-2015 Active Celecoxib 200 MG [...] 07-Jan-2010 Influenza on: 22-Dec-2010 Influenza Lot #: [id number] on: 23-Jan-2012 Influenza on: 13-Jan-2013 PPD Lot #: [id number] on: Fluzone INJ Lot #: [id number] on: 02-Jan-2014 Fluzone Quadrivalent 0.5 ML Intramuscular Suspension Lot #: [id number] on: 25-Jan-2015 Tdap (Adacel) Lot #: [id number] on: 28-Jun-2015 Family History Name Dates Details [...]
--- OUTSIDE RECORDS SUMMARY | 2016-07-28 22:49 | XMS REPORT | Summary of Care ---
Author Author Ebony Randolph Unknown Address [address], [place] [id number] Phone Unavailable Care Team Providers Care Section Weaver Name Role Phone Dora Sow, Jeremy Unavailable Unavailable Lisa Sow, Geovanna Unavailable Unavailable Teresa Sow, Zahra Unavailable Unavailable Mendez Sow, Madeline Unavailable Unavailable [...] knee, initial encounter (836.0, S83.242A) Status: Active Medications Name Dates Details Metoprolol [...] Simms M.D., Madeline * Start Active Nystatin-Triamcinolone 815995-3.1 UNIT/GM-% External Cream APPLY SPARINGLY TO AFFECTED AREA(S) 3 TIMES A DAY * Quantity: 1 Refills: 0 Simms M.D., Madeline * Start 03-Aug-2011 Active 60 GM Tube [...] DAILY. * Quantity: 16 Refills: 5 Sourk M.D.Lex Start 15-Jan-2014 Active Losartan Potassium 100 MG Oral Tablet Take one tablet by mouth daily * Quantity: 30 Refills: 5 Simms M.D.Madeline Start 26-Nov-2015 Active Wellbutrin XL 300 MG [...] Simms M.Madeline Stover * Start 31-May-2015 Active Nicotine Polacrilex [...] BEDTIME NEEDED * Quantity: 60 Refills: 5 Dora Guajardo.Veronique.Lex * Start 18-Nov-2015 Active Methocarbamol 750 MG Oral Tablet TAKE ONE TABLET BY MOUTH TWICE DAILY NEEDED FOR MUSCLE SPASMS, Must last 90 days * Quantity: 180 Refills: 0 Simms M.Veronique.Madeline * Start 02-Jun-2015 Active Diclofenac Sodium 75 MG Oral Tablet Delayed Release Take 1 tab bid with food * Quantity: 30 Refills: 0 Simms M.Veronique.Madeline * Start 02-Dec-2015 Active ClonazePAM 1 MG Oral Tablet TAKE ONE TABLET BY MOUTH AT BEDTIME * Quantity: 30 Refills: 0 Lex John M.D. * Start 07-Dec-2015 Active Allergies and Adverse [...] 07-Jan-2010 Influenza on: 22-Dec-2010 Influenza Lot #: [id number] on: 23-Jan-2012 Influenza on: 13-Jan-2013 PPD Lot #: [id number] on: Fluzone INJ Lot #: [id number] on: 02-Jan-2014 Fluzone Quadrivalent 0.5 ML Intramuscular Suspension Lot #: [id number] on: 25-Jan-2015 Tdap (Adacel) Lot #: [id number] on: 28-Jun-2015 Family History Name Dates Details [...] >60 ml/min Range: >60 EST GFR, NON-AFR [place] >60 ml/min Range: >60 Comments: EST GFR is reported in ml/min per 1.73 m2 of body surface area. For -Mozambican, please multiple result by 1.2.----- GLUCOSE 112 [...] Dates Details Instructions not documented Encounters Appointment; Lex John M.D. Encounter Diagnosis: Problem [...] Problem not documented On 03-Mar-2014 09:00 Appointment; Sourk, Lex, M.D. Encounter Diagnosis: Problem not documented On [...]
--- OUTSIDE RECORDS SUMMARY | 2016-07-28 22:49 | XMS REPORT | Summary of Care ---
Author Author Madeline Simms M.D. Unknown Address [address] [place], [place] [address] Phone Unavailable Care Team Providers Care Foreign Trade Teacher Name Role Phone Jeremy John M.D. 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 Hypomagnesemia (275.2, E83.42) Status: Active Bilateral dry eyes (375.15, H04.123) Status: Active Plantar fascial fibromatosis (728.71, M72.2) Status: Active Fatigue (780.79, R53.83) Status: Active Nausea (787.02, R11.0) Status: Active Myalgia (729.1, M79.1) Status: Active Muscle spasm (728.85, M62.838) Status: Active Sleep disturbances (780.50, G47.9) Status: Active Hyperlipidemia (272.4, E78.5) Status: Active [...] 0 Madeline Simms M.D.* Started 25-Nov-2010 ActiveNystatin-Triamcinolone 288226-7.1 UNIT/GM-% External Cream APPLY SPARINGLY TO AFFECTED [...] Refills: 5 Lex John M.D.* Started 15-Jan-2014 [id number] GM Bottle Losartan Potassium 100 MG Oral [...] on:07-Jan-2010 Influenza Administered on:22-Dec-2010 Influenza Lot #: [id number] Administered on:23-Jan-2012 Influenza Administered on:13-Jan-2013 PPD Lot #: [id number] Administered on: Fluzone Intramuscular Injectable Lot #: [id number] Administered on:02-Jan-2014 Family History Mother* Name Dates [...]
--- NOTE | 2016-07-28 22:50 | ERPDOC ---
Departure Disposition Decision Date: Jul 28, 2016 Disposition Decision Time: 22:48 Disposition: 01 DISCHARGED HOME, SELF-CARE Impression Impression Impression: Primary Impression: Bilateral lower extremity pain Severity: Moderate Condition: Stable Seen By: Physician only Patient Instructions: Leg Pain (ED) Problems/Meds/Labs Reviewed?: Yes Medications reviewed and manag: Yes Follow up care ordered?: Yes Mental Status: Alert, Oriented Scripts Acetaminophen with Codeine (Tylenol with Codeine #3 Tablet) 300-30 Tablet 1-2 TAB PO Q6H Y for PAIN, #12 TAB Prov: MARIELY TOBIN MD 07/28/16 HPI - Lower Extremity General Chief Complaint: Lower Extremity Pain Stated Complaint: BLOOD CLOTS BOTH LEGS Time Seen by Provider: 22:48 Source: patient Exam Limitations: no limitations HPI - Lower Extremity Initial Comments Patient is a 45-year-old male presents emergency room for evaluation of bilateral lower extremity pains. 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 Patient was given anticoagulation medications which she has been taking diligently, however they did not write him any prescriptions for pain. Patient states his primary medical physician will not write him any prescription for pain so patient came to [facility] for us to write him pain medications. Patient currently complaining of 9/10 pain no worsening of pain no shortness of breath or difficulty breathing. Pain/Severity Scale: Now & Worst: 8/10 Pain/Injury Location: bilateral leg Allergies: Coded Allergies: varenicline (Verified Allergy, Unknown, 07/28/16) Past History Past Medical History Metabolic: hypertension ENMT: sleep apnea Hematologic: DVT Surgical History General: back Social History Smoking Status: Never smoker Substance Use Type: does not use Alcohol Intake: none Review of Systems Constitutional Constitutional: DENIES: appetite decrease, chills, dizziness, fever, weakness Eyes Vision: DENIES: double vision, loss of visual flor ENMT Sinuses: DENIES: congestion, rhinorrhea Mouth/Throat: DENIES: scratchy throat, sore throat Cardiovascular Cardiac: DENIES: chest pain, dyspnea on exertion GI Upper Abdomen: DENIES: nausea, pain, vomiting Lower Abdomen: DENIES: constipation, diarrhea, pain Musculoskeletal General: see HPI Integumentary Skin: DENIES: color change, itching, rash Endocrine Endocrine: DENIES: heat/cold intolerance Hematologic/Lymphatic Hematologic/Lymphatic: DENIES: anemia Physical Exam General General Nourishment: well nourished, well developed General Body Habitus: well groomed Vitals and Pain First Documented Vital Signs Date Time Temp Pulse Resp B/P Pulse Ox O2 Delivery O2 Flow Rate FiO2 07/28/16 22:28 98.7 83 20 135/82 92 Room Air Weight: Kilograms: 124.300 Height (feet): 5 Height (inches): 11.00 Triage Pain Scale: RN VS reviewed by Provider: Yes Eyes (brief) Eyes Brief: found: EOMI ENMT (brief) ENMT Brief: FOUND: mucosa moist, normal dentition, NOT FOUND: pharnyx erythema , tonsillar deviation Neck (brief) Neck: NOT FOUND: adenopathy, spasm, tenderness Respiratory (brief) Respiratory: FOUND: clear all flor, equal bilaterally, NOT FOUND: rales, wheezes Cardiovascular (brief) Cardiac: FOUND: regular rate, regular rhythm Capillary Refill: <2 sec Abdomen (brief) Abdominal Brief: FOUND: bowel normo active x4, soft, NOT FOUND: distended, tender Lymphatic (brief) Lymphatic Brief: NOT FOUND: adenopathy Musculoskeletal (brief) Musculoskeletal Brief: NOT FOUND: spasm, tenderness Comments Patient with 2+ DP/PT bilaterally capillary refill less than 2 seconds all digits, sensation intact distally flexion extension of hips knees and ankles and toes intact bilaterally Psychiatric (brief) Psychiatric Brief: FOUND: alert, oriented Differential Diagnoses Considering: DVT Progress Results/Orders Orders Procedure Category Date Status Time Acetaminoph/Cod PHA 07/28/16 Complete 300/30 Prepack 23:00 Medications Current ED Medications Acetaminophen/ Codeine Phosphate (TYLENOL #3 (PrePack)) 1 pack O ONCE SENT HOME Last administered on 07/28/16t 23:00; Start 07/28/16 at 23:00; Stop at 23:01; Status DC MARIELY TOBIN MD Jul 28, 2016 22:49
--- OUTSIDE RECORDS SUMMARY | 2016-07-28 22:50 | XMS REPORT | Summary of Care ---
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 * Refills: 0 Simms M.DMadeline Anderson * Start 31-May-2015 Active Nicotine Polacrilex 2 [...] 5 Dora Guajardo.Lex Stover Start 07-Dec-2015 Active Hydrocodone-Acetaminophen 7.5-325 MG Oral Tablet TAKE 1 TO 2 TABLETS EVERY 6 HOURS NEEDED FOR PAIN. * Quantity: 30 Refills: 0 Johann SowPedro * Start 08-Mar-2016 Active Terbinafine HCl - 250 MG Oral Tablet 1QD FOR 3 MONTHS - TAKE ONE TABLET BY MOUTH EVERY DAY FOR 3 MONTHS * Quantity: 90 Refills: 0 Simms M.DMonicaMadeline * Start 23-Jun-2014 End 19-Jun-2016 Active Meloxicam 15 MG Oral Tablet TAKE ONE TABLET BY MOUTH EVERY DAY WITH FOOD * Quantity: 30 Refills: 1 Simms M.D., Madeline * Start 11-Apr-2016 Active Allergies and Adverse [...] 07-Jan-2010 Influenza on: 22-Dec-2010 Influenza Lot #: [id number] on: 23-Jan-2012 Influenza on: 13-Jan-2013 PPD Lot #: [id number] on: Fluzone INJ Lot #: [id number] on: 02-Jan-2014 Fluzone Quadrivalent 0.5 ML Intramuscular Suspension Lot #: [id number] on: 25-Jan-2015 Tdap (Adacel) Lot #: [id number] on: 28-Jun-2015 Fluzone Quadrivalent 0.5 ML Intramuscular Suspension Lot #: [id number] on: 23-Feb-2016 Family History Name Dates Details [...] smoker Vital Signs Date Test Result Details 11-Apr-2016 [...] 20-Mar-2016 19:24 BP Systolic 124 mm[Hg] Status: BP Diastolic 70 mm[Hg] Status: Temperature 97 f Status: Heart Rate 116 /min Status: Height 71.5 in Status: Physical Findings 97 Status: Comments: O2 Saturation 16-Mar-2016 15:15 BP Systolic 128 mm[Hg] Status: BP Diastolic 78 mm[Hg] Status: Temperature 97.9 f Status: Heart Rate 86 /min Status: Physical Findings 96 Status: Comments: O2 Saturation Results Date Description Value Details Results not [...] On 12-Apr-2016 09:15 Interventions Provided Medication Changes* Celecoxib 200 MG Oral Capsule - Completed * Meloxicam 15 MG Oral Tablet - Start Instructions Name Dates Details Instructions not documented Encounters Appointment; Evelyne Perales A.P.R.N. Encounter Diagnosis: Problem [...]
--- OUTSIDE RECORDS SUMMARY | 2016-07-28 22:50 | XMS REPORT | Summary of Care ---
Author Author Raul Cowart M.D. Organization Unknown Address [address] [place], [place] [phone] Phone Unavailable Care Team Providers Care Planning Intern Name Role Phone Jeremy John M.D. Unavailable [...] 1/2 TABLET AT BEDTIME. * Refills: 0 SimmsMadeline M.D.* Started ActiveInvega Sustenna 156 MG/ML Intramuscular [...] Refills: 5 SimmsMadeline valle M.D.* Started 29-Apr-2013 ActiveTraZODone HCl - 50 MG Oral Tablet TAKE 1 TABLET AT BEDTIME. * Quantity: 30 Refills: 2 * Started 22-Jun-2014 ActiveFluticasone Propionate 50 MCG/ACT Nasal Suspension USE 2 SPRAYS IN EACH NOSTRIL ONCE DAILY * Quantity: 1 Refills: 11 Lex John M.D.* Started 11-Aug-2014 Qomvei95 GM Bottle Losartan Potassium 100 MG Oral Tablet take one tablet by mouth every day * Quantity: 30 Refills: 5 SimmsMadeline valle M.D.* Started 03-Mar-2014 ActiveCyclobenzaprine HCl - 10 [...] Refills: 0 Lex John M.D.* Started 20-Aug-2014 ActiveCefuroxime Axetil 500 MG Oral Tablet take one tab BID x 10 day * Quantity: 20 Refills: 0 SimmsMadeline M.D.* Started Active Allergies and Adverse Reactions [...] on:07-Jan-2010 Influenza Administered on:22-Dec-2010 Influenza Lot #: [id number] Administered on:23-Jan-2012 Influenza Administered on:13-Jan-2013 PPD Lot #: [id number] Administered on: Fluzone Intramuscular Injectable Lot #: [id number] Administered on:02-Jan-2014 Family History Mother* Name Dates [...] smoker Vital Signs Date Test Result Details 09:11 BP Systolic 130 mm[Hg] Status: BP [...] Simms On 01-Jan-2015 10:30 * Appointment; Provider: Schedule Radiology On 10:00 * Appointment; Provider: Lex John On 18-Jul-2013 10:15 * Appointment; Provider: Madeline Simms On 27-Apr-2008 08:00 Instructions * Instructions not documented Encounters Appointment; Raul Cowart Encounter Diagnosis: Problem not [...]
--- OUTSIDE RECORDS SUMMARY | 2016-07-28 22:50 | XMS REPORT | Summary of Care ---
Author Author Nemesio Gonzalez M.D. Unknown Address Unknown Phone Unavailable Care Team Providers Care Mold Mover Name Role Phone Dora Sow, Jeremy Unavailable Unavailable Geovanna Gonzalez M.D. Unavailable Unavailable Mendez Sow, Madeline 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: Active half-way use of drug (V58.69, 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: Active [...] Status: Active Constipation (564.00, K59.00) Status: Active Diarrhea (787.91, R19.7) Status: Active RLQ cramping (789.03, R10.31) Status: Active Medications Name Dates Details Metoprolol Tartrate 25 MG Oral Tablet take one tablet by mouth every day Quantity: 30 Simms M.D., Maedline * Start 15-Mar-2009 Active Levothyroxine Sodium 50 [...] daily * Quantity: 30 Refills: 3 Simms M.D., Madeline * Start 26-Jan-2012 Active AmLODIPine Besylate 5 MG Oral Tablet TAKE ONE TABLET BY MOUTH EVERY MORNING * Quantity: 30 Refills: 5 Simms M.D.Madeline * Start 29-Apr-2013 Active Fluticasone Propionate 50 MCG/ACT Nasal Suspension USE 1 SPRAY IN EACH NOSTRIL ONCE DAILY. * Quantity: 16 Refills: 5 Sourk M.D.Lex * Start 15-Jan-2014 Active Losartan Potassium 100 MG Oral Tablet Take one tablet by mouth daily * Quantity: 30 Refills: 0 Simms M.D.Madeline * Start 03-Mar-2014 Active Belsomra 20 MG Oral Tablet TAKE ONE TABLET BY MOUTH AT BEDTIME NEEDED * Quantity: 30 Refills: 0 Dora M.D.Lex * Start 20-Aug-2014 Active Wellbutrin XL 300 [...] NEEDED * Quantity: 60 Refills: 0 Dora M.DLex Anderson * Start 15-Jun-2015 Active Nicotine Polacrilex 2 MG Mouth/Throat Lozenge ALLOW 1 LOZENGE TO DISSOLVE SLOWLY IN MOUTH DIRECTED * Quantity: 1 Refills: 0 Perez Guajardo.Kristi Stover Start Active 48 Lozenge Box Naproxen 500 MG Oral Tablet TAKE ONE TABLET BY MOUTH TWICE DAILY WITH FOOD * Quantity: 60 Refills: 0 Simms M.D.Madeline * Start 17-Aug-2015 Active Polyethylene Glycol 3350 Oral Powder MIX ONE CAPFUL IN 8OZ OF WATER AND TAKE TWO TIMES A DAY * Quantity: 527 Refills: 0 Lisa Sow, Nemesio Austin * Start 16-Nov-2015 Active Allergies and Adverse Reactions Name Dates [...] 07-Jan-2010 Influenza on: 22-Dec-2010 Influenza Lot #: [id number] on: 23-Jan-2012 Influenza on: 13-Jan-2013 PPD Lot #: [id number] on: Fluzone INJ Lot #: [id number] on: 02-Jan-2014 Fluzone Quadrivalent 0.5 ML Intramuscular Suspension Lot #: [id number] on: 25-Jan-2015 Tdap (Adacel) Lot #: [id number] on: 28-Jun-2015 Family History Name Dates Details [...] smoker Vital Signs Date Test Result Details 16-Nov-2015 09:30 BP Systolic 136 mm[Hg] Status: [...] ; Position: Heart Rate 80 /min Status: Weight 265 [...] >60 ml/min Range: >60 EST GFR, NON-AFR [place] >60 ml/min Range: >60 Comments: EST GFR is reported in ml/min per 1.73 m2 of body surface area. For -Salvadorean, please multiple result by 1.2.----- GLUCOSE 112 [...] C REACTIVE PROTEIN 0.3 mg/dL Range: 0.0-0.9 Plan of Care Name Dates Details Planned Observations Planned Goals not documented Planned Encounters Appointment; Provider: Carolynn Arellano DPM On 15-Feb-2016 09:00 Appointment; Provider: Madeline Simms M.D. On 10-Feb-2016 09:00 Interventions Provided Medication Changes* Azithromycin 500 MG Oral Tablet - Completed * Polyethylene Glycol 3350 Oral Powder - Start Labs/Procedures/Imaging* C REACTIVE PROTEIN, CRP 2030; Done: Nov 16 2015 9:58AM * CBC w/ Auto Diff 7150; Done: Nov 16 2015 9:58AM * Comprehensive Metabolic Panel 1212; Done: Nov 16 2015 9:58AM * Urinalysis, Reflex to Microscopic or Culture PRN 8005; Done: Nov 16 2015 9: 52AM Instructions Name Dates Details Instructions not documented Encounters Appointment; Nemesio Todd M.D. Encounter Diagnosis: Problem [...]
--- OUTSIDE RECORDS SUMMARY | 2016-07-28 22:50 | XMS REPORT | Summary of Care ---
Author Author Madeline Simms M.D. Unknown Address [address], [place] [id number] Phone Unavailable Care Team Providers Care Icer Air Conditioning Name Role Phone Dora Sow, Jeremy Unavailable Unavailable Madeline Simms M.D. Unavailable Unavailable Supa Sow, Mireille Unavailable Unavailable J Luis Sow, O Unavailable Unavailable Madeline Simms PP Unavailable Unavailable [...] Active Bipolar disorder (296.80, F31.9) Status: Active long-term use of drug (V58.69, 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: Active [...] Active Seasonal allergies (477.9, J30.2) Status: Active Leg pain, bilateral (729.5, M79.604) [...] Status: Active Myalgia (729.1, M79.1) Status: Active Insomnia (780.52, G47.00) Status: Active Obstructive sleep apnea (327.23, G47.33) Status: Active Medications Name Dates Details Metoprolol Tartrate 25 MG Oral Tablet take one tablet by mouth every day Quantity: 30 SimmsMadeline M.D.* Started 15-Mar-2009 ActiveLevothyroxine Sodium 50 MCG Oral Tablet take one tablet by mouth every day * Quantity: 30 Refills: 3 Madeline Simms M.D.* Started 26-Aug-2010 ActiveLevocetirizine Dihydrochloride 5 MG Oral Tablet take one tablet by mouth every day * Quantity: 90 Refills: 3 SimmsMadeline M.D.* Started 26-Dec-2011 ActiveLORazepam 1 MG Oral Tablet TAKE 1/2 TABLET IN MORNING, 1 TABLET AT NOON, 1 TABLET AT BEDTIME. * Quantity: 45 Refills: 0 Madeline Simms M.D.* Started ActiveNystatin-Triamcinolone 000932-1.1 UNIT/GM-% External Cream APPLY SPARINGLY TO AFFECTED AREA(S) 3 TIMES A DAY * Quantity: 60 Refills: 0 Madeline Simms M.D.* Started 03-Aug-2011 ActiveLosartan Potassium 100 MG Oral Tablet take one tablet by mouth every day * Quantity: 30 Refills: 3 Madeline Simms M.D.* Started 03-Mar-2014 ActiveOmeprazole 20 MG Oral Capsule Delayed Release Take one capsule by mouth daily * Quantity: 30 Refills: 5 Maedline Simms M.D.* Started 26-Jan-2012 ActiveAmLODIPine Besylate 5 [...] Refills: 0 Lex John M.D.* Started 20-Aug-2014 ActiveRisperDAL Consta 37.5 MG Intramuscular Suspension Reconstituted * Refills: 0 * Started 25-Jan-2015 ActiveDoxepin HCl - 50 MG Oral Capsule TAKE ONE CAPSULE BY MOUTH AT BEDTIME NEEDED. * Quantity: 30 Refills: 0 Saulo Dietz M.D.* Started 14-Jan-2015 ActiveMeloxicam 15 MG Oral Tablet take one tablet by mouth every day * Quantity: 30 Refills: 0 Raul Cowart M.D.* Started 17-Dec-2014 ActiveCyclobenzaprine HCl - 10 MG Oral Tablet TAKE ONE TABLET BY MOUTH TWICE DAILY NEEDED * Quantity: 30 Refills: Madeline Sampson M.D.* Started 14-Dec-2014 Active Allergies and Adverse Reactions Name Dates [...] of Appendectomy CBC w/ Auto Diff 7150 Ordered:25-May-2015 Comprehensive Metabolic Panel 1212 Ordered:25-May-2015 LIPID PROFILE 1184 Ordered:25-May-2015 THYROID STIM. HORMONE 3602 Ordered:25-May-2015 Urinalysis, Reflex to Microscopic or Culture PRN 8005 Ordered:25-May-2015 Immunization Name Dates Details Tdap (Adacel) Administered on:Feb-2007 Influenza Administered on:05-Apr-2009 Influenza A (H1N1) Monoval PF Intramuscular Suspension Administered on:05-Apr-2009 Fluzone Intramuscular Injectable Administered on:07-Jan-2010 Influenza Administered on:22-Dec-2010 Influenza Lot #: [id number] Administered on:23-Jan-2012 Influenza Administered on:13-Jan-2013 PPD Lot #: [id number] Administered on: Fluzone Intramuscular Injectable Lot #: [id number] Administered on:02-Jan-2014 Fluzone Quadrivalent 0.5 ML Intramuscular Suspension Lot #: [id number] Administered on:25-Jan-2015 Family History Mother* Name Dates [...] Greer On 16-Jan-2017 13:00 * Appointment; Provider: Lex John On 11:45 * Appointment; Provider: Madeline Simms On 31-May-2015 15:30 * Appointment; Provider: Katja Martinez On 12-Jan-2015 [...] Problem not documented On 09-Sep-2014 09:00 Appointment; Madelnie Simms Encounter Diagnosis: Problem not documented On [...]
--- OUTSIDE RECORDS SUMMARY | 2016-07-28 22:51 | XMS REPORT | Summary of Care ---
Author Author Madeline Simms M.D. Unknown Address [address], [place] [id number] Phone Unavailable Care Team Providers Care Soil Conservation Technician Name Role Phone Jeremy John M.D. Unavailable Unavailable Madeline Simms M.D. 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 * Refills: 0 SimmsMadeline M.D.* Started 31-May-2015 ActiveHydrOXYzine HCl - 25 MG Oral Tablet TAKE 1 TO 3 TABLETS BY MOUTH AT BEDTIME NEEDED * Quantity: 60 Refills: 0 Lex John M.D.* Started 15-Jun-2015 ActiveMethocarbamol 750 MG Oral Tablet TAKE ONE TABLET BY MOUTH TWICE DAILY NEEDED FOR MUSCLE SPASMS * Quantity: 60 Refills: 0 SimmsMadeline M.D.* Started 02-Jun-2015 ActiveNaproxen 500 MG Oral Tablet FF TAKE ONE TABLET BY MOUTH TWICE DAILY WITH FOOD * Quantity: 60 Refills: 2 SimmsMadeline M.D.* Started 17-Aug-2015 Active Allergies and Adverse Reactions Name [...] on:07-Jan-2010 Influenza Administered on:22-Dec-2010 Influenza Lot #: [id number] Administered on:23-Jan-2012 Influenza Administered on:13-Jan-2013 PPD Lot #: [id number] Administered on: Fluzone Intramuscular Injectable Lot #: [id number] Administered on:02-Jan-2014 Fluzone Quadrivalent 0.5 ML Intramuscular Suspension Lot #: [id number] Administered on:25-Jan-2015 Tdap (Adacel) Lot #: [id number] Administered on:28-Jun-2015 Family History Mother* Name Dates [...] smoker Vital Signs Date Test Result Details 17-Aug-2015 14:26 BP Systolic 144 mm[Hg] Status: BP Diastolic 90 mm[Hg] Status: Heart Rate 100 /min Status: Weight 265 lb Status: O2 SAT 94 % Status: Body Mass Index Calculated 44.1 kg/m2 Status: Body Surface Area Calculated 2.23 m2 Status: 05-Aug-2015 13:59 BP Systolic 118 mm[Hg] Status: BP Diastolic 88 mm[Hg] Status: Temperature 97.7 f Status: Heart Rate 89 /min Status: Weight 262 lb Status: O2 SAT 94 % Status: Body Mass Index Calculated 43.6 kg/m2 Status: Body Surface Area Calculated 2.22 m2 Status: Results Date Description Value Details 05-Aug-2015 14:52 XRay SPINE-LUMBAR Comments: Exam Date: 08/05/2015 14: 32Dictation Date: 08/05/2015 14:52 X SPINE LUMBAR W/ FLEX & EXT (Better) Plan of Care Planned Observations* Name Dates Details Planned Goals not documented Goal Planned Encounters* Appointment; Provider: Oh Greer On 16-Jan-2017 13:00 * Appointment; Provider: Carolynn Arellano On 15-Feb-2016 09:00 * Appointment; Provider: Madeline Simms On 13:45 [...] not documented On 24-Feb-2014 12:45 Appointment; Madeline Smims Encounter Diagnosis: Problem not documented On 13-Feb-2014 [...]
--- OUTSIDE RECORDS SUMMARY | 2016-07-28 22:51 | XMS REPORT | Summary of Care ---
Author Author Madeline Simms M.D. Unknown Address [address] [place], [place] [id number] Phone Unavailable Care Team Providers Care Pizza Delivery Driver Name Role Phone Jeremy John M.D. 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 Insomnia (780.52, G47.00) Status: Active Essential hypertension (401.9, I10) Status: Active Hypothyroidism (244.9, E03.9) Status: Active Obstructive sleep apnea (327.23, G47.33) Status: Active History of Tobacco use (305.1, Z72.0) Status: Resolved Paranoid schizophrenia (295.30, F20.0) Status: Active Dyspepsia (536.8, K30) Status: Active Muscle spasm (728.85, M62.838) Status: Active Lower back pain (724.2, M54.5) Status: Active Nicotine dependence (305.1, F17.200) Status: Active Medications Name Dates [...] every day * Quantity: 90 Refills: 3 Madleine Simms M.D.* Started 26-Dec-2011 ActiveOmeprazole 20 MG [...] Started 10-Dec-2014 ActiveMeloxicam 15 MG Oral Tablet Take one tablet by mouth daily * Quantity: 30 Refills: 1 Lex John M.D.* Started 17-Dec-2014 ActivePaliperidone ER 6 MG Oral Tablet Extended Release 24 Hour TAKE 1 TABLET DAILY. * Refills: 0 Madeline Simms M.D.* Started 31-May-2015 ActiveHydrOXYzine HCl - 25 MG Oral Tablet TAKE 1 TO 3 TABLETS BY MOUTH AT BEDTIME NEEDED * Quantity: 60 Refills: 0 Lex John M.D.* Started 15-Jun-2015 ActiveMethocarbamol 750 MG Oral Tablet TAKE ONE TABLET BY MOUTH TWICE DAILY NEEDED FOR MUSCLE SPASMS * Quantity: 60 Refills: 0 SimmsMadeline M.D.* Started 02-Jun-2015 Active Allergies and Adverse [...] on:07-Jan-2010 Influenza Administered on:22-Dec-2010 Influenza Lot #: [id number] Administered on:23-Jan-2012 Influenza Administered on:13-Jan-2013 PPD Lot #: [id number] Administered on: Fluzone Intramuscular Injectable Lot #: [id number] Administered on:02-Jan-2014 Fluzone Quadrivalent 0.5 ML Intramuscular Suspension Lot #: [id number] Administered on:25-Jan-2015 Tdap (Adacel) Lot #: [id number] Administered on:28-Jun-2015 Family History Mother* Name Dates [...] smoker Vital Signs Date Test Result Details 05-Aug-2015 13:59 BP Systolic 118 mm[Hg] Status: [...] Lex John On 11:45 * Appointment; Provider: Carolynn Arellano On 13-Aug-2015 15:00 * Appointment; Provider: Katja Martinez On 12-Jan-2015 [...] not documented On 25-Aug-2013 14:15 Appointment; Madeline Smims Encounter Diagnosis: Problem not documented On 25-Aug-2013 13:00 Appointment; Carolynn Arellano Encounter Diagnosis: Problem not documented On 21-Aug-2013 13:30 Appointment; Nemesio Gonzalez Encounter Diagnosis: Problem not documented On 11-Aug-2013 11:00
--- OUTSIDE RECORDS SUMMARY | 2016-07-28 22:51 | XMS REPORT | Continuity of care Document ---
Author Author GENERATED, SYSTEM Organization Unknown Address Unknown Phone Unavailable Purpose Hospital Course Allergies, Adverse Reactions, Alerts * Latex Allergy has not been assessed. * IV Contrast Allergy has not been assessed. * No Known Drug Allergies. Problems No relevant problems exist. Procedures No relevant procedures performed. Medication Medication reconciliation has not been performed. Results
--- OUTSIDE RECORDS SUMMARY | 2016-07-28 22:51 | XMS REPORT | Summary of Care ---
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 (V58.69, 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: [...] Active Ingrown toenail (703.0, L60.0) Status: Active Effusion of left knee (719.06, [...] days * Quantity: 180 Refills: 0 Simms Casandra.Madeline Stover * Start 02-Jun-2015 Active ClonazePAM 1 [...] 07-Jan-2010 Influenza on: 22-Dec-2010 Influenza Lot #: [id number] on: 23-Jan-2012 Influenza on: 13-Jan-2013 PPD Lot #: [id number] on: Fluzone INJ Lot #: [id number] on: 02-Jan-2014 Fluzone Quadrivalent 0.5 ML Intramuscular Suspension Lot #: [id number] on: 25-Jan-2015 Tdap (Adacel) Lot #: [id number] on: 28-Jun-2015 Fluzone Quadrivalent 0.5 ML Intramuscular Suspension Lot #: [id number] on: 23-Feb-2016 Family History Name Dates Details [...] 08:18 AEROBIC CULTURE Comments: [facility] performed at: [facility], [address] [place] [address], [phone], [place]atch Boss: Macario Rodriguez D.O., MPHQuest Collection Date/Time: [id number] Results Received Date/Time: [id number] Reported Date/Time: [id number] FASTING:NOQuest performed at: [facility], [address] [place] [address], [id number], Hatch Boss: Macario Rodriguez D.O., MPHQuest Collection Date/Time: [id number] Results Received Date/Time: [id number] Reported Date/Time: [id number] FASTING:NOQuest performed at: [facility], [address] [place] [address], [phone], Hatch Boss: Macario Rodriguez D.O., MPHQuest Collection Date/Time: [id number] Results Received Date/Time: [id number] Reported Date/Time: [id number] FASTING:NO CULTURE, AEROBIC BACTERIA WITH GRAM STAIN SEE NOTE Comments: CULTURE, AEROBIC BACTERIA WITH GRAM STAIN MICRO NUMBER: [id number] TEST STATUS: FINAL SPECIMEN SOURCE: KNEE SPECIMEN QUALITY: ADEQUATE GRAM STAIN: Rare White blood cells seen No organisms seen RESULT: No Growth[HI]----- Plan of Care Name Dates Details Planned Observations Planned Goals not documented Planned Encounters Appointment; Provider: Aime Rdz M.D. On 15-Jan-2017 13:30 Appointment; Provider: Lex John M.D. On 07-Jun-2016 13:15 Appointment; Provider: Madeline Simms M.D. On 11-May-2016 11:00 Appointment; Provider: Jameel Moore M.D. On 22-Mar-2016 08:45 Interventions Provided Medication Changes* PredniSONE 20 MG Oral Tablet - Start Instructions Name Dates Details Instructions not documented Encounters Appointment; Tressa Coronel P.A. Encounter Diagnosis: Problem [...] Problem not documented On 09-Sep-2014 09:00 Appointment; Mdaeline Simms M.D. Encounter Diagnosis: Problem not documented On 08-Sep-2014 16:15 Appointment; Gisselle Danielle M.D. Encounter Diagnosis: Problem not documented On 12-Aug-2014 08:25 Appointment; Madeline Simms M.D. Encounter Diagnosis: Problem not documented On 06-Aug-2014 13:45 Appointment; Jane Maria A.PMonicaRMiladis Encounter Diagnosis: Problem not documented On 16-Jul-2014 14:30 Appointment; Madeline iSmms M.D. Encounter Diagnosis: Problem [...]
--- OUTSIDE RECORDS SUMMARY | 2016-07-28 22:52 | XMS REPORT | Summary of Care ---
Author Author Johann Sow, Pedro De La Paz Unknown Address Unknown Phone Unavailable Care Team Providers Care Primer Boxer Name Role Phone Jeremy John M.D. Unavailable Unavailable Mendez Sow, Madeline Unavailable Unavailable Perez Sow, Homa Unavailable Unavailable Johann Sow, Pedro Unavailable Unavailable Madeline Simms Unavailable Unavailable Unavailable Unavailable Functional Status Name Dates Details Functional status health issues are not documented Status: Name Dates Details Cognitive status health issues are not documented Status: Problems Name Dates Details Bipolar disorder (296.80, F31.9) Status: Active [place] [...] M.D. * Start Active 48 Lozenge Box ClonazePAM 1 MG Oral Tablet Take 3 [...] 7150 Ordered: 08-Feb-2016 AEROBIC CULTURE Ordered: 08-Mar-2016 JOINT FLUID FOR CRYSTALS 7611 Ordered: 08-Mar-2016 Immunization Name Dates Details Tdap (Adacel) on: Feb-2007 Influenza on: 05-Apr-2009 Influenza A (H1N1) Monoval PF SUSP on: 05-Apr-2009 Fluzone INJ on: 07-Jan-2010 Influenza on: 22-Dec-2010 Influenza Lot #: [id number] on: 23-Jan-2012 Influenza on: 13-Jan-2013 PPD Lot #: [id number] on: Fluzone INJ Lot #: [id number] on: 02-Jan-2014 Fluzone Quadrivalent 0.5 ML Intramuscular Suspension Lot #: [id number] on: 25-Jan-2015 Tdap (Adacel) Lot #: [id number] on: 28-Jun-2015 Fluzone Quadrivalent 0.5 ML Intramuscular Suspension Lot #: [id number] on: 23-Feb-2016 Family History Name Dates Details [...] Comments: Location: LUE; Position: Sitting BP Diastolic 80 mm[Hg] Status: Comments: Location: LUE; Position: Sitting [...] 2016 * JOINT FLUID FOR CRYSTALS 7611; To be Done: 08 Mar 2016 Instructions Name Dates Details Instructions not [...] not documented On 12-Jan-2015 08:45 Appointment; Madeline Simsm M.D. Encounter Diagnosis: Problem not documented On [...] not documented On 10:00 Appointment; Evelyne Perales Denise Encounter Diagnosis: Problem not documented On 08:35 [...]
--- OUTSIDE RECORDS SUMMARY | 2016-07-28 22:52 | XMS REPORT ---
Author Author GENERATED, SYSTEM Organization Unknown Address Unknown Phone Unavailable Care Team Providers Care Recruiter Account Manager Name Role Phone MD DAVIDA, MAXWELL [phone] Reason For Visit Chief Complaint ACUTE LLE RADICULOPATHY PAIN Social History Functional Status Vital Signs [...] 01/25/2016 10:23 AM * Completed Procedure Code: [id number] Procedure Name: not valued, on 01/25/2016 12:00 AM * Completed Procedure Code: [id number] Procedure Name: not valued, on 01/25/2016 12: 00 AM Immunizations No immunizations administered or ordered. Hospital Course Hospital Discharge Instructions Allergies, Adverse Reactions, Alerts * Latex Allergy has not been assessed. * IV Contrast Allergy has not been assessed. * No Known Drug Allergies. Medication Medication reconciliation has not been performed.
--- OUTSIDE RECORDS SUMMARY | 2016-07-28 22:52 | XMS REPORT | Summary of Care ---
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, F41.8) Status: Active Current some day smoker (305.1, F17.210) Status: Active Medications Name Dates Details Metoprolol [...] 0 Simms M.D.Madeline * Start Active Nystatin-Triamcinolone 190068-3.1 UNIT/GM-% External Cream APPLY SPARINGLY TO AFFECTED [...] Oral Capsule TAKE ONE CAPSULE BY MOUTH EVERY DAY WITH FOOD * Quantity: 30 Refills: 0 Simms M.D.Madeline * Start 27-Dec-2015 [...] 07-Jan-2010 Influenza on: 22-Dec-2010 Influenza Lot #: [id number] on: 23-Jan-2012 Influenza on: 13-Jan-2013 PPD Lot #: [id number] on: Fluzone INJ Lot #: [id number] on: 02-Jan-2014 Fluzone Quadrivalent 0.5 ML Intramuscular Suspension Lot #: [id number] on: 25-Jan-2015 Tdap (Adacel) Lot #: [id number] on: 28-Jun-2015 Family History Name Dates Details [...] smoker Vital Signs Date Test Result Details 18-Jan-2016 09:09 BP Systolic 136 mm[Hg] Status: [...] Schedule Radiology On 13-Dec-2015 15:00 Appointment; Provider: Katja Martinez On 12-Jan-2015 14:00 Appointment; Provider: Schedule Radiology On 10:00 Appointment; Provider: Lex John M.D. On 18-Jul-2013 10:15 Appointment; Provider: Madeline Simms M.D. On 27-Apr-2008 08:00 Instructions Name Dates Details Instructions not [...] not documented On 23-Mar-2014 10:00 Appointment; Madeline iSmms M.D. Encounter Diagnosis: Problem not documented On 03-Mar-2014 09:00 Appointment; Lex John M.D. Encounter Diagnosis: Problem not documented On 24-Feb-2014 12:45 Appointment; Madeline Simms M.D. Encounter Diagnosis: Problem not documented On 13-Feb-2014 09:00 Appointment; Raul Cowart M.D. Encounter Diagnosis: Problem not documented On 04-Feb-2014 09:30
--- OUTSIDE RECORDS SUMMARY | 2016-07-28 22:52 | XMS REPORT | Summary of Care ---
Author Author Teresa Sow, Jameel De La Paz Unknown Address Unknown Phone Unavailable Care Team Providers Care Personal Insurance Advisor Name Role Phone Silvana Sow, Mat Unavailable Unavailable Dora Sow, Jeremy Unavailable Unavailable Homer Sanz, Tressa Unavailable Unavailable Teresa Sow, Zahra Unavailable Unavailable Mendez Sow, Madeline Unavailable Unavailable Perez Sow, R Unavailable Unavailable Johann Sow, Pedro Unavailable Unavailable Madeline Simms Unavailable Unavailable Unavailable Unavailable Functional Status Name Dates Details Functional status health issues are not documented Status: Name Dates Details Cognitive status health issues are not documented Status: Problems Name Dates Details Bipolar disorder (296.80, F31.9) 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 * Quantity: 60 Refills: 1 Mendez Sow, Madeline * Start 27-Dec-2015 Active Hydrocodone-Acetaminophen 7.5-325 MG Oral Tablet TAKE 1 TO 2 TABLETS EVERY 6 HOURS NEEDED FOR PAIN. * Quantity: 30 Refills: 0 Lai Wills M.D.ew * Start 08-Mar-2016 Active Sulfamethoxazole-Trimethoprim 800-160 MG Oral Tablet TAKE 1 TABLET PO EVERY 12 HOURS X 10 DAYS * Quantity: 20 Refills: 0 Homer P.A.Tressa * Start 16-Mar-2016 Active PredniSONE 20 MG Oral Tablet TAKE 1 TABLET DAILY. * Quantity: 7 Refills: 0 Mat Pina M.D. * Start 20-Mar-2016 End 27-Mar-2016 Active Allergies and Adverse Reactions Name Dates [...] 07-Jan-2010 Influenza on: 22-Dec-2010 Influenza Lot #: [id number] on: 23-Jan-2012 Influenza on: 13-Jan-2013 PPD Lot #: [id number] on: Fluzone INJ Lot #: [id number] on: 02-Jan-2014 Fluzone Quadrivalent 0.5 ML Intramuscular Suspension Lot #: [id number] on: 25-Jan-2015 Tdap (Adacel) Lot #: [id number] on: 28-Jun-2015 Fluzone Quadrivalent 0.5 ML Intramuscular Suspension Lot #: [id number] on: 23-Feb-2016 Family History Name Dates Details [...] 08:18 AEROBIC CULTURE Comments: [facility] performed at: [facility], [address] [place] [address], [phone], Leadership Intern: Macario Rodriguez D.O., MPHQuest Collection Date/Time: [id number] Results Received Date/Time: [id number] Reported Date/Time: [id number] FASTING:NOQuest performed at: [facility], [address] [place] [address], [phone], Leadership Intern: Macario Rodriguez D.O., MPHQuest Collection Date/Time: [id number] Results Received Date/Time: [id number] Reported Date/Time: [id number] FASTING:NOQuest performed at: [facility], [address] [place] [address], [phone], Leadership Intern: Macario Rodriguez D.O., MPHQuest Collection Date/Time: [id number] Results Received Date/Time: [id number] Reported Date/Time: [id number] FASTING:NO CULTURE, AEROBIC BACTERIA WITH GRAM STAIN SEE NOTE Comments: CULTURE, AEROBIC BACTERIA WITH GRAM STAIN MICRO NUMBER: [id number] TEST STATUS: FINAL SPECIMEN SOURCE: KNEE SPECIMEN QUALITY: ADEQUATE GRAM STAIN: Rare White blood cells seen No organisms seen RESULT: No Growth[[place]]----- Plan of Care Name Dates Details Planned [...]
--- OUTSIDE RECORDS SUMMARY | 2016-07-28 22:53 | XMS REPORT | Summary of Care ---
Author Author Valarie Sow, Josse De La Paz Unknown Address [address], [place] [address] Phone Unavailable Care Team Providers Care Burial Vault Deliverer And Installer Name Role Phone Jeremy John M.D. 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
--- OUTSIDE RECORDS SUMMARY | 2016-07-28 22:53 | XMS REPORT | Summary of Care ---
Author Author Mendez Sow, Madeline De La Paz Unknown Address Unknown Phone Unavailable Care Team Providers Care Racing Manager Name Role Phone Jeremy John M.D. Unavailable Unavailable Madeline Simms M.D. Unavailable Unavailable Homa Todd M.D. Unavailable Unavailable Madeline Simms Unavailable Unavailable Unavailable Unavailable Functional Status Name Dates Details Functional status health issues are not documented Status: Name Dates Details Cognitive status health issues are not documented Status: Problems Name Dates Details [facility] use of drug (V58.69, 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: [...] M.D. * Start Active 48 Lozenge Box Terbinafine HCl - 250 MG Oral Tablet 1QD FOR 3 MONTHS - TAKE ONE TABLET BY MOUTH EVERY DAY FOR 3 MONTHS * Quantity: 90 Refills: 0 Simms M.D.Madeline * Start 23-Jun-2014 End 19-Jun-2016 Active Diclofenac Sodium 75 MG Oral Tablet Delayed Release Take 1 tab bid with food * Quantity: 60 Refills: 0 Simms M.D.Madeline * Start 08-May-2016 Active Nicotine 21 [...] PAIN. * Quantity: 40 Refills: 0 Simms M.D., Madeline * Start 08-Mar-2016 Active Allergies and Adverse [...] 07-Jan-2010 Influenza on: 22-Dec-2010 Influenza Lot #: [id number] on: 23-Jan-2012 Influenza on: 13-Jan-2013 PPD Lot #: [id number] on: Fluzone INJ Lot #: [id number] on: 02-Jan-2014 Fluzone Quadrivalent 0.5 ML Intramuscular Suspension Lot #: [id number] on: 25-Jan-2015 Tdap (Adacel) Lot #: [id number] on: 28-Jun-2015 Fluzone Quadrivalent 0.5 ML Intramuscular Suspension Lot #: [id number] on: 23-Feb-2016 Family History Name Dates Details [...] >60 ml/min Range: >60 EST GFR, NON-AFR [place] >60 ml/min Range: >60 Comments: EST GFR [...] On 05-Jun-2016 08:30 Interventions Provided Medication Changes* Hydrocodone-Acetaminophen 7.5-325 MG Oral Tablet - Renew * Methocarbamol 750 MG Oral Tablet - Stop Instructions Name Dates Details Instructions not documented [...] Problem not documented On 08-Feb-2016 11:15 Appointment; Jamra Spears D.O. Encounter Diagnosis: Problem not documented [...]
--- OUTSIDE RECORDS SUMMARY | 2016-07-28 22:53 | XMS REPORT | Summary of Care ---
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 Start 20-Aug-2014 Active Wellbutrin XL 300 MG Oral Tablet Extended Release 24 Hour take one tablet by mouth every day * Quantity: 30 Refills: 0 * Start Active Benztropine Mesylate 1 MG Oral Tablet Take 1 tablet twice daily * Refills: 0 Mendez M.D.Madeline * Start 10-Dec-2014 Active Paliperidone ER 6 MG Oral Tablet Extended Release 24 Hour TAKE 1 TABLET DAILY. * Refills: 0 Mendez M.D.Madeline * Start 31-May-2015 Active Nicotine Polacrilex [...] Sow, Nemesio Austin * Start 16-Nov-2015 Active HydrOXYzine HCl - 25 MG Oral Tablet TAKE 1-3 TABLETS BY MOUTH AT BEDTIME NEEDED * Quantity: 60 Refills: 5 Dora Sow, Lex Luna * Start 18-Nov-2015 Active Methocarbamol [...] 07-Jan-2010 Influenza on: 22-Dec-2010 Influenza Lot #: [id number] on: 23-Jan-2012 Influenza on: 13-Jan-2013 PPD Lot #: [id number] on: Fluzone INJ Lot #: [id number] on: 02-Jan-2014 Fluzone Quadrivalent 0.5 ML Intramuscular Suspension Lot #: [id number] on: 25-Jan-2015 Tdap (Adacel) Lot #: [id number] on: 28-Jun-2015 Family History Name Dates Details [...] smoker Vital Signs Date Test Result Details 06-Dec-2015 15:58 BP Systolic 147 mm[Hg] Status: [...] >60 ml/min Range: >60 EST GFR, NON-AFR [place] >60 ml/min Range: >60 Comments: EST GFR is reported in ml/min per 1.73 m2 of body surface area. For -[place]zerbaijani, please multiple result by 1.2.----- GLUCOSE 112 [...] Provider: Lex John M.D. On 07-Dec-2015 16:15 Interventions Provided Labs/Procedures/Imaging* MRI KNEE LEFT; To be Done: 06 Dec 2015 Instructions Name Dates Details Instructions not documented [...]
--- OUTSIDE RECORDS SUMMARY | 2016-07-28 22:53 | XMS REPORT | Summary of Care ---
Author Author Donald Arshad M.D. Organization Unknown Address Unknown Phone Unavailable Care Team Providers Care Optometric Aide Name Role Phone Dora Sow, Jeremy Unavailable Unavailable Dana Arshad M.D. Unavailable Unavailable Mendez Sow, Madeline 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: Active alf [...] 07-Jan-2010 Influenza on: 22-Dec-2010 Influenza Lot #: [id number] on: 23-Jan-2012 Influenza on: 13-Jan-2013 PPD Lot #: [id number] on: Fluzone INJ Lot #: [id number] on: 02-Jan-2014 Fluzone Quadrivalent 0.5 ML Intramuscular Suspension Lot #: [id number] on: 25-Jan-2015 Tdap (Adacel) Lot #: [id number] on: 28-Jun-2015 Family History Name Dates Details [...] Problem not documented On 10-Apr-2014 09:00 Appointment; aMdeline Simms M.D. Encounter Diagnosis: [...]
--- OUTSIDE RECORDS SUMMARY | 2016-07-28 22:54 | XMS REPORT | Summary of Care ---
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 (V58.69, 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: [...] 0 Simms M.D.Madeline * Start Active Nystatin-Triamcinolone 268335-5.1 UNIT/GM-% External Cream APPLY SPARINGLY TO AFFECTED [...] 07-Jan-2010 Influenza on: 22-Dec-2010 Influenza Lot #: [id number] on: 23-Jan-2012 Influenza on: 13-Jan-2013 PPD Lot #: [id number] on: Fluzone INJ Lot #: [id number] on: 02-Jan-2014 Fluzone Quadrivalent 0.5 ML Intramuscular Suspension Lot #: [id number] on: 25-Jan-2015 Tdap (Adacel) Lot #: [id number] on: 28-Jun-2015 Family History Name Dates Details [...] On 10-Feb-2016 09:00 Interventions Provided Medication Changes* Celecoxib 200 MG [...] Problem not documented On 12-Aug-2014 08:25 Appointment; Mdaeline Simms M.D. Encounter Diagnosis: Problem [...]
--- OUTSIDE RECORDS SUMMARY | 2016-07-28 22:54 | XMS REPORT | Summary of Care ---
Author Author Supa Sow, Raul Kendrick Organization Unknown Address Unknown Phone Unavailable Care Team Providers Care Shuttler Name Role Phone Dora Sow, Jeremy Unavailable Americo Varner M.D., Raul Driscoll Unavailable Mendez Sow, Madeline Unavailable Unavailable Perez Sow, R Unavailable Unavailable Supa Sow, P Unavailable Unavailable Madeline Simms Unavailable Unavailable Unavailable [...] Status: Active Dyspepsia (536.8, K30) Status: Active Tear of medial meniscus of left knee, initial encounter Status: Active Status post arthroscopy of left knee (V45.89, Z98.890) Status: Active Plantar fascial fibromatosis (728.71, M72.2) Status: Active 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, M19.071) Status: Active Onychomycosis (110.1, B35.1) Status: Active Morbid obesity (278.01, E66.01) Status: Active Effusion of left knee (719.06, M25.462) Status: Active Chondromalacia of knee, 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 * Start Active 48 Lozenge Box Losartan Potassium 100 MG Oral Tablet Take one tablet by mouth daily * Quantity: 30 Refills: 5 Simms M.D.Madeline * Start 19-May-2016 Active Mupirocin 2 % External Ointment Apply [...] 0 Simms M.D.Madeline * Start 08-Mar-2016 Active Gabapentin 300 MG Oral Capsule TAKE [...] 07-Jan-2010 Influenza on: 22-Dec-2010 Influenza Lot #: [id number] on: 23-Jan-2012 Influenza on: 13-Jan-2013 PPD Lot #: [id number] on: Fluzone INJ Lot #: [id number] on: 02-Jan-2014 Fluzone Quadrivalent 0.5 ML Intramuscular Suspension Lot #: [id number] on: 25-Jan-2015 Tdap (Adacel) Lot #: [id number] on: 28-Jun-2015 Fluzone Quadrivalent 0.5 ML Intramuscular Suspension Lot #: [id number] on: 23-Feb-2016 Family History Name Dates Details [...] unknown Vital Signs Date Test Result Details 30-Jun-2016 10:03 BP Systolic 140 mm[Hg] Status: [...] DOS 07/[address] Varner at [facility] SODIUM 139 mmol/L Range: 133-144 POTASSIUM 4.7 [...] Dates Details Instructions not documented Encounters Appointment; Jamar Spears D.O. Encounter Diagnosis: Problem [...]
[2016-07-28 22:55] VITALS: BP 130/80; PULSE 80; RESP 18; O2SAT 89
--- OUTSIDE RECORDS SUMMARY | 2016-07-28 22:55 | XMS REPORT | Summary of Care ---
Author Author Madeline Simms M.D. Unknown Address [address], [place] [id number] Phone Unavailable Care Team Providers Care Shoer Name Role Phone Jeremy John M.D. Unavailable [...] 4 Madeline Simms M.D.* Started 26-Jan-2012 ActiveNystatin-Triamcinolone 605489-0.1 UNIT/GM-% External Cream APPLY SPARINGLY TO AFFECTED [...] Refills: 5 Lex John M.D.* Started 15-Jan-2014 Iqjcde47 GM Bottle Magnesium Oxide 400 MG Oral [...] on:07-Jan-2010 Influenza Administered on:22-Dec-2010 Influenza Lot #: [id number] Administered on:23-Jan-2012 Influenza Administered on:13-Jan-2013 PPD Lot #: [id number] Administered on: Fluzone Intramuscular Injectable Lot #: [id number] Administered on:02-Jan-2014 Family History Mother* Name Dates [...] not documented On 03-Mar-2014 09:00 Appointment; Lex Jonh Encounter Diagnosis: Problem not documented On 24-Feb-2014 [...]
--- OUTSIDE RECORDS SUMMARY | 2016-07-28 22:55 | XMS REPORT | Summary of Care ---
Author Author Madeline Simms M.D. Unknown Address [address], [place] [address] Phone Unavailable Care Team Providers Care Fruit Bar Maker Name Role Phone Jeremy John M.D. [...] Procedures Procedure Dates Details History of Appendectomy Comprehensive Metabolic Panel 1212 Ordered:23-Jun-2015 LIPID PROFILE 1184 Ordered:23-Jun-2015 Urinalysis, Reflex to Microscopic or Culture PRN 8005 Ordered:23-Jun-2015 CBC w/ Auto Diff 7150 Ordered:23-Jun-2015 THYROID STIM. HORMONE 3602 Ordered:23-Jun-2015 Immunization Name Dates Details Tdap (Adacel) Administered on:Feb-2007 Influenza Administered on:05-Apr-2009 Influenza A (H1N1) Monoval PF Intramuscular Suspension Administered on:05-Apr-2009 Fluzone Intramuscular Injectable Administered on:07-Jan-2010 Influenza Administered on:22-Dec-2010 Influenza Lot #: [id number] Administered on:23-Jan-2012 Influenza Administered on:13-Jan-2013 PPD Lot #: [id number] Administered on: Fluzone Intramuscular Injectable Lot #: [id number] Administered on:02-Jan-2014 Fluzone Quadrivalent 0.5 ML Intramuscular Suspension Lot #: [id number] Administered on:25-Jan-2015 Family History Mother* Name Dates [...] smoker Vital Signs Date Test Result Details 02-Jun-2015 10:37 BP Systolic 120 mm[Hg] Status: [...] 11:45 * Appointment; Provider: Madeline Simms On 28-Jun-2015 13:30 * Appointment; Provider: Katja Martinez On 12-Jan-2015 [...]
--- OUTSIDE RECORDS SUMMARY | 2016-07-28 22:55 | XMS REPORT | Summary of Care ---
Author Author Telly Sow, Raul De La Paz Unknown Address [address] [place] [address] Phone Unavailable Care Team Providers Care Continuity Manager Name Role Phone Dora Sow, Jeremy Unavailable Unavailable Telly Sow, Raul Unavailable Unavailable Fadi Sow, Javier Unavailable [...] post lumbar surgery (V45.89, Z98.890) Status: Active Medications Name Dates [...] 0 Simms M.D.Madeline * Start 31-May-2015 Active Hydrocodone-Acetaminophen 7.5-325 MG Oral Tablet TAKE 1 TO 2 TABLETS EVERY 6 HOURS NEEDED FOR PAIN. * Quantity: 40 Refills: 0 Telly Guajardo.Raul Stover * Start 08-Mar-2016 Active Diclofenac Sodium 75 MG Oral Tablet Delayed Release TAKE ONE TABLET BY MOUTH TWICE DAILY WITH FOOD * Quantity: 60 Refills: 1 Simms M.D.Madeline * Start 06-Jun-2016 Active Nicotine 21 MG/24HR Transdermal Patch 24 Hour APPLY 1 PATCH DAILY DIRECTED. * Quantity: 1 Refills: 0 Simms M.D.Madeline * Start 25-May-2016 Active 14 Patch 24 Hour Box Gabapentin 300 MG Oral Capsule TAKE 1 CAPSULE 3 times daily * Quantity: 90 Refills: 1 Telly Guajardo.D.Raul * Start 20-Jun-2016 Active Eliquis 5 MG Oral Tablet Take 1 tablet po twice daily * Quantity: 60 Refills: 3 Fadi Guajardo.DMonica, Malcolm Herrera * Start 10-Jul-2016 Active Nicotine Polacrilex 2 MG Mouth/Throat Lozenge ALLOW 1 LOZENGE TO DISSOLVE SLOWLY IN MOUTH DIRECTED * Quantity: 1 Refills: 0 Kristi Todd M.D. * Start Active 48 Lozenge Box Mupirocin 2 % External Ointment Apply to toe daily at HS for 1 month * Quantity: 1 Refills: 1 Simms Madeline Sow * Start 25-May-2016 Active 22 GM Tube [...] 07-Jan-2010 Influenza on: 22-Dec-2010 Influenza Lot #: [id number] on: 23-Jan-2012 Influenza on: 13-Jan-2013 PPD Lot #: [id number] on: Fluzone INJ Lot #: [id number] on: 02-Jan-2014 Fluzone Quadrivalent 0.5 ML Intramuscular Suspension Lot #: [id number] on: 25-Jan-2015 Tdap (Adacel) Lot #: [id number] on: 28-Jun-2015 Fluzone Quadrivalent 0.5 ML Intramuscular Suspension Lot #: [id number] on: 23-Feb-2016 Family History Name Dates Details [...] unknown Vital Signs Date Test Result Details 17-Jul-2016 11:05 BP Systolic 124 mm[Hg] Status: [...] Comments: Location: LUE; Position: Sitting BP Diastolic 100 mm[Hg] Status: Comments: Location: LUE; Position: Sitting [...] Varner at [facility] SODIUM 139 mmol/L Range: 133-144 POTASSIUM 4.7 mmol/L Range: 3.5-5.1 CHLORIDE 101 mmol/L Range: 98-110 CARBON DIOXIDE 27.8 mmol/L Range: 23.0-33.0 ANION GAP 10 mmol/L Range: 6-16 BUN 15 mg/dL Range: 7-18 CREATININE, SERUM 1.05 mg/dL Range: 0.70-1.30 EST GFR, >60 ml/min Range: >60 EST GFR, NON-AFR [place] >60 ml/min Range: >60 Comments: EST GFR [...] Provider: Jane Maria A.P.R.N. On 26-Jul-2016 11:30 Instructions Name Dates Details Instructions not documented Encounters Appointment; Malcolm Aponte M.D. Encounter Diagnosis: Problem [...] not documented On 02-Sep-2015 16:45 Appointment; Madeline Simsm M.D. Encounter Diagnosis: Problem [...]
--- OUTSIDE RECORDS SUMMARY | 2016-07-28 22:55 | XMS REPORT | Summary of Care ---
Author Author Madeline Simms M.D. 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 Quantity: 45 Madeline Simms M.D.* Started ActiveLevocetirizine Dihydrochloride 5 MG Oral Tablet take one tablet by mouth every day * Quantity: 90 Refills: 3 Madeline Simms M.D.* Started 26-Dec-2011 ActiveWellbutrin XL 300 MG Oral Tablet Extended Release 24 Hour take one tablet by mouth every day * Quantity: 30 Refills: 0 * Started ActiveBenztropine Mesylate 1 MG Oral Tablet Take 1 tablet twice daily * Refills: 0 Madeline Simms M.D.* Started 10-Dec-2014 ActiveRisperDAL Consta 37.5 MG Intramuscular Suspension Reconstituted [...] Refills: 0 Madeline Simms M.D.* Started 14-Dec-2014 ActiveLosartan Potassium 100 MG Oral Tablet take one tablet by mouth every day * Quantity: 30 Refills: 3 SimmsMadeline M.D.* Started 03-Mar-2014 ActiveAmLODIPine Besylate 5 MG Oral Tablet TAKE ONE TABLET BY MOUTH EVERY MORNING * Quantity: 30 Refills: 4 SimmsMadeline M.D.* Started 29-Apr-2013 ActiveOmeprazole 20 MG Oral Capsule Delayed Release Take one capsule by mouth daily * Quantity: 30 Refills: 5 SimmsMadeline valle M.D.* Started 26-Jan-2012 ActiveNystatin-Triamcinolone 062330-3.1 UNIT/GM-% External Cream APPLY SPARINGLY TO AFFECTED AREA(S) 3 TIMES A DAY * Quantity: 60 Refills: 0 Madeline Simms M.D.* Started 03-Aug-2011 ActiveLevothyroxine Sodium 50 MCG Oral Tablet take one tablet by mouth every day * Quantity: 30 Refills: 3 SimmsMadeline M.D.* Started 26-Aug-2010 ActiveMetoprolol Tartrate 25 MG Oral Tablet take one tablet by mouth every day * Quantity: 30 Refills: 5 SimmsMadeline M.D.* Started 15-Mar-2009 ActiveBelsomra 20 MG Oral Tablet TAKE ONE [...] on:07-Jan-2010 Influenza Administered on:22-Dec-2010 Influenza Lot #: [id number] Administered on:23-Jan-2012 Influenza Administered on:13-Jan-2013 PPD Lot #: [id number] Administered on: Fluzone Intramuscular Injectable Lot #: [id number] Administered on:02-Jan-2014 Fluzone Quadrivalent 0.5 ML Intramuscular Suspension Lot #: [id number] Administered on:25-Jan-2015 Family History Mother* Name Dates [...]
--- OUTSIDE RECORDS SUMMARY | 2016-07-28 22:56 | XMS REPORT | Summary of Care ---
Author Author Tressa Bright Organization Unknown Address [address] [place] [address] Phone Unavailable Care Team Providers Care Filenet Architect Name Role Phone Dora Sow, Jeremy Unavailable Unavailable Tressa Bright Unavailable Unavailable Telly Sow, Christderrick Unavailable Unavailable Fadi Sow, Javier Unavailable Unavailable [...] due to pollen (477.0, J30.1) Status: Active Essential hypertension (401.9, I10) Status: Active Gastroesophageal reflux disease (530.81, K21.9) Status: Active Hypothyroidism (244.9, E03.9) Status: Active Schizophrenia, unspecified (295.90, F20.9) Status: Active Current some day smoker (305.1, F17.200) Status: Active Nicotine dependence (305.1, F17.200) Status: Active Edema, lower extremity (782.3, R60.0) Status: Active Leg swelling (729.81, M79.89) Status: Active Acute deep vein thrombosis (DVT) of both lower extremities, unspecified vein ( 453.40, I82.403) Status: Active Acute bronchitis (466.0, J20.9) Status: Active Back pain (724.5, M54.9) Status: Active Status post lumbar surgery (V45.89, Z98.890) Status: Active Obstructive sleep apnea (327.23, G47.33) Status: Active Bipolar affective disorder (296.80, F31.9) Status: Active Insomnia (780.52, G47.00) Status: Active Medications Name Dates Details Metoprolol Tartrate 25 MG Oral Tablet Take one tablet by mouth daily Quantity: 30 Simms M.D., Madeline * Start 21-Apr-2016 Active Levothyroxine Sodium 50 MCG Oral Tablet Take one tablet by mouth daily * Quantity: 30 Refills: 5 Simms M.D., Madeline * Start 19-May-2016 Active LORazepam 1 MG [...] 5 Simms M.D.Madeline * Start 14-Mar-2016 Active Benztropine Mesylate 1 MG Oral Tablet Take 1 tablet twice daily * Refills: 0 Simms M.D.Madeline * Start 10-Dec-2014 Active Fluticasone Propionate 50 MCG/ACT Nasal Suspension INSTILL 1 SPRAY IN EACH NOSTRIL ONCE A DAY * Quantity: 16 Refills: 11 Sourk M.D.Lex * Start 16-Feb-2016 Active Losartan Potassium 100 MG Oral Tablet Take one tablet by mouth daily * Quantity: 30 Refills: 5 Simms M.D.Madeline * Start 19-May-2016 Active Diclofenac Sodium 75 MG Oral Tablet Delayed Release TAKE ONE TABLET BY MOUTH TWICE DAILY WITH FOOD * Quantity: 60 Refills: 1 Simms M.D.Madeline * Start 06-Jun-2016 Active Eliquis 5 MG Oral Tablet Take 1 tablet po twice daily * Quantity: 60 Refills: 3 Fadi M.DMalcolm Anderson * Start 10-Jul-2016 Active Nicotine 21 MG/24HR Transdermal Patch 24 Hour APPLY 1 PATCH DAILY DIRECTED. * Quantity: 1 Refills: 0 Simms M.D.Madeline * Start 25-May-2016 Active 14 Patch 24 Hour Box ClonazePAM 1 MG Oral Tablet TAKE 1 TABLET AT BEDTIME. * Refills: 0 * Start 24-Jul-2016 Active Sertraline HCl - 100 MG Oral Tablet take 1.5 tabs daily * Refills: 0 * Start 24-Jul-2016 Active Gabapentin 300 MG Oral Capsule take 1 cap twice daily * Quantity: 90 Refills: 1 Telly M.D.Raul * Start 20-Jun-2016 Active Temazepam 15 MG Oral Capsule TAKE 1 CAPSULE AT BEDTIME NEEDED FOR SLEEP. * Quantity: 30 Refills: 0 * Start 24-Jul-2016 Active Invega Sustenna 234 MG/1.5ML Intramuscular Suspension once monthly * Refills: 0 * Start 24-Jul-2016 Active SEROquel 50 MG Oral Tablet TAKE 1 TAB AT BEDTIME NEEDED * Refills: 0 * Start 24-Jul-2016 Active Supplies CPAP repair, services and supplies, G47.33 Mask, headgear, filters, heated tubing, chinstrap * Quantity: 1 Refills: 0 Homer P.A., Tressa * Start 24-Jul-2016 Active Allergies and Adverse Reactions Name Dates [...] 07-Jan-2010 Influenza on: 22-Dec-2010 Influenza Lot #: [id number] on: 23-Jan-2012 Influenza on: 13-Jan-2013 PPD Lot #: [id number] on: Fluzone INJ Lot #: [id number] on: 02-Jan-2014 Fluzone Quadrivalent 0.5 ML Intramuscular Suspension Lot #: [id number] on: 25-Jan-2015 Tdap (Adacel) Lot #: [id number] on: 28-Jun-2015 Fluzone Quadrivalent 0.5 ML Intramuscular Suspension Lot #: [id number] on: 23-Feb-2016 Family History Name Dates Details [...] unknown Vital Signs Date Test Result Details 24-Jul-2016 10:23 BP Systolic 132 mm[Hg] Status: Comments: Location: ; Position: BP Diastolic 82 mm[Hg] Status: Comments: Location: ; Position: Heart Rate 70 /min Status: Comments: Location: ; Physical Findings 20 Status: Comments: Respiration Height 71.5 in Status: Weight 274 lb Status: Physical Findings 97 Status: Comments: O2 Saturation Body Mass Index Calculated 37.68 kg/m2 Status: Body Surface Area Calculated 2.42 m2 Status: 21-Jul-2016 09:17 BP Systolic 134 mm[Hg] Status: Comments: Location: ; Position: BP Diastolic 92 mm[Hg] Status: Comments: Location: ; Position: Temperature 99.5 f Status: Heart Rate 88 /min Status: Comments: Location: ; 19-Jul-2016 18:47 BP Systolic 142 mm[Hg] Status: [...] 97.9 f Status: Comments: Method: Heart Rate 101 /min Status: Comments: Location: ; Physical Findings 96 Status: Comments: O2 Saturation 17-Jul-2016 11:05 BP Systolic 124 mm[Hg] Status: Comments: [place] [facility] [place]: Sitting BP Diastolic 88 mm[Hg] Status: Comments: Location[place] [facility] [place] Position: Sitting Temperature 97.3 f Status: Comments: Method: Heart Rate 80 [...] m2 Status: Results Date Description Value Details 26-Jun-2016 10:26 XRay CHEST-PA & LAT Comments: [...] Comments: DOS 07/[address] Varner at [facility] SODIUM 139 mmol/L Range: 133-144 POTASSIUM 4.7 mmol/L Range: 3.5-5.1 CHLORIDE 101 mmol/L Range: 98-110 CARBON DIOXIDE 27.8 mmol/L Range: 23.0-33.0 ANION GAP 10 mmol/L Range: 6-16 BUN 15 mg/dL Range: 7-18 CREATININE, SERUM 1.05 mg/dL Range: 0.70-1.30 EST GFR, >60 ml/min Range: >60 EST GFR, NON-AFR [place] >60 ml/min Range: >60 Comments: EST GFR [...] Goals not documented Planned Encounters Appointment; Provider: Yvon Jones On 30-Jul-2017 10:00 Appointment; Provider: Aime Rdz M.D. On 15-Jan-2017 13:30 Appointment; Provider: Madeline Simms M.D. On 21-Aug-2016 08:45 Appointment; Provider: Raul Varner M.D. On 14-Aug-2016 08:45 Appointment; Provider: Madeline Simms M.D. On 07-Aug-2016 13:45 Interventions Provided Medication Changes* Supplies - Start Instructions Name Dates Details Instructions not documented Encounters Appointment; Raul Varner M.D. Encounter Diagnosis: Problem not documented On 21-Jul-2016 09:30 Appointment; Nemesio Todd M.D. Encounter Diagnosis: Problem not documented On 19-Jul-2016 18:40 Appointment; Yolis Jones APRN Encounter Diagnosis: Problem [...] not documented On 16-Jun-2016 17:05 Appointment; Madeline iSmms M.D. Encounter Diagnosis: Problem [...]
--- OUTSIDE RECORDS SUMMARY | 2016-07-28 22:56 | XMS REPORT | Summary of Care ---
Author Author Madeline Simms M.D. Unknown Address [address], [place] [id number] Phone Unavailable Care Team Providers Care Prune Washer Name Role Phone Jeremy John M.D. Unavailable Unavailable Madelnie Simms M.D. 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.69, 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: Active [...] recurrence not specified (461.0, J01.00) Status: Active Medications Name Dates Details Metoprolol [...] Refills: 3 Madeline Simms M.D.* Started 03-Mar-2014 ActiveWellbutrin XL [...] * Refills: 0 SimmsMadeline M.D.* Started 31-May-2015 ActiveNaproxen 500 MG Oral [...] on:07-Jan-2010 Influenza Administered on:22-Dec-2010 Influenza Lot #: [id number] Administered on:23-Jan-2012 Influenza Administered on:13-Jan-2013 PPD Lot #: [id number] Administered on: Fluzone Intramuscular Injectable Lot #: [id number] Administered on:02-Jan-2014 Fluzone Quadrivalent 0.5 ML Intramuscular Suspension Lot #: [id number] Administered on:25-Jan-2015 Tdap (Adacel) Lot #: [id number] Administered on:28-Jun-2015 Family History Mother* Name Dates [...] Diagnosis: Problem not documented On 14:00 Appointment; Madelnie Simms Encounter Diagnosis: Problem not documented On 14:00
--- OUTSIDE RECORDS SUMMARY | 2016-07-28 22:56 | XMS REPORT | Summary of Care ---
Author Author Madeline Simms M.D. Unknown Address [address], [place] [address] Phone Unavailable Care Team Providers Care Custom Feed Corn Operator Name Role Phone Jeremy John M.D. Unavailable Unavailable Madeline Simms M.D. 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 Diplopia (368.2, H53.2) Status: Active Myopia (367.1, H52.10) Status: Active Insomnia (780.52, G47.00) Status: Active Need for vaccination (V05.9, Z23) Status: Active Essential hypertension (401.9, I10) Status: Active Dyspepsia (536.8, R10.13) Status: Active Hypothyroidism (244.9, E03.9) Status: Active Myalgia (729.1, M79.1) Status: Active Medications Name Dates Details Metoprolol Tartrate 25 MG Oral Tablet take one tablet by mouth every day Quantity: 30 SimmsMadeline M.D.* Started 15-Mar-2009 ActiveLevothyroxine Sodium 50 MCG Oral Tablet take one tablet by mouth every day * Quantity: 30 Refills: 5 SimmsMadeline valle M.D.* Started 26-Aug-2010 ActiveLORazepam 1 [...] Refills: 5 SimmsMadeline valle M.D.* Started 03-Mar-2014 ActiveWellbutrin XL 300 MG [...] Refills: 0 Lex John M.D.* Started 20-Aug-2014 ActiveDoxepin HCl - 50 MG Oral Capsule [...] on:07-Jan-2010 Influenza Administered on:22-Dec-2010 Influenza Lot #: [id number] Administered on:23-Jan-2012 Influenza Administered on:13-Jan-2013 PPD Lot #: [id number] Administered on: Fluzone Intramuscular Injectable Lot #: [id number] Administered on:02-Jan-2014 Fluzone Quadrivalent 0.5 ML Intramuscular Suspension Lot #: [id number] Administered on:25-Jan-2015 Family History Mother* Name Dates [...] smoker Vital Signs Date Test Result Details 25-Jan-2015 09:55 BP Systolic 142 mm[Hg] Status: BP Diastolic 88 mm[Hg] Status: Heart Rate 93 /min Status: Weight 287 lb Status: O2 SAT 95 % Status: Body Mass Index Calculated 47.76 kg/m2 Status: Body Surface Area Calculated 2.31 m2 Status: Results Date Description Value Details 13-Jan-2015 08:28 CBC w/ Auto Diff 7150 Comments: Fastin hours WBC 9.7 K/uL (Better) Range: 4.5-11.0 RBC 4.92 mil/uL (Better) Range: 4.20-5.40 HGB 14.7 g/dL (Better) Range: 14.0-18.0 HCT 43.1 % (Better) Range: 42.0-53.0 MCV 87.6 fL (Better) Range: 80.0-99.0 MCH 29.8 pg (Better) Range: 27.3-32.5 MCHC 34.0 % (Better) Range: 32.0-36.0 RDW 13.4 % (Better) Range: 11.6-14.8 PLATELETS 265 K/uL (Better) Range: 150-400 MPV 7.3 fL (Better) Range: 6.0-11.0 %NEUTRO 67.7 % (Better) Range: 37.0-80.0 %LYMPHS 22.0 % (Better) Range: 13.0-50.0 %MONO 5.3 % (Better) Range: 0.0-12.0 %EOS 3.1 % (Better) Range: 0.0-7.0 %BASO 0.8 % (Better) Range: 0.0-2.5 %ESTELLA 1.2 % (Better) Range: 0.0-5.0 NEUTRO 6.6 K/uL (Better) Range: 2.0-6.9 LYMPHS 2.1 K/uL (Better) Range: 0.6-3.4 MONOS 0.5 K/uL (Better) Range: 0.0-0.9 EOS 0.3 K/uL (Better) Range: 0.0-0.7 BASO 0.1 K/uL (Better) Range: 0.0-0.2 08:59 THYROID STIM. HORMONE 3602 Comments: Fastin hours THYROID STIM. HORMONE 0.786 uIU/mL (Better) Range: 0.550-4.780 Comments: No established reference ranges for infants and children <2 years of age----- 09:05 CREATINE KINASE 1300 Comments: Fastin hours CREATINE KINASE 206 U/L (Better) Range: 39-308 09:05 LIPID PROFILE 1184 Comments: Fastin hours CHOLESTEROL 135 mg/dL (Better) Range: <200 TRIGLYCERIDES 223 mg/dL (Above high threshold) Range: 30-200 HDL Cholesterol 31 mg/dL (Below low threshold) Range: >39 NON HDL CHOLESTEROL 104 (Better) CARDIAC RSK FACTOR 4.4 units (Better) Range: 4.4-5.0 LDL - CALCULATED 59 mg/dL (Better) Range: 0-130 09:05 LIVER PROFILE 1215 Comments: Fastin hours ALK PHOSPHATASE 70 U/L (Better) Range: 46-116 TOTAL BILIRUBIN 0.60 mg/dL (Better) Range: 0.20-1.00 DIRECT BILIRUBIN 0.10 mg/dL (Better) Range: 0.00-0.20 AST 24 U/L (Better) Range: 8-35 ALT 61 U/L (Better) Range: 16-63 Comments: Please note new reference ranges. Effective 06/25/2014.----- ALBUMIN 3.9 g/dL (Better) Range: 3.4-5.0 TOTAL PROTEIN 6.8 g/dL (Better) Range: 6.4-8.2 Plan of Care Planned Observations* Name Dates Details Planned Goals not documented Goal Planned Encounters* Appointment; Provider: Oh Greer On 12-Jan-2017 09:15 * Appointment; Provider: Madeline Simms On 31-Mar-2015 10:00 * Appointment; Provider: Lex John On 18-Mar-2015 10:45 * Appointment; Provider: Katja Martinez On 12-Jan-2015 [...]
--- OUTSIDE RECORDS SUMMARY | 2016-07-28 22:57 | XMS REPORT ---
Author Author Dorothy Luna [facility] eClinicalWorks Address Unknown Phone Unavailable Care Team Providers Care Refrigeration Insulator Name Role Phone Dorothy Luna CP Unavailable Allergies No Known Allergies Problems Problem Type Condition ICD-9 Code Onset Dates Condition Status Assessment Routine general medical examination at health care facility V70.0 Active Medications No Known Medications Procedures Procedure Coding System Code Date Collection of drug screen CPT-4 OMAR Nov 25, 2014 Results Name Result Date Reference Range Unit Abnormality Flag Collection of drug screen Summary Purpose eClinicalWorks Submission
--- OUTSIDE RECORDS SUMMARY | 2016-07-28 22:57 | XMS REPORT | Summary of Care ---
Author Author Madeline Simms M.D. Unknown Address [address], [place] [address] Phone Unavailable Care Team Providers Care Lead Java Software Engineer Name Role Phone Jeremy John M.D. Unavailable [...] Active Bipolar disorder (296.80, F31.9) Status: Active retirement [...] on:07-Jan-2010 Influenza Administered on:22-Dec-2010 Influenza Lot #: [id number] Administered on:23-Jan-2012 Influenza Administered on:13-Jan-2013 PPD Lot #: [id number] Administered on: Fluzone Intramuscular Injectable Lot #: [id number] Administered on:02-Jan-2014 Fluzone Quadrivalent 0.5 ML Intramuscular Suspension Lot #: [id number] Administered on:25-Jan-2015 Family History Mother* Name Dates [...] 11:45 * Appointment; Provider: Madeline Simms On 21-Jun-2015 08:30 * Appointment; Provider: Katja Martinez On 12-Jan-2015 [...] not documented On 01-Jan-2015 10:30 Appointment; Carolynn Aerllano Encounter Diagnosis: Problem not documented On 23-Dec-2014 [...] not documented On 06-Aug-2014 13:45 Appointment; Jane Marai Encounter Diagnosis: Problem not documented On 16-Jul-2014 [...]
--- OUTSIDE RECORDS SUMMARY | 2016-07-28 22:57 | XMS REPORT | Summary of Care ---
Author Author Evelyne Perales APRN Unknown Address [address] [place], [place] [address] Phone Unavailable Care Team Providers Care Academic Director Name Role Phone Jeremy John M.D. 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, 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: Active [...] 45 Refills: 0 Madeline Simms M.D.* Started ActiveInvega [...] Refills: 5 Madeline Simms M.D.* Started 03-Mar-2014 ActiveHydrOXYzine HCl - 25 MG Oral Tablet TAKE 1-3 TABS AT BEDTIME NEEDED * Quantity: 90 Refills: 0 Lex John M.D.* Started 15-Apr-2014 ActiveFluticasone Propionate 50 MCG/ACT Nasal Suspension USE 2 SPRAYS IN EACH NOSTRIL ONCE DAILY * Quantity: 1 Refills: 11 Lex John M.D.* Started 11-Aug-2014 [id number] GM Bottle Wellbutrin XL 300 MG Oral [...] on:07-Jan-2010 Influenza Administered on:22-Dec-2010 Influenza Lot #: [id number] Administered on:23-Jan-2012 Influenza Administered on:13-Jan-2013 PPD Lot #: [id number] Administered on: Fluzone Intramuscular Injectable Lot #: [id number] Administered on:02-Jan-2014 Family History Mother* Name Dates [...] smoker Vital Signs Date Test Result Details 09-Dec-2014 14:19 BP Systolic 127 mm[Hg] Status: [...]
--- OUTSIDE RECORDS SUMMARY | 2016-07-28 22:57 | XMS REPORT | Summary of Care ---
Author Author Adan SHAFER, [email or web address] Organization Unknown Address [address], [place] [address] Phone Unavailable Care Team Providers Care Door Fitter Name Role Phone Dora Sow, Jeremy Unavailable Unavailable Mendez Sow, Madeline 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 (296.80, F31.9) Status: Active 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 (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.69, 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: [...] Right foot pain (729.5, M79.671) Status: Active Medications Name Dates Details Metoprolol [...] Refills: 0 Madeline Simms M.D.* Started 02-Jun-2015 ActiveNaproxen 500 MG Oral Tablet FF TAKE ONE TABLET BY MOUTH TWICE DAILY WITH FOOD * Quantity: 60 Refills: 2 SimmsaMdeline M.D.* Started 17-Aug-2015 Active Allergies and Adverse [...] on:07-Jan-2010 Influenza Administered on:22-Dec-2010 Influenza Lot #: [id number] Administered on:23-Jan-2012 Influenza Administered on:13-Jan-2013 PPD Lot #: [id number] Administered on: Fluzone Intramuscular Injectable Lot #: [id number] Administered on:02-Jan-2014 Fluzone Quadrivalent 0.5 ML Intramuscular Suspension Lot #: [id number] Administered on:25-Jan-2015 Tdap (Adacel) Lot #: [id number] Administered on:28-Jun-2015 Family History Mother* Name Dates [...] not documented On 25-Jan-2015 10:00 Appointment; Oh Grere Encounter Diagnosis: Problem not documented On 12-Jan-2015 08:45 Appointment; Madeline Simms Encounter Diagnosis: Problem not documented On 01-Jan-2015 10:30 Appointment; Carolynn Arellano Encounter Diagnosis: Problem not documented On 23-Dec-2014 15:15 Appointment; Lex John Encounter Diagnosis: Problem not documented On 17-Dec-2014 11:45 Appointment; Madeline Simms Encounter Diagnosis: Problem not documented On 10-Dec-2014 13:30 Appointment; Evelyne Peralse Encounter Diagnosis: Problem not documented On 09-Dec-2014 [...]
--- OUTSIDE RECORDS SUMMARY | 2016-07-28 22:57 | XMS REPORT | Summary of Care ---
Author Author Evelyne Perales APRN Unknown Address [address], [place] [id number] Phone Unavailable Care Team Providers Care Construction Job Cost Estimator Name Role Phone Jeremy John M.D. Unavailable [...] Active Bipolar disorder (296.80, F31.9) Status: Active middle [...] every 3 weeks * Refills: 0 SimmsMadeline valle M.D.* Started 25-Nov-2010 ActiveLevocetirizine Dihydrochloride 5 MG [...] Refills: 5 SimmsMadeline valle M.D.* Started 03-Mar-2014 ActiveHydrOXYzine HCl - 25 MG Oral Tablet TAKE 1-3 TABS AT BEDTIME NEEDED * Quantity: 90 Refills: 0 Lex John M.D.* Started 15-Apr-2014 ActiveFluticasone Propionate 50 MCG/ACT Nasal Suspension USE 2 SPRAYS IN EACH NOSTRIL ONCE DAILY * Quantity: 1 Refills: 11 Lex John M.D.* Started 11-Aug-2014 [id number] GM Bottle Wellbutrin XL 300 MG Oral Tablet Extended Release 24 Hour take one tablet by mouth every day * Quantity: 30 Refills: 0 * Started ActiveBelsomra 20 MG Oral Tablet TAKE ONE TABLET BY MOUTH AT BEDTIME NEEDED * Quantity: 30 Refills: 0 Lex John M.D.* Started 20-Aug-2014 ActiveMeloxicam 15 MG Oral Tablet TAKE 1 TABLET BY MOUTH DAILY * Quantity: 30 Refills: 0 * Started 09-Dec-2014 Active Allergies and Adverse Reactions Name Dates [...] on:07-Jan-2010 Influenza Administered on:22-Dec-2010 Influenza Lot #: [id number] Administered on:23-Jan-2012 Influenza Administered on:13-Jan-2013 PPD Lot #: [id number] Administered on: Fluzone Intramuscular Injectable Lot #: [id number] Administered on:02-Jan-2014 Family History Mother* Name Dates [...] John On 17-Dec-2014 11:45 * Appointment; Provider: Madeline Simms On 10-Dec-2014 13:30 * Appointment; Provider: Schedule Radiology On 10:00 [...]
--- OUTSIDE RECORDS SUMMARY | 2016-07-28 22:58 | XMS REPORT ---
Author Author GENERATED, SYSTEM Organization Unknown Address Unknown Phone Unavailable Care Team Providers Care Marine Structural Welder Name Role Phone MD DAVIDA, MAXWELL [phone] Reason For Visit Chief Complaint LEG AND BACK PAIN Social History Functional Status Vital Signs Results Problems Encounter Diagnosis No relevant problems exist. Additional Problems * Fall Risk Comment:Problem resolved by [facility] Workflow upon Discharge, Status: Resolved. * Fall Risk Comment:Problem resolved by [facility] Workflow upon Discharge, Status: Resolved. * Mobility Impairment Comment:Problem resolved by [facility] Workflow upon Discharge, Status:Resolved. * Spinal Stenosis Comment:Problem resolved by [facility] Workflow upon Discharge, Status:Resolved. Encounters Encounter Diagnosis No relevant problems exist. Plan of Care Procedures * Completed left lumbar 4-5 minimally invasive decompressive laminectomy, by MD VERA WELLINGTON, on 07/05/2016 4:30 PM * Completed Procedure Code: 5504154 Procedure Name: not valued, on 07/05/2016 12 :00 AM * Completed Procedure Code: 76456 Procedure Name: not valued, on 07/05/2016 12: 00 AM * Completed left knee arthroscopy, partial medial meniscectomy, chondroplasty trochanter, partial synovectomty, Left, by MD KHADIJAH COE, on 01/25/2016 10:23 AM * Completed Procedure Code: 4337680 Procedure Name: not valued, on 01/25/2016 12:00 AM * Completed Procedure Code: 14400 Procedure Name: not valued, on 01/25/2016 12: 00 AM Immunizations No immunizations administered or ordered. Hospital Course Hospital Discharge Instructions Allergies, Adverse Reactions, Alerts This section is sales development representative of the current allergy information, at the time of the CCD generation. In the case of regeneration of the CCD, the allergy information may not reflect the state of known allergies at the time of the CCD' s subject visit. * Kenalog causes Unknown. Onset unknown. * Depo-Medrol causes Unknown. Onset unknown. * Chantix causes Unknown. Onset unknown. * Latex Allergy has not been assessed. * IV Contrast Allergy has not been assessed. Medication Medication reconciliation has not been performed.
--- OUTSIDE RECORDS SUMMARY | 2016-07-28 22:58 | XMS REPORT | Summary of Care ---
Author Author Madeline Simms M.D. Unknown Address [address], [place] [phone] Phone Unavailable Care Team Providers Care Disk Grinder Name Role Phone Jeremy John M.D. Unavailable [...] on:07-Jan-2010 Influenza Administered on:22-Dec-2010 Influenza Lot #: [id number] Administered on:23-Jan-2012 Influenza Administered on:13-Jan-2013 PPD Lot #: [id number] Administered on: Fluzone Intramuscular Injectable Lot #: [id number] Administered on:02-Jan-2014 Fluzone Quadrivalent 0.5 ML Intramuscular Suspension Lot #: [id number] Administered on:25-Jan-2015 Family History Mother* Name Dates [...]
--- OUTSIDE RECORDS SUMMARY | 2016-07-28 22:58 | XMS REPORT | Summary of Care ---
Author Author Adan SHAFER, [employer] Organization Unknown Address [address], [place] [id number] Phone Unavailable Care Team Providers Care Event Marketing Specialist Name Role Phone Jeremy John M.D. 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: Active Hypomagnesemia (275.2, E83.42) Status: Active Plantar fascial fibromatosis (728.71, M72.2) Status: Active Vitamin d deficiency (268.9, E55.9) Status: Active Allergic rhinitis (477.9, J30.9) Status: Active Seasonal allergies (477.9, J30.2) Status: Active Morbid obesity (278.01, E66.01) Status: Active Hyperlipidemia (272.4, E78.5) Status: Active Insomnia (780.52, G47.00) Status: Active History of Tobacco use (305.1, Z72.0) Status: Resolved Combined form of age-related cataract, 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, 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 Onychomycosis (110.1, B35.1) Status: Active Essential hypertension (401.9, I10) Status: [...] Refills: 5 Madeline Simms M.D.* Started 26-Jan-2012 ActiveWellbutrin XL 300 MG Oral Tablet Extended [...] 30 Refills: 3 SimmsMadeline M.D.* Started 03-Mar-2014 ActiveMeloxicam 15 MG Oral Tablet Take one tablet by mouth daily * Quantity: 30 Refills: 1 Lex John M.D.* Started 17-Dec-2014 ActiveHydrOXYzine HCl - 25 MG Oral Tablet TAKE 1 TO 3 TABLETS BY MOUTH AT BEDTIME NEEDED * Quantity: 60 Refills: 0 Lex John M.D.* Started 15-Jun-2015 ActiveFluticasone Propionate 50 MCG/ACT Nasal Suspension USE 1 SPRAY IN EACH NOSTRIL ONCE DAILY. * Quantity: 16 Refills: 5 Lex John M.D.* Started 15-Jan-2014 ActiveAmLODIPine Besylate 5 MG Oral Tablet TAKE ONE TABLET BY MOUTH EVERY MORNING * Quantity: 30 Refills: 4 Madeline Simms M.D.* Started 29-Apr-2013 ActiveMethocarbamol 750 MG Oral Tablet TAKE ONE [...] on:07-Jan-2010 Influenza Administered on:22-Dec-2010 Influenza Lot #: [id number] Administered on:23-Jan-2012 Influenza Administered on:13-Jan-2013 PPD Lot #: [id number] Administered on: Fluzone Intramuscular Injectable Lot #: [id number] Administered on:02-Jan-2014 Fluzone Quadrivalent 0.5 ML Intramuscular Suspension Lot #: [id number] Administered on:25-Jan-2015 Tdap (Adacel) Lot #: [id number] Administered on:28-Jun-2015 Family History Mother* Name Dates [...] 11:45 * Appointment; Provider: Madeline Simms On 20-Aug-2015 09:00 * Appointment; Provider: Katja Martinez On 12-Jan-2015 14:00 * Appointment; Provider: Schedule Radiology On 10:00 * Appointment; Provider: Lex John On 18-Jul-2013 10:15 * Appointment; Provider: Madeline Simms On 27-Apr-2008 08:00 Instructions * Instructions not documented Encounters Appointment; Carolynn Arellano Encounter Diagnosis: Problem not [...]
--- OUTSIDE RECORDS SUMMARY | 2016-07-28 22:58 | XMS REPORT | Summary of Care ---
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 * Start 24-Jun-2013 Active Fluticasone Propionate 50 [...] Lex John M.D. * Start 07-Dec-2015 Active Hydrocodone-Acetaminophen 7.5-325 MG Oral Tablet TAKE 1 TO 2 TABLETS EVERY 6 HOURS NEEDED FOR PAIN. * Quantity: 30 Refills: 0 Pedro Wills M.D. * Start 08-Mar-2016 Active Terbinafine HCl - 250 MG Oral Tablet 1QD FOR 3 MONTHS - TAKE ONE TABLET BY MOUTH EVERY DAY FOR 3 MONTHS * Quantity: 90 Refills: 0 Madeline Simms M.D. * Start 23-Jun-2014 End 19-Jun-2016 Active Diclofenac Sodium 75 MG Oral Tablet Delayed Release Take 1 tab bid with food * Quantity: 60 Refills: 0 Simms M.D.Madeline * Start 08-May-2016 Active Allergies and Adverse Reactions Name Dates [...] 07-Jan-2010 Influenza on: 22-Dec-2010 Influenza Lot #: [id number] on: 23-Jan-2012 Influenza on: 13-Jan-2013 PPD Lot #: [id number] on: Fluzone INJ Lot #: [id number] on: 02-Jan-2014 Fluzone Quadrivalent 0.5 ML Intramuscular Suspension Lot #: [id number] on: 25-Jan-2015 Tdap (Adacel) Lot #: [id number] on: 28-Jun-2015 Fluzone Quadrivalent 0.5 ML Intramuscular Suspension Lot #: [id number] on: 23-Feb-2016 Family History Name Dates Details [...] Body Surface Area Calculated 2.46 m2 Status: 11-Apr-2016 10:11 BP Systolic 142 mm[Hg] Status: BP Diastolic 86 mm[Hg] Status: Heart Rate 72 /min Status: Physical Findings 96 Status: Comments: O2 Saturation 11-Apr-2016 10:09 Weight 289 lb Status: Body Mass Index Calculated 39.75 kg/m2 Status: Body Surface Area Calculated 2.48 m2 Status: Results Date Description Value Details Results not documented Plan of Care Name Dates Details Planned Observations Planned Goals not documented Planned Encounters Appointment; Provider: Aime Rdz M.D. On 15-Jan-2017 13:30 Appointment; Provider: Lex John M.D. On 07-Jun-2016 13:15 Appointment; Provider: Jameel Moore M.D. On 24-May-2016 09:15 Appointment; Provider: Madeline Simms M.D. On 18-May-2016 09:00 Interventions Provided Medication Changes* Diclofenac Sodium 75 MG Oral Tablet Delayed Release - Start * Meloxicam 15 MG Oral Tablet - Completed Instructions Name [...] Problem not documented On 07-Dec-2015 10:45 Appointment; aJmeel Moore M.D. Encounter Diagnosis: Problem not documented [...]
--- OUTSIDE RECORDS SUMMARY | 2016-07-28 22:58 | XMS REPORT | Summary of Care ---
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 * Quantity: 16 Refills: 5 Lex John M.D. * Start 15-Jan-2014 Active Losartan Potassium 100 MG Oral Tablet Take one tablet by mouth daily * Quantity: 30 Refills: 5 Simms Casandra.Madeline Stover * Start 26-Nov-2015 Active Wellbutrin XL 300 [...] days * Quantity: 180 Refills: 0 Mendez M.D.Madeline * Start 02-Jun-2015 Active Polyethylene Glycol 3350 Oral Powder MIX ONE CAPFUL IN 8OZ OF WATER AND TAKE TWO TIMES A DAY * Quantity: 527 Refills: 0 Nemesio Gonzalez M.D. * Start 16-Nov-2015 Active ClonazePAM 1 MG Oral Tablet TAKE 2 TABLETS BY MOUTH EVERY NIGHT AT BEDTIME * Quantity: 60 Refills: 5 Lex John M.D. * Start 07-Dec-2015 Active Celecoxib 200 MG Oral Capsule TAKE 1 CAPSULE Twice daily WITH FOOD * Quantity: 60 Refills: 0 Simms M.D.Madeline * Start 27-Dec-2015 Active LORazepam 1 MG Oral Tablet TAKE 1/2 TABLET IN MORNING, 1 TABLET AT NOON, 1 TABLET AT BEDTIME. * Quantity: 45 Refills: 0 Simms M.D.Madeline * Start Active Nicotine Polacrilex 2 MG Mouth/Throat Lozenge ALLOW 1 LOZENGE TO DISSOLVE SLOWLY IN MOUTH DIRECTED * Quantity: 1 Refills: 0 Kristi Todd M.D. * Start Active 48 Lozenge Box Allergies and Adverse Reactions Name Dates [...] 07-Jan-2010 Influenza on: 22-Dec-2010 Influenza Lot #: [id number] on: 23-Jan-2012 Influenza on: 13-Jan-2013 PPD Lot #: [id number] on: Fluzone INJ Lot #: [id number] on: 02-Jan-2014 Fluzone Quadrivalent 0.5 ML Intramuscular Suspension Lot #: [id number] on: 25-Jan-2015 Tdap (Adacel) Lot #: [id number] on: 28-Jun-2015 Family History Name Dates Details [...] 09:00 Appointment; Provider: Jameel Moore M.D. On 31-Jan-2016 08:45 Appointment; Provider: Jameel Moore M.D. On 25-Jan-2016 07:30 Instructions Name Dates Details Instructions not documented [...] documented On 13-Aug-2015 15:00 Appointment; Sampson Cuadra PJose Encounter Diagnosis: Problem not documented On 11-Aug-2015 [...]
--- OUTSIDE RECORDS SUMMARY | 2016-07-28 22:59 | XMS REPORT ---
Author Author Oh Greer Organization Unknown Address [address] [place], [place] [address] Phone Care Team Providers Care Community Living Instructor Name Role Phone Mendez Correa PP Unavailable Unavailable Reason for Referral No Reason for Referral was given. History of Present Illness No HPI available. 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); (Active) * Myopia (367.1); (Active) * Presbyopia (367.4); (Active) * Atypical Chest Pain (786.59); (Active) * Dyspepsia (536.8); (Active) * Onychomycosis (110.1); (Active) * Plantar Fasciitis (728.71); (Active) * Anemia Of Chronic Disease (285.29); (Active) * Urinary Frequency Increased (788.41); (Active) * Joint Pain In The Left Knee (719.46); (Active) * Insomnia (780.52); (Active) * Hyperlipidemia (272.4); (Active) * Nicotine Dependence (305.1); (Active) * Hypothyroidism (244.9); (Active) * Blurry Vision As If Looking Through A Glass Of Water (Active) * Essential Hypertension (401.9); (Active) * Paranoid Schizophrenia (295.30); (Active) * 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); (Active) * Seeing Double (Diplopia) (368.2); (Active) Medication * Metoprolol Tartrate 25 MG Oral Tablet; TAKE 1 TABLET DAILY.; Start Date: 03/15; End Date: (Active) * Mixture; 50-50 Eucerin\HC 1% apply BID to feet for 2 weeks-60g; Start Date: ; End Date: (Active) * Clotrimazole-Betamethasone 1-0.05 % External Cream; APPLY AND RUB IN A THIN FILM TO AFFECTED AREAS TWICE DAILY.( IN THE MORNING AND IN THE EVENING ) .GENERIC FOR LOTRISONE; Start Date: 08/26/2009; End Date: (Active) * Levothyroxine Sodium 50 MCG Oral Tablet; TAKE 1 TAB BY MOUTH DAILY; Start Date : 08/26/2010; End Date: (Active) * LORazepam 1 MG Oral Tablet; Take 1 tablet twice daily; Start Date: 11/04/2010 (Active) * Invega Sustenna 156 MG/ML Intramuscular Suspension; Inject IM every 4 weeks; Start Date: 11/25/2010 (Active) * Citalopram Hydrobromide 20 MG Oral Tablet; Start Date: 05/05/2011 (Active) * Nystatin-Triamcinolone 769636-2.1 UNIT/GM-% External Cream; APPLY SPARINGLY TO AFFECTED AREA(S) 3 TIMES A DAY; Start Date: 08/03/2011; End Date: (Active) * Fenofibrate Micronized 134 MG Oral Capsule; TAKE 1 CAPSULE BY MOUTH DAILY; Start Date: 08/03/2011; End Date: (Active) * Levocetirizine Dihydrochloride 5 MG Oral Tablet; TAKE 1 TAB BY MOUTH DAILY; Start Date: 12/26/2011; End Date: (Active) * Ketoconazole 2 % External Cream; Apply to affected area daily; Start Date: ; End Date: (Active) * Meloxicam 15 MG Oral Tablet; TAKE ONE TABLET BY MOUTH EVERY DAY WITH FOOD.; Start Date: 08/08/2012; End Date: (Active) * Lisinopril 20 MG Oral Tablet; Take one tablet by mouth daily; Start Date: ; End Date: (Active) * Sulfacetamide Sodium 10 % Ophthalmic Solution; 1-2 gtt to affected eye qid x 7 days; Start Date: 12/02/2012; End Date: (Active) * VESIcare 5 MG Oral Tablet; TAKE 1 TABLET DAILY.; Start Date: 12/04/2012; End Date: (Active) * TraZODone HCl 100 MG Oral Tablet; TAKE ONE TABLET BY MOUTH AT BEDTIME NEEDED; Start Date: 12/09/2012 (Active) Allergies and Adverse Reactions * No Known Drug Allergies (Active) Past Medical History * History of Cough (786.2); (Resolved) * History of Limb Pain Comments: Left thigh painLeft; (729.5); (Resolved ) * History of Acute Sinusitis (461.9); (Resolved) * History of Otitis Media (382.9); (Resolved) * History of Conjunctivitis (372.30); (Resolved) * History of Esophagitis (530.10); (Resolved) * History of Skin: A Rash (782.1); (Resolved) * History of Bloating (787.3); (Resolved) Procedures Procedure Procedure Date Date Completed Status Appendectomy - - Active Immunization * Tdap (Adacel) * Influenza - Administered on: 04/05/2009 * Influenza A (H1N1) Monoval PF Intramuscular Suspension - Administered on: * Fluzone Intramuscular Injectable - Administered on: 01/07/2010 * Influenza * Influenza (Lot #: [id number]) - Administered on: 01/23/2012 Family History * Maternal history of Alcoholism (Active) * Maternal history of Cirrhosis (Active) * Maternal history of Poliomyelitis (Active) * Maternal history of Hypertension (V17.49); (Active) * Fraternal history of Bipolar Disorder (Active) Social History * Marital History - Single (Active) * Former Smoker Comments: quit1 month ago (Active) * 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) * Occupation: Comments: [employer] (Active) * [place] Language Korean (Active) * Racial Background (___ %) (Active) * Never Drank Alcohol (Active) Vital Signs Date Description Test Result 09 Dec 2012 01:21 PM recorded by: Maria Guadalupe Coronel Temperature 98.4 F Weight 270 lb Body Mass Index Calculated 37.8 Body Surface Area Calculated 2.39 Heart Rate 96 /min BP Systolic 136 mm[Hg] BP Diastolic 86 mm[Hg] Treatment Plan * Pre-Employment 9020 06/21/2007 Routine * Other (for Billing purposes only) 9030 06/21/2007 Routine * Drug Scr Collection only 9800 06/21/2007 Routine * XC OPTIRAY 320 100ML 03/03/2010 Routine * Urine Culture PRN 8000 02/19/2012 Routine * Urine Culture PRN 8000 03/12/2012 Routine * XRay KNEE-Left 10/02/2012 Routine Advance Directives * No Advance Directives available. Encounters * Appointment 12/10/2012 * RTNPT , Provider: Edwige Burnett, Status: [place] , Time: 2:30 PM 01/01 * RTNPT , Provider: Mendez Correa, Status: [place] , Time: 3:30 PM 2012 * PX , Provider: Mendez Correa, Status: [place] , Time: 4:00 PM 2012
--- OUTSIDE RECORDS SUMMARY | 2016-07-28 22:59 | XMS REPORT | Summary of Care ---
Author Author Telly Sow, Raul De La Paz Unknown Address [address] [place] [address] Phone Unavailable Care Team Providers Care Exterminator Helper Termite Name Role Phone Dora Sow, Jeremy Unavailable [...] Active Leg swelling (729.81, M79.89) Status: Active Medications Name Dates Details Metoprolol [...] daily * Quantity: 90 Refills: 1 Telly M.DRaul Anderson * Start 20-Jun-2016 Active Nicotine 21 MG/24HR Transdermal Patch 24 Hour APPLY 1 PATCH DAILY DIRECTED. * Quantity: 1 Refills: 0 Simms M.DMadeline Anderson * Start 25-May-2016 Active 14 Patch 24 Hour Box Hydrocodone-Acetaminophen 7.5-325 MG Oral Tablet TAKE 1 TO 2 TABLETS EVERY 6 HOURS NEEDED FOR PAIN. * Quantity: 40 Refills: 0 Telly Guajardo.Raul Stover * Start 08-Mar-2016 Active Allergies and Adverse [...] Microscopic or Culture PRN 8005 Ordered: 18-May-2016 ULTRASOUND LEG VEINS-BILATERAL Ordered: 10-Jul-2016 Immunization Name Dates Details Tdap (Adacel) on: Feb-2007 Influenza on: 05-Apr-2009 Influenza A (H1N1) Monoval PF SUSP on: 05-Apr-2009 Fluzone INJ on: 07-Jan-2010 Influenza on: 22-Dec-2010 Influenza Lot #: [id number] on: 23-Jan-2012 Influenza on: 13-Jan-2013 PPD Lot #: [id number] on: Fluzone INJ Lot #: [id number] on: 02-Jan-2014 Fluzone Quadrivalent 0.5 ML Intramuscular Suspension Lot #: [id number] on: 25-Jan-2015 Tdap (Adacel) Lot #: [id number] on: 28-Jun-2015 Fluzone Quadrivalent 0.5 ML Intramuscular Suspension Lot #: [id number] on: 23-Feb-2016 Family History Name Dates Details [...] Vital Signs Date Test Result Details 10-Jul-2016 10:39 BP Systolic 144 mm[Hg] Status: [...] Comments: DOS 07/[address] Varner at [facility] SODIUM 139 mmol/L Range: 133-144 POTASSIUM 4.7 mmol/L Range: 3.5-5.1 CHLORIDE 101 mmol/L Range: 98-110 CARBON DIOXIDE 27.8 mmol/L Range: 23.0-33.0 ANION GAP 10 mmol/L Range: 6-16 BUN 15 mg/dL Range: 7-18 CREATININE, SERUM 1.05 mg/dL Range: 0.70-1.30 EST GFR, >60 ml/min Range: >60 EST GFR, NON-AFR SAMMARINESE >60 ml/min Range: >60 Comments: EST GFR [...] Varner M.D. On 17-Jul-2016 11:15 Appointment; Provider: Schedule Radiology On 10-Jul-2016 11:30 Interventions Provided Medication Changes* Hydrocodone-Acetaminophen 7.5-325 MG Oral Tablet - Renew Labs/Procedures/Imaging* ULTRASOUND LEG VEINS-BILATERAL; To be Done: 10 Jul 2016 Instructions Name Dates Details Instructions not [...]
--- OUTSIDE RECORDS SUMMARY | 2016-07-28 22:59 | XMS REPORT | Summary of Care ---
Author Author Telly Sow, Raul De La Paz Unknown Address [address] [place] [address] Phone Unavailable Care Team Providers Care Lineworker Name Role Phone Dora Sow, Jeremy Unavailable Unavailable Telly Sow, Raul Unavailable Unavailable Yolis Jones Unavailable Unavailable Fadi Sow, Javier Unavailable Unavailable Mendez Sow, Mdaeline Unavailable Unavailable Perez Sow, S Unavailable Unavailable [...] 5 Simms M.D.Madeline * Start 14-Mar-2016 Active Fluticasone Propionate 50 MCG/ACT Nasal Suspension INSTILL 1 SPRAY IN EACH NOSTRIL ONCE A DAY * Quantity: 16 Refills: 11 Dora M.DMonica, Lex Jeremy * Start 16-Feb-2016 Active Losartan [...] 0 Simms M.D.Madeline * Start 31-May-2015 Active Diclofenac Sodium 75 MG Oral Tablet Delayed Release TAKE ONE TABLET BY MOUTH TWICE DAILY WITH FOOD * Quantity: 60 Refills: 1 Simms M.D.Madeline * Start 06-Jun-2016 Active Gabapentin 300 MG Oral Capsule TAKE 1 CAPSULE 3 times daily * Quantity: 90 Refills: 1 Telly Guajardo.Raul Stover * Start 20-Jun-2016 Active Hydrocodone-Acetaminophen 7.5-325 MG Oral Tablet TAKE 1 TO 2 TABLETS EVERY 6 HOURS NEEDED FOR PAIN. * Quantity: 40 Refills: 0 Raul Varner M.D. * Start 08-Mar-2016 Active Eliquis 5 MG [...] Quantity: 20 Refills: 0 Perez Sow, Nemesio Spivey * Start 19-Jul-2016 Active Allergies and Adverse Reactions [...] 07-Jan-2010 Influenza on: 22-Dec-2010 Influenza Lot #: [id number] on: 23-Jan-2012 Influenza on: 13-Jan-2013 PPD Lot #: [id number] on: Fluzone INJ Lot #: [id number] on: 02-Jan-2014 Fluzone Quadrivalent 0.5 ML Intramuscular Suspension Lot #: [id number] on: 25-Jan-2015 Tdap (Adacel) Lot #: [id number] on: 28-Jun-2015 Fluzone Quadrivalent 0.5 ML Intramuscular Suspension Lot #: [id number] on: 23-Feb-2016 Family History Name Dates Details [...] unknown Vital Signs Date Test Result Details 21-Jul-2016 09:17 BP Systolic 134 mm[Hg] Status: [...] Location: ; Position: Temperature 97.3 f Status: Comments: Method: Heart Rate 80 /min Status: Comments: Location: ; 14-Jul-2016 09:43 BP Systolic 118 mm[Hg] Status: Comments: Location: LUE; Position: Sitting BP Diastolic 70 mm[Hg] Status: Comments: Location: LUE; Position: Sitting Heart Rate 74 /min Status: Comments: Location: [...] 07/[address] Varner at [facility] SODIUM 139 mmol/L Range: 133-144 POTASSIUM 4.7 mmol/L Range: 3.5-5.1 CHLORIDE 101 mmol/L Range: 98-110 CARBON DIOXIDE 27.8 mmol/L Range: 23.0-33.0 ANION GAP 10 mmol/L Range: 6-16 BUN 15 mg/dL Range: 7-18 CREATININE, SERUM 1.05 mg/dL Range: 0.70-1.30 EST GFR, >60 ml/min Range: >60 EST GFR, NON-AFR DUTCH >60 ml/min Range: >60 Comments: EST GFR [...] Appointment; Provider: Yvon Jones On 24-Jul-2016 10:30 Instructions Name Dates Details Instructions not documented [...] Problem not documented On 11-Apr-2016 10:15 Appointment; SmarsEvelyne Coleman A.P.R.N. Encounter Diagnosis: Problem not documented On [...] not documented On 15-Feb-2016 09:00 Appointment; Madeline iSmms M.D. Encounter Diagnosis: Problem [...] Problem not documented On 08-Sep-2014 16:15 Appointment; Danielle, Gisselle, M.D. Encounter Diagnosis: Problem not documented On 12-Aug-2014 08:25 Appointment; Madeline iSmms M.D. Encounter Diagnosis: Problem not documented On 06-Aug-2014 13:45
[2016-07-28] MEDS ORDERED: ACETAMINOPHEN SENT HOME ONE (23:00)
[2016-07-28] MEDS ORDERED: CODEINE SENT HOME ONE (23:00)
--- OUTSIDE RECORDS SUMMARY | 2016-07-28 23:00 | XMS REPORT ---
Author Author Madeline Simms Organization Unknown Address [address] [place], [place] [address] Phone Care Team Providers Care Elementary Special Education Teacher Name Role Phone Mendez Correa PP Unavailable Unavailable Reason for Referral No Reason for Referral was given. History of Present Illness No HPI available. Problems * Cough (786.2); (Active) * Taking Medication For A Long Time (V58.69); (Active) * Nonspecific Abnormal Findings (796.9); (Active) * Bipolar Disorder (296.00); (Active) * Muscle Aches, Generalized (Myalgias) (Active) * Limb Pain Comments: Left thigh painLeft; (729.5); (Active) * Skin Blister On The Calves Both (Active) * Acute Sinusitis (461.9); (Active) * Otitis Media (382.9); (Active) * Allergic Rhinitis (477.9); (Active) * Conjunctivitis (372.30); (Active) * Esophagitis (530.10); (Active) * Seborrheic Dermatitis Of The Scalp (690.18); (Active) * Normal Routine History And Physical Adult (V70.0); (Active) * Vitamin D Deficiency (268.9); (Active) * Tinea Versicolor (111.0); (Active) * 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); (Active) * Myopia (367.1); (Active) * Presbyopia (367.4); (Active) * Skin: A Rash (782.1); (Active) * Atypical Chest Pain (786.59); (Active) * Dyspepsia (536.8); (Active) * Hypothyroidism (244.9); (Active) * Bloating (787.3); (Active) * Paranoid Schizophrenia (295.30); (Active) * Hyperlipidemia (272.4); (Active) * Onychomycosis (110.1); (Active) * Urinary Frequency Increased (788.41); (Active) * Plantar Fasciitis (728.71); (Active) * Essential Hypertension (401.9); (Active) Medication * Metoprolol Tartrate 25 MG [...] Start Date: 08/26/2009; End Date: (Active) * Nicotine 14 MG/24HR Transdermal Patch 24 Hour; APPLY 1 PATCH DAILY DIRECTED.; Start Date: 01/07/2010; End Date: (Active) * Levothyroxine Sodium 50 MCG Oral Tablet; TAKE 1 TABLET DAILY.; Start Date: ; End Date: (Active) * LORazepam 1 MG Oral Tablet; Take 1 tablet twice daily; Start Date: 11/04/2010 (Active) * Invega Sustenna 156 MG/ML Intramuscular Suspension; Inject IM every 4 weeks; Start Date: 11/25/2010 (Active) * Ciclopirox 8 % External Solution; APPLY THIN COAT TO NAILS AT BEDTIME REAPPLY NIGHTLY ONCE WEEKLY; Start Date: 12/12/2010; End Date: (Active) * Citalopram Hydrobromide 20 MG Oral Tablet; Start Date: 05/05/2011 (Active) * Nystatin-Triamcinolone 311621-2.1 UNIT/GM-% External Cream; APPLY SPARINGLY TO AFFECTED AREA(S) 3 TIMES A DAY; Start Date: 08/03/2011; End Date: (Active) * Fenofibrate Micronized 134 MG Oral Capsule; TAKE 1 CAPSULE BY MOUTH DAILY; Start Date: 08/03/2011; End Date: (Active) * SEROquel 200 MG Oral Tablet; Start Date: 09/07/2011 (Active) * Levocetirizine Dihydrochloride 5 MG Oral Tablet; Take 1 tablet daily; Start Date: 12/26/2011; End Date: (Active) * Omeprazole 20 MG Oral Capsule Delayed Release; TAKE 1 CAPSULE DAILY.; Start Date: 01/26/2012; End Date: (Active) * Ketoconazole 2 % External Cream; Apply to affected area daily; Start Date: ; End Date: (Active) * Dicyclomine HCl 10 MG Oral Capsule; TAKE 1 CAPSULE 4 times daily; Start Date: 05/16/2012; End Date: (Active) * Meloxicam 15 MG Oral Tablet; TAKE ONE TABLET BY MOUTH EVERY DAY WITH FOOD; Start Date: 08/08/2012; End Date: (Active) * Lisinopril 20 MG Oral Tablet; TAKE 1 TABLET DAILY.; Start Date: 08/09/2012; End Date: (Active) Allergies and Adverse Reactions * No Known Drug Allergies (Active) Past Medical History * No Significant Medical History Procedures Procedure Procedure Date Date Completed Status Appendectomy - - Active Immunization * Tdap (Adacel) * Influenza - Administered on: 04/05/2009 * Influenza A (H1N1) Monoval PF Intramuscular Suspension - Administered on: * Fluzone Intramuscular Injectable - Administered on: 01/07/2010 * Influenza * Influenza (Lot #: [id number]) - Administered on: 01/23/2012 Family History * Maternal history of Alcoholism (Active) * Maternal history of Cirrhosis (Active) * Maternal history of Poliomyelitis (Active) * Maternal history of Hypertension (V17.49); (Active) * Fraternal history of Bipolar Disorder (Active) Social History * Marital History - Single (Active) * Former Smoker Comments: quit1 month ago (Active) * 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 Encounters * Appointment 09/10/2012 * NEWPT15 , Provider: Edwige Burnett, Status: Pen , Time: 1:00 PM 09/24
--- OUTSIDE RECORDS SUMMARY | 2016-07-28 23:00 | XMS REPORT | Summary of Care ---
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 (V58.69, 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: [...] to medical condition (293.84, F41.8) Status: Active Pain in left knee (719.46, M25.562) Status: Active Effusion of left knee (719.06, M25.462) Status: Active Current some day smoker (305.1, [...] 0 Simms M.D.Madeline * Start Active Nystatin-Triamcinolone 558578-5.1 UNIT/GM-% External Cream APPLY SPARINGLY TO AFFECTED [...] 07-Jan-2010 Influenza on: 22-Dec-2010 Influenza Lot #: [id number] on: 23-Jan-2012 Influenza on: 13-Jan-2013 PPD Lot #: [id number] on: Fluzone INJ Lot #: [id number] on: 02-Jan-2014 Fluzone Quadrivalent 0.5 ML Intramuscular Suspension Lot #: [id number] on: 25-Jan-2015 Tdap (Adacel) Lot #: [id number] on: 28-Jun-2015 Family History Name Dates Details [...]
--- OUTSIDE RECORDS SUMMARY | 2016-07-28 23:00 | XMS REPORT | Summary of Care ---
Author Author Madeline Simms M.D. Unknown Address [address], [place] [address] Phone Unavailable Care Team Providers Care Lawn Specialist Name Role Phone Jeremy John M.D. Unavailable Unavailable Madeline Simms M.D. Unavailable Unavailable Madelien Simms PP Unavailable Unavailable Unavailable Functional Status [...] tablet by mouth every day Quantity: 30 Maedline Simms M.D.* Started 15-Mar-2009 ActiveLevothyroxine Sodium 50 MCG Oral Tablet take one tablet by mouth every day * Quantity: 30 Refills: 4 Madeline Simms M.D.* Started 26-Aug-2010 ActiveInvega Sustenna 156 MG/ML Intramuscular Suspension Inject IM every 4 weeks * Refills: 0 Madeline Simms M.D.* Started 25-Nov-2010 ActiveLORazepam 1 MG Oral Tablet TAKE 1 TABLET IN MORNING, 1 TABLET AT NOON, 1 1/2 TABLET AT BEDTIME. * Refills: 0 Madeline Simms M.D.* Started ActiveAmLODIPine Besylate 5 MG Oral Tablet TAKE ONE TABLET BY MOUTH EVERY MORNING * Quantity: 30 Refills: 6 SimmsMadeline M.D.* Started 29-Apr-2013 ActiveLosartan Potassium 100 MG Oral Tablet take one tablet by mouth every day * Quantity: 30 Refills: 5 Madeline Simms M.D.* Started 03-Mar-2014 ActiveLevocetirizine Dihydrochloride 5 MG Oral Tablet take one tablet by mouth every day * Quantity: 90 Refills: 0 Madeline Simms M.D.* Started 26-Dec-2011 ActiveOmeprazole 20 MG Oral Capsule Delayed Release Take one capsule by mouth daily * Quantity: 30 Refills: 4 Madeline Simms M.D.* Started 26-Jan-2012 ActiveHydrOXYzine HCl - 25 MG Oral Tablet TAKE 1-3 TABS AT BEDTIME NEEDED * Quantity: 90 Refills: 0 Lex John M.D.* Started 15-Apr-2014 ActiveTraZODone HCl - 50 MG Oral Tablet TAKE 1 TABLET AT BEDTIME. * Quantity: 30 Refills: 2 * Started 22-Jun-2014 ActiveTerbinafine HCl - 250 MG Oral Tablet 1QD FOR 3 MONTHS - TAKE ONE TABLET BY MOUTH EVERY DAY FOR 3 MONTHS * Quantity: 90 Refills: 0 Madeline Simms M.D.* Started 23-Jun-2014 Ended Active Allergies and [...] on:07-Jan-2010 Influenza Administered on:22-Dec-2010 Influenza Lot #: [id number] Administered on:23-Jan-2012 Influenza Administered on:13-Jan-2013 PPD Lot #: [id number] Administered on: Fluzone Intramuscular Injectable Lot #: [id number] Administered on:02-Jan-2014 Family History Mother* Name Dates [...] smoker Vital Signs Date Test Result Details 23-Jun-2014 10:45 BP Systolic 150 mm[Hg] Status: [...] 10:45 * Appointment; Provider: Madeline Simms On 09:30 [...]
--- OUTSIDE RECORDS SUMMARY | 2016-07-28 23:00 | XMS REPORT | Summary of Care ---
Author Author Renuka Middleton APRN Organization Unknown Address [address], [place] [address] Phone Unavailable Care Team Providers Care Lap Winding Machine Operator Name Role Phone Jeremy John M.D. [...] 30 Refills: 5 SimmsMadeline M.D.* Started 29-Apr-2013 ActiveFluticasone Propionate 50 MCG/ACT Nasal Suspension USE 2 SPRAYS IN EACH NOSTRIL ONCE DAILY * Quantity: 1 Refills: 11 Lex John M.D.* Started 11-Aug-2014 Gchgsa72 GM Bottle Losartan Potassium 100 MG Oral Tablet take one tablet by mouth every day * Quantity: 30 Refills: 5 SimmsMadeline M.D.* Started 03-Mar-2014 ActiveCyclobenzaprine HCl - 10 [...] 30 Refills: 0 Lex John M.D.* Started ActiveBelsomra 20 MG Oral Tablet TAKE [...] on:07-Jan-2010 Influenza Administered on:22-Dec-2010 Influenza Lot #: [id number] Administered on:23-Jan-2012 Influenza Administered on:13-Jan-2013 PPD Lot #: [id number] Administered on: Fluzone Intramuscular Injectable Lot #: [id number] Administered on:02-Jan-2014 Family History Mother* Name Dates [...] Problem not documented On 18-Dec-2013 10:00 Appointment; eLx John Encounter Diagnosis: Problem not documented On [...]
--- OUTSIDE RECORDS SUMMARY | 2016-07-28 23:01 | XMS REPORT | Summary of Care ---
Author Author Lela Nunes M.D. Unknown Address [address], [place] [address] Phone Unavailable Care Team Providers Care Informatics Specialist Name Role Phone Jeremy John M.D. [...] Active Bipolar disorder (296.80, F31.9) Status: Active adjunct [...] 0 Madeline Simms M.D.* Started 25-Nov-2010 ActiveNystatin-Triamcinolone 862659-7.1 UNIT/GM-% External Cream APPLY SPARINGLY TO AFFECTED [...] Refills: 5 Lex John M.D.* Started 15-Jan-2014 Wstgor53 GM Bottle Mucinex 600 MG Oral Tablet [...] on:07-Jan-2010 Influenza Administered on:22-Dec-2010 Influenza Lot #: [id number] Administered on:23-Jan-2012 Influenza Administered on:13-Jan-2013 PPD Lot #: [id number] Administered on: Fluzone Intramuscular Injectable Lot #: [id number] Administered on:02-Jan-2014 Family History Mother* Name Dates [...]
--- OUTSIDE RECORDS SUMMARY | 2016-07-28 23:01 | XMS REPORT | Summary of Care ---
Author Author Madeline Simms M.D. Unknown Address [address], [place] [address] Phone Unavailable Care Team Providers Care Cota Name Role Phone Jeremy John M.D. 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 (V58.69, 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: Active [...] Status: Active Hyperlipidemia (272.4, E78.5) Status: Active Medications Name Dates Details Metoprolol [...] Refills: 11 Lex John M.D.* Started 11-Aug-2014 Ubidpx46 GM Bottle Belsomra 20 MG Oral Tablet [...] on:07-Jan-2010 Influenza Administered on:22-Dec-2010 Influenza Lot #: [id number] Administered on:23-Jan-2012 Influenza Administered on:13-Jan-2013 PPD Lot #: [id number] Administered on: Fluzone Intramuscular Injectable Lot #: [id number] Administered on:02-Jan-2014 Family History Mother* Name Dates [...] ml/min (Better) Range: >60 EST GFR, NON-AFR GABONESE >60 ml/min (Better) Range: >60 Comments: EST GFR is reported in ml/min per 1.73 m2 of body surface area. For -Spanish, please multiple result by 1.2.----- GLUCOSE 98 [...] On 18-Jul-2013 10:15 * Appointment; Provider: Madeline Simsm On 27-Apr-2008 08:00 Instructions * Instructions not [...]
--- OUTSIDE RECORDS SUMMARY | 2016-07-28 23:01 | XMS REPORT | Summary of Care ---
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 (V58.69, 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: Active [...] 0 Simms M.D.Madeline * Start Active Nystatin-Triamcinolone 514658-6.1 UNIT/GM-% External Cream APPLY SPARINGLY TO AFFECTED [...] 07-Jan-2010 Influenza on: 22-Dec-2010 Influenza Lot #: [id number] on: 23-Jan-2012 Influenza on: 13-Jan-2013 PPD Lot #: [id number] on: Fluzone INJ Lot #: [id number] on: 02-Jan-2014 Fluzone Quadrivalent 0.5 ML Intramuscular Suspension Lot #: [id number] on: 25-Jan-2015 Tdap (Adacel) Lot #: [id number] on: 28-Jun-2015 Family History Name Dates Details [...] smoker Vital Signs Date Test Result Details 03-Jan-2016 09:18 BP Systolic 120 mm[Hg] Status: [...] m2 Status: Results Date Description Value Details 13-Dec-2015 15:32 MRI KNEE LEFT Comments: Exam Date: 12/13/2015 14: 33Dictation Date: 12/13/2015 15:32 XMR EXT KNEE LEFT 31-Dec-2015 10:39 HEMOGLOBIN A1C 3507 Comments: ORDER [...] Celecoxib 200 MG Oral Capsule - Renew * Diclofenac Sodium 75 MG Oral Tablet Delayed Release - Stop Instructions Name Dates Details Instructions [...]
--- OUTSIDE RECORDS SUMMARY | 2016-07-28 23:01 | XMS REPORT ---
Author Author GENERATED, SYSTEM Organization Unknown Address Unknown Phone Unavailable Care Team Providers Care Smt Operator Name Role Phone MD DAVIDA, MAXWELL PP [phone] Reason For Visit Chief Complaint RT SIDE PAIN, FREQ URINATION Social History Functional Status Vital Signs Results Chemistry from 11/14/2015 9:15 AMSODIUM 139 MMOL/L (136-145 MMOL/L) POTASSIUM 4.4 MMOL/L (3.5-5.1 MMOL/L) CHLORIDE 104 MMOL/L (98-107 MMOL/L) TCO2 27.3 MMOL/L (21.0-32.0 MMOL/L) *ANION GAP 7.7 MMOL/L L (8.0-16.0 MMOL/L) BUN 16 MG/DL (7-18 MG/DL) CREATININE 1.10 MG/DL (0.70-1.30 MG/DL) *BUN/CREATININE RATIO 14.5 (9.1-17.0 ) GLUCOSE 105 MG/DL H (65-99 MG/DL) *GFR EST NON AFR SOUTH KOREAN 81 ML/MIN *GFR EST AFR AMER >90 ML/MIN CALCIUM 9.0 MG/DL (8.5-10.1 MG/DL) BILIRUBIN TOTAL 0.60 MG/DL (0.20-1.00 MG/DL) TOTAL PROTEIN 6.9 GM/DL (6.4-8.2 GM/DL) ALBUMIN 4.3 GM/DL (3.4-5.0 GM/DL) *GLOBULIN 2.6 GM/DL (2.3-3.5 GM/DL) *A/G RATIO 1.7 MG/DL (1.5-2.2 MG/DL) ALK PHOS 60 U/L (46-116 U/L) ALT (SGPT) 35 U/L (14-59 U/L) AST (SGOT) 25 U/L (15-37 U/L) Hematology from 11/14/2015 9:15 AMWBC 6.6 X10e3/UL (3.6-11.2 X10e3/UL) RBC 4.72 X10e6/UL (4.06-5.63 X10e6/UL) HEMOGLOBIN 13.3 G/DL (12.5-16.3 G/DL) HEMATOCRIT 39.2 % (36.7-47.1 %) *MCV 83.0 FL (80.0-100.0 FL) *MCH 28.2 PG (27.0-33.0 PG) *MCHC 34.0 G/DL (32.0-36.0 G/DL) *RDW 13.1 % (12.3-17.0 %) *RDWSD 38.5 (37.1-47.8 ) PLATELET 240 X10e3/UL (159-386 X10e3/UL) *MPV 7.3 FL L (7.4-10.4 FL) AUTOMATED DIFF PERFORMED SEGS 70.5 % *LYMPHOCYTES 19.6 % *MONOCYTES 7.3 % *EOSINOPHILS 1.6 % *BASOPHILS 1.0 % *ABSOLUTE NEUTROPHILS 4.60 X10e3/UL (1.80-7.80 X10e3/UL) *ABSOLUTE LYMPHOCYTES 1.30 X10e3/UL (1.00-3.00 X10e3/UL) *ABSOLUTE MONOCYTES 0.50 X10e3/UL (0.30-1.00 X10e3/UL) *ABSOLUTE EOSINOPHILS 0.10 X10e3/UL (0.00-0.50 X10e3/UL) *ABSOLUTE BASOPHILS 0.10 X10e3/UL (0.00-0.20 X10e3/UL) Urinalysis from 11/14/2015 8:44 AM*URINE COLOR STRAW (STRAW/YELL/DK YELL ) *URINE APPEARANCE CLEAR (CLEAR ) URINE PH 6.5 (5.0-8.0 ) URINE SPECIFIC GRAVITY 1.010 (<=1.005->=1.030 ) *URINE GLUCOSE NEGATIVE MG/DL (NEGATIVE MG/DL) *URINE BILIRUBIN NEGATIVE (NEGATIVE ) *URINE KETONES NEGATIVE MG/DL (NEGATIVE MG/DL) *URINE BLOOD NEGATIVE (NEGATIVE ) *URINE PROTEIN NEGATIVE MG/DL (NEGATIVE MG/DL) *URINE UROBILINOGEN 0.2 EU/DL (0.2-1.0 EU/DL) *URINE NITRITES NEGATIVE (NEGATIVE ) *URINE LEUKOCYTES NEGATIVE (NEGATIVE ) CT Scan from 11/14/2015 9:24 AMCT ABD/PELVIS W/O CONTRAST History: flank pain . Dysuria and urinary frequency. Priors: None. Findings: Abdomen Lung bases: There is calcified granuloma in the right lower lobe. Liver: Normal density. No definable mass. Spleen: Normal. Pancreas: No discrete mass or inflammatory process. Gallbladder and biliary tract: No radiodense calculus or dilation. Adrenal glands: Normal. Kidneys: No nephrolithiasis. No Hydronephrosis. Urinary Bladder: Normal. Aorta: Normal in caliber. No periaortic lymphadenopathy. Bowel and Mesentery: Grossly normal. No findings of appendicitis. Ascites: None. Pelvis Lymphadenopathy: None. Reproductive: Unremarkable. Osseous Structures: No suspicious findings. Impression: Unremarkable CT scan of the abdomen and pelvis. Electronically signed by: Marin Hahn MD Dictated: 11/14/2015 09:36 Problems Encounter Diagnosis No relevant problems exist. [...]
--- OUTSIDE RECORDS SUMMARY | 2016-07-28 23:01 | XMS REPORT | Summary of Care ---
Author Author Madeline Simms M.D. Unknown Address [address], [place] [address] Phone Unavailable Care Team Providers Care Senior Commissions Analyst Name Role Phone Dora Sow, Jeremy Unavailable [...] Active Bipolar disorder (296.80, F31.9) Status: Active shelter [...] Refills: 11 Lex John M.D.* Started 11-Aug-2014 Dderwh68 GM Bottle PredniSONE 10 MG Oral Tablet [...] on:07-Jan-2010 Influenza Administered on:22-Dec-2010 Influenza Lot #: [id number] Administered on:23-Jan-2012 Influenza Administered on:13-Jan-2013 PPD Lot #: [id number] Administered on: Fluzone Intramuscular Injectable Lot #: [id number] Administered on:02-Jan-2014 Family History Mother* Name Dates [...] ml/min (Better) Range: >60 EST GFR, NON-AFR MACANESE >60 ml/min (Better) Range: >60 Comments: EST GFR is reported in ml/min per 1.73 m2 of body surface area. For -[place], please multiple result by 1.2.----- GLUCOSE 98 [...]
--- OUTSIDE RECORDS SUMMARY | 2016-07-28 23:02 | XMS REPORT | Summary of Care ---
Author Author Renuka Middleton APRN Organization Unknown Address [address], [place] [address] Phone Unavailable Care Team Providers Care Rope Maker Name Role Phone Jeremy John M.D. [...] Active Bipolar disorder (296.80, F31.9) Status: Active halfway use of drug (V58.69, 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: [...] Refills: 11 Lex John M.D.* Started 11-Aug-2014 Htzxia75 GM Bottle Belsomra 20 MG Oral Tablet [...] on:07-Jan-2010 Influenza Administered on:22-Dec-2010 Influenza Lot #: [id number] Administered on:23-Jan-2012 Influenza Administered on:13-Jan-2013 PPD Lot #: [id number] Administered on: Fluzone Intramuscular Injectable Lot #: [id number] Administered on:02-Jan-2014 Family History Mother* Name Dates [...]
--- OUTSIDE RECORDS SUMMARY | 2016-07-28 23:02 | XMS REPORT ---
Author Author Malcolm Aponte Organization Unknown Address [address], [place] [address] Phone Care Team Providers Care Restaurant Managing Partner Name Role Phone Mendez Correa PP Unavailable [...] Start Date: 08/26/2009; End Date: (Active) * Citalopram Hydrobromide 20 MG Oral Tablet; Start Date: 05/05/2011 (Active) * Invega Sustenna 156 MG/ML Intramuscular Suspension; Inject IM every 4 weeks; Start Date: 11/25/2010 (Active) * Levocetirizine Dihydrochloride 5 MG Oral Tablet; Take 1 tablet daily; Start Date: 12/26/2011; End Date: (Active) * Omeprazole 20 MG Oral Capsule Delayed Release; TAKE 1 CAPSULE DAILY.; Start Date: 01/26/2012; End Date: (Active) * Ketoconazole 2 % External Cream; Apply to affected area daily; Start Date: ; End Date: (Active) * Nystatin-Triamcinolone 166361-6.1 UNIT/GM-% External Cream; APPLY SPARINGLY TO AFFECTED AREA(S) 3 TIMES A DAY; Start Date: 08/03/2011; End Date: (Active) * LORazepam 1 MG Oral Tablet; Take 1 tablet twice daily; Start Date: 11/04/2010 (Active) * Levothyroxine Sodium 50 MCG Oral Tablet; TAKE 1 TABLET DAILY.; Start Date: ; End Date: (Active) * Dicyclomine HCl 10 MG Oral Capsule; TAKE 1 CAPSULE 4 times daily; Start Date: 05/16/2012; End Date: (Active) * Nicotine 14 MG/24HR Transdermal Patch 24 Hour; APPLY 1 PATCH DAILY DIRECTED.; Start Date: 01/07/2010; End Date: (Active) * Fenofibrate Micronized 134 MG Oral Capsule; TAKE 1 CAPSULE BY MOUTH DAILY; Start Date: 08/03/2011; End Date: (Active) * Meloxicam 15 MG Oral Tablet; TAKE ONE TABLET BY MOUTH EVERY DAY WITH FOOD; Start Date: 08/08/2012; End Date: 09/07/2012 (Active) * SEROquel 200 MG Oral Tablet; Start Date: 09/07/2011 (Active) * Lisinopril 20 MG Oral Tablet; TAKE 1 TABLET DAILY.; Start Date: 08/09/2012; End Date: (Active) * Ciclopirox 8 % External Solution; APPLY THIN COAT TO NAILS AT BEDTIME REAPPLY NIGHTLY ONCE WEEKLY; Start Date: 12/12/2010; End Date: (Active) Allergies and Adverse Reactions [...] 01/07/2010 * Influenza * Influenza (Lot #: [id number]) - Administered on: 01/23/2012 Family History * Maternal history of Alcoholism (Active) * Maternal history of Cirrhosis (Active) * Maternal history of Poliomyelitis (Active) * Maternal history of Hypertension (V17.49); (Active) * Fraternal history of Bipolar Disorder (Active) Social History * Marital History - Single (Active) * Former Smoker Comments: quit1 month ago (Active) * 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) * Occupation: Comments: [employer] (Active) * [place] Language Prydeinig (Active) * Racial Background (___ %) (Active) * Never Drank Alcohol (Active) Vital Signs Date Description Test Result 21 Aug 2012 03:24 PM recorded by: Ab You Weight 276.375 lb Temperature 97.8 F BP Systolic 140 mm[Hg] Heart Rate 68 /min BP Diastolic 86 mm[Hg] Body Surface Area Calculated 2.42 Body Mass Index Calculated 38.69 Treatment Plan * Pre-Employment 9020 06/21/2007 Routine * Other (for Billing purposes only) 9030 06/21/2007 Routine * Drug Scr Collection only 9800 06/21/2007 Routine * XC OPTIRAY 320 100ML 03/03/2010 Routine * Urine Culture PRN 8000 02/19/2012 Routine * CBC w/ Auto Diff 7150 03/12/2012 Routine * Comprehensive Metabolic Panel 1212 03/12/2012 Routine * LIPID PROFILE 1184 03/12/2012 Routine * THYROID STIM. HORMONE 3602 03/12/2012 Routine * Urinalysis, Reflex to Microscopic or Culture PRN 8005 03/12/2012 Routine * Urine Culture PRN 8000 03/12/2012 Routine Advance Directives * No Advance Directives available. Encounters * Appointment 08/21/2012 * RTNPT , Provider: Mendez Correa, Status: [place] , Time: 3:45 PM 2012 * NEWPT15 , Provider: Edwige Burnett, Status: [place] , Time: 1:00 PM 09/24
--- OUTSIDE RECORDS SUMMARY | 2016-07-28 23:02 | XMS REPORT | Summary of Care ---
Author Author Mendez Sow, Madeline De La Paz Unknown Address Unknown Phone Unavailable Care Team Providers Care Junior Paralegal Name Role Phone Dora Sow, Jeremy Unavailable Unavailable Lisa Sow, Geovanna Unavailable Unavailable Madeline Simms M.D. 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 * Start Active 48 Lozenge Box Polyethylene Glycol 3350 Oral Powder MIX ONE CAPFUL IN 8OZ OF WATER AND TAKE TWO TIMES A DAY * Quantity: 527 Refills: 0 Nemesio Gonzalez M.D. * Start 16-Nov-2015 Active Refresh Tears 0.5 % Ophthalmic Solution INSTILL 1 DROP INTO BOTH EYES 4 TIMES DAILY NEEDED * Quantity: 15 Refills: 1 Simms M.D.Madeline * Start 24-Jun-2013 Active Methocarbamol 750 MG Oral Tablet TAKE [...] DAY * Quantity: 16 Refills: 11 Dora Sow, Lex Luna * Start 16-Feb-2016 Active Celecoxib [...] 07-Jan-2010 Influenza on: 22-Dec-2010 Influenza Lot #: [id number] on: 23-Jan-2012 Influenza on: 13-Jan-2013 PPD Lot #: [id number] on: Fluzone INJ Lot #: [id number] on: 02-Jan-2014 Fluzone Quadrivalent 0.5 ML Intramuscular Suspension Lot #: [id number] on: 25-Jan-2015 Tdap (Adacel) Lot #: [id number] on: 28-Jun-2015 Fluzone Quadrivalent 0.5 ML Intramuscular Suspension Lot #: [id number] on: 23-Feb-2016 Family History Name Dates Details [...] >60 ml/min Range: >60 EST GFR, NON-AFR MALAYSIAN >60 ml/min Range: >60 Comments: EST GFR [...] 11:00 Appointment; Provider: Jameel Moore M.D. On 23-Feb-2016 13:00 Interventions Provided Medications/Immunizations Administered* Fluzone Quadrivalent 0.5 [...] Problem not documented On 17-Dec-2014 11:45 Appointment; Madelnie Simms M.D. Encounter Diagnosis: Problem [...]
--- OUTSIDE RECORDS SUMMARY | 2016-07-28 23:03 | XMS REPORT | Summary of Care ---
Author Author Mendez Sow, Madeline De La Paz Unknown Address Unknown Phone Unavailable Care Team Providers Care Weather Strip Mechanic Name Role Phone Dora Sow, Jeremy Unavailable Unavailable Lisa Sow, Geovanna Unavailable Unavailable Madeline Simms M.D. 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
--- OUTSIDE RECORDS SUMMARY | 2016-07-28 23:03 | XMS REPORT | Summary of Care ---
Author Author Jameel Moore M.D. Unknown Address Unknown Phone Unavailable Care Team Providers Care Supervisor Webbing Name Role Phone Dora Sow, Jeremy Unavailable Unavailable Jamar Spears D.O. Unavailable Unavailable Zahra Moore M.D. Unavailable Unavailable [...] Left hip pain (719.45, M25.552) Status: Active Lower back pain (724.2, M54.5) Status: Active Left knee pain (719.46, M25.562) Status: Active Medications Name Dates Details Metoprolol Tartrate 25 MG Oral Tablet Take one tablet by mouth daily Quantity: 30 Simms M.D.Madeline * Start 21-Apr-2016 Active Levothyroxine Sodium 50 MCG Oral Tablet Take one tablet by mouth daily * Quantity: 30 Refills: 5 Simms M.D.Madeline * Start 19-May-2016 Active Levocetirizine Dihydrochloride 5 MG Oral Tablet [...] M.D.Kristi * Start Active 48 Lozenge Box Hydrocodone-Acetaminophen [...] 0 Simms M.D.Madeline * Start 09-Jun-2016 Active Mupirocin 2 % External Ointment Apply to toe daily at HS for 1 month * Quantity: 1 Refills: 1 Simms M.D.Madeline * Start 25-May-2016 Active 22 GM Tube Naproxen 500 MG Oral Tablet TAKE 1 [...] 0 Regan D.O.Jamar * Start 10-Jun-2016 Active Refresh Tears 0.5 % Ophthalmic Solution INSTILL 1 DROP INTO BOTH EYES 4 TIMES DAILY NEEDED * Quantity: 15 Refills: 1 Simms M.D., Madeline * Start 24-Jun-2013 Active LORazepam 1 MG Oral Tablet TAKE 1/2 TABLET IN MORNING, 1 TABLET AT NOON, 1 TABLET AT BEDTIME. * Quantity: 45 Refills: 0 Simms M.D., Madeline * Start Active Allergies and Adverse Reactions Name Dates [...] 07-Jan-2010 Influenza on: 22-Dec-2010 Influenza Lot #: [id number] on: 23-Jan-2012 Influenza on: 13-Jan-2013 PPD Lot #: [id number] on: Fluzone INJ Lot #: [id number] on: 02-Jan-2014 Fluzone Quadrivalent 0.5 ML Intramuscular Suspension Lot #: [id number] on: 25-Jan-2015 Tdap (Adacel) Lot #: [id number] on: 28-Jun-2015 Fluzone Quadrivalent 0.5 ML Intramuscular Suspension Lot #: [id number] on: 23-Feb-2016 Family History Name Dates Details [...] >60 ml/min Range: >60 EST GFR, NON-AFR BURMESE >60 ml/min Range: >60 Comments: EST GFR [...] Yvon Walker On 28-Jun-2016 08:15 Appointment; Provider: Carolynn Arellano DPM On 20-Jun-2016 15:15 Instructions Name Dates Details Instructions not documented [...]
--- OUTSIDE RECORDS SUMMARY | 2016-07-28 23:03 | XMS REPORT | Summary of Care ---
Author Author Madeline Simms M.D. Unknown Address [address] [place], [place] [id number] Phone Unavailable Care Team Providers Care Nursing Services Manager Name Role Phone Jeremy John M.D. Unavailable Unavailable Madeline Simms M.D. 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.69, 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: Active [...] Active Nicotine dependence (305.1, F17.200) Status: Active Right foot pain (729.5, M79.671) Status: Active Difficulty in walking (719.7, R26.2) Status: Active 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, M19.071) Status: Active Hallux rigidus (735.2, M20.20) Status: Active Acquired hallux rigidus of right foot (735.2, M20.21) Status: Active Bilateral pain of leg and foot (729.5, M79.604) Status: Active Medications Name Dates [...] on:07-Jan-2010 Influenza Administered on:22-Dec-2010 Influenza Lot #: [id number] Administered on:23-Jan-2012 Influenza Administered on:13-Jan-2013 PPD Lot #: [id number] Administered on: Fluzone Intramuscular Injectable Lot #: [id number] Administered on:02-Jan-2014 Fluzone Quadrivalent 0.5 ML Intramuscular Suspension Lot #: [id number] Administered on:25-Jan-2015 Tdap (Adacel) Lot #: [id number] Administered on:28-Jun-2015 Family History Mother* Name Dates [...]
--- OUTSIDE RECORDS SUMMARY | 2016-07-28 23:03 | XMS REPORT | Summary of Care ---
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 * Quantity: 60 Refills: 1 Sonam Simms M.D.a * Start 27-Dec-2015 Active Hydrocodone-Acetaminophen 7.5-325 MG Oral Tablet TAKE 1 TO 2 TABLETS EVERY 6 HOURS NEEDED FOR PAIN. * Quantity: 30 Refills: 0 Pedro Wills M.D. * Start 08-Mar-2016 Active Sulfamethoxazole-Trimethoprim 800-160 MG Oral Tablet TAKE 1 TABLET PO EVERY 12 HOURS X 10 DAYS * Quantity: 20 Refills: 0 Homer P.ATressa Anderson * Start 16-Mar-2016 Active PredniSONE 20 MG [...] 07-Jan-2010 Influenza on: 22-Dec-2010 Influenza Lot #: [id number] on: 23-Jan-2012 Influenza on: 13-Jan-2013 PPD Lot #: [id number] on: Fluzone INJ Lot #: [id number] on: 02-Jan-2014 Fluzone Quadrivalent 0.5 ML Intramuscular Suspension Lot #: [id number] on: 25-Jan-2015 Tdap (Adacel) Lot #: [id number] on: 28-Jun-2015 Fluzone Quadrivalent 0.5 ML Intramuscular Suspension Lot #: [id number] on: 23-Feb-2016 Family History Name Dates Details [...] 08:18 AEROBIC CULTURE Comments: [facility] at[facility] [address] [place] [address], [phone], [place] Worker Helper: Macario Rodriguez D.O., MPHQuest Collection Date/Time: [id number] Results Received Date/Time: [id number] Reported Date/Time: [id number] FASTING:NOQuest performed at: [facility], [address] [place] [address], [phone], [place] Worker Helper: Macario Rodriguez D.O., MPHQuest Collection Date/Time: [id number] Results Received Date/Time: [id number] Reported Date/Time: [id number] FASTING:NOQuest performed at: [facility], [address] [place] [address], [phone], [place] Worker Helper: Macario Rodriguez D.O., MPHQuest Collection Date/Time: [id number] Results Received Date/Time: [id number] Reported Date/Time: [id number] FASTING:NO CULTURE, AEROBIC BACTERIA WITH GRAM STAIN SEE NOTE Comments: CULTURE, AEROBIC BACTERIA WITH GRAM STAIN MICRO NUMBER: [id number] TEST STATUS: FINAL SPECIMEN SOURCE: KNEE SPECIMEN QUALITY: ADEQUATE GRAM STAIN: Rare White blood cells seen No organisms seen RESULT: No Growth[NC]----- Plan of Care Name Dates Details Planned Observations Planned Goals not documented Planned Encounters Appointment; Provider: Aime Rdz M.D. On 15-Jan-2017 13:30 Appointment; Provider: Lex John M.D. On 07-Jun-2016 13:15 Appointment; Provider: Madeline Simms M.D. On 11-May-2016 11:00 Interventions Provided Medication Changes* Omeprazole 20 MG Oral Capsule Delayed Release - Renew * Terbinafine HCl - 250 MG Oral Tablet [...]
--- OUTSIDE RECORDS SUMMARY | 2016-07-28 23:04 | XMS REPORT | Summary of Care ---
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 * Quantity: 30 Refills: 0 Pedro Wills M.D. * Start 08-Mar-2016 Active Diclofenac Sodium 75 MG Oral Tablet Delayed Release Take 1 tab bid with food * Quantity: 60 Refills: 0 Simms MMadeline White * Start 08-May-2016 Active Allergies and Adverse [...] 07-Jan-2010 Influenza on: 22-Dec-2010 Influenza Lot #: [id number] on: 23-Jan-2012 Influenza on: 13-Jan-2013 PPD Lot #: [id number] on: Fluzone INJ Lot #: [id number] on: 02-Jan-2014 Fluzone Quadrivalent 0.5 ML Intramuscular Suspension Lot #: [id number] on: 25-Jan-2015 Tdap (Adacel) Lot #: [id number] on: 28-Jun-2015 Fluzone Quadrivalent 0.5 ML Intramuscular Suspension Lot #: [id number] on: 23-Feb-2016 Family History Name Dates Details [...] unknown Vital Signs Date Test Result Details 18-May-2016 08:43 BP Systolic 142 mm[Hg] Status: [...] >60 ml/min Range: >60 EST GFR, NON-AFR FILIPINO >60 ml/min Range: >60 Comments: EST GFR [...] Simms M.D. On 21-Aug-2016 08:45 Appointment; Provider: Lex John M.D. On 07-Jun-2016 13:15 Appointment; Provider: Jameel Moore M.D. On 24-May-2016 09:15 Interventions Provided Medication Changes* ClonazePAM 1 MG [...]
--- OUTSIDE RECORDS SUMMARY | 2016-07-28 23:04 | XMS REPORT | Summary of Care ---
Author Author Madeline Simms M.D. Unknown Address [address], [place] [address] Phone Unavailable Care Team Providers Care Manager Inventory Management Name Role Phone Jeremy John M.D. Unavailable [...] 0 Madeline Simms M.D.* Started 25-Nov-2010 ActiveNystatin-Triamcinolone 298242-7.1 UNIT/GM-% External Cream APPLY SPARINGLY TO AFFECTED [...] Refills: 5 Lex John M.D.* Started 15-Jan-2014 [id number] GM Bottle Mucinex 600 MG Oral Tablet [...] on:07-Jan-2010 Influenza Administered on:22-Dec-2010 Influenza Lot #: [id number] Administered on:23-Jan-2012 Influenza Administered on:13-Jan-2013 PPD Lot #: [id number] Administered on: Fluzone Intramuscular Injectable Lot #: [id number] Administered on:02-Jan-2014 Family History Mother* Name Dates [...]
--- OUTSIDE RECORDS SUMMARY | 2016-07-28 23:04 | XMS REPORT | Continuity of Care Document ---
Author Author [facility] Organization [facility] Address Unknown Phone Unavailable Allergies Active Description Code Type Severity Reaction Onset Reported/Identified Relationship to Patient Clinical Status Yes NKA Drug Allergy N/A N/A Yes No Known Allergies ZZ No Known Allergies N/A NKA 04/25/2011 Yes Chantix ZZ Drug Allergy N/A N/A 05/03/2016 Medications Problems Date Dx Coded Attending Type Code Diagnosis Diagnosed By 01/12/2015 BHARATH PSYCHOLOGIST, PHD, SAMUEL Bonilla 295.70 Schizoaffective Disorder 06/07/2016 GURWINDER HARTMAN O72622 Nicotine dependence, chewing tobacco, uncomplicated 06/07/2016 GURWINDER HARTMAN F209 Schizophrenia, unspecified 06/07/2016 GURWINDER HARTMAN F319 Bipolar disorder, unspecified 06/07/2016 GURWINDER HARTMAN I10 Essential (primary) hypertension 06/07/2016 GURWINDER HARTMAN K219 Gastro-esophageal reflux disease without esophagitis 06/07/2016 GURWINDER HARTMAN I34615 Pain in left hip 06/07/2016 GURWINDER HARTMAN M5417 Radiculopathy, lumbosacral region 06/07/2016 GURWINDER HARTMAN B10993 Other penitentiary (current) drug therapy 06/23/2016 KATHERINE ALEMAN Z52085 Nicotine dependence, chewing tobacco, uncomplicated 06/23/2016 KATHERINE ALEMAN M545 Low back pain 06/23/2016 KATHERINE ALEMAN M549 Dorsalgia, unspecified 06/23/2016 KATHERINE ALEMAN Q27435 Pain in right leg Procedures Code Description [place] [address] 06/03/2016 06501 06/17/2016 Results Encounters ACCT No. Visit Date/Time Discharge Status Pt. Type Provider Facility Loc./Unit Complaint [id number] 09/26/2004 00:00:00 09/26/2004 23: 59:59 [facility] Outpatient BHARATH PSYCHOLOGIST, PHD, SAMUEL
--- OUTSIDE RECORDS SUMMARY | 2016-07-28 23:04 | XMS REPORT | Summary of Care ---
Author Author Madeline Simms M.D. Unknown Address [address] [place], [place] [address] Phone Unavailable Care Team Providers Care Power Sewing Machine Operator Name Role Phone Jeremy Jhon M.D. Unavailable Unavailable Madeline Simms M.D. Unavailable [...] day Quantity: 30 SimmsMadeline M.D.* Started 15-Mar-2009 ActiveLORazepam 1 MG Oral Tablet TAKE 1/2 TABLET IN MORNING, 1 TABLET AT NOON, 1 TABLET AT BEDTIME. * Quantity: 45 Refills: 0 SimmsMadeline M.D.* Started ActiveLevothyroxine Sodium 50 MCG Oral Tablet take one tablet by mouth every day * Quantity: 30 Refills: 0 SimmsMadeline M.D.* Started 26-Aug-2010 ActiveLevocetirizine Dihydrochloride 5 MG [...] Refills: 0 Madeline Simms M.D.* Started 10-Dec-2014 ActiveOmeprazole 20 MG Oral Capsule Delayed Release [...] Refills: 5 Lex John M.D.* Started 15-Jan-2014 ActiveBelsomra 20 MG Oral Tablet TAKE ONE TABLET BY MOUTH AT BEDTIME NEEDED * Quantity: 30 Refills: 0 Lex John M.D.* Started 20-Aug-2014 ActiveLosartan Potassium 100 MG Oral Tablet take one tablet by mouth every day * Quantity: 30 Refills: 3 Madeline Simms M.D.* Started 03-Mar-2014 ActiveNicotine 21 MG/24HR Transdermal Patch 24 Hour APPLY 1 PATCH DAILY DIRECTED FOR 2 WEEKS THEN WILL TAKE nICOTINE 14MG/24HR TRANSDERMAL PATCH. * Quantity: 14 Refills: 0 Madeline Simms M.D.* Started 23-Mar-2014 Ended 22-Jun-2015 ActivePaliperidone ER 6 MG Oral Tablet Extended [...] Name Dates Details History of acute bronchitis (V1.69, Z87.09) Status: Resolved History of acute otitis [...] Dates Details Tdap (Adacel) Administered on:Feb-2007 Influenza A (H1N1) Monoval PF Intramuscular Suspension Administered on:05-Apr-2009 Influenza Administered on:05-Apr-2009 Fluzone Intramuscular Injectable Administered on:07-Jan-2010 Influenza Administered on:22-Dec-2010 Influenza Lot #: [id number] Administered on:23-Jan-2012 Influenza Administered on:13-Jan-2013 PPD Lot #: [id number] Administered on: Fluzone Intramuscular Injectable Lot #: [id number] Administered on:02-Jan-2014 Fluzone Quadrivalent 0.5 ML Intramuscular Suspension Lot #: [id number] Administered on:25-Jan-2015 Family History Mother* Name Dates [...]
--- OUTSIDE RECORDS SUMMARY | 2016-07-28 23:04 | XMS REPORT | Summary of Care ---
Author Author Madeline Simms M.D. Unknown Address [address], [place] [id number] Phone Unavailable Care Team Providers Care Criminal Justice Faculty Name Role Phone Jeremy John M.D. 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 [...] Refills: 11 Lex John M.D.* Started 11-Aug-2014 Ykrkmw35 GM Bottle Losartan Potassium 100 MG Oral [...] on:07-Jan-2010 Influenza Administered on:22-Dec-2010 Influenza Lot #: [id number] Administered on:23-Jan-2012 Influenza Administered on:13-Jan-2013 PPD Lot #: [id number] Administered on: Fluzone Intramuscular Injectable Lot #: [id number] Administered on:02-Jan-2014 Family History Mother* Name Dates [...] not documented On 30-Dec-2012 13:45 Appointment; Madeline Smims Encounter Diagnosis: Problem not documented On 20-Dec-2012 15:15 Appointment; Oh Greer Encounter Diagnosis: Problem not documented On 10-Dec-2012 13:30 Appointment; Madeline Simms Encounter Diagnosis: Problem not documented On 09-Dec-2012 14:15
--- OUTSIDE RECORDS SUMMARY | 2016-07-28 23:05 | XMS REPORT | Summary of Care ---
Author Author Madeline Simms M.D. Unknown Address [address], [place] [id number] Phone Unavailable Care Team Providers Care Molding Machine Operator Name Role Phone Jeremy John [...] Active Bipolar disorder (296.80, F31.9) Status: Active residential [...] Active Paranoid schizophrenia (295.30, F20.0) Status: Active Onychomycosis (110.1, B35.1) Status: Active Medications Name Dates Details Metoprolol [...] on:07-Jan-2010 Influenza Administered on:22-Dec-2010 Influenza Lot #: [id number] Administered on:23-Jan-2012 Influenza Administered on:13-Jan-2013 PPD Lot #: [id number] Administered on: Fluzone Intramuscular Injectable Lot #: [id number] Administered on:02-Jan-2014 Family History Mother* Name Dates [...] not documented Goal Planned Encounters* Appointment; Provider: Madeline Simms On 09:30 * Appointment; Provider: Lex John On 10-Aug-2014 16:15 * Appointment; Provider: Lex John On 18-Jul-2013 [...]
--- OUTSIDE RECORDS SUMMARY | 2016-07-28 23:05 | XMS REPORT ---
Author Author [facility] Organization Unknown Address [address], [place] [address] Phone Care Team Providers Care Printing Worker Supervisor Name Role Phone Mendez Correa PP Unavailable [...] (728.71); (Active) * Essential Hypertension (401.9); (Active) * Hyperlipidemia (272.4); (Active) * Hypothyroidism (244.9); (Active) * Paranoid Schizophrenia (295.30); (Active) * Anemia Of Chronic Disease (285.29); (Active) * Urinary Frequency Increased (788.41); (Active) * Joint Pain In The Left Knee (719.46); (Active) Medication * Metoprolol Tartrate 25 MG [...] Oral Tablet; Start Date: 05/05/2011 (Active) * Ketoconazole 2 % External Cream; Apply to affected area daily; Start Date: ; End Date: (Active) * Fenofibrate Micronized 134 MG Oral Capsule; TAKE 1 CAPSULE BY MOUTH DAILY; Start Date: 08/03/2011; End Date: (Active) * Lisinopril 20 MG Oral Tablet; TAKE 1 TABLET DAILY.; Start Date: 08/09/2012; End Date: (Active) * Dicyclomine HCl 10 MG Oral Capsule; TAKE 1 CAPSULE BY MOUTH 4 TIMES DAILY; Start Date: 05/16/2012; End Date: (Active) * Nystatin-Triamcinolone 185809-1.1 UNIT/GM-% External Cream; APPLY SPARINGLY TO AFFECTED AREA(S) 3 TIMES A DAY; Start Date: 08/03/2011; End Date: (Active) * Omeprazole 20 MG Oral Capsule Delayed Release; TAKE 1 CAPSULE DAILY.; Start Date: 01/26/2012; End Date: (Active) * Levocetirizine Dihydrochloride 5 MG Oral Tablet; TAKE 1 TAB BY MOUTH DAILY; Start Date: 12/26/2011; End Date: (Active) * Meloxicam 15 MG Oral Tablet; TAKE ONE TABLET BY MOUTH EVERY DAY WITH FOOD; Start Date: 08/08/2012; End Date: (Active) * SEROquel 100 MG Oral Tablet (Active) * Indomethacin 25 MG Oral Capsule; TAKE 1 CAPSULE 3 TIMES DAILY WITH FOOD NEEDED.; Start Date: 10/02/2012; End Date: (Active) Allergies and Adverse Reactions [...] 01/07/2010 * Influenza * Influenza (Lot #: [id number]) - Administered on: 01/23/2012 Family History * Maternal history of Alcoholism (Active) * Maternal history of Cirrhosis (Active) * Maternal history of Poliomyelitis (Active) * Maternal history of Hypertension (V17.49); (Active) * Fraternal history of Bipolar Disorder (Active) Social History * Marital History - Single (Active) * Former Smoker Comments: quit1 month ago (Active) * 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) * Occupation: Comments: [employer] (Active) * [place] Language [place] (Active) * Racial Background (___ %) (Active) * Never Drank Alcohol (Active) Vital Signs Date Description Test Result 02 Oct 2012 02:45 PM recorded by: Ab You BP Systolic 140 mm[Hg] BP Diastolic 80 mm[Hg] 02 Oct 2012 01:24 PM recorded by: Genna Narvaez L BP Systolic 146 mm[Hg] BP Diastolic 92 mm[Hg] Temperature 97.8 F Heart Rate 72 /min O2 SAT 97 % Treatment Plan * Pre-Employment 9020 06/21/2007 Routine * Other (for Billing purposes only) 9030 06/21/2007 Routine * Drug Scr Collection only 9800 06/21/2007 Routine * XC OPTIRAY 320 100ML 03/03/2010 Routine * Urine Culture PRN 8000 02/19/2012 Routine * Urine Culture PRN 8000 03/12/2012 Routine * XRay KNEE-Left 10/02/2012 Routine * URIC ACID 1155 10/02/2012 Routine Advance Directives * No Advance Directives available. Encounters * Appointment 10/02/2012 * RTNPT , Provider: Mendez Correa, Status: [place] , Time: 3:15 PM 2012 * CYSTOPRO , Provider: Edwige Burnett, Status: [place] , Time: 1:30 PM 10/22 * PX , Provider: Mendez Correa, Status: [place] , Time: 4:00 PM 2012
--- OUTSIDE RECORDS SUMMARY | 2016-07-28 23:05 | XMS REPORT | Summary of Care ---
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.69, 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: Active [...] 0 Simms M.D.Madeline * Start Active Nystatin-Triamcinolone 693056-7.1 UNIT/GM-% External Cream APPLY SPARINGLY TO AFFECTED [...] ONCE DAILY WITH A MEAL * Quantity: 90 Refills: 0 Simms M.DMadeline Anderson * Start 27-Dec-2015 Active Allergies and Adverse [...] 07-Jan-2010 Influenza on: 22-Dec-2010 Influenza Lot #: [id number] on: 23-Jan-2012 Influenza on: 13-Jan-2013 PPD Lot #: [id number] on: Fluzone INJ Lot #: [id number] on: 02-Jan-2014 Fluzone Quadrivalent 0.5 ML Intramuscular Suspension Lot #: [id number] on: 25-Jan-2015 Tdap (Adacel) Lot #: [id number] on: 28-Jun-2015 Family History Name Dates Details [...] smoker Vital Signs Date Test Result Details 08-Feb-2016 11:47 BP Systolic 142 mm[Hg] Status: [...] 97.9 f Status: Comments: Method: Heart Rate 78 /min Status: Comments: Location: [...] ; Position: Heart Rate 69 /min Status: Physical Findings 22 Status: Comments: Respiration Height 71.5 in Status: Weight 270 lb Status: Physical Findings 97 Status: Comments: O2 Saturation Body Mass Index Calculated 37.13 kg/m2 Status: Body Surface Area Calculated 2.41 m2 Status: 18-Jan-2016 09:09 BP Systolic 136 mm[Hg] Status: BP Diastolic 88 mm[Hg] Status: Heart Rate 88 /min Status: Comments: [...] >60 ml/min Range: >60 EST GFR, NON-AFR FRENCH >60 ml/min Range: >60 Comments: EST GFR [...] 13:30 Appointment; Provider: Madeline Simms M.D. On 11-May-2016 11:00 Appointment; Provider: Jameel Moore M.D. On 21-Feb-2016 09:15 Appointment; Provider: aCrolynn Arellano DPM On 15-Feb-2016 09:00 Interventions Provided Medication Changes* Celecoxib 200 MG Oral Capsule - Renew with Changes Instructions Name Dates Details Instructions not documented [...]
--- OUTSIDE RECORDS SUMMARY | 2016-07-28 23:06 | XMS REPORT | Summary of Care ---
Author Author Madeline Simms M.D. Unknown Address [address], [place] [id number] Phone Unavailable Care Team Providers Care Upper Cutter Out Name Role Phone Jeremy John M.D. Unavailable [...] Quantity: 45 Refills: 0 SimmsMadeline M.D.* Started ActiveLevocetirizine Dihydrochloride 5 MG Oral [...] 30 Refills: 5 SimmsMadeline M.D.* Started 03-Mar-2014 ActiveWellbutrin XL 300 MG Oral Tablet Extended Release 24 Hour take one tablet by mouth every day * Quantity: 30 Refills: 0 * Started ActiveBenztropine Mesylate 1 MG Oral Tablet Take 1 tablet twice daily * Refills: 0 Madeline Simms M.D.* Started 10-Dec-2014 ActiveAbilify Maintena 300 MG Intramuscular Suspension Reconstituted * Refills: 0 SimmsMadeline M.D.* Started 10-Dec-2014 ActiveMeloxicam 15 MG Oral Tablet TAKE 1 TABLET DAILY. * Quantity: 15 Refills: 0 Lex John M.D.* Started 17-Dec-2014 ActiveCyclobenzaprine HCl - 10 MG Oral Tablet TAKE ONE TABLET BY MOUTH BID NEEDED * Quantity: 30 Refills: 0 SimmsMadeline valle M.D.* Started 14-Dec-2014 ActiveBelsomra 20 MG Oral [...] PROFILE 1184 Ordered:29-Dec-2014 LIVER PROFILE 1215 Ordered:29-Dec-2014 THYROID STIM. HORMONE 3602 Ordered:29-Dec-2014 CREATINE KINASE 1300 Ordered:29-Dec-2014 CBC w/ Auto Diff 7150 Ordered:29-Dec-2014 Immunization Name Dates Details Tdap (Adacel) Administered on:Feb-2007 Influenza Administered on:05-Apr-2009 Influenza A (H1N1) Monoval PF Intramuscular Suspension Administered on:05-Apr-2009 Fluzone Intramuscular Injectable Administered on:07-Jan-2010 Influenza Administered on:22-Dec-2010 Influenza Lot #: [id number] Administered on:23-Jan-2012 Influenza Administered on:13-Jan-2013 PPD Lot #: [id number] Administered on: Fluzone Intramuscular Injectable Lot #: [id number] Administered on:02-Jan-2014 Family History Mother* Name Dates [...] not documented On 10-Dec-2014 13:30 Appointment; Evelyne ePrales Encounter Diagnosis: Problem not documented On 09-Dec-2014 14:15 Appointment; Sampson Cuadra Encounter Diagnosis: Problem not documented On 25-Nov-2014 13:00 Appointment; Renuka Middleton Encounter Diagnosis: Problem not documented On 16-Nov-2014 13:30 Appointment; Raul Cowart Encounter Diagnosis: Problem not documented On 10:00 Appointment; Evelyne Perales Encounter Diagnosis: Problem not documented On 08:35 Appointment; Josse Sheppard Encounter Diagnosis: Problem not documented On 13:15 Appointment; Madeline iSmms Encounter Diagnosis: Problem not documented On 09:30 [...] Problem not documented On 18-Jul-2013 14:30 Appointment; hO Greer Encounter Diagnosis: Problem not [...] Problem not documented On 17-Mar-2013 11:30 Appointment; Madleine Simms Encounter Diagnosis: Problem not documented On 10-Mar-2013 14:45 Appointment; Madeline Simms Encounter Diagnosis: Problem not documented On 13-Jan-2013 15:30
--- OUTSIDE RECORDS SUMMARY | 2016-07-28 23:06 | XMS REPORT | Summary of Care ---
Author Author Tressa Bright Organization Unknown Address [address] [place] [address] Phone Unavailable Care Team Providers Care Sewing Room Supervisor Name Role Phone Dora Sow, Jeremy Unavailable Unavailable Tressa Bright Unavailable Unavailable Mendez Sow, Madeline Unavailable Unavailable Perez oSw, R Unavailable Unavailable Johann Sow, Pedro Unavailable [...] FOR PAIN. * Quantity: 30 Refills: 0 Wilfredoenzo SowPedro * Start 08-Mar-2016 Active Sulfamethoxazole-Trimethoprim 800-160 MG Oral Tablet TAKE 1 TABLET PO EVERY 12 HOURS X 10 DAYS * Quantity: 20 Refills: 0 Homer P.A., Tressa * Start 16-Mar-2016 Active Allergies and Adverse [...] 07-Jan-2010 Influenza on: 22-Dec-2010 Influenza Lot #: [id number] on: 23-Jan-2012 Influenza on: 13-Jan-2013 PPD Lot #: [id number] on: Fluzone INJ Lot #: [id number] on: 02-Jan-2014 Fluzone Quadrivalent 0.5 ML Intramuscular Suspension Lot #: [id number] on: 25-Jan-2015 Tdap (Adacel) Lot #: [id number] on: 28-Jun-2015 Fluzone Quadrivalent 0.5 ML Intramuscular Suspension Lot #: [id number] on: 23-Feb-2016 Family History Name Dates Details [...] smoker Vital Signs Date Test Result Details 16-Mar-2016 15:15 BP Systolic 128 mm[Hg] Status: [...] BP Systolic 130 mm[Hg] Status: Comments: Location: LUE; Position: Sitting BP Diastolic 82 mm[Hg] Status: Comments: Location: LUE; Position: Sitting [...] 08:18 AEROBIC CULTURE Comments: [facility] performed at: [facility], [address] [place] [address], [id number], Parts Cataloguer: Macario Rodriguez D.O., MPHQuest Collection Date/Time: [id number] Results Received Date/Time: [id number] Reported Date/Time: [id number] FASTING:NOQuest performed at: [facility], [address] [place] [address], [address], Parts Cataloguer: Macario Rodriguez D.O., MPHQuest Collection Date/Time: [id number] Results Received Date/Time: [id number] Reported Date/Time: [id number] FASTING:NOQuest performed at: [place], [facility], [address] [place], [address], Parts Cataloguer: Macario Rodriguez D.O., MPHQuest Collection Date/Time: [id number] Results Received Date/Time: [id number] Reported Date/Time: FASTING:NO CULTURE, AEROBIC BACTERIA WITH GRAM STAIN SEE NOTE Comments: CULTURE, AEROBIC BACTERIA WITH GRAM STAIN MICRO NUMBER: [id number] TEST STATUS: FINAL SPECIMEN SOURCE: KNEE SPECIMEN QUALITY: ADEQUATE GRAM STAIN: Rare White blood cells seen No organisms seen RESULT: No Growth[IA]----- Plan of Care Name Dates Details Planned Observations Planned Goals not documented Planned Encounters Appointment; Provider: Aime Rdz M.D. On 15-Jan-2017 13:30 Appointment; Provider: Lex John M.D. On 07-Jun-2016 13:15 Appointment; Provider: Madeline Simms M.D. On 11-May-2016 11:00 Appointment; Provider: Madeline Simms M.D. On 21-Mar-2016 15:15 Appointment; Provider: Jameel Moore M.D. On 20-Mar-2016 09:15 Interventions Provided Medication Changes* Sulfamethoxazole-Trimethoprim 800-160 MG Oral Tablet - Start Instructions Name Dates Details Instructions not documented Encounters Appointment; Pedro Wills M.D. Encounter Diagnosis: Problem [...]
--- OUTSIDE RECORDS SUMMARY | 2016-07-28 23:06 | XMS REPORT | Summary of Care ---
Author Author Lex John M.D. Unknown Address Unknown Phone Unavailable Care Team Providers Care Periodicals Clerk Name Role Phone Dora Sow, Jeremy Unavailable Unavailable Lisa Sow, Geovanna Unavailable Unavailable Mendez Sow, Madeline 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: Active senior living use of drug (V58.69, 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: Active [...] Status: Active Restlessness (799.29, R45.1) Status: Active Medications Name Dates Details Metoprolol [...] day * Quantity: 90 Refills: 3 Simms Madeline Sow * Start 26-Dec-2011 Active Omeprazole 20 MG Oral Capsule Delayed Release Take one capsule by mouth daily * Quantity: 30 Refills: 0 Madeline Simms M.D. * Start 19-Nov-2015 Active AmLODIPine Besylate 5 MG Oral Tablet TAKE ONE TABLET BY MOUTH EVERY MORNING * Quantity: 30 Refills: 5 Madeline Simms M.D. * Start 29-Apr-2013 Active Refresh Tears 0.5 % Ophthalmic Solution INSTILL 1 DROP INTO BOTH EYES 4 TIMES DAILY NEEDED * Quantity: 15 Refills: 1 Madeline Simms M.D. * Start 24-Jun-2013 Active Wellbutrin XL 300 MG Oral Tablet Extended Release 24 Hour take one tablet by mouth every day * Quantity: 30 Refills: 0 * Start Active Benztropine Mesylate 1 MG Oral Tablet Take 1 tablet twice daily * Refills: 0 Madeline Simms M.D. * Start 10-Dec-2014 Active Fluticasone Propionate 50 MCG/ACT Nasal Suspension USE 1 SPRAY IN EACH NOSTRIL ONCE DAILY. * Quantity: 16 Refills: 5 Lex John M.D. Start 15-Jan-2014 Active Belsomra 20 MG Oral [...] Todd M.D. Start Active 48 Lozenge Box Polyethylene Glycol 3350 Oral Powder MIX ONE CAPFUL IN 8OZ OF WATER AND TAKE TWO TIMES A DAY * Quantity: 527 Refills: 0 Nemesio Gonzalez M.D. Start 16-Nov-2015 Active HydrOXYzine HCl - 25 MG Oral Tablet TAKE 1-3 TABLETS BY MOUTH AT BEDTIME NEEDED * Quantity: 60 Refills: 5 Sourk M.D., Lex L * Start 18-Nov-2015 Active Methocarbamol 750 MG Oral Tablet TAKE ONE TABLET BY MOUTH TWICE DAILY NEEDED FOR MUSCLE SPASMS, Must last 90 days * Quantity: 180 Refills: 0 Simms M.D., Madeline * Start 02-Jun-2015 Active Losartan Potassium 100 MG Oral Tablet Take one tablet by mouth daily * Quantity: 30 Refills: 5 Simms M.D., Madeline * Start 26-Nov-2015 Active Diclofenac Sodium 75 MG Oral Tablet Delayed Release Take 1 tab bid with food * Quantity: 30 Refills: 0 Simms M.D., Madeline * Start 02-Dec-2015 Active ClonazePAM 1 MG Oral Tablet TAKE ONE TABLET BY MOUTH AT BEDTIME * Quantity: 30 Refills: 0 Sourk M.D., Lex Luna * Start 07-Dec-2015 Active Allergies [...] 07-Jan-2010 Influenza on: 22-Dec-2010 Influenza Lot #: [id number] on: 23-Jan-2012 Influenza on: 13-Jan-2013 PPD Lot #: [id number] on: Fluzone INJ Lot #: [id number] on: 02-Jan-2014 Fluzone Quadrivalent 0.5 ML Intramuscular Suspension Lot #: [id number] on: 25-Jan-2015 Tdap (Adacel) Lot #: [id number] on: 28-Jun-2015 Family History Name Dates Details [...] ; Position: Heart Rate 97 /min Status: Physical Findings 20 Status: Comments: Respiration 30-Nov-2015 [...] BP Diastolic 88 mm[Hg] Status: Comments: Location: E; Position: Sitting Temperature 97.5 f Status: Heart Rate 86 [...] >60 ml/min Range: >60 EST GFR, NON-AFR MAURITIAN >60 ml/min Range: >60 Comments: EST GFR is reported in ml/min per 1.73 m2 of body surface area. For -Indonesian, please multiple result by 1.2.----- GLUCOSE 112 [...] Schedule Radiology On 13-Dec-2015 15:00 Interventions Provided Medication Changes* ClonazePAM 1 MG Oral Tablet - Start Instructions Name [...] not documented On 17-Aug-2015 14:45 Appointment; Carolynn Arellnao DPM Encounter Diagnosis: Problem not documented On [...]
[2016-07-28] MEDS ORDERED: GABA-338 PO (23:12)
[2016-07-28] MEDS ORDERED: BENZ0.5T3 PO (23:12)
[2016-07-28] MEDS ORDERED: AMLO5TAB2 PO (23:12)
[2016-07-28] MEDS ORDERED: SERT100T PO (23:12)
[2016-07-28] MEDS ORDERED: LEVO5TAB13 PO (23:12)
[2016-07-28] MEDS ORDERED: CLON1TAB23 PO (23:12)
[2016-07-28] MEDS ORDERED: METO-275 PO (23:12)
[2016-07-28] MEDS ORDERED: LOSA100T44 PO (23:12)
[2016-07-28] MEDS ORDERED: APIX5TAB PO (23:12)
[2016-07-28] MEDS ORDERED: FLUT9.9S NAS (23:12)
[2016-07-28] MEDS ORDERED: LEVO50TA11 PO (23:12)
[2016-07-28] MEDS ORDERED: OMEP20CA10 PO (23:12)
[2016-07-28] MEDS ORDERED: DICL75TA5 PO (23:12)
[2016-07-28] MEDS ORDERED: QUET50TA PO (23:12)
[2016-07-28] MEDS ORDERED: PALI234D IM (23:12)
[2016-07-28] MEDS ORDERED: TEMA15CA PO (23:12)
--- OUTSIDE RECORDS SUMMARY | 2016-07-28 23:16 | XMS REPORT ---
Author Author GENERATED, SYSTEM Organization Unknown Address Unknown Phone Unavailable Care Team Providers Care Slitter Helper Name Role Phone MD DAVIDA, MAXWELL PP [phone] Reason For Visit Chief Complaint SPIDER BITE [...]
--- OUTSIDE RECORDS SUMMARY | 2016-07-28 23:16 | XMS REPORT ---
Author Author GENERATED, SYSTEM Organization Unknown Address Unknown Phone Unavailable Care Team Providers Care Call Center Associate Name Role Phone MD DAVIDA, MAXWELL [phone] Reason For Visit Reason for Visit from [...] 1:57 PM:* #1 Office appointment: : Dr. Varner * #1 Date/Time : 07/17/2016 11:15 AM * Address # 1 : [facility]: [address], [place]- [phone] or Treatment Plan from 07/06/2016 9:30 AM:* [...] 01/25/2016 10:23 AM * Completed Procedure Code: [id number] Procedure Name: not valued, on 01/25/2016 12:00 AM * Completed Procedure Code: 54357 Procedure Name: not valued, on 01/25/2016 12: [...] the responsibility of the patient or patient account services representative to confirm the list of medications [...]
--- OUTSIDE RECORDS SUMMARY | 2016-07-28 23:16 | XMS REPORT ---
Author Author GENERATED, SYSTEM Organization Unknown Address Unknown Phone Unavailable Care Team Providers Care Government Affairs Researcher Name Role Phone MD DAVIDA, MAXWELL [phone] Reason For Visit Reason for Visit from [...] 8:45 AM * Address # 1 : [facility]: [address] [place]- or Procedures * Completed left knee arthroscopy, [...]
--- OUTSIDE RECORDS SUMMARY | 2016-07-28 23:26 | XMS REPORT ---
Author Author GENERATED, SYSTEM Organization Unknown Address Unknown Phone Unavailable Care Team Providers Care Mall Plant Caretaker Name Role Phone MD DAVIDA, MAXWELL [phone] Reason For Visit Chief Complaint BACK PAIN [...] 01/25/2016 10:23 AM * Completed Procedure Code: [id number] Procedure Name: not valued, on 01/25/2016 12:00 AM * Completed Procedure Code: 29213 Procedure Name: not valued, on 01/25/2016 12: 00 AM Immunizations No immunizations administered or ordered. Hospital Course Hospital Discharge Instructions Allergies, Adverse Reactions, Alerts * Latex Allergy has not been assessed. * IV Contrast Allergy has not been assessed. * No Known Drug Allergies. Medication Medication reconciliation has not been performed.
--- OUTSIDE RECORDS SUMMARY | 2016-07-28 23:28 | XMS REPORT ---
Author Author GENERATED, SYSTEM Organization Unknown Address Unknown Phone Unavailable Care Team Providers Care Spark Plug Assembler Name Role Phone MD DAVIDA, MAXWELL [phone] Reason For Visit Chief Complaint ACUTE LLE [...] 01/25/2016 10:23 AM * Completed Procedure Code: [id number] Procedure Name: not valued, on 01/25/2016 12:00 AM * Completed Procedure Code: 41535 Procedure Name: not valued, on 01/25/2016 12: 00 AM Immunizations No immunizations administered or ordered. Hospital Course Hospital Discharge Instructions Allergies, Adverse Reactions, Alerts * Latex Allergy has not been assessed. * IV Contrast Allergy has not been assessed. * No Known Drug Allergies. Medication Medication reconciliation has not been performed.
--- OUTSIDE RECORDS SUMMARY | 2016-07-28 23:33 | XMS REPORT ---
Author Author GENERATED, SYSTEM Organization Unknown Address Unknown Phone Unavailable Care Team Providers Care Corporate Driver Name Role Phone MD DAVIDA, MAXWELL [phone] Reason For Visit Chief Complaint LEG AND [...] minimally invasive decompressive laminectomy, by MD VERA NEWTON, on 07/05/2016 4:30 PM * Completed Procedure Code: [id number] Procedure Name: not valued, on 07/05/2016 12 :00 AM * Completed Procedure Code: 21290 Procedure Name: not valued, on 07/05/2016 12: 00 AM * Completed left knee arthroscopy, partial medial meniscectomy, chondroplasty trochanter, partial synovectomty, Left, by MD KHADIJAH COE, on 01/25/2016 10:23 AM * Completed Procedure Code: [id number] Procedure Name: not valued, on 01/25/2016 12:00 AM * Completed Procedure Code: 35313 Procedure Name: not valued, on 01/25/2016 12: 00 AM Immunizations No immunizations administered or ordered. Hospital Course Hospital Discharge Instructions Allergies, Adverse Reactions, Alerts This section is route service representative of the current allergy information, at [...]
--- OUTSIDE RECORDS SUMMARY | 2016-07-28 23:35 | XMS REPORT ---
Author Author GENERATED, SYSTEM Organization Unknown Address Unknown Phone Unavailable Care Team Providers Care Gasket Notcher Name Role Phone MD DAVIDA, MAXWELL PP [phone] Reason For Visit Chief Complaint RT SIDE [...] H (65-99 MG/DL) *GFR EST NON AFR CITIZEN OF [place] 81 ML/MIN *GFR EST AFR AMER >90 [...]
--- OUTSIDE RECORDS SUMMARY | 2016-07-28 23:38 | XMS REPORT | Continuity of Care Document ---
Author Author [employer] Organization [facility] [employer] [facility] [employer] Address Unknown Phone Unavailable Allergies Active Description [...] Bonilla 295.70 Schizoaffective Disorder 06/07/2016 GURWINDER HARTMAN B75159 Nicotine dependence, chewing tobacco, uncomplicated 06/07/2016 GURWINDER HARTMAN F209 Schizophrenia, unspecified 06/07/2016 GURWINDER HARTMAN F319 Bipolar disorder, unspecified 06/07/2016 GURWINDER HARTMAN I10 Essential (primary) hypertension 06/07/2016 GURWINDER HARTMAN K219 Gastro-esophageal reflux disease without esophagitis 06/07/2016 GURWINDER HARTMAN J26939 Pain in left hip 06/07/2016 GURWINDER HARTMAN M5417 Radiculopathy, lumbosacral region 06/07/2016 GURWINDER HARTMAN U27076 Other longterm (current) drug therapy 06/23/2016 KATHERINE ALEMAN Z63444 Nicotine dependence, chewing tobacco, uncomplicated 06/23/2016 KATHERINE ALEMAN M545 Low back pain 06/23/2016 KATHERINE ALEMAN M549 Dorsalgia, unspecified 06/23/2016 KATHERINE ALEMAN X64347 Pain in right leg Procedures Code Description [place] [address] 06/03/2016 43771 06/17/2016 Results Encounters ACCT No. Visit Date/Time Discharge Status Pt. Type Provider Facility Loc./Unit Complaint [id number] 09/26/2004 00:00:00 09/26/2004 23: 59:59 [facility] Outpatient BHARATH PSYCHOLOGIST, PHD, SAMUEL
== END 2016-07-28 22:55 | disposition home or self-care (01) ==
LOC: ED 22:21
DX: M79.605 Pain in left leg (principal); M79.604 Pain in right leg